=== PATIENT | male | born 1930 | race Caucasian/White ===

== ENCOUNTER 2018-01-22 07:17 | Inpatient (IN) | payer OTHER ==
[~2018-01-22] VITALS: Ht 182.9 cm; Wt 73.8 kg
--- NOTE | 2018-01-22 07:57 | ED CARDIAC/CP/PALPITATIONS ---
History of Present Illness General Chief Complaint: Chest Pain Stated Complaint: CHEST PAIN Source: patient, family Exam Limitations: no limitations Vital Signs & Intake/Output Vital Signs & Intake/Output Vital Signs Date Time Temp Pulse Resp B/P B/P Pulse O2 O2 Flow FiO2 Mean Ox Delivery Rate 01/22 0949 97.7 55 16 174/80 98 Room Air 01/22 0855 56 20 150/80 100 Room Air 01/22 0829 60 20 160/80 100 Room Air 01/22 0753 70 18 198/96 99 Room Air 01/22 0731 98.5 60 18 211/99 99 Room Air Allergies Coded Allergies: NO KNOWN ALLERGIES (09/26/11) Reconcile Medications No Known Home Medications Triage Note: C/O CHEST TIGHTNESS X 2 HOURS, STATES HE GOT UP TO GO TO THE BATHROOM AND FELT DIZZY WITH CHEST PRESSURE. DENIES SOB OR [place]. ALERT, EKG DONE ON ARRIVAL. Triage Nurses Notes Reviewed? yes HPI: Patient is an 87-year-old male who claims no past medical history whatsoever and who takes no daily medications including no aspirin, and who denies family history of heart disease, who presents today with chest pain. He reports that he woke up to urinate earlier this morning and noticed a pressure across his anterior chest. He cannot find a position of comfort when he tried to go back to sleep, and progressed to develop pain to the left neck, jaw, shoulder, and down the left arm. He reported some dyspnea with his pain, but denied nausea or diaphoresis. At arrival, the patient continued to have active chest pressure in his triage vital signs were significant for systolic blood pressure greater than 200 and he denies history of hypertension previously, and reports that he was recently at his PCPs office for constipation and no mention was made of abnormal blood pressure at that time. Past History Travel History Traveled to [place] past 21 day No Medical History Any Pertinent Medical History? none Neurological: NONE EENT: NONE Cardiovascular: NONE Respiratory: NONE Gastrointestinal: NONE Hepatic: NONE Renal: NONE Musculoskeletal: NONE Psychiatric: NONE Endocrine: NONE Tetanus Vaccine: 08/13/12 Surgical History Surgical History: none Psychosocial History Who do you live with Spouse Services at Home None What is your primary language Belarusian Tobacco Use: Never used ETOH Use: denies use Family History Hx Contributory? No Review of Systems Review of Systems Constitutional: Reports: see HPI. EENTM: Reports: no symptoms. Respiratory: Reports: see HPI, short of breath. Denies: cough, wheezing. Cardiovascular: Reports: see HPI, chest pain. Denies: palpitations, peripheral edema, syncope. GI: Reports: no symptoms. Genitourinary: Reports: no symptoms. Musculoskeletal: Reports: no symptoms. Skin: Reports: no symptoms. Neurological/Psychological: Reports: no symptoms. Hematologic/Endocrine: Reports: no symptoms. Immunologic/Allergic: Reports: no symptoms. All Other Systems: Reviewed and Negative Physical Exam Physical Exam Cardiovascular: regular rate/rhythm Comments: HEENT: Inspection of the head reveals a normocephalic cranium with no signs of trauma. Ophtho: Extraocular muscles are intact and pupils are equal and reactive to light bilaterally with no afferent pupillary defect. The sclera are noninjected , and there is no obvious discharge. Neck: The trachea is midline, there is no obvious asymmetry or mass over the thyroid, and there is no midline cervical spine tenderness Respiratory: Bibasilar crackles to the mid lung rojas, mild. Non-hypoxic.. The patient exhibits no signs of labored breathing. Cardiac: Markedly hypertensive. Regular rhythm and non-tachycardic without appreciable murmurs on auscultation. No obvious JVD. GI: Examination of the abdomen reveals no significant focal tenderness in any of the four quadrants. There is negative Barakat's sign, negative McBurney's point tenderness, negative Chualar sign, negative Diaz-Carmona sign, and no signs of peritonitis whatsoever on percussion or deep palpation. The skin is intact with no sign of trauma or infection. : Deferred Neuro: The patient is oriented to person, place, time, and situation, with no obvious focal motor deficits. There were no sensory deficits, and the patient exhibit purposeful movement of all 4 extremities. Cranial nerves II through XII are intact, and gait is normal. Behavioral: Calm and cooperative Dermatologic: Dermatologic examination reveals no diffuse rashes or exanthems, no petechiae, no ecchymoses, and no other signs of erythema or infection. Core Measures ACS in differential dx? Yes CVA/TIA Diagnosis No Sepsis Present: No Sepsis Focused Exam Completed? No Progress Differential Diagnosis: AMI, aortic dissection, atrial fibrillation, CHF/pulm edema, costochondritis, myocarditis, pneumonia, pulmonary embolism, unstable angina Plan of Care: Orders Procedure Date/time Status Heart Healthy Diet 01/22 L Active ED Holding Orders 01/22 1031 Active Admit to inpatient 01/22 1031 Active Code Status 01/22 1031 Active TROPONIN LEVEL 01/22 0750 Complete COMPREHENSIVE METABOLIC PANEL 01/22 0750 Complete CBC WITHOUT DIFFERENTIAL 01/22 0750 Complete B-TYPE NATRIURETIC PEP (BNP) 01/22 0750 Complete EKG 01/22 0717 Active Current Medications Sig/Angeles Start time Last Medication Dose Stop Time Status Admin Nitroglycerin 0.4 MG Q 5 MINUTES X 3 DO.. 01/22 0800 AC 01/22 (Nitrostat) 0837 Laboratory Tests 01/22/18 0834: Anion Gap 10, Estimated GFR 57 L, BUN/Creatinine Ratio 14.2, Glucose 114 H, Calcium 8.8, Total Bilirubin 0.8, AST 60 H, ALT 81 H, Alkaline Phosphatase 141 H, Troponin I 0.04, Lvq-X-Vobheyigxdo Pept 361 H, Total Protein 7.0, Albumin 3.8, Globulin 3.2, Albumin/Globulin Ratio 1.2 01/22/18 0801: CBC w Diff NO MAN DIFF REQ, RBC 5.31, MCV 92.8, MCH 31.5 H, MCHC 34.0, RDW 13.1 , MPV 8.7, Gran % 49.2, Lymphocytes % 41.6, Monocytes % 6.6, Eosinophils % 1.8, Basophils % 0.8, Absolute Granulocytes 2.9, Absolute Lymphocytes 2.4, Absolute Monocytes 0.4, Absolute Eosinophils 0.1, Absolute Basophils 0 Initial ED EKG: Initial ECG performed at 729 hours, read at 733 hours, ate of 65 , normal sinus rhythm, normal axis, KS, QRS, and QTc intervals normal, ST depression exists in V3 through V6, greater than 1 mm in V4 and V5. No ST segment elevationsin those leads, but significant concern for ischemia. 0.[address] segment elevation in aVR not contiguous with any other leads. No STEMI at present, but significant concern for active ischemia. ST depressions are new as compared to 12/29/2012 ECG. Comments: Patient presented for chest pain concerning for acute coronary syndrome. His blood pressure was greater than 200 systolic arrival, which reportedly has not been the case over the past several weeks given and he saw his PCP and no mention was made of it. Today, he woke up with chest pressure radiating to his neck, jaw, and left shoulder and then down his arm. Troponin was negative, and chest x-ray was clear. I did hear some crackles so I obtained a BNP but this was also within normal limits for his age. Patient had no significant improvement with 3 dosages of nitroglycerin. After that he refused further dosages but did accept a dosage of morphine which was somewhat helpful. Hospitalized to telemetry for further workup. Departure Departure Time of Disposition: 1031 Disposition: HOME OR SELF CARE Condition: Stable Clinical Impression Primary Impression: Acute coronary syndrome Referrals: Tal PARDO,Servando Granda (PCP/Family) Departure Forms: Customer Survey General Discharge Information Prescriptions: Current Visit Scripts No Known Home Medications Admission Note Spoke With: Delon PARDO,[facility] Documentation of Exam: Documentation of any treatments & extenuating circumstances including Concerns Regarding Discharge (functional status, medication knowledge or non-compliance, living conditions, etc.) that warrant an admission rather than observation: Patient presented with chest pain which was unresolved with nitroglycerin. Troponin normal, but I feel that this patient is at high risk for progression of possible acute coronary syndrome. Furthermore, he has hypertension which was initially greater than 200 mmHg. This poses an acceptable risk of hypertensive emergency and discharge would be unsafe. Hospitalized for further definitive care. Critical Care Note Critical Care Note Critical Care Time: non-applicable
[2018-01-22 08:16] LABS: ABSOLUTE BASOPHIL COUNT 0 /CUMM (0.0-0.2); ABSOLUTE EOSINOPHIL COUNT 0.1 /CUMM (0.0-0.7); ABSOLUTE GRANULOCYTE CT 2.9 /CUMM (1.4-6.5); ABSOLUTE LYMPH COUNT 2.4 /CUMM (1.2-3.4); ABSOLUTE MONOCYTE COUNT 0.4 /CUMM (0.10-0.60); BASOPHIL % 0.8 % (0.0-2.0); EOSINOPHIL % 1.8 % (0-5); GRANULOCYTE % 49.2 % (42.2-75.2); HEMATOCRIT 49.3 % (42-52); MEAN CORPUSCULAR HGB 31.5 PG (27.0-31.0); MEAN CORPUSCULAR VOLUME 92.8 FL (80.0-94.0); MEAN PLATELET VOLUME 8.7 FL (7.4-10.4); PLATELET COUNT 149 /CUMM (130-400); RBC DISTRIBUTION WIDTH 13.1 % (11.5-14.5); RED BLOOD CELL CT 5.31 /CUMM (4.70-6.10); WHITE BLOOD CELL COUNT 5.8 /CUMM (4.8-10.8)
--- NOTE | 2018-01-22 08:39 | RADIOLOGY REPORT ---
EXAMINATION: XR CHEST CLINICAL INFORMATION: Chest pain COMPARISON: 12/29/2012 TECHNIQUE: 2 views of the chest were obtained. FINDINGS: Lungs are symmetrically expanded. Linear opacity of discoid atelectasis within the lingula. No pulmonary edema, focal consolidation, pleural effusion or pneumothorax. Cardiac silhouette is at the upper range of normal size. Thoracic aorta is tortuous. No acute skeletal abnormality. Chronic degenerative arthropathy of acromioclavicular joints. IMPRESSION: 1. Mild discoid atelectasis within the lingula. 2. Otherwise, no acute cardiopulmonary findings compared to 12/29/2012.
--- NOTE | 2018-01-22 12:12 | History & Physical ---
Julián Ortega 01/22/18 1212: General Information and HPI MD Statement: I have seen and personally examined ANTONIETA WHITTAKER and documented this H&P. The patient is a 87 year old M who presented with a patient stated chief complaint of [chest pain]. Source of Information: patient, family Exam Limitations: no limitations History of Present Illness: Mr. Whittaker is an 87 year old gentleman with a PMH of BPH. He presents to the ER with complaints of chest pain. He states his chest pain started 6am this morning after getting up to use the bathroom. The pain did not wake him up from sleep. The pain is described as heaviness, and radiates to the left shoulder and down the left arm. The pain is 7/10, and is persistent. The pain is a/w dizziness, no n/v, diaphoresis. No complaints of palpitations. He denies change in pain with breathing or movement. He denies any recent history of URTI symptoms. He is not a smoker or drinker, and denies a history of familial heart disease or sudden cardiac in his parents, siblings or 6 children. 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 He was given a full dose ASA in the ER. He was also given SL NTG w/o significant pain relief. His pain is ongoing. His PCP is Dr. Delarosa. Allergies/Medications Allergies: Coded Allergies: NO KNOWN ALLERGIES (09/26/11) Past History Travel History Traveled to [place] past 21 day No Medical History Neurological: NONE EENT: NONE Cardiovascular: NONE Respiratory: NONE Gastrointestinal: NONE Hepatic: NONE Renal: NONE Musculoskeletal: NONE Psychiatric: NONE Endocrine: NONE Tetanus Vaccine: 08/13/12 Surgical History Surgical History: none Past Family/Social History Psychosocial History Services at Home: None ETOH Use: denies use Review of Systems Review of Systems Constitutional: Reports: see HPI. Exam & Diagnostic Data Last 24 Hrs of Vital Signs/I&O Vital Signs Date Time Temp Pulse Resp B/P B/P Pulse O2 O2 Flow FiO2 Mean Ox Delivery Rate 01/22 1231 69 18 172/84 100 Room Air 01/22 1047 97.7 58 16 156/74 98 Room Air 01/22 0949 97.7 55 16 174/80 98 Room Air 01/22 0855 56 20 150/80 100 Room Air 01/22 0829 60 20 160/80 100 Room Air 01/22 0753 70 18 198/96 99 Room Air 01/22 0731 98.5 60 18 211/99 99 Room Air Intake & Output 01/22 1600 01/22 0800 01/22 0000 Intake Total 0 Output Total Balance 0 Intake, Oral 0 Patient 74.843 kg Weight Weight Reported by Patient Measurement Method Physical Exam General Appearance Alert, Oriented X3, Cooperative, No Acute Distress Skin No Rashes, No Significant Lesion HEENT Atraumatic, PERRLA, EOMI Neck Supple, No JVD, No carotid bruit appreciated. Cardiovascular S1S2 with S4 appreciated. No murmurs, rubs or gallops appreciated. , No interarm BP difference. 148/80 in the right, 150/78 in the right., Chest is not tender to palpation., Pulses are equal in the arms bilaterally., Patient is not in overt heart failure. Lungs Clear to Auscultation, Normal Air Movement Abdomen Soft, No Tenderness Extremities No Tenderness/Swelling Last 24 Hrs of Labs/Jay: Laboratory Tests 01/22/18 1237: Troponin I 0.60 *H 01/22/18 0834: Anion Gap 10, Estimated GFR 57 L, BUN/Creatinine Ratio 14.2, Glucose 114 H, Calcium 8.8, Total Bilirubin 0.8, AST 60 H, ALT 81 H, Alkaline Phosphatase 141 H, Troponin I 0.04, Lkt-R-Hmewistvrnv Pept 361 H, Total Protein 7.0, Albumin 3.8, Globulin 3.2, Albumin/Globulin Ratio 1.2 01/22/18 0801: CBC w Diff NO MAN DIFF REQ, RBC 5.31, MCV 92.8, MCH 31.5 H, MCHC 34.0, RDW 13.1 , MPV 8.7, Gran % 49.2, Lymphocytes % 41.6, Monocytes % 6.6, Eosinophils % 1.8, Basophils % 0.8, Absolute Granulocytes 2.9, Absolute Lymphocytes 2.4, Absolute Monocytes 0.4, Absolute Eosinophils 0.1, Absolute Basophils 0 Diagnostic Data EKG Results NSR with normal axis. Inferolateral ST-depressions noted, 0.5-1mm, more pronounced in the precordial leads. Good R-R progression. CXR Results unremarkable Assessment/Plan Assessment: Mr. Whittaker is an 87 year old gentleman with a PMH of BPH. He presents to the ER with complaints of chest pain. His BP has been quite elevated in the ER. I spoke to him, his and son, who state he follows up with Dr. Delarosa routinely, and confirm he is not on any medications, although state he was recently started on BPH meds by Dr. Hairston, which he is not taking. His story/character of his pain is concerning for ACS, specially unstable angina with his first set of troponin negative. The second set is pending. He does have ischemic changes on ECG, anterolateral ST depression, and as he is hypertensive with S4, he may have a history of maksed hypertension, a risk factor for ACS. His interarm BP is unremarkable, and I do not think he is having dissection. Unstable angina vs NSTEMI (with 2nd trop pending): * ASA given in ER. * We will discuss with Cardiology, but plan to start IV heparin for AC and nitropaste for ongoing chest pain with goal of chest pain relief. Hold off on additional antiplatelet meds for now in case he has left main or triple vessel disease. * Continue ASA 81mg daily * Start high dose statin 80mg of atorvastatin. * Serial trops/ecg ordered - next one at 1900. * NPO at mightnight with plans to rsik stratify with exercise stress/nuclear echocardiogram and possibly coronary angiography. * If his BP remains high, we will start MEGAN-i followed by B-win, which will provide cardioprotective effects. NPO at midnight FULL code Pain pathway as ordered As Ranked By This Provider Problem List: 1. Acute coronary syndrome Core Measures/Misc (05/19) Acute Coronary Syndrome ACS Diagnosis: Yes Congestive Heart Failure Congestive Heart Failure Diagnosis No Cerebrovascular Accident CVA/TIA Diagnosis: No VTE (View Protocol) VTE Risk Factors Age>40 No Mechanical VTE Prophylaxis d/t Early Ambulation No VTE Pharm Prophylaxis d/t NA PharmProphylax ordered Sepsis (View protocol) Sepsis Present: No If YES complete Sepsis Event Note If YES complete Sepsis Event Note Eddie Sultana 01/22/18 1514: General Information and HPI Allergies/Medications Home Med list Aspirin (Adult Aspirin Regimen) 81 MG TABLET. 1 TAB PO DAILY HEART Atorvastatin Calcium 80 MG TABLET 80 MG PO DAILY HEART Finasteride 5 MG TABLET 1 TAB PO DAILY BPH (Reported) Heparin Sod,Porcine/0.9 % NaCl (Heparin 25,000 Unit/500 Ml-Ns) 25,000 UNIT/500 ML (50 UNIT/ML) IV.SOLN 1 U IV SEE ADMIN CRITERIA ACS TITRATE PER ACS PROTOCOL Metoprolol Tartrate 25 MG TABLET 25 MG PO BID [facility] Morphine Sulfate 4 MG/ML VIAL 2 MG IV Q4P PRN PAIN SCALE 7-10 (SEVERE) Nitroglycerin/D5w (Ntg 25 MG/250 Ml in D5w) 25 MG/250 ML (0.1 MG/ML) INFUS..BTL 95 MCG IV Q1H CHEST PAIN Tamsulosin HCl 0.4 MG CAP.ER.24H 1 CAP PO DAILY BPH (Reported) Core Measures/Misc (05/19) Sepsis (View protocol) If YES complete Sepsis Event Note If YES complete Sepsis Event Note Attending MD Review Statement Attending Statement Attending MD Statement: examined this patient, discuss w/resident/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 Chest pain is 7/10 and is pressure like with radiation to lt shoulder, neck and jaw. Not relevied by meds in ER. At present his cp is still 7/10 and EKG reviewed showed new ST-T changes suggestive of ischemia which is new. His second trop turned positive at 0.60 NSTEMI- plan to admit to tele. start on iv heparin drip. cont asa, nitro paste , cardio consult. Repeat troponins. Given his typical chest pain and postive trop we will d/w cardio about possible cardiac cath. d/w pt and pts at bedside the care plan.
[2018-01-22] MEDS ORDERED: TAMSULOSIN HCL0.4 M1 PO (12:33)
[2018-01-22] MEDS ORDERED: FINASTERIDE5 M1 PO (12:33)
--- NOTE | 2018-01-22 13:24 | Admission Certification ---
Admission Certification Certification Statement - As attending physician, I certify that at the time of - admission, based on clinical presentation, severity of - symptoms, need for further diagnostic testing and - therapeutic interventions, and risk of adverse outcomes - without in-hospital treatment, in my clinical assessment, - this patient requires an acute hospital stay for a minimum - of two nights or longer. I have also considered psychsocial - factors such as support system, advanced age, financial - issues, cognitive issues, and failed out-patient treatments, - past re-admission history, safety of patient, and lack of - compliance as applicable. Specific rationale supporting this admission is: typical chest pain
[2018-01-22 15:00] VITALS: BP 174/82
--- NOTE | 2018-01-22 16:39 | Event Note ---
Event Note Event Note: Upon reassessment of the patient, his chest pain is slightly improved, but persistent, 6/10 same character as before. He remains hypertensive. Plan to d/ c nitro-paste and start IV NTG drip with goal of chest pain relief with holding parameters for hypotension (sBP <90). Discussed with Cardiology. Plan remains to keep him NPO for possible coronary angiogram tomorrow. Plan to continue serial trops/ECG looking for dynamic ECG changes.
[2018-01-22 20:02] LABS: PTT 51 SEC (25-37)
[2018-01-23] VITALS: BP 130/70
--- NOTE | 2018-01-23 01:20 | Discharge Summary ---
Visit Information Visit Dates Admission Date: 01/22/18 Discharge Date: 01/23/18 Hospital Course Course Attending Physician: Delon PARDO,Pete Primary Care Physician: Tal PARDO,Servando rGanda Consulting Request: Consulting Specialty: Cardiology Consulting Physician: Reason for Consult: Typical chest pain Hospital Course: Patient is an 87-year-old gentleman with no CAD history, no cardiac risk factors such as hypertension, hyperlipidemia, diabetes, smoking, or family history presented to [facility] with complaints of chest pain. Onset was yesterday early in the morning around 6 AM yesterday while getting up to use the bathroom. Patient described the chest pain as pressure-like with radiation to his left shoulder, neck and jaw. On presentation patient rated the pain as 7 out of 10. Associated symptoms included lightheadedness. Vitals on presentation: Heart rate 60, BP 211/99, O2 sats 99% on room air, temperature 98.5. Physical Exam General Appearance Alert, Oriented X3, Cooperative, No Acute Distress Skin No Rashes, No Significant Lesion HEENT Atraumatic, PERRLA, EOMI Neck Supple, No JVD, No carotid bruit appreciated. Cardiovascular S1S2 with S4 appreciated. No murmurs, rubs or gallops appreciated. , No interarm BP difference. 148/80 in the right, 150/78 in the right., Chest is not tender to palpation., Pulses are equal in the arms bilaterally., Patient is not in overt heart failure. Lungs Clear to Auscultation, Normal Air Movement Abdomen Soft, No Tenderness Extremities No Tenderness/Swelling VS at admission T 97.7, HR 56, BP 150/80mmHg, saturating well 2L of oxygen Intial Labs White count 5.8, H&H 16/49, platelet count 149. chem potassium 4.7. initial troponin 0.04. 01/23/2018 labs White count 9.8, H&H 13/40, platelet count 161. Chem Panel sodium 140, potassium 4.0, chloride 103, bicarb 29, anion gap 9, BUN/creatinine 14/1.2, GFR 57. Troponin Trend 0.04 --> 0.60 --> 23 --> 22 EKG 01/22/18 at 8am - sinus rhythm with no R wave in V1 remarkable for ST flattening/depression in I, aVL, V3 to V6. EKG at 01/22/18 at 7pm - sinus rhythm with ST changes similar to previous EKG. R wave present in V1 and persisted for the rest of serial EKGs. Hospital course: Patient was started on aspirin, heparin drip per ACS protocol, atorvastatin 80 mg and nitroglycerin paste (after receiving nitroglycerin sublingual tablets 3) . His chest pain continued to be refractory and persistent despite that Nitropaste. A decision was made to start nitroglycerin drip and patient was transferred to ICU. Overnight, patient was maintained on the nitroglycerin drip rate at 85 mcg/hr. His systolic blood pressure averaged around 110 and HR around mid 70s. Repeat Troponins overnight trended up 4.19-->23.5-->22.3 without acute changes in EKG and he denies any chest pain. This morning he reports mild chest pressure, otherwise no symptoms of shortness of breath. ECHO done on 01/22/18 - Severe hypokinesis to akinesis of posterior wall with EF of 55-60%, mild LVH. Clinical presentation is consistent with posterior myocardial infarction and patient continues to have chest pressure. He is currently on IV heparin, IV nitroglycerin at the rate of 95 mcg/h and restarted on metoprolol 25 twice daily , addition to aspirin and atorvastatin. A decision was made to transfer the patient for emergent cardiac catheterization with Dr. Yahir john. Currently hemodynamically stable. Family members are extensively involved in care, and informed about benefits and risks of the procedure. Home medications include tamsulosin and finasteride for BPH - on hold for now. Full code. Complications: Acute posterior infarction requring transfer for emergent Cath Allergies: Coded Allergies: NO KNOWN ALLERGIES (09/26/11) Significant Procedures: CXR IMPRESSION: 1. Mild discoid atelectasis within the lingula. 2. Otherwise, no acute cardiopulmonary findings compared to 12/29/2012. ECHO 01/23/18 CONCLUSIONS Normal overall left ventricular systolic function with mild LVH. Severe hypokinesia to akinesia of he posterior wall. No significant valvular abnormalities. Ankit Aguirre M.D. (Electronically Signed) Final Date: 23 Jan 2018 08:29 MEASUREMENTS (Male / Female) Normal Values 2D ECHO LV Diastolic Diameter PLAX 3.7 cm 4.2 - 5.9 / 3.9 - 5.3 cm LV Systolic Diameter PLAX 1.8 cm 2.1 - 4.0 cm LV Fractional Shortening PLAX 51.4 % 25 - 46 % LV Ejection Fraction 2D Teich 83.3 % IVS Diastolic Thickness 1.2 cm LVPW Diastolic Thickness 1.2 cm LV Relative Wall Thickness 0.6 RV Internal Dim ED PLAX 2.1 cm 1.9 - 3.8 cm LVOT Diameter 2.4 cm Aortic Root Diameter 3.2 cm LA Systolic Diameter LX 3.6 cm 3.0 - 4.0 / 2.7 - 3.8 cm LA Volume 30.0 cm 18 - 58 / 22 - 52 cm Ascending Aorta Diameter 3.2 cm DOPPLER AV Peak Velocity 99.2 cm/s AV Peak Gradient 3.9 mmHg AV Mean Velocity 71.7 cm/s AV Mean Gradient 2.0 mmHg AV Velocity Time Integral 21.4 cm LVOT Peak Velocity 85.0 cm/s LVOT Peak Gradient 2.9 mmHg LVOT Mean Velocity 59.5 cm/s LVOT Mean Gradient 2.0 mmHg LVOT Velocity Time Integral 16.4 cm LVOT Stroke Volume 74.2 cm AV Area Cont Eq vti 3.5 cm AV Area Cont Eq pk 3.9 cm MV Peak Velocity 112.0 cm/s MV Peak Gradient 5.0 mmHg MV Mean Velocity 54.0 cm/s MV Mean Gradient 1.0 mmHg Mitral E Point Velocity 44.4 cm/s Mitral A Point Velocity 93.3 cm/s Mitral E to A Ratio 0.5 MV PHT Velocity 64.0 cm/s MV Deceleration Millard 205.0 cm/s MV Pressure Half Time 93.7 ms MV Area PHT 2.3 cm MV Deceleration Time 346.0 ms PV Peak Velocity 105.0 cm/s PV Peak Gradient 4.4 mmHg PV Mean Velocity 75.0 cm/s PV Mean Gradient 3.0 mmHg PV Velocity Time Integral 18.8 cm LV E' Lateral Velocity 4.1 cm/s Mitral E to LV E' Lateral Ratio 10.8 LV E' Septal Velocity 5.5 cm/s Mitral E to LV E' Septal Ratio 8.1 Pertinent Lab Results: as above Disposition Summary Disposition Principal Diagnosis: Posterior Type I Myocardial Infarction Additional Diagnosis: Elevated Blood Pressure BPH Nephrectomy Discharge Disposition: other general hospital Discharge Instructions General Discharge Information Code Status: Full Code Patient's Diet: heart healthy Patient's Activity: As tolerated Follow-Up Instructions/Appts: Transferred for cath Medications at Discharge Discharge Medications: Continue taking these medications: Tamsulosin HCl (Tamsulosin HCl) 0.4 MG CAP.ER.24H 1 Capsule ORAL DAILY Qty = 90 Finasteride (Finasteride) 5 MG TABLET 1 Tablet ORAL DAILY Qty = 90 Start taking the following new medications: Nitroglycerin/D5w (Ntg 25 MG/250 Ml in D5w) 25 MG/250 ML (0.1 MG/ML) INFUS..BTL 95 Microgram INTRAVEN Q1H Qty = 250 No Refills Atorvastatin Calcium (Atorvastatin Calcium) 80 MG TABLET 80 Milligram ORAL DAILY Qty = 30 No Refills Morphine Sulfate (Morphine Sulfate) 4 MG/ML VIAL 2 Milligram INTRAVEN EVERY 4 HOURS NEEDED as needed for PAIN SCALE 7-10 ( SEVERE) Qty = 30 No Refills Metoprolol Tartrate (Metoprolol Tartrate) 25 MG TABLET 25 Milligram ORAL TWICE DAILY Qty = 60 No Refills Heparin Sod,Porcine/0.9 % NaCl (Heparin 25,000 Unit/500 Ml-Ns) 25,000 UNIT/500 ML (50 UNIT/ML) IV.SOLN 1 Units INTRAVEN SEE INSTRUCTIONS Qty = 500 No Refills Instructions: TITRATE PER ACS PROTOCOL Aspirin (Adult Aspirin Regimen) 81 MG TABLET. 1 Tablet ORAL DAILY Qty = 30 No Refills Copies To: Tal PARDO,Servando Breen MD Review Statement Documenting Attending: Rd PARDO,Eddie Yang
[2018-01-23] MEDS ORDERED: ATORVASTATIN CA80 M1 PO (01:41)
[2018-01-23] MEDS ORDERED: NTG 25 MG/25 MG/250 IV ×2 (01:41→09:14)
[2018-01-23] MEDS ORDERED: [UNRECOGNIZED DRUG - CODE] IV (01:41)
[2018-01-23] MEDS ORDERED: MORPHINE SU4 MG/1 M2 IV (01:41)
[2018-01-23] MEDS ORDERED: ADULT ASPIRIN R81 MG PO (01:43)
--- NOTE | 2018-01-23 01:44 | Patient Discharge Instructions ---
Discharge Instructions General Discharge Information You were seen/treated for: chest pain leading to heart attack Special Instructions: You are being transfered for a catheter procedure to assess you heart arteries Activity Activity Self Limited: Yes Acute Coronary Syndrome Inclusion Criteria At DC or during hospital stay patient has or had the following: ACS DIAGNOSIS Yes Discharge Core Measures Meds if any: Prescribed or Continued at Discharge MEGAN/ARB if EF <40% No Aspirin Yes Beta-Ramesh Yes Statin Yes Meds if any: NOT Prescribed or Continued at Discharge No MEGAN/ARB d/t EF normal Congestive Heart Failure Inclusion Criteria At DC or during hospital stay patient has or had the following: CHF DIAGNOSIS No Discharge Core Measures Meds if any: Prescribed or Continued at Discharge Meds if any: NOT Prescribed or Continued at Discharge Cerebrovascular accident Inclusion Criteria At DC or during hospital stay patient has or had the following: CVA/TIA Diagnosis No Discharge Core Measures Meds if any: Prescribed or Continued at Discharge Meds if any: NOT Prescribed or Continued at Discharge Venous thromboembolism Inclusion Criteria VTE Diagnosis No VTE Type NONE VTE Confirmed by (Test) NONE Discharge Core Measures - Per Current guidelines, there needs to be overlap - treatment for the first 5 days of Warfarin therapy. - If discharged on Warfarin prior to 5 days of - overlap therapy, the patient will need to be - assessed for post discharge needs including - *Post discharge parental anticoagulation - *Warfarin and/or parental anticoagulation education - *Follow up date to check INR post discharge At least 5 days overlap therapy as Inpatient No Meds if any: Prescribed or Continued at Discharge Note: Overlap Therapy is Warfarin and Anticoagulant Meds if any: NOT Prescribed or Continued at Discharge
[2018-01-23 03:00] LABS: PTT 79 SEC (25-37)
[2018-01-23 05:09] LABS: ABSOLUTE BASOPHIL COUNT 0 /CUMM (0.0-0.2); ABSOLUTE EOSINOPHIL COUNT 0 /CUMM (0.0-0.7); ABSOLUTE MONOCYTE COUNT 0.7 /CUMM (0.10-0.60); BASOPHIL % 0.2 % (0.0-2.0); EOSINOPHIL % 0.3 % (0-5); MEAN CORPUSCULAR HGB 31.6 PG (27.0-31.0); MEAN CORPUSCULAR HGB CONC 33.8 G/DL (33.0-37.0); MEAN CORPUSCULAR VOLUME 93.5 FL (80.0-94.0); MEAN PLATELET VOLUME 8.5 FL (7.4-10.4); PLATELET COUNT 161 /CUMM (130-400); RBC DISTRIBUTION WIDTH 12.7 % (11.5-14.5)
[2018-01-23 05:27] LABS: GRANULOCYTE % 81.6 % (42.2-75.2); HEMATOCRIT 40.2 % (42-52); WHITE BLOOD CELL COUNT 9.8 /CUMM (4.8-10.8)
[2018-01-23 08:00] VITALS: BP 120/66
--- NOTE | 2018-01-23 08:08 | Cons- Cardiology ---
General Information and HPI Consulting Request Date of Consult: 01/24/18 Requested By: Delon PARDO,Pete Reason for Consult: Acute myocardial infarction. Cardiac catheterization Source of Information: patient, old records Exam Limitations: patient's age History of Present Illness: Mr. Myers is an 87 year old gentleman with a PMH of BPH. He presents to the ER with complaints of chest pain. He states his chest pain started 6am this morning after getting up to use the bathroom. The pain did not wake him up from sleep. The pain is described as heaviness, and radiates to the left shoulder and down the left arm. The pain is 7/10, and is persistent. The pain is a/w dizziness, no n/v, diaphoresis. No complaints of palpitations. He denies change in pain with breathing or movement. He denies any recent history of URTI symptoms. He is not a smoker or drinker, and denies a history of familial heart disease or sudden cardiac in his parents, siblings or 6 children. 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 He was given a full dose ASA in the ER. He was also given SL NTG w/o significant pain relief. His pain is ongoing. The above history was obtained by the admitting resident. The patient was admitted with continuous chest heaviness and minimal to scant EKG changes. There was subtle ST depressions in the lateral leads. His chest discomfort mostly relieved itself around 4 AM this morning 01/23/2018. Serial troponins peaked at 22. Serial EKGs demonstrated some subtle ST depressions in the lateral leads whereas this morning he had a tall R-wave in V1 suggestive of a posterior infarct occurring and evvolving over this period of time. He still has some residual chest discomfort and I discussed with him having a cardiac catheterization which she is agreeable to. 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 Allergies/Medications Allergies: Coded Allergies: NO KNOWN ALLERGIES (09/26/11) Home Med List: Aspirin (Adult Aspirin Regimen) 81 MG TABLET.DR 1 TAB PO DAILY HEART Atorvastatin Calcium 80 MG TABLET 80 MG PO DAILY HEART Finasteride 5 MG TABLET 1 TAB PO DAILY BPH (Reported) Heparin Sod,Porcine/0.9 % NaCl (Heparin 25,000 Unit/500 Ml-Ns) 25,000 UNIT/500 ML (50 UNIT/ML) IV.SOLN 1 U IV SEE ADMIN CRITERIA ACS TITRATE PER ACS PROTOCOL Morphine Sulfate 4 MG/ML VIAL 2 MG IV Q4P PRN PAIN SCALE 7-10 (SEVERE) Nitroglycerin/D5w (Ntg 25 MG/250 Ml in D5w) 25 MG/250 ML (0.1 MG/ML) INFUS..BTL 85 MCG IV Q1H CHEST PAIN Tamsulosin HCl 0.4 MG CAP.ER.24H 1 CAP PO DAILY BPH (Reported) Current Medications: Current Medications Sig/Ang[place] Start time Last Medication Dose Route Stop Time Status Admin Acetaminophen 325 MG Q6P PRN 01/22 1330 AC PO Acetaminophen 650 MG Q6P PRN 01/22 1330 AC PO Aspirin 0 .STK-MED ONE 01/22 0812 DC PO Aspirin 325 MG ONCE ONE 01/22 0800 DC 01/22 PO 01/22 0801 0808 Atorvastatin Calcium 80 MG 1700 01/22 1700 AC 01/22 PO 1826 Enoxaparin Sodium 40 MG DAILY 01/23 0900 CAN SC Heparin Sodium 2,200 UNIT ONCE ONE 01/22 2115 DC 01/22 (Porcine) IV 01/23 2116 2030 Heparin Sodium 5,000 UNIT .STK-MED ONE 01/23 2036 DC (Porcine) IV 01/22 203 Heparin Sodium/ 25,000 UNIT Q24H 01/22 1330 AC 01/22 Dextrose IV 1357 Dextrose/Water 500 ML Morphine Sulfate 2 MG Q4P PRN 01/22 1330 AC IV Morphine Sulfate 4 MG ONCE ONE 01/22 1015 DC 01/22 IV 01/22 1016 1011 Morphine Sulfate 0 .STK-MED ONE 01/22 1014 DC .ROUTE Nitroglycerin 25 MG Q24H 01/22 1645 AC 01/23 Dextrose/Water 250 ML IV 0729 Nitroglycerin 0 .STK-MED ONE 01/22 1401 CAN TOP Nitroglycerin 0.5 GM Q6H 01/22 1326 [place] 01/22 TOP 1400 Nitroglycerin 0.4 MG Q 5 MINUTES X 3 DO.. 01/22 0800 DC 01/22 SL 0837 Omeprazole 20 MG DAILY AC 01/23 0615 AC 01/23 PO 0608 Review of Systems Review of Systems Constitutional: Reports: see HPI. EENTM: Denies: no symptoms. Cardiovascular: Reports: see HPI, chest pain. Respiratory: Denies: no symptoms. GI: Reports: no symptoms. Genitourinary: Denies: no symptoms. Musculoskeletal: Denies: no symptoms. Skin: Denies: no symptoms. Neurological/Psychological: Denies: no symptoms. Hematologic/Endocrine: Denies: no symptoms. Immunologic/Allergic: Denies: no symptoms. Past History Travel History Traveled to [place] past 21 day No Medical History Blood Transfusion Hx: No Neurological: NONE EENT: NONE Cardiovascular: NONE Respiratory: NONE Gastrointestinal: NONE Hepatic: NONE Renal: NONE Musculoskeletal: NONE Psychiatric: NONE Endocrine: NONE Surgical History Surgical History: NEPHRECTOMY Family History Relations & Conditions If Any: Relation not specified for: *No pertinent family history Psychosocial History Where Do You Live? Home Services at Home: None Smoking Status: Never Smoked ETOH Use: denies use Exam & Diagnostic Data Vital Signs and I&O Vital Signs Date Time Temp Pulse Resp B/P B/P Pulse O2 O2 Flow FiO2 Mean Ox Delivery Rate 01/23 0400 98 Nasal 3.0L Cannula 01/23 0000 95 Nasal 3.0L Cannula 01/23 0000 98.1 79 20 130/70 95 Nasal 3.0L Cannula 01/22 2000 95 Nasal 2.0L Cannula 01/22 1500 98.2 66 18 174/82 97 Room Air 01/22 1438 Room Air 01/22 1350 98.1 62 20 140/80 100 Room Air 01/22 1231 69 18 172/84 100 Room Air 01/22 1047 97.7 58 16 156/74 98 Room Air 01/22 0949 97.7 55 16 174/80 98 Room Air 01/22 0855 56 20 150/80 100 Room Air 01/22 0829 60 20 160/80 100 Room Air Intake & Output 01/23 0800 01/23 0000 01/22 1600 01/22 0800 01/22 0000 01/21 1600 Intake Total 534 360 0 Output Total 175 Balance 359 360 0 Intake, IV 534 360 Intake, Oral 0 Number 0 Bowel Movements Output, Urine 175 Patient 163 lb 160 lb 158 lb 165 lb Weight Weight Bed scale Bed scale Bed scale Reported by Patient Measurement Method Physical Exam: On general exam patient appeared comfortable although had some mild residual chest Heaviness Head normocephalic atraumatic Eyes sclera anicteric conjunctiva showed no pallor extraocular muscles were normal Neck no jugular venous distention no thyroid masses no palpable nodes Chest lungs were clear bilaterally Heart regular rhythm no murmurs S2 was physiologically split Abdomen soft no organomegaly bowel sounds normal Extremities no clubbing cyanosis or edema Neurological no gross motor or sensory deficits Labs/Jay Results: Laboratory Tests 01/23 01/23 01/23 0700 0430 0230 Chemistry Sodium (137 - 145 mmol/L) 140 Potassium (3.5 - 5.1 mmol/L) 4.0 Chloride (98 - 107 mmol/L) 103 Carbon Dioxide (22 - 30 mmol/L) 29 Anion Gap (5 - 16) 9 BUN (9 - 20 mg/dL) 14 Creatinine (0.7 - 1.2 mg/dL) 1.2 Estimated GFR (>60 ml/min) 57 L BUN/Creatinine Ratio (7 - 25 %) 11.7 Troponin I (<0.11 ng/ml) Cancelled 22.30 *H Triglycerides (<150 mg/dL) 93 Cholesterol (< 200 MG/DL) 110 LDL Cholesterol, Calc (65 - 129 mg/dL) 56 L HDL Cholesterol (40 - 60 mg/dL) 36 L Cholesterol/HDL Ratio (0.00 - 4.88 %) 3 Coagulation APTT (25 - 37 SEC) 79 H Hematology CBC w Diff NO MAN DIFF REQ WBC (4.8 - 10.8 /CUMM) 9.8 RBC (4.70 - 6.10 /CUMM) 4.30 L Hgb (14.0 - 18.0 G/DL) 13.6 L Hct (42 - 52 %) 40.2 L MCV (80.0 - 94.0 FL) 93.5 MCH (27.0 - 31.0 PG) 31.6 H MCHC (33.0 - 37.0 G/DL) 33.8 RDW (11.5 - 14.5 %) 12.7 Plt Count (130 - 400 /CUMM) 161 MPV (7.4 - 10.4 FL) 8.5 Gran % (42.2 - 75.2 %) 81.6 H Lymphocytes % (20.5 - 51.1 %) 10.5 L Monocytes % (1.7 - 9.3 %) 7.4 Eosinophils % (0 - 5 %) 0.3 Basophils % (0.0 - 2.0 %) 0.2 Absolute Granulocytes (1.4 - 6.5 /CUMM) 8.0 H Absolute Lymphocytes (1.2 - 3.4 /CUMM) 1.0 L Absolute Monocytes (0.10 - 0.60 /CUMM) 0.7 H Absolute Eosinophils (0.0 - 0.7 /CUMM) 0 Absolute Basophils (0.0 - 0.2 /CUMM) 0 01/23 01/22 01/22 01/22 0100 1903 1237 0834 Chemistry Sodium (137 - 145 mmol/L) 144 Potassium (3.5 - 5.1 mmol/L) 4.5 Chloride (98 - 107 mmol/L) 105 Carbon Dioxide (22 - 30 mmol/L) 29 Anion Gap (5 - 16) 10 BUN (9 - 20 mg/dL) 17 Creatinine (0.7 - 1.2 mg/dL) 1.2 Estimated GFR (>60 ml/min) 57 L BUN/Creatinine Ratio (7 - 25 %) 14.2 Glucose (65 - 99 mg/dL) 114 H Calcium (8.4 - 10.2 mg/dL) 8.8 Total Bilirubin (0.2 - 1.3 mg/dL) 0.8 AST (17 - 59 U/L) 60 H ALT (21 - 72 U/L) 81 H Alkaline Phosphatase (< 127 U/L) 141 H Troponin I (<0.11 ng/ml) 23.50 *H 4.19 *H 0.60 *H 0.04 [id number] Pept (<125 pg/mL) 361 H Total Protein (6.3 - 8.2 g/dL) 7.0 Albumin (3.5 - 5.0 g/dL) 3.8 Globulin (1.9 - 4.2 gm/dL) 3.2 Albumin/Globulin Ratio (1.1 - 2.2 %) 1.2 Coagulation APTT (25 - 37 SEC) 51 H 01/22 0801 Hematology CBC w Diff NO MAN DIFF REQ WBC (4.8 - 10.8 /CUMM) 5.8 RBC (4.70 - 6.10 /CUMM) 5.31 Hgb (14.0 - 18.0 G/DL) 16.8 Hct (42 - 52 %) 49.3 MCV (80.0 - 94.0 FL) 92.8 MCH (27.0 - 31.0 PG) 31.5 H MCHC (33.0 - 37.0 G/DL) 34.0 RDW (11.5 - 14.5 %) 13.1 Plt Count (130 - 400 /CUMM) 149 MPV (7.4 - 10.4 FL) 8.7 Gran % (42.2 - 75.2 %) 49.2 Lymphocytes % (20.5 - 51.1 %) 41.6 Monocytes % (1.7 - 9.3 %) 6.6 Eosinophils % (0 - 5 %) 1.8 Basophils % (0.0 - 2.0 %) 0.8 Absolute Granulocytes (1.4 - 6.5 /CUMM) 2.9 Absolute Lymphocytes (1.2 - 3.4 /CUMM) 2.4 Absolute Monocytes (0.10 - 0.60 /CUMM) 0.4 Absolute Eosinophils (0.0 - 0.7 /CUMM) 0.1 Absolute Basophils (0.0 - 0.2 /CUMM) 0 Diagnostic Data EKG Results Admission EKG on 01/22/2018 revealed sinus rhythm with mild ST depressions in the inferolateral leads V1 revealed no R-wave. Overnight his EKG latest revealed sinus rhythm with some PVCs slight left axis deviation and a tall R-wave in V1 indicative of a true posterior myocardial infarction CXR Results No acute abnormality Assessment/Plan Assessment/Plan In summary this 87-year-old gentleman was admitted with prolonged chest discomfort described as chest heaviness. Except for nephrectomy he has no other past medical history. He has not been treated for diabetes hypertension hyperlipidemia and is a non-smoker. 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 He is probably evolved a posterior myocardial infarction with continued residual chest discomfort. Hemodynamically has been stable. He is on IV heparin IV nitroglycerin and beta blockers were not initiated because of some bradycardia he was not put on dual antiplatelet agents in the suspicion that he could be a candidate for bypass surgery. I have suggested that he should have a cardiac catheterization and he will be prepared for transfer to [facility] this morning. Consult Acknowledgment - Thank you for your consult request.
--- NOTE | 2018-01-23 08:26 | Cons- CRCU ---
General Information and HPI Consulting Request Date of Consult: 01/23/18 Requested By: Reason for Consult: Ischemic chest pain requiring IV nitroglycerin drip Source of Information: patient, family, old records, EMS Exam Limitations: no limitations History of Present Illness: Mr. Myers is an 87 year old gentleman with a PMH of BPH, nephrectomy. He presents to the ER with complaints of chest pain. He states his chest pain started 6am this morning after getting up to use the bathroom. The pain did not wake him up from sleep. The pain is described as heaviness, and radiates to the left shoulder and down the left arm. The pain is 7/10, and is persistent. The pain is a/w dizziness, no n/v, diaphoresis. No complaints of palpitations. He denies change in pain with breathing or movement. He denies any recent history of URTI symptoms. He is not a smoker or drinker, and denies a history of familial heart disease or sudden cardiac in his parents, siblings or 6 children. 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 He was given a full dose ASA in the ER. He was also given SL NTG w/o significant pain relief. His pain is ongoing. His PCP is Dr. Delarosa. Allergies/Medications Allergies: Coded Allergies: NO KNOWN ALLERGIES (09/26/11) Home Med List: Aspirin (Adult Aspirin Regimen) 81 MG TABLET.DR 1 TAB PO DAILY HEART Atorvastatin Calcium 80 MG TABLET 80 MG PO DAILY HEART Finasteride 5 MG TABLET 1 TAB PO DAILY BPH (Reported) Heparin Sod,Porcine/0.9 % NaCl (Heparin 25,000 Unit/500 Ml-Ns) 25,000 UNIT/500 ML (50 UNIT/ML) IV.SOLN 1 U IV SEE ADMIN CRITERIA ACS TITRATE PER ACS PROTOCOL Metoprolol Tartrate 25 MG TABLET 25 MG PO BID [facility] Morphine Sulfate 4 MG/ML VIAL 2 MG IV Q4P PRN PAIN SCALE 7-10 (SEVERE) Nitroglycerin/D5w (Ntg 25 MG/250 Ml in D5w) 25 MG/250 ML (0.1 MG/ML) INFUS..BTL 95 MCG IV Q1H CHEST PAIN Tamsulosin HCl 0.4 MG CAP.ER.24H 1 CAP PO DAILY BPH (Reported) Current Medications: Current Medications Sig/Angeles Start time Last Medication Dose Route Stop Time Status Admin Acetaminophen 325 MG Q6P PRN 01/22 1330 DCD PO Acetaminophen 650 MG Q6P PRN 01/22 1330 DCD PO Atorvastatin Calcium 80 MG 1700 01/22 1700 DCD 01/22 PO 1826 Enoxaparin Sodium 40 MG DAILY 01/23 0900 CAN SC Heparin Sodium 2,200 UNIT ONCE ONE 01/22 2115 DC 01/22 (Porcine) IV 01/23 2116 2030 Heparin Sodium 5,000 UNIT .STK-MED ONE 01/23 2036 DC (Porcine) IV 01/22 2037 Heparin Sodium/ 25,000 UNIT Q24H 01/22 1330 DCD 01/22 Dextrose IV 1357 Dextrose/Water 500 ML Metoprolol Tartrate 25 MG BID 01/23 0900 DCD 01/23 PO 0902 Morphine Sulfate 2 MG Q4P PRN 01/22 1330 DCD IV Nitroglycerin 25 MG Q24H 01/22 1645 DCD 01/23 Dextrose/Water 250 ML IV 1208 Nitroglycerin 0 .STK-MED ONE 01/22 1401 CAN TOP Nitroglycerin 0.5 GM Q6H 01/22 1326 DC 01/22 TOP 1400 Nitroglycerin 0.4 MG Q 5 MINUTES X 3 DO.. 01/22 0800 DC 01/22 SL 0837 Omeprazole 20 MG DAILY AC 01/23 0615 DCD 01/23 PO 0608 Past History Travel History Traveled to [place] past 21 day No Medical History Blood Transfusion Hx: No Neurological: NONE EENT: NONE Cardiovascular: NONE Respiratory: NONE Gastrointestinal: NONE Hepatic: NONE Renal: NONE Musculoskeletal: NONE Psychiatric: NONE Endocrine: NONE Surgical History Surgical History: NEPHRECTOMY Family History Relations & Conditions If Any: Relation not specified for: *No pertinent family history Psychosocial History Where Do You Live? Home Services at Home: None Smoking Status: Never Smoked ETOH Use: denies use Exam & Diagnostic Data Last 24 Hrs of Vital Signs/I&O Vital Signs Date Time Temp Pulse Resp B/P B/P Pulse O2 O2 Flow FiO2 Mean Ox Delivery Rate 01/23 0400 98 Nasal 3.0L Cannula 01/23 0000 95 Nasal 3.0L Cannula 01/23 0000 98.1 79 20 130/70 95 Nasal 3.0L Cannula 01/22 2000 95 Nasal 2.0L Cannula 01/22 1500 98.2 66 18 174/82 97 Room Air 01/22 1438 Room Air 01/22 1350 98.1 62 20 140/80 100 Room Air 01/22 1231 69 18 172/84 100 Room Air 01/22 1047 97.7 58 16 156/74 98 Room Air 01/22 0949 97.7 55 16 174/80 98 Room Air 01/22 0855 56 20 150/80 100 Room Air 01/22 0829 60 20 160/80 100 Room Air Intake & Output 01/23 1600 01/23 0800 05 0000 Intake Total 534 360 Output Total 175 Balance 359 360 Intake, IV 534 360 Number 0 Bowel Movements Output, Urine 175 Patient 73.765 kg 72.575 kg Weight Weight Bed scale Bed scale Measurement Method Physical Exam General Appearance: well developed/nourished, no apparent distress, alert, awake , moderate distress Head: atraumatic, normal appearance Eyes: Bilateral: normal appearance, PERRL, EOMI. Ears, Nose, Throat: normal pharynx, normal ENT inspection Neck: normal inspection, supple, full range of motion Respiratory: normal breath sounds, chest non-tender, no respiratory distress, quiet respiration, lungs clear Cardiovascular: regular rate/rhythm, normal peripheral pulses, No mumurs Mild bradycardia at presentation - today HR 80 Peripheral Pulses: 2+ radial (R), 2+ radial (L) Gastrointestinal: normal bowel sounds, soft, non-tender, no organomegaly Last 48 Hrs of Labs/Jay: Laboratory Tests 01/23/18 0700: Troponin I Cancelled 01/23/18 0430: Anion Gap 9, Estimated GFR 57 L, BUN/Creatinine Ratio 11.7, Troponin I 22.30 *H , Triglycerides 93, Cholesterol 110, LDL Cholesterol, Calc 56 L, HDL Cholesterol 36 L, Cholesterol/HDL Ratio 3, CBC w Diff NO MAN DIFF REQ, RBC 4.30 L, MCV 93.5, MCH 31.6 H, MCHC 33.8, RDW 12.7, MPV 8.5, Gran % 81.6 H, Lymphocytes % 10.5 L, Monocytes % 7.4, Eosinophils % 0.3, Basophils % 0.2, Absolute Granulocytes 8.0 H, Absolute Lymphocytes 1.0 L, Absolute Monocytes 0.7 H, Absolute Eosinophils 0, Absolute Basophils 0 01/23/18 0230: APTT 79 H 01/23/18 0100: Troponin I 23.50 *H 01/22/18 1903: Troponin I 4.19 *H, APTT 51 H 01/22/18 1237: Troponin I 0.60 *H 01/22/18 0834: Anion Gap 10, Estimated GFR 57 L, BUN/Creatinine Ratio 14.2, Glucose 114 H, Calcium 8.8, Total Bilirubin 0.8, AST 60 H, ALT 81 H, Alkaline Phosphatase 141 H, Troponin I 0.04, [id number] Pept 361 H, Total Protein 7.0, Albumin 3.8, Globulin 3.2, Albumin/Globulin Ratio 1.2 01/22/18 0801: CBC w Diff NO MAN DIFF REQ, RBC 5.31, MCV 92.8, MCH 31.5 H, MCHC 34.0, RDW 13.1 , MPV 8.7, Gran % 49.2, Lymphocytes % 41.6, Monocytes % 6.6, Eosinophils % 1.8, Basophils % 0.8, Absolute Granulocytes 2.9, Absolute Lymphocytes 2.4, Absolute Monocytes 0.4, Absolute Eosinophils 0.1, Absolute Basophils 0 Diagnostic Data EKG Results EKG 01/22/18 at 8am - sinus rhythm with no R wave in V1 remarkable for ST flattening/depression in I, aVL, V3 to V6. EKG at 01/22/18 at 7pm - sinus rhythm with ST changes similar to previous EKG. R wave present in V1 and persisted for the rest of serial EKGs. CXR Results IMPRESSION: 1. Mild discoid atelectasis within the lingula. 2. Otherwise, no acute cardiopulmonary findings compared to 12/29/2012. Assessment/Plan CRCU Impression/Plan: Patient is an 87-year-old gentleman with no CAD history, no known cardiac risk factors (Non HTN, nonDiabetic, nonsmoker, no significant family history) presented to [place] ED with complaints of chest pain. Onset was yesterday early in the morning around 6 AM yesterday while getting up to use the bathroom. Patient described the chest pain as pressure-like with radiation to his left shoulder, neck and jaw. On presentation patient rated the pain as 7/10. Associated symptoms included lightheadedness. Vitals on presentation: Heart rate 60, BP 211/99, O2 sats 99% 2l, temperature 98.5. Physical Exam - AAO X 3, Neck Supple, No JVD, No carotid bruit appreciated. Cardiovascular S1S2 with S4 appreciated. No murmurs, rubs or gallops appreciated. No interarm BP difference. 148/80 in the right, 150/78 in the right., Chest is not tender to palpation, Lungs Clear to Auscultation, no edema. Intial Labs White count 5.8, H&H 16/49, platelet count 149. chem potassium 4.7. initial troponin 0.04. 01/23/2018 labs White count 9.8, H&H 13/40, platelet count 161. Chem Panel sodium 140, potassium 4.0, chloride 103, bicarb 29, anion gap 9, BUN/creatinine 14/1.2, GFR 57. Troponin Trend 0.04 --> 0.60 --> 23 --> 22 EKG 01/22/18 at 8am - sinus rhythm with no R wave in V1 remarkable for ST flattening/depression in I, aVL, V3 to V6. EKG at 01/22/18 at 7pm - sinus rhythm with ST changes similar to previous EKG. R wave present in V1 and persisted for the rest of serial EKGs. Problem list 1. Acute posterior myocardial infarction 2. BPH on finasteride/tamsulosin 3. Bradycardia at presentation - improved 4. Nephrectomy in the past. Acute posterior Myocardial Infarcation Patient was started on aspirin, heparin drip per ACS protocol, atorvastatin 80 mg and nitroglycerin paste (after receiving nitroglycerin sublingual tablets 3). Patient remained refractory to Nitropaste so transferred to ICU and started on IV nitroglycerine drip. Overnight, patient was maintained on the nitroglycerin drip rate at 85 mcg/hr. His systolic blood pressure averaged around 110 and HR around mid 70s. Repeat Troponins overnight trend 4.19-->23.5-->22.3 with appearence on R wave in V1 and he did have mild chest pain. This morning he reports mild chest pressure, otherwise no symptoms of shortness of breath. ECHO done on 01/23/18 - Severe hypokinesis to akinesis of posterior wall with EF of 55-60%, mild LVH. Given clinical presentation is consistent with posterior myocardial infarction and patient continues to have chest pressure. A decision was made to transfer to [facility] under Dr. Yahir Dumont service. Stared on metoprolol 25mg BID this morning, given HR 80's. He remained hemodynamically stable till the time of transfer. He was continued on IV Heparin /IV nitro at the time of transfer. Family members are extensively involved in care, and informed about benefits and risks of the procedure. Home medications include tamsulosin and finasteride for BPH - on hold for now. Full code. Recommendations: as above Problem List: 1. Acute coronary syndrome 2. Posterior NC Consult Acknowledgment - Thank you for your consult request.
--- NOTE | 2018-01-23 08:29 | ECHOCARDIOGRAM REPORT ---
ANTONIETA WHITTAKER Age: 87 : 1930 Gender: M Exam Date: 01/22/2018 19:11 Exam Location: [facility] Ht (in): 72 Wt (lb): 165 BSA: 1.95 BP: 174 / 82 Ordering Physician: Julián Ortega MD Referring Physician: Mohan Ash M.D. Technologist: Norma Bingham RDCS Room Number: 107 Indications: CHEST PAIN Rhythm: Sinus Technical Quality: fair FINDINGS Left Ventricle Normal size left ventricle. Left ventricular wall thickness mildly increased. Normal left ventricular ejection fraction estimated at 55-60%. Akinetic posterior wall. Right Ventricle Normal right ventricular size and function. Right Atrium Normal right atrial size. Left Atrium Normal left atrial size. Mitral Valve Mild mitral annular calcification. Trace to mild mitral regurgitation. Aortic Valve Diffuse thickening (sclerosis) of the aortic valve cusps without reduced excursion. Tricuspid Valve Tricuspid valve is normal in structure and function. Mild tricuspid regurgitation. Pulmonic Valve Pulmonic valve not well visualized, grossly normal. Pericardium No pericardial effusion. Great Vessels Normal size aortic root. CONCLUSIONS Normal overall left ventricular systolic function with mild LVH. Severe hypokinesia to akinesia of he posterior wall. No significant valvular abnormalities. Ankit Aguirre M.D. (Electronically Signed) Final Date: 23 Jan 2018 08:29 MEASUREMENTS (Male / Female) Normal Values 2D ECHO LV Diastolic Diameter PLAX 3.7 cm 4.2 - 5.9 / 3.9 - 5.3 cm LV Systolic Diameter PLAX 1.8 cm 2.1 - 4.0 cm LV Fractional Shortening PLAX 51.4 % 25 - 46 % LV Ejection Fraction 2D Teich 83.3 % IVS Diastolic Thickness 1.2 cm LVPW Diastolic Thickness 1.2 cm LV Relative Wall Thickness 0.6 RV Internal Dim ED PLAX 2.1 cm 1.9 - 3.8 cm LVOT Diameter 2.4 cm Aortic Root Diameter 3.2 cm LA Systolic Diameter LX 3.6 cm 3.0 - 4.0 / 2.7 - 3.8 cm LA Volume 30.0 cm 18 - 58 / 22 - 52 cm Ascending Aorta Diameter 3.2 cm DOPPLER AV Peak Velocity 99.2 cm/s AV Peak Gradient 3.9 mmHg AV Mean Velocity 71.7 cm/s AV Mean Gradient 2.0 mmHg AV Velocity Time Integral 21.4 cm LVOT Peak Velocity 85.0 cm/s LVOT Peak Gradient 2.9 mmHg LVOT Mean Velocity 59.5 cm/s LVOT Mean Gradient 2.0 mmHg LVOT Velocity Time Integral 16.4 cm LVOT Stroke Volume 74.2 cm AV Area Cont Eq vti 3.5 cm AV Area Cont Eq pk 3.9 cm MV Peak Velocity 112.0 cm/s MV Peak Gradient 5.0 mmHg MV Mean Velocity 54.0 cm/s MV Mean Gradient 1.0 mmHg Mitral E Point Velocity 44.4 cm/s Mitral A Point Velocity 93.3 cm/s Mitral E to A Ratio 0.5 MV PHT Velocity 64.0 cm/s MV Deceleration [place] 205.0 cm/s MV Pressure Half Time 93.7 ms MV Area PHT 2.3 cm MV Deceleration Time 346.0 ms PV Peak Velocity 105.0 cm/s PV Peak Gradient 4.4 mmHg PV Mean Velocity 75.0 cm/s PV Mean Gradient 3.0 mmHg PV Velocity Time Integral 18.8 cm LV E' Lateral Velocity 4.1 cm/s Mitral E to LV E' Lateral Ratio 10.8 LV E' Septal Velocity 5.5 cm/s Mitral E to LV E' Septal Ratio 8.1
[2018-01-23 09:02] VITALS: BP 117/58
[2018-01-23] MEDS ORDERED: METOPROLOL TART25 M1 PO (09:12)
--- NOTE | 2018-01-23 12:50 | Cons- CRCU ---
General Information and HPI Consulting Request Date of Consult: 01/23/18 Requested By: med team History of Present Illness: Seen in ICU Discussed with the pt and family History from admission Mr. Myers is an 87 year old gentleman with a PMH of BPH. He presents to the ER with complaints of chest pain. He states his chest pain started 6am this morning after getting up to use the bathroom. The pain did not wake him up from sleep. The pain is described as heaviness, and radiates to the left shoulder and down the left arm. The pain is 7/10, and is persistent. The pain is a/w dizziness, no n/v, diaphoresis. No complaints of palpitations. He denies change in pain with breathing or movement. He denies any recent history of URTI symptoms. He is not a smoker or drinker, and denies a history of familial heart disease or sudden cardiac in his parents, siblings or 6 children. 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 He was given a full dose ASA in the ER. He was also given SL NTG w/o significant pain relief. His pain has resolved by the time i saw him The patient was admitted with continuous chest heaviness and minimal to scant EKG changes. There was subtle ST depressions in the lateral leads. His chest discomfort mostly relieved itself around 4 AM this morning 01/23/2018. Serial troponins peaked at 22. Serial EKGs demonstrated some subtle ST depressions in the lateral leads whereas this morning he had a tall R-wave in V1 suggestive of a posterior infarct occurring and evolving over this period of time per cardio No pain occ nausea and pt was comfortable now Constitutional: Reports: see HPI. EENTM: Denies: no symptoms. Cardiovascular: Reports: see HPI, chest pain. Respiratory: Denies: no symptoms. GI: Reports: no symptoms. Genitourinary: Denies: no symptoms. Musculoskeletal: Denies: no symptoms. Skin: Denies: no symptoms. Neurological/Psychological: Denies: no symptoms. Hematologic/Endocrine: Denies: no symptoms. Immunologic/Allergic: Denies: no symptoms. Allergies/Medications Allergies: Coded Allergies: NO KNOWN ALLERGIES (09/26/11) Home Med List: Aspirin (Adult Aspirin Regimen) 81 MG TABLET.DR 1 TAB PO DAILY HEART Atorvastatin Calcium 80 MG TABLET 80 MG PO DAILY HEART Finasteride 5 MG TABLET 1 TAB PO DAILY BPH (Reported) Heparin Sod,Porcine/0.9 % NaCl (Heparin 25,000 Unit/500 Ml-Ns) 25,000 UNIT/500 ML (50 UNIT/ML) IV.SOLN 1 U IV SEE ADMIN CRITERIA ACS TITRATE PER ACS PROTOCOL Metoprolol Tartrate 25 MG TABLET 25 MG PO BID [facility] Morphine Sulfate 4 MG/ML VIAL 2 MG IV Q4P PRN PAIN SCALE 7-10 (SEVERE) Nitroglycerin/D5w (Ntg 25 MG/250 Ml in D5w) 25 MG/250 ML (0.1 MG/ML) INFUS..BTL 95 MCG IV Q1H CHEST PAIN Tamsulosin HCl 0.4 MG CAP.ER.24H 1 CAP PO DAILY BPH (Reported) Review of Systems Review of Systems Constitutional: Reports: see HPI. Past History Travel History Traveled to [place] past 21 day No Medical History Blood Transfusion Hx: No Neurological: NONE EENT: NONE Cardiovascular: NONE Respiratory: NONE Gastrointestinal: NONE Hepatic: NONE Renal: NONE Musculoskeletal: NONE Psychiatric: NONE Endocrine: NONE Surgical History Surgical History: NEPHRECTOMY Family History Relations & Conditions If Any: Relation not specified for: *No pertinent family history Psychosocial History Where Do You Live? Home Services at Home: None Smoking Status: Never Smoked ETOH Use: denies use Exam & Diagnostic Data Last 24 Hrs of Vital Signs/I&O Vital Signs Date Time Temp Pulse Resp B/P B/P Pulse O2 O2 Flow FiO2 Mean Ox Delivery Rate 01/23 0902 82 117/58 01/23 0800 Nasal 3.0L Cannula 01/23 0800 98.0 78 20 120/66 95 Room Air 01/23 0400 98 Nasal 3.0L Cannula 01/23 0000 95 Nasal 3.0L Cannula 01/23 0000 98.1 79 20 130/70 95 Nasal 3.0L Cannula 01/22 2000 95 Nasal 2.0L Cannula 01/22 1500 98.2 66 18 174/82 97 Room Air 01/22 1438 Room Air 01/22 1350 98.1 62 20 140/80 100 Room Air Intake & Output 01/23 1600 01/23 0800 01/23 0000 Intake Total 534 360 Output Total 175 Balance 359 360 Intake, IV 534 360 Number 0 Bowel Movements Output, Urine 175 Patient 163 lb 160 lb Weight Weight Bed scale Bed scale Measurement Method Last 48 Hrs of Labs/Jay: Laboratory Tests 01/23/18 0700: Troponin I Cancelled 01/23/18 0430: Anion Gap 9, Estimated GFR 57 L, BUN/Creatinine Ratio 11.7, Troponin I 22.30 *H , Triglycerides 93, Cholesterol 110, LDL Cholesterol, Calc 56 L, HDL Cholesterol 36 L, Cholesterol/HDL Ratio 3, CBC w Diff NO MAN DIFF REQ, RBC 4.30 L, MCV 93.5, MCH 31.6 H, MCHC 33.8, RDW 12.7, MPV 8.5, Gran % 81.6 H, Lymphocytes % 10.5 L, Monocytes % 7.4, Eosinophils % 0.3, Basophils % 0.2, Absolute Granulocytes 8.0 H, Absolute Lymphocytes 1.0 L, Absolute Monocytes 0.7 H, Absolute Eosinophils 0, Absolute Basophils 0 01/23/18 0230: APTT 79 H 01/23/18 0100: Troponin I 23.50 *H 01/22/18 1903: Troponin I 4.19 *H, APTT 51 H 01/22/18 1237: Troponin I 0.60 *H 01/22/18 0834: Anion Gap 10, Estimated GFR 57 L, BUN/Creatinine Ratio 14.2, Glucose 114 H, Calcium 8.8, Total Bilirubin 0.8, AST 60 H, ALT 81 H, Alkaline Phosphatase 141 H, Troponin I 0.04, [id number] Pept 361 H, Total Protein 7.0, Albumin 3.8, Globulin 3.2, Albumin/Globulin Ratio 1.2 01/22/18 0801: CBC w Diff NO MAN DIFF REQ, RBC 5.31, MCV 92.8, MCH 31.5 H, MCHC 34.0, RDW 13.1 , MPV 8.7, Gran % 49.2, Lymphocytes % 41.6, Monocytes % 6.6, Eosinophils % 1.8, Basophils % 0.8, Absolute Granulocytes 2.9, Absolute Lymphocytes 2.4, Absolute Monocytes 0.4, Absolute Eosinophils 0.1, Absolute Basophils 0 Assessment/Plan [facility] Impression/Plan: On general exam patient appeared comfortable although had some mild residual chest Heaviness Head normocephalic atraumatic Eyes sclera anicteric conjunctiva showed no pallor extraocular muscles were normal Neck no jugular venous distention no thyroid masses no palpable nodes Chest lungs were clear bilaterally Heart regular rhythm no murmurs S2 was physiologically split Abdomen soft no organomegaly bowel sounds normal Extremities no clubbing cyanosis or edema Neurological no gross motor or sensory deficitsImpression This is a gentleman with on and off chest discomfort, came into the hospital with chest discomfort and pain with subtle EKG changes. Since he came in here it appears that he is having a posterior wall IL and now is chest pain-free when I saw him. Cardiology consult has already been obtained by the time I was called and he is being scheduled to go to [facility] for immediate cardiac catheterization. He has history of nephrectomy, hypertension, diabetes and hyperlipidemia is a nonsmoker. Is quite active. And since admission he has been on appropriate medication including IV nitroglycerin, heparin and less patient was bradycardic his beta blockers initially was not started. He is on appropriate medication including high-dose statin. Issues include Acute posterior wall IL which is involving a cardiac cath Hypertension, hyperlipidemia on appropriate medication Mild bradycardia hence judicious use of beta win Previous BPH Plan Continue anticoagulation per cardiology Immediate cardiac Antiplatelet therapy is ordered to be given Proton pump inhibitor Discussed with the family extensively Patient is critically ill total time spent 36 minutes Consult Acknowledgment - Thank you for your consult request.
== END 2018-01-23 12:24 | disposition short-term general hospital (02) | DRG 282 ==
LOC: ERH 07:17 → ERHI 10:31 → CRI 10:31 → ENRESERV 13:08 → ENTRNSPT 14:23 → EDTRNSPTSTS 14:26 → EDTRNSPT 14:26 → 1NO 14:37 → CMPTRNSPT 14:51 → CRI 16:44
PROVIDERS: Hospitalist; Internal Medicine Cardiovascular Disease; Student in an Organized Health Care Education/Training Program
DX: I21.4 Non-ST elevation (NSTEMI) myocardial infarction (principal); I10 Essential (primary) hypertension; N40.0 Benign prostatic hyperplasia without lower urinary tract symptoms; Z90.5 Acquired absence of kidney
CPT/HCPCS: CCU; 71046; 82436; 93005; 93010; 93306; 96374; 96375; 99291; J1644; J7060

== ENCOUNTER 2018-02-04 10:18 | Inpatient (IN) | payer OTHER ==
[~2018-02-04] VITALS: Ht 182.9 cm; Wt 75.1 kg
[~2018-02-04 10:18] MED LIST: ADULT ASPIRIN R81 MG PO; ATORVASTATIN CA80 M1 PO; FINASTERIDE5 M1 PO; METOPROLOL TART25 M1 PO; MORPHINE SU4 MG/1 M2 IV; NTG 25 MG/25 MG/250 IV; TAMSULOSIN HCL0.4 M1 PO; [UNRECOGNIZED DRUG - CODE] IV
--- NOTE | 2018-02-04 11:38 | ED GI/GU/ABDOMINAL COMPLAINT ---
History of Present Illness General Chief Complaint: General Adult Stated Complaint: SENT BY SHARDA FOR EVAL Source: patient Exam Limitations: no limitations Vital Signs & Intake/Output Vital Signs & Intake/Output Vital Signs Date Time Temp Pulse Resp B/P B/P Pulse O2 O2 Flow FiO2 Mean Ox Delivery Rate 02/05 0543 97.8 70 22 118/64 94 Room Air 06/05 2241 98.6 83 21 102/60 92 Room Air 06/05 2133 106/60 06/05 1901 101.1 91 118/60 06/05 1901 20 92 Room Air 06/05 1822 99.0 91 20 114/69 94 Room Air 06/05 1716 99.1 87 24 107/55 95 Room Air 06/05 1435 99.3 110 18 124/70 95 Room Air 06/05 1248 94 Room Air 06/05 1144 98.2 91 18 111/55 94 Room Air ED Intake and Output 02/05 0000 06/05 1200 Intake Total 1720 Output Total Balance 1720 Intake, IV 1600 Intake, Oral 120 Patient 156 lb 156 lb Weight Weight Estimated Measurement Method Allergies Coded Allergies: NO KNOWN ALLERGIES (09/26/11) Reconcile Medications Aspirin (Adult Aspirin Regimen) 81 MG TABLET. 1 TAB PO DAILY HEART Atorvastatin Calcium 80 MG TABLET 80 MG PO DAILY HEART Finasteride 5 MG TABLET 1 TAB PO DAILY BPH (Reported) Metoprolol Tartrate 25 MG TABLET 25 MG PO BID heart health Tamsulosin HCl 0.4 MG CAP.ER.24H 1 CAP PO DAILY BPH (Reported) Ticagrelor (Brilinta) 90 MG TABLET 1 TAB PO BID BLOOD THINNER (Reported) Triage Note: PT HAD NSTEMI ON 01/23/18 AND SHIPPED TO [facility] FOR CARDIAC CATHETER AND STENT. PT SIB DR ROBIN TODAY D/T RESULTS FROM CXR YESTERDAY AT [facility]. OF PT STATES HE HASN'T BEEN HIMSELF SINCE THE STENT. STATES HE SLEEPS 20 HRS A DAY, NO BM X 1.5 WEEKS. PT C/O STEADY ACHE IN HIS ABDOMEN Triage Nurses Notes Reviewed? yes Onset: Abrupt Duration: week(s): (4), constant Timing: recent history Quality/Severity: dullness Location: generalized abdomen Radiation: no radiation HPI: 87-year-old male comes into the emergency room for further evaluation of generalized abdominal pain that is dull in nature. Denies any fever chills vomiting. Denies any shortness of breath. Patient has been feeling generally weak. He was recently admitted here to the hospital and had been transferred to [facility] and had stents placed. He is not been feeling well previously before that. Other than the recent diagnosis of coronary disease and stent placement 2. denies any other past medical history other than kidney cancer and a nephrectomy that was performed. Patient reports some dullness and nausea. No bowel movement in a week and a half. Intermittent vomiting. Denies any chest pain shortness of breath currently. Denies any fever. Comes in for further evaluation. Apparently the patient had an abdominal x-ray which was abnormal by his primary care doctor and was sent to the hospital be checked. (Andrei Leyva) Past History Travel History Traveled to [place] past 21 day No Medical History Any Pertinent Medical History? see below for history Neurological: NONE EENT: NONE Cardiovascular: CVD Respiratory: NONE Gastrointestinal: NONE Hepatic: NONE Renal: NONE Musculoskeletal: NONE Psychiatric: NONE Endocrine: NONE History of MRSA: No History of VRE: No History of CDIFF: No Tetanus Vaccine: 08/13/12 Surgical History Surgical History: NEPHRECTOMY Psychosocial History Who do you live with Spouse Services at Home None What is your primary language Norwegian Tobacco Use: Never used ETOH Use: denies use Illicit Drug Use: denies illicit drug use Family History Family History, If Any: Relation not specified for: *No pertinent family history Hx Contributory? No (Andrei Leyva) Review of Systems Review of Systems Constitutional: Reports: see HPI. EENTM: Reports: no symptoms. Respiratory: Reports: no symptoms. Cardiovascular: Reports: no symptoms. GI: Reports: see HPI. Genitourinary: Reports: no symptoms. Musculoskeletal: Reports: no symptoms. Skin: Reports: no symptoms. Neurological/Psychological: Reports: see HPI. Hematologic/Endocrine: Reports: no symptoms. Immunologic/Allergic: Reports: no symptoms. All Other Systems: Reviewed and Negative (Andrei Leyva) Physical Exam Physical Exam General Appearance: well developed/nourished, alert, awake Head: atraumatic Eyes: Bilateral: normal appearance. Ears, Nose, Throat, Mouth: hearing grossly normal, moist mucous membrane Neck: normal inspection Respiratory: normal breath sounds, no respiratory distress Cardiovascular: regular rate/rhythm Gastrointestinal: soft, tenderness (MILD) Back: normal inspection Extremities: NO EDEMA Neurologic/Psych: awake, alert Skin: intact, normal color Core Measures ACS in differential dx? No Sepsis Present: No Sepsis Focused Exam Completed? No (Kurt OKEEFE,Andrei) Progress Differential Diagnosis: appendicitis, bowel obstruction, colon cancer, diverticulitis, gastritis, SBO, urinary retention, sigmoid volvulus, constipation, Plan of Care: Orders Procedure Date/time Status Renal Dialysis Diet 02/05 L Active Change service to 02/05 07 Active CBC WITHOUT DIFFERENTIAL 02/05 600 Active BASIC ELECTROLYTES PLUS BUN&CR 02/05 600 Active MRI-ABD W/O-W CARISSA 02/05 UNK Active Renal Dialysis Diet 02/04 D Complete LACTIC ACID 02/04 2009 Complete Weight 02/04 185 Active Vital Signs 02/04 1857 Active Teach/Educate 02/04 1857 Active Pain Treatment and Response 02/04 1857 Active Nutritional Intake, Monitor 02/04 1857 Active Isolation 02/04 1857 Active Intake & Output 02/04 185 Active Patient Care Conference 02/04 185 Active Activity/Ambulation 02/04 185 Active Pathway - chart 02/04 1625 Active House Staff 02/04 1625 Active Patient Data 02/04 1625 Active Code Status 02/04 1625 Active Patient Data 02/04 1445 Active Intake & Output 02/04 1436 Active Patient Data 02/04 1435 Active ED Holding Orders 02/04 1424 Active Admit to inpatient 02/04 1424 Active Code Status 02/04 1424 Complete LACTIC ACID 02/04 1225 Complete TROPONIN LEVEL 02/04 1058 Complete PARTIAL THROMBOPLASTIN TIME 02/04 1058 Complete PROTHROMBIN TIME 02/04 1058 Complete COMPREHENSIVE METABOLIC PANEL 02/04 1058 Complete CBC WITHOUT DIFFERENTIAL 02/04 1058 Complete EKG 02/04 1032 Active Lab Add-on Test 02/04 UNK Active VTE Mechanical Prophylaxis 02/04 UNK Active Intake & Output 02/04 UNK Complete Hemoccult 02/04 UNK Active Current Medications Sig/Angeles Start time Last Medication Dose Stop Time Status Admin Aspirin Buffered 81 MG DAILY 02/05 900 AC (Ecotrin) Atorvastatin Calcium 80 MG DAILY 02/05 900 AC (Lipitor) Finasteride 5 MG DAILY 02/05 900 CAN (Proscar) Tamsulosin HCl 0.4 MG DAILY 06/06 0900 CAN (Flomax) Metoprolol Tartrate 25 MG BID 02/04 2100 AC (Lopressor) Sodium Chloride 1,000 ML Q8H 02/04 2100 AC 02/05 (Normal Saline 0.9%) 0636 Ticagrelor 90 MG BID 02/04 2100 AC 02/04 (Brilinta) 2130 Polyethylene Glycol 17 GM DAILY 02/04 1846 AC (Miralax) Acetaminophen 650 MG Q4P PRN 02/04 1730 AC (Tylenol) Laboratory Tests 02/05/18 0600: Sodium Pending, Potassium Pending, Chloride Pending, Carbon Dioxide Pending, Anion Gap Pending, BUN Pending, Creatinine Pending, BUN/Creatinine Ratio Pending , CBC w Diff Pending, WBC Pending, RBC Pending, Hgb Pending, Hct Pending, MCV Pending, MCH Pending, MCHC Pending, RDW Pending, Plt Count Pending, MPV Pending, Gran % Pending, Lymphocytes % Pending, Monocytes % Pending, Eosinophils % Pending, Basophils % Pending, Absolute Granulocytes Pending, Absolute Lymphocytes Pending, Absolute Monocytes Pending, Absolute Eosinophils Pending, Absolute Basophils Pending 02/04/18 2037: Lactic Acid 1.6 02/04/18 1724: Ur Random Creatinine Cancelled, Ur Random Sodium Cancelled, Ur Random Potassium Cancelled, Fraction Sodium Excret Cancelled 02/04/18 1225: Anion Gap 13, Estimated GFR 13 L, BUN/Creatinine Ratio 13.8, Glucose 113 H, Lactic Acid 2.2 H, Calcium 8.1 L, Total Bilirubin 2.2 H, AST 137 H, ALT 93 H, Alkaline Phosphatase 164 H, Troponin I 0.08, Total Protein 6.2 L, Albumin 2.8 L, Globulin 3.4, Albumin/Globulin Ratio 0.8 L, PT 13.1 H, INR 1.20 H, APTT 42 H, CBC w Diff MAN DIFF ORDERED, RBC 4.30 L, MCV 92.2, MCH 31.5 H, MCHC 34.2, RDW 13.1, MPV 9.1, Gran % 84.3 H, Lymphocytes % 8.8 L, Monocytes % 6.9, Eosinophils % 0, Basophils % 0, Absolute Granulocytes 10.7 H, Segmented Neutrophils 85 H, Band Neutrophils 5, Absolute Lymphocytes 1.1 L, Lymphocytes 7 L, Monocytes 3, Absolute Monocytes 0.9 H, Absolute Eosinophils 0, Absolute Basophils 0, Platelet Estimate ADEQUATE, Normocytic RBCs VERIFIED, Normochromic RBCs VERIFIED 02/04/18 1140: Urine Color Cancelled, Urine Clarity Cancelled, Urine pH Cancelled, Ur Specific [place] Cancelled, Urine Protein Cancelled, Urine Ketones Cancelled, Urine Nitrite Cancelled, Urine Bilirubin Cancelled, Urine Urobilinogen Cancelled, Ur Leukocyte Esterase Cancelled, Ur Microscopic Cancelled, Urine Hemoglobin Cancelled, Urine Glucose Cancelled Diagnostic Imaging: Viewed by Me: CT Scan. Discussed w/RAD: CT Scan. Radiology Impression: PATIENT: ANTONIETA WHITTAKER PRESENT AGE : 87 PATIENT ACCOUNT NO: [id number] : [birth year] LOCATION: [facility] ORDERING PHYSICIAN: Andrei OKEEFE SERVICE DATE: 02/04/18 EXAM TYPE: CAT - CT ABD & PELVIS W/O IV CONTRAS EXAMINATION: CT ABDOMEN AND PELVIS WITHOUT CONTRAST CLINICAL INFORMATION: Abdominal pain. COMPARISON: KUB dated 07/18/2016; abdominal ultrasound dated 12/29/2012; CT abdomen and pelvis dated 12/29/2012. TECHNIQUE: Multidetector volumetric imaging was performed from the superior aspect of the liver through the pubic symphysis. Sagittal and coronal reformatted images were obtained on the technologist's workstation. DLP: 947.18 mGy-cm FINDINGS: LUNG BASES: There is mild bibasilar hypoaeration. A benign, calcified left base granuloma is seen (4:4). There are coronary artery atherosclerotic calcifications. LIVER, GALLBLADDER, AND BILIARY TREE: The liver is normal in size, shape, and attenuation. No focal hepatic lesion or biliary ductal dilatation is present. A large gallstone is again seen. Mild gallbladder wall thickening is suspected, without pericholecystic fat stranding or free fluid. PANCREAS: Unremarkable. SPLEEN: Unremarkable. ADRENAL GLANDS: Unremarkable. KIDNEYS AND URETERS: The right kidney is surgically absent. The left kidney is normal in size, shape, and attenuation. No hydronephrosis, hydroureter, or calculi seen. There are low-attenuation left renal cysts, some too small to fully characterize with CT. At the upper pole of the left kidney anteriorly (4:21), there is a 2.6 x 2.0 cm ovoid mass seen with precontrast Hounsfield value of 23.5 units. This has increased in size from dimensions of 2.0 x 1.8 cm on 12/29/2012 (2:16). No perinephric stranding. BLADDER: Unremarkable. GASTROINTESTINAL TRACT: There is moderately severe diverticulosis, without acute diverticulitis. No bowel obstruction, free intraperitoneal air or abscess is seen. The vermiform appendix appears normal. ABDOMINAL WALL: No significant hernia is appreciated. LYMPH NODES: Normal. VASCULAR: There is mild aortoiliac abscess chronic change. No abdominal aortic aneurysm is seen. PELVIC VISCERA: There is prostatomegaly, with a transverse span of 5.8 cm. The seminal vesicles are unremarkable. OSSEOUS STRUCTURES: There is multi-level marked thoracolumbar degenerative disc disease and spondylosis, most pronounced at L4- L3 and L4-L5. No acute or aggressive osseous abnormality is seen. IMPRESSION: 1. There is a increased soft tissue density mass arising exophytically from the upper pole of the right kidney. The possibility of neoplasm is not excluded. Recommend further evaluation with MRI or repeat ultrasound. Of note, this finding was not seen on the renal ultrasound dated 07/20/2016. 2. The right kidney surgically absent. 3. There is cholelithiasis. There is equivocal gallbladder wall thickening, which could be more fully evaluated with dedicated abdominal ultrasound. This raises the possibility of cholecystitis. Please correlate clinically. 4. There is moderately severe diverticulosis, without acute diverticulitis. No appendicitis is seen. There is no obstruction, free intraperitoneal air or abscess. 5. There is prostatomegaly. 6. There are marked thoracolumbar degenerative changes. DICTATED BY: Antonieta Houston MD DATE/TIME DICTATED:02/04/181254 GARMENT SEWING MACHINE OPERATOR:CLAUDIA DATE/TIME TRANSCRIBED:1254 CONFIDENTIAL, DO NOT COPY WITHOUT APPROPRIATE AUTHORIZATION. < Electronically signed in Other Vendor System> SIGNED BY: Antonieta Houston MD 02/04/18 1311, PATIENT: ANTONIETA WHITTAKER PRESENT AGE: 87 PATIENT ACCOUNT NO: [id number] : [birth year] LOCATION: [facility] ORDERING PHYSICIAN: Kelly OKEEFE SERVICE DATE: 02/04/18 EXAM TYPE: RAD - XRY-CHEST XRAY, TWO VIEWS EXAMINATION: XR CHEST CLINICAL INFORMATION: Abdominal pain and weakness. Assess for cardiopulmonary process. COMPARISON: Chest x-ray 2017. TECHNIQUE: Frontal and lateral views of the chest were obtained. FINDINGS: The lung rojas are hyperexpanded bilaterally with flattening of the hemidiaphragms and retrosternal air trapping. Linear opacities at the left lower surgical most consistent with scarring or atelectasis. There is no focal consolidation. The cardiac silhouette is normal in size. The aortic arch is unfolded. There are no pleural effusions. The central pulmonary vasculature appears normal. There are moderate to severe degenerative changes in the thoracic spine. IMPRESSION: 1. There are no acute cardiopulmonary findings. 2. The lungs are hyperinflated consistent with COPD. DICTATED BY: Guido Neely MD DATE/TIME DICTATED:02/04/181217 GARMENT SEWING MACHINE OPERATOR:CLAUDIA DATE/TIME TRANSCRIBED:02/04/181217 CONFIDENTIAL, DO NOT COPY WITHOUT APPROPRIATE AUTHORIZATION. <Electronically signed in Other Vendor System> SIGNED BY: Guido Neely MD 02/04/18 1241 Initial ED EKG: normal sinus rhythm, rate (80), nonspecific ST T wave chg (Andrei Leyva) Departure Departure Disposition: STILL A PATIENT Condition: Stable Clinical Impression Primary Impression: Acute renal failure Secondary Impressions: Renal mass Referrals: Antonieta Robin MD (PCP/Family) Departure Forms: Customer Survey General Discharge Information Admission Note Spoke With: Benton Cox MD Documentation of Exam: Documentation of any treatments & extenuating circumstances including Concerns Regarding Discharge (functional status, medication knowledge or non-compliance, living conditions, etc.) that warrant an admission rather than observation: IV fluids. Renal consultation. Urology consultation. Repeat labs. Patient will require 72 hours of care. Medically not safe for discharge. High risk. DR NGUYEN WAS CONSULTED. (Andrei Leyva) PA/WOOL SAMPLER Co-Sign Statement Statement: ED Attending supervision documentation- [] I saw and evaluated the patient. I have also reviewed all the pertinent lab results and diagnostic results. I agree with the findings and the plan of care as documented in the PA's/WOOL SAMPLER's documentation. [X] I have reviewed the ED Record and agree with the PA's/WOOL SAMPLER's documentation. [] Additions or exceptions (if any) to the PAs/WOOL SAMPLER's note and plan are summarized below: [] (Santi Thornton DO)
[2018-02-04] MEDS ORDERED: BRILINTA90 M1 PO (11:49)
[2018-02-04 12:37] LABS: ABSOLUTE BASOPHIL COUNT 0 /CUMM (0.0-0.2); ABSOLUTE EOSINOPHIL COUNT 0 /CUMM (0.0-0.7); ABSOLUTE GRANULOCYTE CT 10.7 /CUMM (1.4-6.5); ABSOLUTE LYMPH COUNT 1.1 /CUMM (1.2-3.4); ABSOLUTE MONOCYTE COUNT 0.9 /CUMM (0.10-0.60); BASOPHIL % 0 % (0.0-2.0); EOSINOPHIL % 0 % (0-5); GRANULOCYTE % 84.3 % (42.2-75.2); HEMATOCRIT 39.7 % (42-52); MEAN CORPUSCULAR HGB 31.5 PG (27.0-31.0); MEAN CORPUSCULAR HGB CONC 34.2 G/DL (33.0-37.0); MEAN CORPUSCULAR VOLUME 92.2 FL (80.0-94.0); MEAN PLATELET VOLUME 9.1 FL (7.4-10.4); PLATELET COUNT 152 /CUMM (130-400); RBC DISTRIBUTION WIDTH 13.1 % (11.5-14.5); WHITE BLOOD CELL COUNT 12.7 /CUMM (4.8-10.8)
--- NOTE | 2018-02-04 12:41 | RADIOLOGY REPORT ---
EXAMINATION: XR CHEST CLINICAL INFORMATION: Abdominal pain and weakness. Assess for cardiopulmonary process. COMPARISON: Chest x-ray 02/03/2018. TECHNIQUE: Frontal and lateral views of the chest were obtained. FINDINGS: The lung rojas are hyperexpanded bilaterally with flattening of the hemidiaphragms and retrosternal air trapping. Linear opacities at the left lower surgical most consistent with scarring or atelectasis. There is no focal consolidation. The cardiac silhouette is normal in size. The aortic arch is unfolded. There are no pleural effusions. The central pulmonary vasculature appears normal. There are moderate to severe degenerative changes in the thoracic spine. IMPRESSION: 1. There are no acute cardiopulmonary findings. 2. The lungs are hyperinflated consistent with COPD.
[2018-02-04 12:48] LABS: PT 13.1 SEC (9.4-12.5); PTT 42 SEC (25-37)
--- NOTE | 2018-02-04 13:11 | CT SCAN REPORT ---
EXAMINATION: CT ABDOMEN AND PELVIS WITHOUT CONTRAST CLINICAL INFORMATION: Abdominal pain. COMPARISON: KUB dated 07/18/2016; abdominal ultrasound dated 12/29/2012; CT abdomen and pelvis dated 12/29/2012. TECHNIQUE: Multidetector volumetric imaging was performed from the superior aspect of the liver through the pubic symphysis. Sagittal and coronal reformatted images were obtained on the technologist's workstation. DLP: 947.18 mGy-cm FINDINGS: LUNG BASES: There is mild bibasilar hypoaeration. A benign, calcified left base granuloma is seen (4:4). There are coronary artery atherosclerotic calcifications. LIVER, GALLBLADDER, AND BILIARY TREE: The liver is normal in size, shape, and attenuation. No focal hepatic lesion or biliary ductal dilatation is present. A large gallstone is again seen. Mild gallbladder wall thickening is suspected, without pericholecystic fat stranding or free fluid. PANCREAS: Unremarkable. SPLEEN: Unremarkable. ADRENAL GLANDS: Unremarkable. KIDNEYS AND URETERS: The right kidney is surgically absent. The left kidney is normal in size, shape, and attenuation. No hydronephrosis, hydroureter, or calculi seen. There are low-attenuation left renal cysts, some too small to fully characterize with CT. At the upper pole of the left kidney anteriorly (4:21), there is a 2.6 x 2.0 cm ovoid mass seen with precontrast Hounsfield value of 23.5 units. This has increased in size from dimensions of 2.0 x 1.8 cm on 12/29/2012 (2:16). No perinephric stranding. BLADDER: Unremarkable. GASTROINTESTINAL TRACT: There is moderately severe diverticulosis, without acute diverticulitis. No bowel obstruction, free intraperitoneal air or abscess is seen. The vermiform appendix appears normal. ABDOMINAL WALL: No significant hernia is appreciated. LYMPH NODES: Normal. VASCULAR: There is mild aortoiliac abscess chronic change. No abdominal aortic aneurysm is seen. PELVIC VISCERA: There is prostatomegaly, with a transverse span of 5.8 cm. The seminal vesicles are unremarkable. OSSEOUS STRUCTURES: There is multi-level marked thoracolumbar degenerative disc disease and spondylosis, most pronounced at L4-L3 and L4-L5. No acute or aggressive osseous abnormality is seen. IMPRESSION: 1. There is a increased soft tissue density mass arising exophytically from the upper pole of the right kidney. The possibility of neoplasm is not excluded. Recommend further evaluation with MRI or repeat ultrasound. Of note, this finding was not seen on the renal ultrasound dated 07/20/2016. 2. The right kidney surgically absent. 3. There is cholelithiasis. There is equivocal gallbladder wall thickening, which could be more fully evaluated with dedicated abdominal ultrasound. This raises the possibility of cholecystitis. Please correlate clinically. 4. There is moderately severe diverticulosis, without acute diverticulitis. No appendicitis is seen. There is no obstruction, free intraperitoneal air or abscess. 5. There is prostatomegaly. 6. There are marked thoracolumbar degenerative changes.
--- NOTE | 2018-02-04 14:37 | History & Physical ---
Angela PARDO,[facility] 02/04/18 1436: General Information and HPI MD Statement: I have seen and personally examined ANTONIETA WHITTAKER and documented this H&P. The patient is a 87 year old M who presented with a patient stated chief complaint of [abdominal pain]. History of Present Illness: Mr. Whittaker is an 87 year old gentleman with a PMH of BPH and recent NSTEMI status post stent placement on 01/23 presents with abdominal pain that has been going on since he had the cardiac stent placed. Coating the patient, he has been having dull generalized abdominal pain 7/10 in intensity since he had a cardiac stent placed on 01/23. No aggravating or relieving factors. Denies any nausea or vomiting. States she had diarrhea 4-3 days when he was admitted at [facility] which has resolved now. Also reports dyspnea on exertion which is also new after the cardiac stent placement. Endorses decreased by mouth intake and states that he does not have any appetite at all. He has not had a bowel movement since more than 1-1/2 week now and also reports decreased urine output, which she is attributing to his decreased by mouth intake. Denies any fever/chills, pain or burning with urination, chest pain, palpitations. Allergies/Medications Allergies: Coded Allergies: NO KNOWN ALLERGIES (09/26/11) Home Med list Aspirin (Adult Aspirin Regimen) 81 MG TABLET.DR 1 TAB PO DAILY HEART Atorvastatin Calcium 80 MG TABLET 80 MG PO DAILY HEART Finasteride 5 MG TABLET 1 TAB PO DAILY BPH (Reported) Metoprolol Tartrate 25 MG TABLET 25 MG PO BID heart health Tamsulosin HCl 0.4 MG CAP.ER.24H 1 CAP PO DAILY BPH (Reported) Ticagrelor (Brilinta) 90 MG TABLET 1 TAB PO BID BLOOD THINNER (Reported) Past History Travel History Traveled to [place] past 21 day No Medical History Neurological: NONE EENT: NONE Cardiovascular: NSTEMI Respiratory: NONE Gastrointestinal: NONE Hepatic: NONE Renal: NONE, benign prost hyperplasia Musculoskeletal: NONE Psychiatric: NONE Endocrine: NONE Cancer(s): renal cancer History of MRSA: No History of VRE: No History of CDIFF: No Tetanus Vaccine: 08/13/12 Surgical History Surgical History: NEPHRECTOMY Past Family/Social History Family History Relations & Conditions if any Relation not specified for: *No pertinent family history Psychosocial History Services at Home: None Smoking Status: Never Smoked ETOH Use: denies use Illicit Drug Use: denies illicit drug use Functional Ability ADLs Independent: dressing, eating, toileting, bathing. Review of Systems Review of Systems Constitutional: Reports: malaise, weakness. EENTM: Reports: no symptoms. Cardiovascular: Reports: no symptoms. Respiratory: Reports: short of breath. GI: Reports: abdominal pain. Genitourinary: Reports: no symptoms. Musculoskeletal: Reports: no symptoms. Skin: Reports: no symptoms. Neurological/Psychological: Reports: no symptoms. Hematologic/Endocrine: Reports: no symptoms. Immunologic/Allergic: Reports: no symptoms. All Other Systems: Reviewed and Negative Exam & Diagnostic Data Last 24 Hrs of Vital Signs/I&O Vital Signs Date Time Temp Pulse Resp B/P B/P Pulse O2 O2 Flow FiO2 Mean Ox Delivery Rate 02/04 1822 99.0 91 20 114/69 94 Room Air 06/ 1716 99.1 87 24 107/55 95 Room Air / 1435 99.3 110 18 124/70 95 Room Air /05 1248 94 Room Air /05 1144 98.2 91 18 111/55 94 Room Air Intake & Output 02/04 1600 06/05 0800 06/05 0000 Intake Total 1000 Output Total Balance 1000 Intake, IV 1000 Patient 156 lb Weight Weight Estimated Measurement Method Physical Exam General Appearance Alert, Oriented X3, Cooperative Skin No Breakdown, maculopapular rash on the chest and epigastric area HEENT Atraumatic, PERRLA, EOMI, dry mucous membranes Cardiovascular Normal S1, Normal S2, irregular Lungs Normal Air Movement, crackles on the left lung base Abdomen Normal Bowel Sounds, Soft, left flank tenderness Extremities No Clubbing, No Cyanosis, No Edema Last 24 Hrs of Labs/Jay: Laboratory Tests 02/04/18 1225: Anion Gap 13, Estimated GFR 13 L, BUN/Creatinine Ratio 13.8, Glucose 113 H, Calcium 8.1 L, Total Bilirubin 2.2 H, AST 137 H, ALT 93 H, Alkaline Phosphatase 164 H, Troponin I 0.08, Total Protein 6.2 L, Albumin 2.8 L, Globulin 3.4, Albumin/Globulin Ratio 0.8 L, PT 13.1 H, INR 1.20 H, APTT 42 H , CBC w Diff MAN DIFF ORDERED, RBC 4.30 L, MCV 92.2, MCH 31.5 H, MCHC 34.2, RDW 13.1, MPV 9.1, Gran % 84.3 H, Lymphocytes % 8.8 L, Monocytes % 6.9, Eosinophils % 0, Basophils % 0, Absolute Granulocytes 10.7 H, Segmented Neutrophils 85 H, Band Neutrophils 5, Absolute Lymphocytes 1.1 L, Lymphocytes 7 L, Monocytes 3, Absolute Monocytes 0.9 H, Absolute Eosinophils 0, Absolute Basophils 0, Platelet Estimate ADEQUATE, Normocytic RBCs VERIFIED, Normochromic RBCs VERIFIED Diagnostic Data CXR Results IMPRESSION: 1. There are no acute cardiopulmonary findings. 2. The lungs are hyperinflated consistent with COPD. Other Results CT ABD & PELVIS W/O IV CONTRAST IMPRESSION: 1. There is a increased soft tissue density mass arising exophytically from the upper pole of the right kidney. The possibility of neoplasm is not excluded. Recommend further evaluation with MRI or repeat ultrasound. Of note, this finding was not seen on the renal ultrasound dated 07/20/2016. 2. The right kidney surgically absent. 3. There is cholelithiasis. There is equivocal gallbladder wall thickening, which could be more fully evaluated with dedicated abdominal ultrasound. This raises the possibility of cholecystitis. Please correlate clinically. 4. There is moderately severe diverticulosis, without acute diverticulitis. No appendicitis is seen. There is no obstruction, free intraperitoneal air or abscess. 5. There is prostatomegaly. 6. There are marked thoracolumbar degenerative changes. Assessment/Plan Assessment: Mr. Whittaker is an 87 year old gentleman with a PMH of BPH and recent NSTEMI status post stent placement on 01/23 presents with abdominal pain that has been going on since he had the cardiac stent placed. Problem List; 1. Abdominal pain 2. JEAN - likely prerenal, low suspicion for contrast-induced nephropathy 3. Left renal mass 4. Recent NSTEMI s/p cardiac stent placement - We will admit to general medicine floor - Patient was already given 1 L of normal saline the ER, will continue gentle IV fluid hydration. - We'll obtain urine lites and FeNa - Obtain MRI without contrast to further delineate the renal mass. - Obtain nephrology consult - Inform cardiology about patient's admission given history of recent stent placement - Repeat BP in a.m. - We'll continue home medications including aspirin and Brillinta DVT prophylaxis; subcutaneous heparin Patient is full code As Ranked By This Provider Problem List: 1. Renal mass 2. Acute renal failure Core Measures/Misc (05/19) Acute Coronary Syndrome ACS Diagnosis: No Congestive Heart Failure Congestive Heart Failure Diagnosis No Cerebrovascular Accident CVA/TIA Diagnosis: No VTE (View Protocol) VTE Risk Factors Age>40 No Mechanical VTE Prophylaxis d/t N/A MechProphylax Ordered No VTE Pharm Prophylaxis d/t NA PharmProphylax ordered Sepsis (View protocol) Sepsis Present: No If YES complete Sepsis Event Note If YES complete Sepsis Event Note Tiffanie Mir MD 02/04/18 1445: Core Measures/Misc (05/19) Acute Coronary Syndrome ACS Diagnosis: No Congestive Heart Failure Congestive Heart Failure Diagnosis No Cerebrovascular Accident CVA/TIA Diagnosis: No VTE (View Protocol) VTE Risk Factors Age>40 No Mechanical VTE Prophylaxis d/t N/A MechProphylax Ordered (he is on ticagrelor ) No VTE Pharm Prophylaxis d/t NA PharmProphylax ordered (he is on ticagrelor) Sepsis (View protocol) If YES complete Sepsis Event Note If YES complete Sepsis Event Note Resident Review Statement Resident Statement: examined this patient, discussed with ad operations intern, agreed with ad operations intern, discussed with family Other Findings: Patient is an 87-year-old male past medical history of BPH, 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 Kamara for further evaluation generalized abdominal pain. Patient was recently here on 01/23/2018 and was transferred to [facility], for cardiac catheterization. After discharge, he had an episode of diarrhea later on he started having generalized weakness and abdominal pain, and loss of appetite. He did not had bowel movement since last 4 or 5 days. He was also complaining of shortness of breath especially on exertion denies for any weight gain, edema,abdomen distention, nausea, vomiting, fever, chills. ED course- Vital signs at the time of admission-temperature 98.2, pulse 91, respiratory rate 18, blood pressure 111/55, SPO2 94% on room air. On examination -he was conscious, cooperative, awake alert 3, dry oral cavity, neck supple, chest-left lower side crackles, abdomen soft but tender in left lower quadrant, bowel sounds positive, bilateral lower extremity no edema, pulses normal. Blood workup showed-W BC 12.7, hemoglobin 13.6, hematocrit 39.7, platelet count 152, granulocyte 84.3, lymphocyte 8.8, band cell 5, serum sodium 140, potassium 4.3, chloride 104, carbon dioxide 22, anion gap 13, BUN 58, creatinine 4.2( baseline creatinine is 1.1), GFR 13, glucose 113, calcium 8.1, total bilirubin 2.2, AST 137, ALT 93, alkaline phosphatase 164, total protein 6.2, albumin 2.8, PT/INR 13.1/1.20, APTT 42, CT ABD/Pelvis - 1. There is a increased soft tissue density mass arising exophytically from the upper pole of the left kidney. The possibility of neoplasm is not excluded. Recommend further evaluation with MRI or repeat ultrasound. Of note, this finding was not seen on the renal ultrasound dated 07/20/2016. 2. The right kidney surgically absent. 3. There is cholelithiasis. There is equivocal gallbladder wall thickening,which could be more fully evaluated with dedicated abdominal ultrasound. This raises the possibility of cholecystitis. Please correlate clinically. 4. There is moderately severe diverticulosis, without acute diverticulitis.No appendicitis is seen. There is no obstruction, free intraperitoneal air or abscess. 5. There is prostatomegaly. 6. There are marked thoracolumbar degenerative changes. CXR - 1. There are no acute cardiopulmonary findings. 2. The lungs are hyperinflated consistent with COPD. Assesment and Plan - Acute Kidney Injury possibly dehydration, RCC though possiblity of contrast induced nephropathy cannt be ruled out - * We will admit the patient in GM floor * Start him on IV fluids NS - 75cc/hr * We will get the old records from the [facility] to know the creatinine at the time of discharge. * We will do urine analysis and urine electrolyte check for the Fena. * We will monitor the BEP * We will obtain a nephrology consult and follow the recommendation, * Strict intake output charting Left-sided renal mass possibility of ? RCC * We will do MRI of the abdomen to rule out RCC * Will obtain nephrology consult and follow the recommendation Left lower quadrant abdominal pain, transaminitis - possibility of infection cannot be ruled out * We will follow the MRI of the abdomen * We dont have record of colonoscopy, so will check stool for occult blood. * Did left voice msg to , didnt heard back Coronary artery disease, posterior wall MN status post stent currently on ticagrelor - * We will get the records from the [facility], to know the type of the stent. * We will continue patient on ticagrelor, aspirin, metoprolol. * We will obtain cardiology consult and follow the recommendation Hypocalcemia - Corrected Calcium is 8.7 Diet -heart healthy diet with low K DVT prophylaxis -ticagrelor CODE STATUS -full code Arik PARDO,Renetta 02/04/18 1622: Core Measures/Misc (05/19) Sepsis (View protocol) If YES complete Sepsis Event Note If YES complete Sepsis Event Note Attending MD Review Statement Attending Statement Attending MD Statement: examined this patient, discuss w/resident/PA/NAILHEAD PUNCHER, agreed w/resident/PA/NAILHEAD PUNCHER, reviewed EMR data (avail), discussed with nursing, discussed with case mgmt, reviewed images, amended to note Attending Assessment/Plan: 87-year-old male with past medical history significant for hypertension, hyperlipidemia, diabetes, recent admission to [facility] with chest pain/ NSTEMI. Patient was transferred to [facility] for cardiac cath. Where he had Angiopalsty. Echocardiogram at that time showed ejection fraction of 55- 60% but akinetic posterior wall. He was at Dr. Ledbetter's office for follow-up. He claims that since his surgery he is not doing great. He's complaining of abdominal pain which is mostly on the left flank area. He also has some pain in the right side of the abdomen as well. He describes the pain as constant, dull and 6 out of 10 in intensity. He denies any trouble with urination. He's feeling very weak and tired overall. He does admit to taking poor by mouth intake including solids and liquids. He denies any current chest pain or any trouble breathing. Patient was found to have acute renal failure as well as a kidney mass. Reviewing back his ultrasound did knee from 2016, he did have some cysts on the left kidney at that time as well. Right kidney is surgically absent. Vital Signs Date Time Temp Pulse Resp B/P B/P Pulse O2 O2 Flow FiO2 Mean Ox Delivery Rate 02/04 1435 99.3 110 18 124/70 95 Room Air 02/04 1248 94 Room Air 02/04 1144 98.2 91 18 111/55 94 Room Air On exam; aox3, nad. Cv; s1, s2, irregular, resp; Decresaed bs at bases. abd; soft, tender in left flank as well as mildly in right flank. Bs+. Macular rash on torso. ext; no edema Laboratory Tests 02/04 1225 Chemistry Sodium (137 - 145 mmol/L) 140 Potassium (3.5 - 5.1 mmol/L) 4.3 Chloride (98 - 107 mmol/L) 104 Carbon Dioxide (22 - 30 mmol/L) 22 Anion Gap (5 - 16) 13 BUN (9 - 20 mg/dL) 58 H Creatinine (0.7 - 1.2 mg/dL) 4.2 H Estimated GFR (>60 ml/min) 13 L BUN/Creatinine Ratio (7 - 25 %) 13.8 Glucose (65 - 99 mg/dL) 113 H Calcium (8.4 - 10.2 mg/dL) 8.1 L Total Bilirubin (0.2 - 1.3 mg/dL) 2.2 H AST (17 - 59 U/L) 137 H ALT (21 - 72 U/L) 93 H Alkaline Phosphatase (< 127 U/L) 164 H Troponin I (<0.11 ng/ml) 0.08 Total Protein (6.3 - 8.2 g/dL) 6.2 L Albumin (3.5 - 5.0 g/dL) 2.8 L Globulin (1.9 - 4.2 gm/dL) 3.4 Albumin/Globulin Ratio (1.1 - 2.2 %) 0.8 L Coagulation PT (9.4 - 12.5 SEC) 13.1 H INR (0.90 - 1.17) 1.20 H APTT (25 - 37 SEC) 42 H Hematology CBC w Diff MAN DIFF ORDERED WBC (4.8 - 10.8 /CUMM) 12.7 H RBC (4.70 - 6.10 /CUMM) 4.30 L Hgb (14.0 - 18.0 G/DL) 13.6 L Hct (42 - 52 %) 39.7 L MCV (80.0 - 94.0 FL) 92.2 MCH (27.0 - 31.0 PG) 31.5 H MCHC (33.0 - 37.0 G/DL) 34.2 RDW (11.5 - 14.5 %) 13.1 Plt Count (130 - 400 /CUMM) 152 MPV (7.4 - 10.4 FL) 9.1 Gran % (42.2 - 75.2 %) 84.3 H Lymphocytes % (20.5 - 51.1 %) 8.8 L Monocytes % (1.7 - 9.3 %) 6.9 Eosinophils % (0 - 5 %) 0 Basophils % (0.0 - 2.0 %) 0 Absolute Granulocytes (1.4 - 6.5 /CUMM) 10.7 H Segmented Neutrophils (42.2 - 75.2 %) 85 H Band Neutrophils (0.0 - 5.0 %) 5 Absolute Lymphocytes (1.2 - 3.4 /CUMM) 1.1 L Lymphocytes (20.5 - 51.1 %) 7 L Monocytes (1.7 - 9.3 %) 3 Absolute Monocytes (0.10 - 0.60 /CUMM) 0.9 H Absolute Eosinophils (0.0 - 0.7 /CUMM) 0 Absolute Basophils (0.0 - 0.2 /CUMM) 0 Platelet Estimate (ADEQUATE) ADEQUATE Normocytic RBCs VERIFIED Normochromic RBCs VERIFIED CXR: IMPRESSION: 1. There are no acute cardiopulmonary findings. 2. The lungs are hyperinflated consistent with COPD. CT abd/pelvis; IMPRESSION: 1. There is a increased soft tissue density mass arising exophytically from the upper pole of the right kidney. The possibility of neoplasm is not excluded. Recommend further evaluation with MRI or repeat ultrasound. Of note, this finding was not seen on the renal ultrasound dated 07/20/2016. 2. The right kidney surgically absent. 3. There is cholelithiasis. There is equivocal gallbladder wall thickening, which could be more fully evaluated with dedicated abdominal ultrasound. This raises the possibility of cholecystitis. Please correlate clinically. 4. There is moderately severe diverticulosis, without acute diverticulitis. No appendicitis is seen. There is no obstruction, free intraperitoneal air or abscess. 5. There is prostatomegaly. 6. There are marked thoracolumbar degenerative changes. A/P; 87-year-old male with past medical history significant for hypertension, hyperlipidemia, diabetes, recent admission to [facility] with chest pain/ NSTEMI. Patient was transferred to [facility] for cardiac cath/ angioplasty. Echocardiogram at that time showed ejection fraction of 55-60% but akinetic posterior wall. Patient was sent in from Dr. Dias's office secondary to having generalized weakness, abdominal pain. In the emergency room patient was found to be in acute renal failure on chronic kidney disease as well as found to have a kidney mass. This could be seconadary to prerenal cause vs contrast induced. With hx of recent angio, possiblity of cholestrol emboli is always there leading to ARF. Patient admitted to medicine. Please check urine studies including urine lytes and calculate FENA. This could be secondary to dehydration but the patient did have a recent cardiac cath therefore contrast-induced nephropathy should be kept in mind. Patient has been started on IV hydration and we will continue gentle IV hydration. Will obtain nephrology consult. We'll obtain abdominal MRI abd without contrast to assess this kidney mass better. If there is any suspicion for malignant process , patient will need further evaluation with oncology and urology. Please consult cardiologyw ith patient's recent cardiac cath hx. Please continue home medications but avoid any nephrotoxic medications. Patient should not be taking any NSAIDs. Pharmacologic DVT px with hep sq. Full code.
[2018-02-04 19:01] VITALS: BP 118/60
[2018-02-04 22:41] VITALS: BP 102/60
[2018-02-05 05:43] VITALS: BP 118/64
--- NOTE | 2018-02-05 07:11 | PN- Housestaff ---
Bambi PARDO,[facility] 02/05/18 0710: Subjective Follow-up For: abdominal pain Subjective: Patient seen and examined at bedside. States he feels sick but does not elaborate much on it. Still complains of abdominal pain. Review of Systems Constitutional: Reports: no symptoms. Objective Last 24 Hrs of Vital Signs/I&O Vital Signs Date Time Temp Pulse Resp B/P B/P Pulse O2 O2 Flow FiO2 Mean Ox Delivery Rate 02/05 0854 81 116/70 02/05 0543 97.8 70 22 118/64 94 Room Air 06/05 2241 98.6 83 21 102/60 92 Room Air 06/05 2133 106/60 06/05 1901 101.1 91 118/60 06/05 1901 20 92 Room Air 06/05 1822 99.0 91 20 114/69 94 Room Air 06/05 1716 99.1 87 24 107/55 95 Room Air 06/05 1435 99.3 110 18 124/70 95 Room Air 06/05 1248 94 Room Air 06/05 1144 98.2 91 18 111/55 94 Room Air Intake & Output 02/05 1600 06 0800 06 0000 Intake Total 1120 720 Output Total 0 Balance 1120 720 Intake, IV 1000 600 Intake, Oral 120 120 Output, Urine 0 Patient 158 lb 156 lb Weight Physical Exam General Appearance: Alert, Oriented X3, Cooperative, Mild Distress Skin: No Rashes, No Breakdown Skin Temp/Moisture Exam: Warm/Dry Sepsis Skin Exam (color): Normal for Ethnicity HEENT: Atraumatic Cardiovascular: Normal S1, Normal S2, No Murmurs Lungs: Normal Air Movement, mild crackles in LLL Abdomen: Soft, No Tenderness Neurological: Normal Speech Extremities: No Edema Last 24 Hrs of Lab/Jay Results Last 24 Hrs of Labs/Mics: Laboratory Tests 02/05/18 0600: Anion Gap 11, Estimated GFR 11 L, BUN/Creatinine Ratio 13.3, Direct Bilirubin Pending, Creatine Kinase 40 L, CBC w Diff NO MAN DIFF REQ, RBC 3.83 L, MCV 92.4, MCH 31.3 H, MCHC 33.8, RDW 13.2, MPV 9.4, Gran % 84.5 H, Lymphocytes % 10.7 L, Monocytes % 4.8, Eosinophils % 0, Basophils % 0, Absolute Granulocytes 8.8 H, Absolute Lymphocytes 1.1 L, Absolute Monocytes 0.5, Absolute Eosinophils 0, Absolute Basophils 0, Complement C3 Pending, Complement C4 Pending, Hep Bs Antibody NONREACTIVE 02/04/182036: Lactic Acid 1.6 02/04/18 1724: Ur Random Creatinine Cancelled, Ur Random Sodium Cancelled, Ur Random Potassium Cancelled, Fraction Sodium Excret Cancelled 02/04/18 1225: Anion Gap 13, Estimated GFR 13 L, BUN/Creatinine Ratio 13.8, Glucose 113 H, Lactic Acid 2.2 H, Calcium 8.1 L, Total Bilirubin 2.2 H, AST 137 H, ALT 93 H, Alkaline Phosphatase 164 H, Troponin I 0.08, Total Protein 6.2 L, Albumin 2.8 L, Globulin 3.4, Albumin/Globulin Ratio 0.8 L, PT 13.1 H, INR 1.20 H, APTT 42 H, CBC w Diff MAN DIFF ORDERED, RBC 4.30 L, MCV 92.2, MCH 31.5 H, MCHC 34.2, RDW 13.1, MPV 9.1, Gran % 84.3 H, Lymphocytes % 8.8 L, Monocytes % 6.9, Eosinophils % 0, Basophils % 0, Absolute Granulocytes 10.7 H, Segmented Neutrophils 85 H, Band Neutrophils 5, Absolute Lymphocytes 1.1 L, Lymphocytes 7 L, Monocytes 3, Absolute Monocytes 0.9 H, Absolute Eosinophils 0, Absolute Basophils 0, Platelet Estimate ADEQUATE, Normocytic RBCs VERIFIED, Normochromic RBCs VERIFIED 02/04/18 1140: Urine Color Cancelled, Urine Clarity Cancelled, Urine pH Cancelled, Ur Specific [place] Cancelled, Urine Protein Cancelled, Urine Ketones Cancelled, Urine Nitrite Cancelled, Urine Bilirubin Cancelled, Urine Urobilinogen Cancelled, Ur Leukocyte Esterase Cancelled, Ur Microscopic Cancelled, Urine Hemoglobin Cancelled, Urine Glucose Cancelled Microbiology 02/05 1036 BLOOD: Blood Culture - RECD 02/05 851 URINE ROUT: Urine Culture - ORD 02/05 851 BLOOD: Blood Culture - ORD Assessment/Plan Assessment: Mr. Myers is an 87 year old gentleman with a PMH of BPH, right nephrectomy for RCC and CAD with recent NSTEMI status post stent placement on 01/23 presents with abdominal pain that has been going on since he had the cardiac stent placed. Assessment: 1. JEAN 2. Thrombocytopenia 3. Right Renal Mass 4. Cholelithiasis with ? gallbladder wall thickening 5. severe diverticulosis, without acute diverticulitis. 6. CAD s/p recent stent placed 7. History of BPH 8. History of CKD Stage III Plan: * His Cr function has worsened this morning. Will continue hydration with IV NS @125ml/hr. * It is unclear at this time what caused his JEAN. He recently had a stent placed in his OM. JEAN could have been precipitated with the dye load though this normally presents more acutely. * He is retaining urine, bladder scan showed > 270cc. Will place a Johnston for now and monitor urine output. * Strict I's&O's * He requires further evaluation for his kidney mass. Given his Cr will not be able to obtain a contrast study. Will proceed with an U/S for now. * His platelets have fallen this morning. * Monitor CBC daily. * Limited Echo to r/o pericardial effusion. * His CPK is low. * Obtain UA, UC and spot Cr/protein ratio. * hepatitis panel and complement levels - pending. * Diet: Renal Dialysis * DVT Prophylaxis: ALPS only. His platelets dropped today. Will need to be monitored. * Code: Full Code Problem List: 1. Acute renal failure Pain Ratin Pain Location: none Pain Goal: Remain pain free Pain Plan: none Tomorrow's Labs & Rationales: CBC, BEP Arik PARDO,[facility] 02/05/18 1046: Attending MD Review Statement Attending Statement Attending MD Statement: examined this patient, discuss w/resident/PA/PROPOSAL MANAGER, agreed w/resident/PA/PROPOSAL MANAGER, discussed with family, reviewed EMR data (avail), discussed with nursing, discussed with case mgmt, reviewed images, amended to note Attending Assessment/Plan: Patient seen and examined, still feels tired and exhausted. Not improved at all. Creatinine is worse today. Vital Signs Date Time Temp Pulse Resp B/P B/P Pulse O2 O2 Flow FiO2 Mean Ox Delivery Rate 02/05 0854 81 116/70 02/05 0543 97.8 70 22 118/64 94 Room Air 02/04 2241 98.6 83 21 102/60 92 Room Air 02/04 2133 106/60 02/04 1901 101.1 91 118/60 02/04 1901 20 92 Room Air 06/ 1822 99.0 91 20 114/69 94 Room Air / 1716 99.1 87 24 107/55 95 Room Air / 1435 99.3 110 18 124/70 95 Room Air / 1248 94 Room Air 06/ 1144 98.2 91 18 111/55 94 Room Air on exam: aox3, nad. cv; s1,s2, rrr resp; b/l mild basal crackles. abd; soft, tender in left flank, bs+ ext; no edema. skin; macular levido reticularis like looking rash on Torso. Laboratory Tests 02/05 02/04 06 0600 2037 1724 Chemistry Sodium (137 - 145 mmol/L) 139 Potassium (3.5 - 5.1 mmol/L) 4.1 Chloride (98 - 107 mmol/L) 108 H Carbon Dioxide (22 - 30 mmol/L) 20 L Anion Gap (5 - 16) 11 BUN (9 - 20 mg/dL) 68 H Creatinine (0.7 - 1.2 mg/dL) 5.1 *H Estimated GFR (>60 ml/min) 11 L BUN/Creatinine Ratio (7 - 25 %) 13.3 Lactic Acid (0.7 - 2.1 mmol/L) 1.6 Direct Bilirubin (< 0.4 mg/dL) Pending Creatine Kinase (55 - 170 U/L) Pending Hematology CBC w Diff NO MAN DIFF REQ WBC (4.8 - 10.8 /CUMM) 10.4 RBC (4.70 - 6.10 /CUMM) 3.83 L Hgb (14.0 - 18.0 G/DL) 12.0 L Hct (42 - 52 %) 35.4 L MCV (80.0 - 94.0 FL) 92.4 MCH (27.0 - 31.0 PG) 31.3 H MCHC (33.0 - 37.0 G/DL) 33.8 RDW (11.5 - 14.5 %) 13.2 Plt Count (130 - 400 /CUMM) 128 L MPV (7.4 - 10.4 FL) 9.4 Gran % (42.2 - 75.2 %) 84.5 H Lymphocytes % (20.5 - 51.1 %) 10.7 L Monocytes % (1.7 - 9.3 %) 4.8 Eosinophils % (0 - 5 %) 0 Basophils % (0.0 - 2.0 %) 0 Absolute Granulocytes (1.4 - 6.5 /CUMM) 8.8 H Absolute Lymphocytes (1.2 - 3.4 /CUMM) 1.1 L Absolute Monocytes (0.10 - 0.60 /CUMM) 0.5 Absolute Eosinophils (0.0 - 0.7 /CUMM) 0 Absolute Basophils (0.0 - 0.2 /CUMM) 0 Immunology Complement C3 Pending Complement C4 Pending Serology Hep Bs Antibody (NONREACTIVE) NONREACTIVE Urines Ur Random Creatinine Cancelled Ur Random Sodium Cancelled Ur Random Potassium Cancelled Fraction Sodium Excret Cancelled 02/04 02/04 1225 1140 Chemistry Sodium (137 - 145 mmol/L) 140 Potassium (3.5 - 5.1 mmol/L) 4.3 Chloride (98 - 107 mmol/L) 104 Carbon Dioxide (22 - 30 mmol/L) 22 Anion Gap (5 - 16) 13 BUN (9 - 20 mg/dL) 58 H Creatinine (0.7 - 1.2 mg/dL) 4.2 H Estimated GFR (>60 ml/min) 13 L BUN/Creatinine Ratio (7 - 25 %) 13.8 Glucose (65 - 99 mg/dL) 113 H Lactic Acid (0.7 - 2.1 mmol/L) 2.2 H Calcium (8.4 - 10.2 mg/dL) 8.1 L Total Bilirubin (0.2 - 1.3 mg/dL) 2.2 H AST (17 - 59 U/L) 137 H ALT (21 - 72 U/L) 93 H Alkaline Phosphatase (< 127 U/L) 164 H Troponin I (<0.11 ng/ml) 0.08 Total Protein (6.3 - 8.2 g/dL) 6.2 L Albumin (3.5 - 5.0 g/dL) 2.8 L Globulin (1.9 - 4.2 gm/dL) 3.4 Albumin/Globulin Ratio (1.1 - 2.2 %) 0.8 L Coagulation PT (9.4 - 12.5 SEC) 13.1 H INR (0.90 - 1.17) 1.20 H APTT (25 - 37 SEC) 42 H Hematology CBC w Diff MAN DIFF ORDERED WBC (4.8 - 10.8 /CUMM) 12.7 H RBC (4.70 - 6.10 /CUMM) 4.30 L Hgb (14.0 - 18.0 G/DL) 13.6 L Hct (42 - 52 %) 39.7 L MCV (80.0 - 94.0 FL) 92.2 MCH (27.0 - 31.0 PG) 31.5 H MCHC (33.0 - 37.0 G/DL) 34.2 RDW (11.5 - 14.5 %) 13.1 Plt Count (130 - 400 /CUMM) 152 MPV (7.4 - 10.4 FL) 9.1 Gran % (42.2 - 75.2 %) 84.3 H Lymphocytes % (20.5 - 51.1 %) 8.8 L Monocytes % (1.7 - 9.3 %) 6.9 Eosinophils % (0 - 5 %) 0 Basophils % (0.0 - 2.0 %) 0 Absolute Granulocytes (1.4 - 6.5 /CUMM) 10.7 H Segmented Neutrophils (42.2 - 75.2 %) 85 H Band Neutrophils (0.0 - 5.0 %) 5 Absolute Lymphocytes (1.2 - 3.4 /CUMM) 1.1 L Lymphocytes (20.5 - 51.1 %) 7 L Monocytes (1.7 - 9.3 %) 3 Absolute Monocytes (0.10 - 0.60 /CUMM) 0.9 H Absolute Eosinophils (0.0 - 0.7 /CUMM) 0 Absolute Basophils (0.0 - 0.2 /CUMM) 0 Platelet Estimate (ADEQUATE) ADEQUATE Normocytic RBCs VERIFIED Normochromic RBCs VERIFIED Urines Urine Color Cancelled Urine Clarity Cancelled Urine pH Cancelled Ur Specific [place] Cancelled Urine Protein Cancelled Urine Ketones Cancelled Urine Nitrite Cancelled Urine Bilirubin Cancelled Urine Urobilinogen Cancelled Ur Leukocyte Esterase Cancelled Ur Microscopic Cancelled Urine Hemoglobin Cancelled Urine Glucose Cancelled A/p: 87-year-old male with past medical history significant for hypertension, hyperlipidemia, diabetes, recent admission to [facility] with chest pain/ NSTEMI. Patient was transferred to [facility] for cardiac cath/ angioplasty. Echocardiogram at that time showed ejection fraction of 55-60% but akinetic posterior wall. Patient was sent in from Dr. Dias's office secondary to having generalized weakness, abdominal pain. In the emergency room patient was found to be in acute renal failure on chronic kidney disease as well as found to have a kidney mass. This could be seconadary to prerenal cause vs contrast induced. With hx of recent angio, possiblity of cholestrol emboli is always there leading to ARF. Discussed with nephrology. Patient to get some blood work to look for the cause of ARF. Cr is worse today. We'll check a CPK, complement levels as recommended by nephrology. Please follow the other recommendations. A patient nephrology input. Also patient cardiology input. Patient to remain on 2 antiplatelet agents. Will also obtain abd US to further look at GB pathology and renal cyst. Please repeat his LFTs today. Statin is held due to deranged LFTs. If LFTs improving then we will have to check with cardiology about resuming statins. Noted a slight drop in platelet count today. We will monitor. Will also get urology consult. Johnston catheter has been placed secondary to patient developing urinary retention. DVT px; hep sq.
[2018-02-05 08:09] LABS: ABSOLUTE BASOPHIL COUNT 0 /CUMM (0.0-0.2); ABSOLUTE EOSINOPHIL COUNT 0 /CUMM (0.0-0.7); ABSOLUTE GRANULOCYTE CT 8.8 /CUMM (1.4-6.5); ABSOLUTE LYMPH COUNT 1.1 /CUMM (1.2-3.4); ABSOLUTE MONOCYTE COUNT 0.5 /CUMM (0.10-0.60); BASOPHIL % 0 % (0.0-2.0); EOSINOPHIL % 0 % (0-5); GRANULOCYTE % 84.5 % (42.2-75.2); HEMATOCRIT 35.4 % (42-52); MEAN CORPUSCULAR HGB 31.3 PG (27.0-31.0); MEAN CORPUSCULAR HGB CONC 33.8 G/DL (33.0-37.0); MEAN CORPUSCULAR VOLUME 92.4 FL (80.0-94.0); MEAN PLATELET VOLUME 9.4 FL (7.4-10.4); PLATELET COUNT 128 /CUMM (130-400); RBC DISTRIBUTION WIDTH 13.2 % (11.5-14.5); RED BLOOD CELL CT 3.83 /CUMM (4.70-6.10); WHITE BLOOD CELL COUNT 10.4 /CUMM (4.8-10.8)
--- NOTE | 2018-02-05 09:48 | Cons- Cardiology ---
General Information and HPI Consulting Request Date of Consult: 02/05/18 Requested By: Renetta Elise MD Reason for Consult: Chest/abdominal discomfort Source of Information: patient, old records Exam Limitations: no limitations History of Present Illness: The patient is an 87-year-old gentleman with a past medical history of chronic kidney disease, renal cell carcinoma status post right nephrectomy, and coronary artery disease, with a recent non-ST segment patient myocardial infarction, resulting in a drug-eluting stent placement into the obtuse marginal on January 23, 2018. The patient presents to our hospital with symptoms of abdominal discomfort as well as discomfort with inspiration. The patient had presented to [facility] approximately 2 weeks ago with chest discomfort and had ruled in for a non-ST segment elevation myocardial infarction. He was subsequently transferred to [facility] where and he underwent cardiac catheterization and subsequent drug-eluting stent placement to the obtuse marginal branch lesion. Postprocedure, he had been overall doing well and denied further symptoms of chest discomfort. The patient states that several days following the catheterization, he had worsening symptoms of abdominal discomfort, particularly within the left flank area. This was as well accompanied with symptoms of chest discomfort on inspiration, which was not similar to his initial chest pain presentation during his acute myocardial infarction. On his arrival, he was found to be in acute kidney injury with a creatinine of 4.2 (rising to 5.1, creatinine on January 23 was 1.2). Lactic acid was elevated at 2.2; however, troponin isoenzymes were negative and his presenting proBNP was only 361. During his admission, he was noted to be febrile with a peak temperature of 101 Allergies/Medications Allergies: Coded Allergies: NO KNOWN ALLERGIES (09/26/11) Home Med List: Aspirin (Adult Aspirin Regimen) 81 MG TABLET.DR 1 TAB PO DAILY HEART Atorvastatin Calcium 80 MG TABLET 80 MG PO DAILY HEART Finasteride 5 MG TABLET 1 TAB PO DAILY BPH (Reported) Metoprolol Tartrate 25 MG TABLET 25 MG PO BID heart health Tamsulosin HCl 0.4 MG CAP.ER.24H 1 CAP PO DAILY BPH (Reported) Ticagrelor (Brilinta) 90 MG TABLET 1 TAB PO BID BLOOD THINNER (Reported) Current Medications: Current Medications Sig/Angeles Start time Last Medication Dose Route Stop Time Status Admin Acetaminophen 650 MG Q4P PRN 02/04 1730 AC PO Aspirin Buffered 81 MG DAILY 06/06 0900 AC 02/05 PO 0846 Atorvastatin Calcium 80 MG DAILY 02/05 09 AC 02/05 PO 0846 Finasteride 5 MG DAILY 02/05 900 CAN PO Metoprolol Tartrate 25 MG BID 02/04 2100 AC 02/05 PO 0854 Polyethylene Glycol 17 GM DAILY 02/04 1846 AC PO Sodium Chloride 1,000 ML Q8H 02/04 2100 AC 02/05 IV 0636 Sodium Chloride 1,000 ML Q13H 02/04 1630 DC 02/04 IV 1709 Sodium Chloride 1,000 ML BOLUS ONE 02/04 1345 DC 02/04 IV 02/04 1444 1330 Tamsulosin HCl 0.4 MG DAILY 02/05 900 CAN PO Ticagrelor 90 MG BID 02/04 2100 AC 02/05 PO 0846 Review of Systems Review of Systems: The review of systems is negative for chest pains, palpitations nor lightheadedness. He has had GI discomfort including poor p.o. intake, diarrhea and constipation The remainder of the 14 point review of systems is noncontributory with the exception of above. Past History Travel History Traveled to [place] past 21 day No Medical History Blood Transfusion Hx: No Neurological: NONE EENT: NONE Cardiovascular: NSTEMI, SOURAV to OM 12/2017 Respiratory: NONE Gastrointestinal: NONE Hepatic: NONE Renal: NONE, benign prost hyperplasia Musculoskeletal: NONE Psychiatric: NONE Endocrine: NONE Cancer(s): renal cancer Surgical History Surgical History: NEPHRECTOMY Family History Relations & Conditions If Any: Relation not specified for: *No pertinent family history Psychosocial History Services at Home: None Smoking Status: Never Smoked ETOH Use: denies use Illicit Drug Use: denies illicit drug use Functional Ability ADLs Independent: dressing, eating, toileting, bathing. Exam & Diagnostic Data Vital Signs and I&O Vital Signs Date Time Temp Pulse Resp B/P B/P Pulse O2 O2 Flow FiO2 Mean Ox Delivery Rate 02/05 0854 81 116/70 02/05 0543 97.8 70 22 118/64 94 Room Air 02/04 2241 98.6 83 21 102/60 92 Room Air 02/04 2133 106/60 02/04 1901 101.1 91 118/60 02/04 1901 20 92 Room Air 02/04 1822 99.0 91 20 114/69 94 Room Air 02/04 1716 99.1 87 24 107/55 95 Room Air 02/04 1435 99.3 110 18 124/70 95 Room Air 02/04 1248 94 Room Air 02/04 1144 98.2 91 18 111/55 94 Room Air Intake & Output 02/05 1600 02/05 0800 02/05 0000 / 1600 02/04 0800 02/04 0000 Intake Total 1323 568 0154 Output Total 0 Balance 0578 705 3551 Intake, IV 7200 933 8283 Intake, Oral 120 120 Output, Urine 0 Patient 158 lb 156 lb 156 lb Weight Weight Estimated Measurement Method Physical Exam: General: Nontoxic, no apparent distress. HEENT: Sclera and conjunctiva within normal limits, without xanthelasmas. Neck: Carotids 2+ without bruits. Respiratory: Scattered rhonchi, air movement is good, without accessory respiratory muscle use. Heart: Regular rate and rhythm, without murmurs, without JVD. Abdomen: Soft, nontender, no masses, normoactive bowel sounds. Extremities: Without clubbing, cyanosis, without edema. Neuro: Nonfocal exam, strength, 5 out of 5 Skin: Within normal limits without lesions. Psych: Mood and affect: Normal Labs/Jay Results: Laboratory Tests 02/05 02/04 02/04 06 2037 1724 Chemistry Sodium (137 - 145 mmol/L) 139 Potassium (3.5 - 5.1 mmol/L) 4.1 Chloride (98 - 107 mmol/L) 108 H Carbon Dioxide (22 - 30 mmol/L) 20 L Anion Gap (5 - 16) 11 BUN (9 - 20 mg/dL) 68 H Creatinine (0.7 - 1.2 mg/dL) 5.1 *H Estimated GFR (>60 ml/min) 11 L BUN/Creatinine Ratio (7 - 25 %) 13.3 Lactic Acid (0.7 - 2.1 mmol/L) 1.6 Hematology CBC w Diff NO MAN DIFF REQ WBC (4.8 - 10.8 /CUMM) 10.4 RBC (4.70 - 6.10 /CUMM) 3.83 L Hgb (14.0 - 18.0 G/DL) 12.0 L Hct (42 - 52 %) 35.4 L MCV (80.0 - 94.0 FL) 92.4 MCH (27.0 - 31.0 PG) 31.3 H MCHC (33.0 - 37.0 G/DL) 33.8 RDW (11.5 - 14.5 %) 13.2 Plt Count (130 - 400 /CUMM) 128 L MPV (7.4 - 10.4 FL) 9.4 Gran % (42.2 - 75.2 %) 84.5 H Lymphocytes % (20.5 - 51.1 %) 10.7 L Monocytes % (1.7 - 9.3 %) 4.8 Eosinophils % (0 - 5 %) 0 Basophils % (0.0 - 2.0 %) 0 Absolute Granulocytes (1.4 - 6.5 /CUMM) 8.8 H Absolute Lymphocytes (1.2 - 3.4 /CUMM) 1.1 L Absolute Monocytes (0.10 - 0.60 /CUMM) 0.5 Absolute Eosinophils (0.0 - 0.7 /CUMM) 0 Absolute Basophils (0.0 - 0.2 /CUMM) 0 Urines Ur Random Creatinine Cancelled Ur Random Sodium Cancelled Ur Random Potassium Cancelled Fraction Sodium Excret Cancelled 02/04 02/04 1225 1140 Chemistry Sodium (137 - 145 mmol/L) 140 Potassium (3.5 - 5.1 mmol/L) 4.3 Chloride (98 - 107 mmol/L) 104 Carbon Dioxide (22 - 30 mmol/L) 22 Anion Gap (5 - 16) 13 BUN (9 - 20 mg/dL) 58 H Creatinine (0.7 - 1.2 mg/dL) 4.2 H Estimated GFR (>60 ml/min) 13 L BUN/Creatinine Ratio (7 - 25 %) 13.8 Glucose (65 - 99 mg/dL) 113 H Lactic Acid (0.7 - 2.1 mmol/L) 2.2 H Calcium (8.4 - 10.2 mg/dL) 8.1 L Total Bilirubin (0.2 - 1.3 mg/dL) 2.2 H AST (17 - 59 U/L) 137 H ALT (21 - 72 U/L) 93 H Alkaline Phosphatase (< 127 U/L) 164 H Troponin I (<0.11 ng/ml) 0.08 Total Protein (6.3 - 8.2 g/dL) 6.2 L Albumin (3.5 - 5.0 g/dL) 2.8 L Globulin (1.9 - 4.2 gm/dL) 3.4 Albumin/Globulin Ratio (1.1 - 2.2 %) 0.8 L Coagulation PT (9.4 - 12.5 SEC) 13.1 H INR (0.90 - 1.17) 1.20 H APTT (25 - 37 SEC) 42 H Hematology CBC w Diff MAN DIFF ORDERED WBC (4.8 - 10.8 /CUMM) 12.7 H RBC (4.70 - 6.10 /CUMM) 4.30 L Hgb (14.0 - 18.0 G/DL) 13.6 L Hct (42 - 52 %) 39.7 L MCV (80.0 - 94.0 FL) 92.2 MCH (27.0 - 31.0 PG) 31.5 H MCHC (33.0 - 37.0 G/DL) 34.2 RDW (11.5 - 14.5 %) 13.1 Plt Count (130 - 400 /CUMM) 152 MPV (7.4 - 10.4 FL) 9.1 Gran % (42.2 - 75.2 %) 84.3 H Lymphocytes % (20.5 - 51.1 %) 8.8 L Monocytes % (1.7 - 9.3 %) 6.9 Eosinophils % (0 - 5 %) 0 Basophils % (0.0 - 2.0 %) 0 Absolute Granulocytes (1.4 - 6.5 /CUMM) 10.7 H Segmented Neutrophils (42.2 - 75.2 %) 85 H Band Neutrophils (0.0 - 5.0 %) 5 Absolute Lymphocytes (1.2 - 3.4 /CUMM) 1.1 L Lymphocytes (20.5 - 51.1 %) 7 L Monocytes (1.7 - 9.3 %) 3 Absolute Monocytes (0.10 - 0.60 /CUMM) 0.9 H Absolute Eosinophils (0.0 - 0.7 /CUMM) 0 Absolute Basophils (0.0 - 0.2 /CUMM) 0 Platelet Estimate (ADEQUATE) ADEQUATE Normocytic RBCs VERIFIED Normochromic RBCs VERIFIED Urines Urine Color Cancelled Urine Clarity Cancelled Urine pH Cancelled Ur Specific [place] Cancelled Urine Protein Cancelled Urine Ketones Cancelled Urine Nitrite Cancelled Urine Bilirubin Cancelled Urine Urobilinogen Cancelled Ur Leukocyte Esterase Cancelled Ur Microscopic Cancelled Urine Hemoglobin Cancelled Urine Glucose Cancelled Assessment/Plan Assessment/Plan 87-year-old gentleman with a past medical history of chronic kidney disease, renal cell carcinoma status post right nephrectomy, and coronary artery disease, with a recent non-ST segment patient myocardial infarction, resulting in a drug- eluting stent placement into the obtuse marginal on January 23, 2018. The patient presents to our hospital with symptoms of abdominal discomfort as well as discomfort with inspiration. Sepsis/SIRS: The patient presented with an elevated lactic acid level, and elevated white blood cell count and febrile. Blood cultures and urine culture are pending. A source will continue to be investigated; however, given his significant GI complaints, a further GI workup may be useful. Flank pain/chest discomfort with inspiration: The patient's current discomfort symptoms are unlike his previous presentation with acute myocardial infarction. His troponin isoenzyme was negative, and we may trend this to ensure he rules out. An echocardiogram (limited) she does will be obtained to exclude potential underlying pericardial effusion which may prompt symptoms. Acute kidney injury: The patient was discharged from [facility] with a creatinine of 1.2 ( peaked at 1.7 post catheterization, and subsequently fell to 1.5 and 1.4, 1.2). His acute presentation is unlikely secondary to contrast administered during the cardiac catheterization; however, may represent an overall dehydrated state due to poor intake and sepsis. The noted lesion on his abdominal CT at the upper pole of the left kidney is concerning, and further input by nephrology with likely be beneficial. Coronary artery disease: The patient is status post recent drug-eluting stent to the obtuse marginal branch, and is maintained on dual antiplatelet therapy. This should be attempted to be kept without change at all costs given the timing of stent placement. His regimen of ticagrelor may cause symptoms of dyspnea as a side effect; however, does not usually cause discomfort that he presented with. If needed, we may change this to her regimen such as clopidogrel. Thank you for allowing us to participate in the care of your patient. Please do not hesitate to contact us further with any questions. Sincerely, Roger Enciso MD [facility] Consult Acknowledgment - Thank you for your consult request.
--- NOTE | 2018-02-05 10:24 | Cons- Nephrology ---
General Information and HPI Consulting Request Date of Consult: 02/05/18 Requested By: Renetta Elise MD Reason for Consult: JEAN on CKD Source of Information: patient, family, old records Exam Limitations: no limitations History of Present Illness: The patient is a pleasant 87-year-old male with a history of right nephrectomy approximately 8 years ago for renal cell carcinoma, BPH, coronary artery disease who was recently admitted to [facility] last month with a NSTEMI. Echo at that time revealed normal ejection fraction . He was transferred to [facility] for cardiac catheterization in late December, which revealed two-vessel coronary disease and he is status post drug-eluting stent placement to [facility]. Creatinine bumped to 1.7 after the cardiac cath up from baseline in the low ones however improved to baseline of 1.2 on discharge. He was started on a statin, metoprolol and dual antiplatelet agents upon discharge. Of note during the hospital stay there was a urinalysis that was done that revealed pyuria and appears a urine culture was not done, and he was not treated with antibiotics. He's been home for a bit over one week, and has had poor by mouth intake, fatigue, muscle weakness, has been bedbound, and reports abdominal pain as well. Exam does reveal lacy rash on his abdomen and chest. He's had a decrease in urine output. Bladder scan this morning revealed approximately 270 mL and will be repeated. CT of the abdomen and pelvis without contrast revealed a surgically absent right kidney, no left hydronephrosis, a 2.6 cm left renal mass , gallstones, thick gallbladder wall, large prostate and diverticulosis. Labs revealed severe renal failure with a creatinine level of 4.2 on admit to increased to 5.1 this morning despite receiving IV fluids. BUN was 50 and admission sarahi 68 today. He has no edema is lost significant amount of weight. He denies vomiting but did have some diarrhea while at [facility]. Denies NSAIDs. No recent antibiotics. Labs also reveal an LFT abnormality with elevated total bili of 2.2. There is no eosinophilia. There was a lactic acid level of 2.2 on admission, with WBC 12K, tmax 101.1, without hypotension. Allergies/Medications Allergies: Coded Allergies: NO KNOWN ALLERGIES (09/26/11) Home Med List: Aspirin (Adult Aspirin Regimen) 81 MG TABLET.DR 1 TAB PO DAILY HEART Atorvastatin Calcium 80 MG TABLET 80 MG PO DAILY HEART Finasteride 5 MG TABLET 1 TAB PO DAILY BPH (Reported) Metoprolol Tartrate 25 MG TABLET 25 MG PO BID heart health Tamsulosin HCl 0.4 MG CAP.ER.24H 1 CAP PO DAILY BPH (Reported) Ticagrelor (Brilinta) 90 MG TABLET 1 TAB PO BID BLOOD THINNER (Reported) Current Medications: Current Medications Sig/Angeles Start time Last Medication Dose Route Stop Time Status Admin Acetaminophen 650 MG Q4P PRN 02/04 1730 AC PO Aspirin Buffered 81 MG DAILY 02/05 900 AC 02/05 PO 0846 Atorvastatin Calcium 80 MG DAILY 02/05 900 AC 02/05 PO 0846 Finasteride 5 MG DAILY 02/05 900 CAN PO Metoprolol Tartrate 25 MG BID 02/04 2100 AC 02/05 PO 0854 Polyethylene Glycol 17 GM DAILY 02/04 1846 AC PO Sodium Chloride 1,000 ML Q8H 02/04 2100 AC 02/05 IV 0636 Sodium Chloride 1,000 ML Q13H 02/04 1630 DC 02/04 IV 1709 Sodium Chloride 1,000 ML BOLUS ONE 02/04 1345 DC 02/04 IV 02/04 1444 1330 Tamsulosin HCl 0.4 MG DAILY 02/05 900 CAN PO Ticagrelor 90 MG BID 02/04 2100 AC 02/05 PO 0846 Review of Systems Review of Systems: Gen: neg fever, chills, nightsweats,+wt loss Skin: + rash, no pruritus Eye: neg visual changes, diplopia ENT: neg hearing changes, rhinitus CV: neg CP, SOB, GOMEZ, PND, orthopnea Pulm: neg cough, sputum, hemoptysis GI: +decrease in UO. no dysuria. Musculoskeletal: neg myalgias, arthralgias +muscle weakness Neuro: neg numbness, tremor Psych: neg depression, mental status changes Heme: neg bruising, easy bleeding, clots renal: no edema, metallic taste Past History Travel History Traveled to [place] past 21 day No Medical History Blood Transfusion Hx: No Neurological: NONE EENT: NONE Cardiovascular: NSTEMI, SOURAV to [facility] 12/2017 Respiratory: NONE Gastrointestinal: NONE Hepatic: NONE Renal: benign prost hyperplasia, chronic kidney disease Musculoskeletal: NONE Psychiatric: NONE Endocrine: NONE Cancer(s): renal cancer Surgical History Surgical History: NEPHRECTOMY Family History Relations & Conditions If Any: Relation not specified for: *No pertinent family history Psychosocial History Services at Home: None Smoking Status: Never Smoked ETOH Use: denies use Illicit Drug Use: denies illicit drug use Functional Ability ADLs Independent: dressing, eating, toileting, bathing. Exam & Diagnostic Data Vital Signs and I&O Vital Signs Date Time Temp Pulse Resp B/P B/P Pulse O2 O2 Flow FiO2 Mean Ox Delivery Rate 02/05 0854 81 116/70 02/05 0543 97.8 70 22 118/64 94 Room Air 06/ 2241 98.6 83 21 102/60 92 Room Air 06/05 2133 106/60 06/ 1901 101.1 91 118/60 06/05 1901 20 92 Room Air 06/05 1822 99.0 91 20 114/69 94 Room Air 06/05 1716 99.1 87 24 107/55 95 Room Air 06/05 1435 99.3 110 18 124/70 95 Room Air 06/05 1248 94 Room Air /05 1144 98.2 91 18 111/55 94 Room Air Intake & Output 02/05 1600 02/05 0400 02/04 1600 02/04 0400 02/03 1600 02/03 0400 Intake Total 0211 052 4366 Output Total 0 Balance 7524 082 3534 Intake, IV 7976 002 7726 Intake, Oral 120 120 Output, Urine 0 Patient 158 lb 156 lb 156 lb Weight Weight Estimated Measurement Method Physical Exam: General: NAD, A+O x3. HEENT: NC/AT. No icterus. +dry mucosa Neck: negative for SILVINA, JVD CV: RRR, no m/r/g Pulm: CTAB, no rales Abd: soft, NT/ND, negative renal bruits Lower Ext: neg edema or chronic venous changes, no blue toes Upper Ext: no AVFs or AVGs Back: negative for CVA tenderness Neuro: neg tremor, asterixis Skin: +ann rash on abdomen : no [place] catheter Results Pertinent Lab Results: Laboratory Tests 02/05 02/04 02/04 067 1724 Chemistry Sodium (137 - 145 mmol/L) 139 Potassium (3.5 - 5.1 mmol/L) 4.1 Chloride (98 - 107 mmol/L) 108 H Carbon Dioxide (22 - 30 mmol/L) 20 L Anion Gap (5 - 16) 11 BUN (9 - 20 mg/dL) 68 H Creatinine (0.7 - 1.2 mg/dL) 5.1 *H Estimated GFR (>60 ml/min) 11 L BUN/Creatinine Ratio (7 - 25 %) 13.3 Lactic Acid (0.7 - 2.1 mmol/L) 1.6 Creatine Kinase (55 - 170 U/L) Pending Hematology CBC w Diff NO MAN DIFF REQ WBC (4.8 - 10.8 /CUMM) 10.4 RBC (4.70 - 6.10 /CUMM) 3.83 L Hgb (14.0 - 18.0 G/DL) 12.0 L Hct (42 - 52 %) 35.4 L MCV (80.0 - 94.0 FL) 92.4 MCH (27.0 - 31.0 PG) 31.3 H MCHC (33.0 - 37.0 G/DL) 33.8 RDW (11.5 - 14.5 %) 13.2 Plt Count (130 - 400 /CUMM) 128 L MPV (7.4 - 10.4 FL) 9.4 Gran % (42.2 - 75.2 %) 84.5 H Lymphocytes % (20.5 - 51.1 %) 10.7 L Monocytes % (1.7 - 9.3 %) 4.8 Eosinophils % (0 - 5 %) 0 Basophils % (0.0 - 2.0 %) 0 Absolute Granulocytes (1.4 - 6.5 /CUMM) 8.8 H Absolute Lymphocytes (1.2 - 3.4 /CUMM) 1.1 L Absolute Monocytes (0.10 - 0.60 /CUMM) 0.5 Absolute Eosinophils (0.0 - 0.7 /CUMM) 0 Absolute Basophils (0.0 - 0.2 /CUMM) 0 Immunology Complement C3 Pending Complement C4 Pending Serology Hep Bs Antibody (NONREACTIVE) Pending Urines Ur Random Creatinine Cancelled Ur Random Sodium Cancelled Ur Random Potassium Cancelled Fraction Sodium Excret Cancelled 02/04 02/04 1225 1140 Chemistry Sodium (137 - 145 mmol/L) 140 Potassium (3.5 - 5.1 mmol/L) 4.3 Chloride (98 - 107 mmol/L) 104 Carbon Dioxide (22 - 30 mmol/L) 22 Anion Gap (5 - 16) 13 BUN (9 - 20 mg/dL) 58 H Creatinine (0.7 - 1.2 mg/dL) 4.2 H Estimated GFR (>60 ml/min) 13 L BUN/Creatinine Ratio (7 - 25 %) 13.8 Glucose (65 - 99 mg/dL) 113 H Lactic Acid (0.7 - 2.1 mmol/L) 2.2 H Calcium (8.4 - 10.2 mg/dL) 8.1 L Total Bilirubin (0.2 - 1.3 mg/dL) 2.2 H AST (17 - 59 U/L) 137 H ALT (21 - 72 U/L) 93 H Alkaline Phosphatase (< 127 U/L) 164 H Troponin I (<0.11 ng/ml) 0.08 Total Protein (6.3 - 8.2 g/dL) 6.2 L Albumin (3.5 - 5.0 g/dL) 2.8 L Globulin (1.9 - 4.2 gm/dL) 3.4 Albumin/Globulin Ratio (1.1 - 2.2 %) 0.8 L Coagulation PT (9.4 - 12.5 SEC) 13.1 H INR (0.90 - 1.17) 1.20 H APTT (25 - 37 SEC) 42 H Hematology CBC w Diff MAN DIFF ORDERED WBC (4.8 - 10.8 /CUMM) 12.7 H RBC (4.70 - 6.10 /CUMM) 4.30 L Hgb (14.0 - 18.0 G/DL) 13.6 L Hct (42 - 52 %) 39.7 L MCV (80.0 - 94.0 FL) 92.2 MCH (27.0 - 31.0 PG) 31.5 H MCHC (33.0 - 37.0 G/DL) 34.2 RDW (11.5 - 14.5 %) 13.1 Plt Count (130 - 400 /CUMM) 152 MPV (7.4 - 10.4 FL) 9.1 Gran % (42.2 - 75.2 %) 84.3 H Lymphocytes % (20.5 - 51.1 %) 8.8 L Monocytes % (1.7 - 9.3 %) 6.9 Eosinophils % (0 - 5 %) 0 Basophils % (0.0 - 2.0 %) 0 Absolute Granulocytes (1.4 - 6.5 /CUMM) 10.7 H Segmented Neutrophils (42.2 - 75.2 %) 85 H Band Neutrophils (0.0 - 5.0 %) 5 Absolute Lymphocytes (1.2 - 3.4 /CUMM) 1.1 L Lymphocytes (20.5 - 51.1 %) 7 L Monocytes (1.7 - 9.3 %) 3 Absolute Monocytes (0.10 - 0.60 /CUMM) 0.9 H Absolute Eosinophils (0.0 - 0.7 /CUMM) 0 Absolute Basophils (0.0 - 0.2 /CUMM) 0 Platelet Estimate (ADEQUATE) ADEQUATE Normocytic RBCs VERIFIED Normochromic RBCs VERIFIED Urines Urine Color Cancelled Urine Clarity Cancelled Urine pH Cancelled Ur Specific [place] Cancelled Urine Protein Cancelled Urine Ketones Cancelled Urine Nitrite Cancelled Urine Bilirubin Cancelled Urine Urobilinogen Cancelled Ur Leukocyte Esterase Cancelled Ur Microscopic Cancelled Urine Hemoglobin Cancelled Urine Glucose Cancelled Assessment/Plan Assessment/Recommendations Assessment: Acute renal failure: Differential includes rhabdomyolysis (add on CPK) from the statin, cholesterol emboli syndrome (check C3/C4) triggered by the recent cardiac catheterization with stenting, and ischemic ATN from sepsis. There may be some superimposed prerenal factors however lack of improvement in renal function with IV fluids this morning is concerning and makes an intrinsic renal process more likely. CAT scan did not reveal any hydronephrosis of his solitary kidney; however he may require a [place] catheter placement given the history of BPH and elevated bladder scan this morning up to 70 mL. The plan is to repeat a bladder scan after an attempt to void and if ongoing retention exists that he will need a [place] catheter. I doubt glomerular disease despite the low albumin as he has no edema or hypertension . There is no acute emergent dialytic need today however he may require dialysis in the next 48 hours. Would check a screening hepatitis B panel. 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 UA at [facility] only revealed 1+ protein. SIRS: He does meet SIRS criteria with a low-grade fever, leukocytosis as well as lactic acidosis which has improved. Blood cultures to be drawn. Perhaps he has a urinary tract infection given the pyuria which was seen on UA at [facility]. Check urinalysis and urine culture. Consider empiric and a biotics afte the urine sample is collected. There are no signs of pneumonia on x-ray. While exam is unimpressive given report of abdominal pain and elevated LFTs would check abdominal ultrasound to evaluate for cholecystitis. Left renal mass: This is concerning for possible recurrence of renal cell carcinoma. Would consult his urologist Dr. Hairston to help guide further management. This is more of a chronic issue rather than acute emergent issue, so perhaps be discussed MRI can be delayed. Recommendations: Add on CPK C3-C4 Hepatitis B panel Continue normal saline at 125 cc/hr Strict ins and outs daily weights and daily renal labs Urinalysis, urine culture, urine protein creatinine ratio, spot urine sodium Abdominal ultrasound Hold the statin Add on phosphorus level and check phosphorus level daily with his daily labs Repeat bladder scan and low threshold to place a [place] catheter if retention is ongoing Urology consultation Thank you for the consultation Recs discussed with the medical team Govind Echols MD
--- NOTE | 2018-02-05 14:18 | ULTRASOUND REPORT ---
EXAMINATION: US ABDOMEN COMPLETE CLINICAL INFORMATION: An enlarging left renal lesion visualized on CT. COMPARISON: CT of the abdomen and pelvis from 02/04/2018 TECHNIQUE: Real-time imaging of the abdominal viscera. FINDINGS: PANCREAS: The pancreas is not visualized due to overlying bowel gas. ABDOMINAL AORTA: The aorta is not visualized due to overlying bowel gas. INFERIOR VENA CAVA: The IVC is not visualized due to overlying bowel gas. LIVER: The liver is somewhat difficult to visualize but demonstrates no discrete hepatic lesions and no intrahepatic biliary ductal dilatation. GALLBLADDER: The gallbladder is collapsed. A shadowing stone is noted by the technologist, and corresponds with recent CT, but saved images are limited. COMMON BILE DUCT: Normal in caliber measuring 0.2 cm in diameter. RIGHT KIDNEY: There has been prior right nephrectomy. There is no soft tissue nodularity documented. LEFT KIDNEY: The left kidney measures 15.9 cm. Two cysts are documented sonographically, one in the upper pole measuring 6.5 cm, one in the lower pole measuring 2.5 cm, both of which appear to have a CT correlate. There is an oval hypoechoic area documented in the interpolar region measuring 0.9 x 0.9 x 1.0 cm which is avascular and may reflect an additional cyst which is not clearly visualized on CT. The mass of interest however arising exophytically from the upper pole is not sonographically evident. Correlation with MRI is suggested. SPLEEN: Enlarged The spleen measures 15.8 cm in maximum dimension. FREE FLUID: None. IMPRESSION: The enlarging lesion arising exophytically from the upper pole of the left kidney on CT is not sonographically visualized. Left-sided renal cysts are documented. MRI may be useful in additional characterization of the CT finding. Mild splenomegaly. Cholelithiasis. Status post right nephrectomy.
[2018-02-05 16:22] VITALS: BP 120/58
--- NOTE | 2018-02-05 18:49 | Cons- Urology ---
General Information and HPI Consulting Request Date of Consult: 02/05/18 Requested By: Arik PARDO,Renetta Reason for Consult: LEFT RENAL MASS WITH SINGLE KIDNEY: ARF WITH URINARY RETENTION Source of Information: patient, old records Exam Limitations: no limitations History of Present Illness: NURSES UNABLE TO CATHETERIZE: CALLED IN FOR ARF.-NEEDS SMITH Mr. Myers is an 87 year old gentleman with a PMH of BPH and recent NSTEMI status post stent placement on 01/23 presents with abdominal pain that has been going on since he had the cardiac stent placed. Coating the patient, he has been having dull generalized abdominal pain 7/10 in intensity since he had a cardiac stent placed on 01/23. No aggravating or relieving factors. Denies any nausea or vomiting. States she had diarrhea 4-3 days when he was admitted at [facility] which has resolved now. Also reports dyspnea on exertion which is also new after the cardiac stent placement. Endorses decreased by mouth intake and states that he does not have any appetite at all. He has not had a bowel movement since more than 1-1/2 week now and also reports decreased urine output, which she is attributing to his decreased by mouth intake. Denies any fever/chills, pain or burning with urination, chest pain, palpitations. Allergies/Medications Allergies: Coded Allergies: NO KNOWN ALLERGIES (09/26/11) Home Med List: Aspirin (Adult Aspirin Regimen) 81 MG TABLET.DR 1 TAB PO DAILY HEART Atorvastatin Calcium 80 MG TABLET 80 MG PO DAILY HEART Finasteride 5 MG TABLET 1 TAB PO DAILY BPH (Reported) Metoprolol Tartrate 25 MG TABLET 25 MG PO BID heart health Tamsulosin HCl 0.4 MG CAP.ER.24H 1 CAP PO DAILY BPH (Reported) Ticagrelor (Brilinta) 90 MG TABLET 1 TAB PO BID BLOOD THINNER (Reported) Current Medications: Current Medications Sig/Angeles Start time Last Medication Dose Route Stop Time Status Admin Acetaminophen 650 MG Q4P PRN 02/04 1730 AC PO Aspirin Buffered 81 MG DAILY 02/05 0900 AC 02/05 PO 0846 Atorvastatin Calcium 80 MG DAILY 02/05 0900 DC 02/05 PO 0846 Finasteride 5 MG DAILY 02/05 900 CAN PO Metoprolol Tartrate 25 MG BID 02/04 2100 AC 02/05 PO 0854 Polyethylene Glycol 17 GM DAILY 02/04 1846 AC PO Sodium Chloride 1,000 ML Q8H 02/04 2100 AC 02/05 IV 1459 Sodium Chloride 1,000 ML Q13H 02/04 1630 DC 02/04 IV 1709 Tamsulosin HCl 0.4 MG DAILY 02/05 0900 CAN PO Ticagrelor 90 MG BID 02/04 2100 AC 02/05 PO 0846 Past History Medical History Blood Transfusion Hx: No Neurological: NONE EENT: NONE Cardiovascular: NSTEMI, SOURAV to OM 12/2017 Respiratory: NONE Gastrointestinal: NONE Hepatic: NONE Renal: benign prost hyperplasia, chronic kidney disease Musculoskeletal: NONE Psychiatric: NONE Endocrine: NONE Cancer(s): renal cancer Surgical History Pertinent Surgical History: NEPHRECTOMY Family History Relations & Conditions If Any: Relation not specified for: *No pertinent family history Psychosocial History Services at Home: None Smoking Status: Never Smoked ETOH Use: denies use Illicit Drug Use: denies illicit drug use Functional Ability ADLs Independent: dressing, eating, toileting, bathing. Employment History Retired? yes Review of Systems Review of Systems Constitutional: Denies: no symptoms. EENTM: Denies: no symptoms. Cardiovascular: Denies: no symptoms. Respiratory: Denies: no symptoms. GI: Denies: no symptoms. Genitourinary: Reports: hesitation. Exam & Diagnostic Data Vital Signs and I&O Vital Signs Date Time Temp Pulse Resp B/P B/P Pulse O2 O2 Flow FiO2 Mean Ox Delivery Rate 02/05 1843 100.6 02/05 1622 98.6 83 20 120/58 95 /06 0854 81 116/70 02/05 0543 97.8 70 22 118/64 94 Room Air 02/04 2241 98.6 83 21 102/60 92 Room Air / 2133 106/60 / 1901 101.1 91 118/60 / 1901 20 92 Room Air Intake & Output 02/05 1600 02/05 0800 / 0000 / 1600 02/04 0800 02/04 0000 Intake Total 60 2676 749 5645 Output Total 50 0 Balance 10 9284 965 6992 Intake, IV 4543 334 8864 Intake, Oral 60 120 120 Output, Urine 50 0 Patient 158 lb 156 lb 156 lb Weight Weight Estimated Measurement Method Physical Exam General Appearance: well developed/nourished, no apparent distress Head: atraumatic Eyes: Bilateral: normal appearance. Neck: normal inspection Respiratory: normal breath sounds Cardiovascular: regular rate/rhythm Gastrointestinal: normal bowel sounds Back: no vertebral tenderness Extremities: normal inspection Reproductive: Normal male genitalia Last 24 Hours of Labs: Laboratory Tests 02/05 06/ 1200 0600 Chemistry Sodium (137 - 145 mmol/L) 139 Potassium (3.5 - 5.1 mmol/L) 4.1 Chloride (98 - 107 mmol/L) 108 H Carbon Dioxide (22 - 30 mmol/L) 20 L Anion Gap (5 - 16) 11 BUN (9 - 20 mg/dL) 68 H Creatinine (0.7 - 1.2 mg/dL) 5.1 *H Estimated GFR (>60 ml/min) 11 L BUN/Creatinine Ratio (7 - 25 %) 13.3 Phosphorus (2.5 - 4.5 mg/dL) 3.6 Total Bilirubin (0.2 - 1.3 mg/dL) 1.5 H Direct Bilirubin (< 0.4 mg/dL) 0.8 H AST (17 - 59 U/L) 152 H ALT (21 - 72 U/L) 102 H Alkaline Phosphatase (< 127 U/L) 137 H Creatine Kinase (55 - 170 U/L) 40 L Troponin I (<0.11 ng/ml) 0.08 Total Protein (6.3 - 8.2 g/dL) 5.1 L Albumin (3.5 - 5.0 g/dL) 2.1 L Hematology CBC w Diff NO MAN DIFF REQ WBC (4.8 - 10.8 /CUMM) 10.4 RBC (4.70 - 6.10 /CUMM) 3.83 L Hgb (14.0 - 18.0 G/DL) 12.0 L Hct (42 - 52 %) 35.4 L MCV (80.0 - 94.0 FL) 92.4 MCH (27.0 - 31.0 PG) 31.3 H MCHC (33.0 - 37.0 G/DL) 33.8 RDW (11.5 - 14.5 %) 13.2 Plt Count (130 - 400 /CUMM) 128 L MPV (7.4 - 10.4 FL) 9.4 Gran % (42.2 - 75.2 %) 84.5 H Lymphocytes % (20.5 - 51.1 %) 10.7 L Monocytes % (1.7 - 9.3 %) 4.8 Eosinophils % (0 - 5 %) 0 Basophils % (0.0 - 2.0 %) 0 Absolute Granulocytes (1.4 - 6.5 /CUMM) 8.8 H Absolute Lymphocytes (1.2 - 3.4 /CUMM) 1.1 L Absolute Monocytes (0.10 - 0.60 /CUMM) 0.5 Absolute Eosinophils (0.0 - 0.7 /CUMM) 0 Absolute Basophils (0.0 - 0.2 /CUMM) 0 Immunology Complement C3 Pending Complement C4 Pending Serology Hep Bs Antibody (NONREACTIVE) NONREACTIVE Urines Urinalysis LIGHT H Urine Color (YEL,AMB,STR) YEL Urine Clarity (CLEAR) HAZY H Urine pH (5.0 - 8.0) 6.0 Ur Specific [place] (1.001 - 1.035) 1.025 Urine Protein (NEG,<30 MG/DL) 30 H Urine Ketones (NEG) NEG Urine Nitrite (NEG) NEG Urine Bilirubin (NEG) NEG Urine Urobilinogen (0.1 - 1.0 EU/dl) 0.2 Ur Leukocyte Esterase (NEG) SMALL H Ur Microscopic SEDIMENT EXAMINED Urine RBC (0 - 5 /HPF) 3-5 Urine WBC (0 - 2 /HPF) 5-10 H Ur Epithelial Cells (NONE,FEW) FEW Urine Bacteria (NEG/NONE) MOD H Urine Hemoglobin (NEG) TRACE-INTACT H Urine Glucose (N MG/DL) NEG 02/04 2037 Chemistry Lactic Acid (0.7 - 2.1 mmol/L) 1.6 Imaging Results: 87 PATIENT ACCOUNT NO: [id number] : [birth year] LOCATION: [facility] ORDERING PHYSICIAN: Andrei OKEEFE SERVICE DATE: 02/04/187588 EXAM TYPE: CAT - CT ABD & PELVIS W/O IV CONTRAS ADDENDUM: Item #1 of the IMPRESSION section should correctly refer to the left kidney and not the right kidney. Addendum Signed by: Servando Houston MD 02/04/18 8859 EXAMINATION: CT ABDOMEN AND PELVIS WITHOUT CONTRAST CLINICAL INFORMATION: Abdominal pain. COMPARISON: [facility] dated 07/18/2016; abdominal ultrasound dated 12/29/2012; CT abdomen and pelvis dated 12/29/2012. TECHNIQUE: Multidetector volumetric imaging was performed from the superior aspect of the liver through the pubic symphysis. Sagittal and coronal reformatted images were obtained on the technologist's workstation. DLP: 947.18 mGy-cm FINDINGS: LUNG BASES: There is mild bibasilar hypoaeration. A benign, calcified left base granuloma is seen (4:4). There are coronary artery atherosclerotic calcifications. LIVER, GALLBLADDER, AND BILIARY TREE: The liver is normal in size, shape, and attenuation. No focal hepatic lesion or biliary ductal dilatation is present. A large gallstone is again seen. Mild gallbladder wall thickening is suspected, without pericholecystic fat stranding or free fluid. PANCREAS: Unremarkable. SPLEEN: Unremarkable. ADRENAL GLANDS: Unremarkable. KIDNEYS AND URETERS: The right kidney is surgically absent. The left kidney is normal in size, shape, and attenuation. No hydronephrosis, hydroureter, or calculi seen. There are low-attenuation left renal cysts, some too small to fully characterize with CT. At the upper pole of the left kidney anteriorly (4:21), there is a 2.6 x 2.0 cm ovoid mass seen with precontrast Hounsfield value of 23.5 units. This has increased in size from dimensions of 2.0 x 1.8 cm on 12/29/2012 (2:16). No perinephric stranding. BLADDER: Unremarkable. GASTROINTESTINAL TRACT: There is moderately severe diverticulosis, without acute diverticulitis. No bowel obstruction, free intraperitoneal air or abscess is seen. The vermiform appendix appears normal. ABDOMINAL WALL: No significant hernia is appreciated. LYMPH NODES: Normal. VASCULAR: There is mild aortoiliac abscess chronic change. No abdominal aortic aneurysm is seen. PELVIC VISCERA: There is prostatomegaly, with a transverse span of 5.8 cm. The seminal vesicles are unremarkable. OSSEOUS STRUCTURES: There is multi-level marked thoracolumbar degenerative disc disease and spondylosis, most pronounced at L4-L3 and L4-L5. No acute or aggressive osseous abnormality is seen. IMPRESSION: 1. There is a increased soft tissue density mass arising exophytically from the upper pole of the right kidney. The possibility of neoplasm is not excluded. Recommend further evaluation with MRI or repeat ultrasound. Of note, this finding was not seen on the renal ultrasound dated 07/20/2016. 2. The right kidney surgically absent. 3. There is cholelithiasis. There is equivocal gallbladder wall thickening, which could be more fully evaluated with dedicated abdominal ultrasound. This raises the possibility of cholecystitis. Please correlate clinically. 4. There is moderately severe diverticulosis, without acute diverticulitis. No appendicitis is seen. There is no obstruction, free intraperitoneal air or abscess. 5. There is prostatomegaly. 6. There are marked thoracolumbar degenerative changes. DICTATED BY: Servando Houston MD DATE/TIME DICTATED:02/04/181254 Assessment/Plan Assessment/Plan PT. WITH ARF-URINARY RETENTION: SMITH TO BE PLACED NOW. Copies To: Joshua Hairston MD Consult Acknowledgment - Thank you for your consult request. Attending MD Review Statement Attending Statement Attending MD Statement: examined this patient, discuss w/resident/PA/CONSIGNEE Attending Assessment/Plan: SMITH INSERTED-DC WITH SMITH AND MONITOR LABS TO EVALUATE IMPROVEMENT
[2018-02-05 22:14] VITALS: BP 114/54
[2018-02-06 06:20] VITALS: BP 111/59
--- NOTE | 2018-02-06 07:11 | PN- Housestaff ---
Bambi PARDO,[facility] 02/06/18 0711: Subjective Follow-up For: abdominal pain Subjective: Patient seen and examined at bedside. States he does not feel good. When asked to elaborate he says that his breathing is heavier and he feels short of breath. Also been complaining that he constantly feels cold. Review of Systems Constitutional: Reports: no symptoms. Objective Last 24 Hrs of Vital Signs/I&O Vital Signs Date Time Temp Pulse Resp B/P B/P Pulse O2 O2 Flow FiO2 Mean Ox Delivery Rate 02/06 0806 118/68 02/06 0620 98.1 79 20 111/59 93 Room Air 02/05 2214 97.8 80 24 114/54 93 Room Air 02/05 2133 80 114/54 02/05 1956 97.8 02/05 1857 100.6 02/05 1843 100.6 02/05 1622 98.6 83 20 120/58 95 / 0854 81 116/70 Intake & Output 02/06 1600 02/06 0800 02/06 0000 Intake Total 875 Output Total 125 400 Balance 750 -400 Intake, IV 875 Intake, Oral Number 0 1 Bowel Movements Output, Urine 125 400 Physical Exam General Appearance: Alert, Oriented X3, Cooperative, Mild Distress Skin: No Rashes, No Breakdown Skin Temp/Moisture Exam: Warm/Dry Sepsis Skin Exam (color): Normal for Ethnicity HEENT: Atraumatic Cardiovascular: Normal S1, Normal S2, No Murmurs Lungs: Normal Air Movement, crackles at LLL Abdomen: Soft, No Tenderness Neurological: Normal Speech Extremities: No Edema Assessment/Plan Assessment: Mr. Myers is an 87 year old gentleman with a PMH of BPH, right nephrectomy for RCC and CAD with recent NSTEMI status post stent placement on 01/23 presents with abdominal pain that has been going on since he had the cardiac stent placed. Assessment: 1. 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 Thrombocytopenia - resolved 3. Left Renal Mass 4. Cholelithiasis with ? gallbladder wall thickening 5. severe diverticulosis, without acute diverticulitis. 6. CAD s/p recent stent placed 7. History of BPH 8. Transaminitis Plan: * His Cr function continues to worsen. * It is unclear at this time what caused his JEAN. He recently had a stent placed in his OM. JEAN could have been precipitated with the dye load though this normally presents more acutely. * Will change his fluids to D5W/75meq bicarb @50cc/hr * Strict I's&O's * He will likely need dialysis. Will be scheduled for an AshCath tomorrow with IR. This has been confirmed. * His U/S yesterday was not able to visualize his kidneys. * His platelets have stabalized. * Repeat BEP at 2pm today to monitor kidney function. * CXR to r/o pneumonia and pulmonary edema * Limited Echo to r/o pericardial effusion - pending * His LFTs are elevated; unclear why at this time. Will monitor. * hepatitis panel and complement levels - pending. * Diet: Renal Dialysis * DVT Prophylaxis: ALPS with SC Heparin * Code: Full Code Problem List: 1. Renal mass Pain Ratin Pain Location: none Pain Goal: Remain pain free Pain Plan: none Tomorrow's Labs & Rationales: CBC, BEP Arik PARDO,Renetta 02/06/18 1135: Attending MD Review Statement Attending Statement Attending MD Statement: examined this patient, discuss w/resident/PA/[employer], agreed w/resident/PA/[employer], reviewed EMR data (avail), discussed with nursing, discussed with case mgmt, reviewed images, amended to note Attending Assessment/Plan: Patient seen and examined, not feeling better. Still feeling exhausted, fatigued and tired. Patient is also now having some chills and shaking. His creatinine is getting worse. He continues to spike low-grade temps. Vital Signs Date Time Temp Pulse Resp B/P B/P Pulse O2 O2 Flow FiO2 Mean Ox Delivery Rate 02/06 1000 99.1 67 20 117/81 93 Room Air 02/06 0806 118/68 02/06 0620 98.1 79 20 111/59 93 Room Air 02/05 2214 97.8 80 24 114/54 93 Room Air / 2133 80 114/54 02/05 1956 97.8 02/05 1857 100.6 06 1843 100.6 02/05 1622 98.6 83 20 120/58 95 On exam; aox3, nad. cv; s1,s2, rrr resp; b/l mild basal crackles. abd; soft, tender in left flank, bs+ ext; no edema. skin; macular levido reticularis like looking rash on [place]. Laboratory Tests 02/06 02/05 0715 1855 Chemistry Sodium (137 - 145 mmol/L) 142 Potassium (3.5 - 5.1 mmol/L) 4.1 Chloride (98 - 107 mmol/L) 112 H Carbon Dioxide (22 - 30 mmol/L) 17 L Anion Gap (5 - 16) 13 BUN (9 - 20 mg/dL) 77 H Creatinine (0.7 - 1.2 mg/dL) 5.6 *H Estimated GFR (>60 ml/min) 10 L BUN/Creatinine Ratio (7 - 25 %) 13.8 Phosphorus (2.5 - 4.5 mg/dL) 4.2 Total Bilirubin (0.2 - 1.3 mg/dL) 1.4 H Direct Bilirubin (< 0.4 mg/dL) 0.8 H AST (17 - 59 U/L) 143 H ALT (21 - 72 U/L) 99 H Alkaline Phosphatase (< 127 U/L) 145 H Total Protein (6.3 - 8.2 g/dL) 4.8 L Albumin (3.5 - 5.0 g/dL) 1.9 L TSH (0.270 - 4.200 uIU/mL) 0.617 Free T4 (0.85 - 1.93 ng/dL) 3.12 H Hematology CBC w Diff NO MAN DIFF REQ WBC (4.8 - 10.8 /CUMM) 11.7 H RBC (4.70 - 6.10 /CUMM) 4.14 L Hgb (14.0 - 18.0 G/DL) 12.6 L Hct (42 - 52 %) 38.0 L MCV (80.0 - 94.0 FL) 91.8 MCH (27.0 - 31.0 PG) 30.6 MCHC (33.0 - 37.0 G/DL) 33.3 RDW (11.5 - 14.5 %) 13.9 Plt Count (130 - 400 /CUMM) 151 MPV (7.4 - 10.4 FL) 9.0 Gran % (42.2 - 75.2 %) 88.9 H Lymphocytes % (20.5 - 51.1 %) 7.7 L Monocytes % (1.7 - 9.3 %) 3.4 Eosinophils % (0 - 5 %) 0 Basophils % (0.0 - 2.0 %) 0 Absolute Granulocytes (1.4 - 6.5 /CUMM) 10.4 H Absolute Lymphocytes (1.2 - 3.4 /CUMM) 0.9 L Absolute Monocytes (0.10 - 0.60 /CUMM) 0.4 Absolute Eosinophils (0.0 - 0.7 /CUMM) 0 Absolute Basophils (0.0 - 0.2 /CUMM) 0 Serology Hepatitis A IgM Ab (NONREACTIVE) Pending Hep Bs Antigen (NONREACTIVE) Pending Hep B Core IgM Ab Conf (NONREACTIVE) Pending Hepatitis C Antibody (NONREACTIVE) Pending Urines Urine Color Cancelled Urine Clarity Cancelled Urine pH Cancelled Ur Specific [place] Cancelled Urine Protein Cancelled Urine Ketones Cancelled Urine Nitrite Cancelled Urine Bilirubin Cancelled Urine Urobilinogen Cancelled Ur Leukocyte Esterase Cancelled Ur Microscopic Cancelled Urine Hemoglobin Cancelled Urine Glucose Cancelled 02/05 06/06 1200 1200 Urines Urinalysis LIGHT H Urine Color (YEL,AMB,STR) YEL Urine Clarity (CLEAR) HAZY H Urine pH (5.0 - 8.0) 6.0 Ur Specific [place] (1.001 - 1.035) 1.025 Urine Protein (NEG,<30 MG/DL) 30 H Urine Ketones (NEG) NEG Urine Nitrite (NEG) NEG Urine Bilirubin (NEG) NEG Urine Urobilinogen (0.1 - 1.0 EU/dl) 0.2 Ur Leukocyte Esterase (NEG) SMALL H Ur Microscopic SEDIMENT EXAMINED Urine RBC (0 - 5 /HPF) 3-5 Urine WBC (0 - 2 /HPF) 5-10 H Ur Epithelial Cells (NONE,FEW) FEW Urine Bacteria (NEG/NONE) MOD H Urine Hemoglobin (NEG) TRACE-INTACT H Urine Osmolality (300 - 1000 MOSM/KG) 349 Ur Random Creatinine (mg/dL) 204.7 U Random Total Protein (0 - 12 mg/dL) 50 H Ur Random Sodium (30 - 90 mmol/L) 30 Ur Random Potassium (mmol/L) 53.9 Protein/Creatinin Ratio (< 0.2) 0.2 Fraction Sodium Excret (<1% %) 0.5 Urine Glucose (N MG/DL) NEG A/P: 87-year-old male with past medical history significant for hypertension, hyperlipidemia, diabetes, recent admission to [facility] with chest pain/ NSTEMI. Patient was transferred [facility] for cardiac cath and angioplasty. Echocardiogram at that time showed ejection fraction 55-60% but akinetic posterior wall. Patient this time is admitted with generalized weakness and abdominal pain. Patient was found to have acute renal failure on top of chronic kidney disease. There is also an evidence of a kidney mass on the left kidney. The etiology of acute renal failure could be secondary to prerenal etiology but creatinine continues to get worse. Is also possibility of cholesterol emboli specially after the recent procedure. Also entertained the possibility off Brilinta related rise in Cr. At this point his Brilinta will be switched to Plavix. As discussed with nephrology, will plan tentatively for possible rash Tomorrow in case patient's creatinine continued get worse and if he needs dialysis. Patient has been having these off-and-on fevers. At this point we'll repeat his urinalysis, urine culture and blood culture. Will repeat his chest x-ray. If there is any evidence of infection, will start antibiotics. We have held his statin secondary to rise in LFTs. Continue this medications. DVt px; Hep sq.
[2018-02-06 08:14] LABS: ABSOLUTE BASOPHIL COUNT 0 /CUMM (0.0-0.2); ABSOLUTE EOSINOPHIL COUNT 0 /CUMM (0.0-0.7); ABSOLUTE GRANULOCYTE CT 10.4 /CUMM (1.4-6.5); ABSOLUTE LYMPH COUNT 0.9 /CUMM (1.2-3.4); ABSOLUTE MONOCYTE COUNT 0.4 /CUMM (0.10-0.60); BASOPHIL % 0 % (0.0-2.0); EOSINOPHIL % 0 % (0-5); MEAN CORPUSCULAR HGB 30.6 PG (27.0-31.0); MEAN CORPUSCULAR HGB CONC 33.3 G/DL (33.0-37.0); MEAN CORPUSCULAR VOLUME 91.8 FL (80.0-94.0); PLATELET COUNT 151 /CUMM (130-400); RBC DISTRIBUTION WIDTH 13.9 % (11.5-14.5); RED BLOOD CELL CT 4.14 /CUMM (4.70-6.10); WHITE BLOOD CELL COUNT 11.7 /CUMM (4.8-10.8)
--- NOTE | 2018-02-06 08:43 | PN- Cardiology ---
Subjective Subjective: Patient is being wheeled down to the OR for insertion of a Johnston catheter. Claims feeling uncomfortable with chest discomfort worse with inspiration but definitely associated with chest wall tenderness reproducible. Objective Vital Signs and I&Os Vital Signs Date Time Temp Pulse Resp B/P B/P Pulse O2 O2 Flow FiO2 Mean Ox Delivery Rate 02/07 0806 118/68 02/06 0620 98.1 79 20 111/59 93 Room Air 02/05 2214 97.8 80 24 114/54 93 Room Air 02/05 2133 80 114/54 02/05 1956 97.8 02/05 1857 100.6 02/05 1843 100.6 02/05 1622 98.6 83 20 120/58 95 02/05 0854 81 116/70 Intake & Output 02/06 1600 02/06 0802/06 0000 02/05 1600 02/05 0800 02/05 0000 Intake Total 814 71 9157 720 Output Total 125 400 50 0 Balance 750 -696 03 3297 720 Intake, IV 875 1000 600 Intake, Oral 60 120 120 Number 0 1 Bowel Movements Output, Urine 125 400 50 0 Patient 158 lb 156 lb Weight Physical Exam: On physical exam he was comfortable. Head eyes ears neck and throat. Head was normocephalic atraumatic Eyes sclera anicteric conjunctiva showed no pallor extraocular muscles were normal Neck no jugular venous distention no thyroid masses no palpable nodes Chest lungs were clear bilaterally Heart regular rhythm with a 1/6 systolic murmur Abdomen soft no organomegaly bowel sounds normal Extremities no clubbing cyanosis or edema Neurological no gross motor or sensory deficits Current Medications: Current Medications Sig/Angeles Start time Last Medication Dose Route Stop Time Status Admin Acetaminophen 650 MG .STK-MED ONE 02/05 184 DC PO 02/05 184 Acetaminophen 650 MG Q4P PRN 02/04 1730 AC 02/05 PO 1857 Aspirin Buffered 81 MG DAILY 02/05 900 AC 02/05 PO 0846 Atorvastatin Calcium 80 MG DAILY 02/05 900 DC 02/05 PO 0846 Metoprolol Tartrate 25 MG BID 02/04 2100 AC 02/06 PO 08 Polyethylene Glycol 17 GM DAILY 02/04 1846 AC PO Sodium Chloride 1,000 ML Q8H 02/04 2100 AC 02/06 IV 0602 Ticagrelor 90 MG BID 02/04 2100 AC 02/06 PO 0806 Results Last 48 Hrs of Labs/Mics: Laboratory Tests 02/06/18 0715: Sodium Pending, Potassium Pending, Chloride Pending, Carbon Dioxide Pending, Anion Gap Pending, BUN Pending, Creatinine Pending, BUN/Creatinine Ratio Pending , Phosphorus Pending, Total Bilirubin Pending, Direct Bilirubin Pending, AST Pending, ALT Pending, Alkaline Phosphatase Pending, Total Protein Pending, Albumin Pending, TSH Pending, Free T4 Pending, CBC w Diff Pending, WBC Pending, RBC Pending, Hgb Pending, Hct Pending, MCV Pending, MCH Pending, MCHC Pending, RDW Pending, Plt Count Pending, MPV Pending, Gran % Pending, Lymphocytes % Pending, Monocytes % Pending, Eosinophils % Pending, Basophils % Pending, Absolute Granulocytes Pending, Absolute Lymphocytes Pending, Absolute Monocytes Pending, Absolute Eosinophils Pending, Absolute Basophils Pending 02/05/18 1855: Urine Color Cancelled, Urine Clarity Cancelled, Urine pH Cancelled, Ur Specific [place] Cancelled, Urine Protein Cancelled, Urine Ketones Cancelled, Urine Nitrite Cancelled, Urine Bilirubin Cancelled, Urine Urobilinogen Cancelled, Ur Leukocyte Esterase Cancelled, Ur Microscopic Cancelled, Urine Hemoglobin Cancelled, Urine Glucose Cancelled 02/05/18 1200: Urinalysis LIGHT H, Urine Color YEL, Urine Clarity HAZY H, Urine pH 6.0, Ur Specific [place] 1.025, Urine Protein 30 H, Urine Ketones NEG, Urine Nitrite NEG, Urine Bilirubin NEG, Urine Urobilinogen 0.2, Ur Leukocyte Esterase SMALL H , Ur Microscopic SEDIMENT EXAMINED, Urine RBC 3-5, Urine WBC 5-10 H, Ur Epithelial Cells FEW, Urine Bacteria MOD H, Urine Hemoglobin TRACE-INTACT H, Urine Glucose NEG 02/05/18 1200: Urine Osmolality 349, Ur Random Creatinine 204.7, U Random Total Protein 50 H, Ur Random Sodium 30, Ur Random Potassium 53.9, Protein/Creatinin Ratio 0.2, Fraction Sodium Excret 0.5 02/05/18 0600: Anion Gap 11, Estimated GFR 11 L, BUN/Creatinine Ratio 13.3, Phosphorus 3.6, Total Bilirubin 1.5 H, Direct Bilirubin 0.8 H, AST 152 H, ALT 102 H, Alkaline Phosphatase 137 H, Creatine Kinase 40 L, Troponin I 0.08, Total Protein 5.1 L, Albumin 2.1 L, CBC w Diff NO MAN DIFF REQ, RBC 3.83 L, MCV 92.4, MCH 31.3 H, MCHC 33.8, RDW 13.2, MPV 9.4, Gran % 84.5 H, Lymphocytes % 10.7 L, Monocytes % 4.8, Eosinophils % 0, Basophils % 0, Absolute Granulocytes 8.8 H, Absolute Lymphocytes 1.1 L, Absolute Monocytes 0.5, Absolute Eosinophils 0, Absolute Basophils 0, Complement C3 Pending, Complement C4 Pending, Hep Bs Antibody NONREACTIVE 02/04/18 2037: Lactic Acid 1.6 02/04/18 1724: Ur Random Creatinine Cancelled, Ur Random Sodium Cancelled, Ur Random Potassium Cancelled, Fraction Sodium Excret Cancelled 02/04/18 1225: Anion Gap 13, Estimated GFR 13 L, BUN/Creatinine Ratio 13.8, Glucose 113 H, Lactic Acid 2.2 H, Calcium 8.1 L, Total Bilirubin 2.2 H, AST 137 H, ALT 93 H, Alkaline Phosphatase 164 H, Troponin I 0.08, Total Protein 6.2 L, Albumin 2.8 L, Globulin 3.4, Albumin/Globulin Ratio 0.8 L, PT 13.1 H, INR 1.20 H, APTT 42 H, CBC w Diff MAN DIFF ORDERED, RBC 4.30 L, MCV 92.2, MCH 31.5 H, MCHC 34.2, RDW 13.1, MPV 9.1, Gran % 84.3 H, Lymphocytes % 8.8 L, Monocytes % 6.9, Eosinophils % 0, Basophils % 0, Absolute Granulocytes 10.7 H, Segmented Neutrophils 85 H, Band Neutrophils 5, Absolute Lymphocytes 1.1 L, Lymphocytes 7 L, Monocytes 3, Absolute Monocytes 0.9 H, Absolute Eosinophils 0, Absolute Basophils 0, Platelet Estimate ADEQUATE, Normocytic RBCs VERIFIED, Normochromic RBCs VERIFIED 02/04/18 1140: Urine Color Cancelled, Urine Clarity Cancelled, Urine pH Cancelled, Ur Specific [place] Cancelled, Urine Protein Cancelled, Urine Ketones Cancelled, Urine Nitrite Cancelled, Urine Bilirubin Cancelled, Urine Urobilinogen Cancelled, Ur Leukocyte Esterase Cancelled, Ur Microscopic Cancelled, Urine Hemoglobin Cancelled, Urine Glucose Cancelled Assessment/Plan Assessment/Plan In summary this 87-year-old gentleman has a following problems Assessment/Plan 87-year-old gentleman with a past medical history of chronic kidney disease, renal cell carcinoma status post right nephrectomy, and coronary artery disease, with a recent non-ST segment patient myocardial infarction, resulting in a drug- eluting stent placement into the obtuse marginal on January 23, 2018. The patient presents to our hospital with symptoms of abdominal discomfort as well as discomfort with inspiration. Sepsis/SIRS: The patient presented with an elevated lactic acid level, and elevated white blood cell count and febrile. Blood cultures and urine culture are pending. A source will continue to be investigated; however, given his significant GI complaints, a further GI workup may be useful. Flank pain/chest discomfort with inspiration: The patient's current discomfort symptoms are unlike his previous presentation with acute myocardial infarction. His troponin isoenzyme was negative, and we may trend this to ensure he rules out. An echocardiogram (limited) she does will be obtained to exclude potential underlying pericardial effusion which may prompt symptoms. Acute kidney injury: The patient was discharged from [facility] with a creatinine of 1.2 ( peaked at 1.7 post catheterization, and subsequently fell to 1.5 and 1.4, 1.2). His acute presentation is unlikely secondary to contrast administered during the cardiac catheterization; however, may represent an overall dehydrated state due to poor intake and sepsis. The noted lesion on his abdominal CT at the upper pole of the left kidney is concerning, and further input by nephrology with likely be beneficial. Coronary artery disease: The patient is status post recent drug-eluting stent to the obtuse marginal branch, and is maintained on dual antiplatelet therapy. This should be attempted to be kept without change at all costs given the timing of stent placement. His regimen of ticagrelor may cause symptoms of dyspnea as a side effect; however, does not usually cause discomfort that he presented with. If needed, we may change this to her regimen such as clopidogrel. He is being treated for acute kidney failure. Limited echocardiogram is pending. At present he is being wheeled down to the OR for insertion of a Johnston catheter. Continue telemetry? Not applicable
[2018-02-06 09:33] LABS: GRANULOCYTE % 88.9 % (42.2-75.2)
--- NOTE | 2018-02-06 09:33 | ECHOCARDIOGRAM REPORT ---
ANTONIETA WHITTAKER Age: 87 : 1930 Gender: M Exam Date: 02/05/2018 19:18 Exam Location: [address] [place] [address] A Ht (in): 72 Wt (lb): 157 BSA: 1.90 BP: 116 / 70 Ordering Physician: Leon Lacy MD Referring Physician: Roger Enciso M.D. Technologist: Norma Bingham [facility] [place] Room Number: [id number] Indications: PERICARDIAL EFFUSION Rhythm: Sinus Technical Quality: fair/limited. FINDINGS Left Ventricle Normal global left ventricular size, wall thickness, systolic function with no obvious regional wall motion abnormalities. Normal left ventricular ejection fraction estimated at 65-70%. Right Ventricle Right ventricle not well visualized, grossly normal. Right Atrium Right atrium not well visualized, grossly normal. Left Atrium Left atrium not well visualized, grossly normal. Mitral Valve Mild mitral annular calcification. Trace to mild mitral regurgitation. Aortic Valve Aortic sclerosis. Tricuspid Valve Tricuspid valve not well visualized, grossly normal. Pulmonic Valve Pulmonic valve not well visualized, grossly normal. Pericardium Normal pericardium. No pericardial effusion. Great Vessels Normal size aortic root. CONCLUSIONS Limited Echo window. Normal overall left ventricular systolic function with no segmental abnormalities. No pericardial effusion. Ankit Aguirre M.D. (Electronically Signed) Final Date: 06 February 2018 09:33 MEASUREMENTS (Male / Female) Normal Values 2D ECHO LV Diastolic Diameter PLAX 3.3 cm 4.2 - 5.9 / 3.9 - 5.3 cm LV Systolic Diameter PLAX 1.6 cm 2.1 - 4.0 cm LV Fractional Shortening PLAX 51.5 % 25 - 46 % LV Ejection Fraction 2D Teich 83.8 % IVS Diastolic Thickness 1.2 cm LVPW Diastolic Thickness 1.1 cm LV Relative Wall Thickness 0.7 LA Volume 39.0 cm 18 - 58 / 22 - 52 cm DOPPLER Mitral E Point Velocity 61.2 cm/s Mitral A Point Velocity 94.3 cm/s Mitral E to A Ratio 0.6 MV Deceleration Time 222.0 ms LV E' Lateral Velocity 9.2 cm/s Mitral E to LV E' Lateral Ratio 6.7 LV E' Septal Velocity 5.6 cm/s Mitral E to LV E' Septal Ratio 11.0
[2018-02-06 10:00] VITALS: BP 117/81
--- NOTE | 2018-02-06 10:54 | PN- Nephrology ---
Assessment/Plan Nephrology Assessment: Acute renal failure: Differential includes cholesterol emboli syndrome (livedo appearing rash, recent endovascular procedure), vs ATN (from unidentified drop in BP, possible sepsis, can't r/o brilinta contributing but high doubt). Cannot r/o AIN given rash & JEAN but no culprit meds & there is no eosinophilia. Has been on IVFs, but no improvement in JEAN despite aggressive IV hydration. Now has crackles (L lower lung) & hypoxia 88% which may be due to CHF, but cannot R/ o PNA-> plan for cxray and lowering rate of IVFs. No emergent dialytic need today suspect will need to start HD tomorrow & chances of a quick renal recovey are low (favor tunnelled cath). 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 UA at [facility] only revealed 1+ protein. met acidosis: Suspect due to JEAN. He had lactic acidosis on admit which improved. Would add sodiumb bicarb to IVFs. SIRS: Fever curve improved, WBC a bit better, cultures negative thus far. UA with only 5-10 wbcs/HPF. Repeat cxray. Pneumonia? Antibiotics to be considered pending cxray Left renal mass: This is concerning for possible recurrence of renal cell carcinoma. Will be followed more with time. Suggestion: Change IVFs to D5W + 75 meq/L sodium bicarb at 50 cc/hr check Hep B panel No emergent dialytic need today but suspect will need tomorrow Make plans for ANTONY cath in AM; d/w IR NPO at midnight repeat BMP at 2 PM today D/w housestaff in detail d/w IR in detail d/w patient and his family in detail Subjective Subjective: S/p [place]ana cath today under anesthesia no post obstructive diuresis noted UO 400s yesterday Creat still rising CPK normal UA only 5-10 wbcs mildly hypoxic 88% Review of Systems: feels cold feels tired +mild abdominal pain Objective Vital Signs and I&Os Vital Signs Date Time Temp Pulse Resp B/P B/P Pulse O2 O2 Flow FiO2 Mean Ox Delivery Rate 02/06 0806 118/68 02/06 0620 98.1 79 20 111/59 93 Room Air 02/05 2214 97.8 80 24 114/54 93 Room Air 02/05 2133 80 114/54 02/05 1956 97.8 02/05 1857 100.6 02/05 1843 100.6 02/05 1622 98.6 83 20 120/58 95 Intake & Output 02/06 1600 02/06 0400 02/05 1600 02/05 0400 02/04 1600 02/04 0400 Intake Total 875 6518 698 6607 Output Total 225 400 50 Balance 650 -400 7969 895 3981 Intake, IV 875 0475 418 7852 Intake, Oral 180 120 Number 0 1 Bowel Movements Output, Urine 225 400 50 Patient 158 lb 156 lb 156 lb Weight Weight Estimated Measurement Method Physical Exam: Awake/alert, uncomfortable neck: no JVD HEENT: anicteric, mucosa dry lungs: +Crackles at L base abd: soft NT ext: no edema skin: +ann red rash Current Medications: Current Medications Sig/Angeles Start time Last Medication Dose Route Stop Time Status Admin Acetaminophen 650 MG .STK-MED ONE 02/05 1841 DC PO 02/05 184 Acetaminophen 650 MG Q4P PRN 02/04 1730 AC 02/05 PO 1857 Aspirin Buffered 81 MG DAILY 02/05 900 AC 02/05 PO 0846 Atorvastatin Calcium 80 MG DAILY 02/05 900 DC 02/05 PO 0846 Clopidogrel Bisulfate 75 MG 02/06 UNVr PO Clopidogrel Bisulfate 75 MG DAILY 02/06 958 DC PO Metoprolol Tartrate 25 MG BID 02/04 2100 AC 02/06 PO 0806 Non-Formulary 0 SEE ADMIN CRITERIA 02/06 1045 UNVr Medication ANY Polyethylene Glycol 17 GM DAILY 02/04 1846 AC PO Sodium Chloride 1,000 ML Q8H 02/04 2100 DC 02/06 IV 0602 Ticagrelor 90 MG BID 02/04 2100 DC 02/06 PO 0806 Results Pertinent Lab Results: Laboratory Tests 02/06 02/05 0715 1855 Chemistry Sodium (137 - 145 mmol/L) 142 Potassium (3.5 - 5.1 mmol/L) 4.1 Chloride (98 - 107 mmol/L) 112 H Carbon Dioxide (22 - 30 mmol/L) 17 L Anion Gap (5 - 16) 13 BUN (9 - 20 mg/dL) 77 H Creatinine (0.7 - 1.2 mg/dL) 5.6 *H Estimated GFR (>60 ml/min) 10 L BUN/Creatinine Ratio (7 - 25 %) 13.8 Phosphorus (2.5 - 4.5 mg/dL) 4.2 Total Bilirubin (0.2 - 1.3 mg/dL) 1.4 H Direct Bilirubin (< 0.4 mg/dL) 0.8 H AST (17 - 59 U/L) 143 H ALT (21 - 72 U/L) 99 H Alkaline Phosphatase (< 127 U/L) 145 H Total Protein (6.3 - 8.2 g/dL) 4.8 L Albumin (3.5 - 5.0 g/dL) 1.9 L TSH (0.270 - 4.200 uIU/mL) 0.617 Free T4 (0.85 - 1.93 ng/dL) 3.12 H Hematology CBC w Diff NO MAN DIFF REQ WBC (4.8 - 10.8 /CUMM) 11.7 H RBC (4.70 - 6.10 /CUMM) 4.14 L Hgb (14.0 - 18.0 G/DL) 12.6 L Hct (42 - 52 %) 38.0 L MCV (80.0 - 94.0 FL) 91.8 MCH (27.0 - 31.0 PG) 30.6 MCHC (33.0 - 37.0 G/DL) 33.3 RDW (11.5 - 14.5 %) 13.9 Plt Count (130 - 400 /CUMM) 151 MPV (7.4 - 10.4 FL) 9.0 Gran % (42.2 - 75.2 %) 88.9 H Lymphocytes % (20.5 - 51.1 %) 7.7 L Monocytes % (1.7 - 9.3 %) 3.4 Eosinophils % (0 - 5 %) 0 Basophils % (0.0 - 2.0 %) 0 Absolute Granulocytes (1.4 - 6.5 /CUMM) 10.4 H Absolute Lymphocytes (1.2 - 3.4 /CUMM) 0.9 L Absolute Monocytes (0.10 - 0.60 /CUMM) 0.4 Absolute Eosinophils (0.0 - 0.7 /CUMM) 0 Absolute Basophils (0.0 - 0.2 /CUMM) 0 Urines Urine Color Cancelled Urine Clarity Cancelled Urine pH Cancelled Ur Specific [place] Cancelled Urine Protein Cancelled Urine Ketones Cancelled Urine Nitrite Cancelled Urine Bilirubin Cancelled Urine Urobilinogen Cancelled Ur Leukocyte Esterase Cancelled Ur Microscopic Cancelled Urine Hemoglobin Cancelled Urine Glucose Cancelled 02/05 02/05 1200 1200 Urines Urinalysis LIGHT H Urine Color (YEL,AMB,STR) YEL Urine Clarity (CLEAR) HAZY H Urine pH (5.0 - 8.0) 6.0 Ur Specific [place] (1.001 - 1.035) 1.025 Urine Protein (NEG,<30 MG/DL) 30 H Urine Ketones (NEG) NEG Urine Nitrite (NEG) NEG Urine Bilirubin (NEG) NEG Urine Urobilinogen (0.1 - 1.0 EU/dl) 0.2 Ur Leukocyte Esterase (NEG) SMALL H Ur Microscopic SEDIMENT EXAMINED Urine RBC (0 - 5 /HPF) 3-5 Urine WBC (0 - 2 /HPF) 5-10 H Ur Epithelial Cells (NONE,FEW) FEW Urine Bacteria (NEG/NONE) MOD H Urine Hemoglobin (NEG) TRACE-INTACT H Urine Osmolality (300 - 1000 MOSM/KG) 349 Ur Random Creatinine (mg/dL) 204.7 U Random Total Protein (0 - 12 mg/dL) 50 H Ur Random Sodium (30 - 90 mmol/L) 30 Ur Random Potassium (mmol/L) 53.9 Protein/Creatinin Ratio (< 0.2) 0.2 Fraction Sodium Excret (<1% %) 0.5 Urine Glucose (N MG/DL) NEG 02/05 02/04 02/04 0600 2037 1724 Chemistry Sodium (137 - 145 mmol/L) 139 Potassium (3.5 - 5.1 mmol/L) 4.1 Chloride (98 - 107 mmol/L) 108 H Carbon Dioxide (22 - 30 mmol/L) 20 L Anion Gap (5 - 16) 11 BUN (9 - 20 mg/dL) 68 H Creatinine (0.7 - 1.2 mg/dL) 5.1 *H Estimated GFR (>60 ml/min) 11 L BUN/Creatinine Ratio (7 - 25 %) 13.3 Lactic Acid (0.7 - 2.1 mmol/L) 1.6 Phosphorus (2.5 - 4.5 mg/dL) 3.6 Total Bilirubin (0.2 - 1.3 mg/dL) 1.5 H Direct Bilirubin (< 0.4 mg/dL) 0.8 H AST (17 - 59 U/L) 152 H ALT (21 - 72 U/L) 102 H Alkaline Phosphatase (< 127 U/L) 137 H Creatine Kinase (55 - 170 U/L) 40 L Troponin I (<0.11 ng/ml) 0.08 Total Protein (6.3 - 8.2 g/dL) 5.1 L Albumin (3.5 - 5.0 g/dL) 2.1 L Hematology CBC w Diff NO MAN DIFF REQ WBC (4.8 - 10.8 /CUMM) 10.4 RBC (4.70 - 6.10 /CUMM) 3.83 L Hgb (14.0 - 18.0 G/DL) 12.0 L Hct (42 - 52 %) 35.4 L MCV (80.0 - 94.0 FL) 92.4 MCH (27.0 - 31.0 PG) 31.3 H MCHC (33.0 - 37.0 G/DL) 33.8 RDW (11.5 - 14.5 %) 13.2 Plt Count (130 - 400 /CUMM) 128 L MPV (7.4 - 10.4 FL) 9.4 Gran % (42.2 - 75.2 %) 84.5 H Lymphocytes % (20.5 - 51.1 %) 10.7 L Monocytes % (1.7 - 9.3 %) 4.8 Eosinophils % (0 - 5 %) 0 Basophils % (0.0 - 2.0 %) 0 Absolute Granulocytes (1.4 - 6.5 /CUMM) 8.8 H Absolute Lymphocytes (1.2 - 3.4 /CUMM) 1.1 L Absolute Monocytes (0.10 - 0.60 /CUMM) 0.5 Absolute Eosinophils (0.0 - 0.7 /CUMM) 0 Absolute Basophils (0.0 - 0.2 /CUMM) 0 Immunology Complement C3 Pending Complement C4 Pending Serology Hep Bs Antibody (NONREACTIVE) NONREACTIVE Urines Ur Random Creatinine Cancelled Ur Random Sodium Cancelled Ur Random Potassium Cancelled Fraction Sodium Excret Cancelled 02/04 02/04 1225 1140 Chemistry Sodium (137 - 145 mmol/L) 140 Potassium (3.5 - 5.1 mmol/L) 4.3 Chloride (98 - 107 mmol/L) 104 Carbon Dioxide (22 - 30 mmol/L) 22 Anion Gap (5 - 16) 13 BUN (9 - 20 mg/dL) 58 H Creatinine (0.7 - 1.2 mg/dL) 4.2 H Estimated GFR (>60 ml/min) 13 L BUN/Creatinine Ratio (7 - 25 %) 13.8 Glucose (65 - 99 mg/dL) 113 H Lactic Acid (0.7 - 2.1 mmol/L) 2.2 H Calcium (8.4 - 10.2 mg/dL) 8.1 L Total Bilirubin (0.2 - 1.3 mg/dL) 2.2 H AST (17 - 59 U/L) 137 H ALT (21 - 72 U/L) 93 H Alkaline Phosphatase (< 127 U/L) 164 H Troponin I (<0.11 ng/ml) 0.08 Total Protein (6.3 - 8.2 g/dL) 6.2 L Albumin (3.5 - 5.0 g/dL) 2.8 L Globulin (1.9 - 4.2 gm/dL) 3.4 Albumin/Globulin Ratio (1.1 - 2.2 %) 0.8 L Coagulation PT (9.4 - 12.5 SEC) 13.1 H INR (0.90 - 1.17) 1.20 H APTT (25 - 37 SEC) 42 H Hematology CBC w Diff MAN DIFF ORDERED WBC (4.8 - 10.8 /CUMM) 12.7 H RBC (4.70 - 6.10 /CUMM) 4.30 L Hgb (14.0 - 18.0 G/DL) 13.6 L Hct (42 - 52 %) 39.7 L MCV (80.0 - 94.0 FL) 92.2 MCH (27.0 - 31.0 PG) 31.5 H MCHC (33.0 - 37.0 G/DL) 34.2 RDW (11.5 - 14.5 %) 13.1 Plt Count (130 - 400 /CUMM) 152 MPV (7.4 - 10.4 FL) 9.1 Gran % (42.2 - 75.2 %) 84.3 H Lymphocytes % (20.5 - 51.1 %) 8.8 L Monocytes % (1.7 - 9.3 %) 6.9 Eosinophils % (0 - 5 %) 0 Basophils % (0.0 - 2.0 %) 0 Absolute Granulocytes (1.4 - 6.5 /CUMM) 10.7 H Segmented Neutrophils (42.2 - 75.2 %) 85 H Band Neutrophils (0.0 - 5.0 %) 5 Absolute Lymphocytes (1.2 - 3.4 /CUMM) 1.1 L Lymphocytes (20.5 - 51.1 %) 7 L Monocytes (1.7 - 9.3 %) 3 Absolute Monocytes (0.10 - 0.60 /CUMM) 0.9 H Absolute Eosinophils (0.0 - 0.7 /CUMM) 0 Absolute Basophils (0.0 - 0.2 /CUMM) 0 Platelet Estimate (ADEQUATE) ADEQUATE Normocytic RBCs VERIFIED Normochromic RBCs VERIFIED Urines Urine Color Cancelled Urine Clarity Cancelled Urine pH Cancelled Ur Specific [place] Cancelled Urine Protein Cancelled Urine Ketones Cancelled Urine Nitrite Cancelled Urine Bilirubin Cancelled Urine Urobilinogen Cancelled Ur Leukocyte Esterase Cancelled Ur Microscopic Cancelled Urine Hemoglobin Cancelled Urine Glucose Cancelled
--- NOTE | 2018-02-06 12:33 | RADIOLOGY REPORT ---
EXAMINATION: XR PORTABLE CHEST CLINICAL INFORMATION: Respiratory distress. Hypoxia. Crackles on exam. Presumptive diagnosis of pneumonia, pulmonary edema. COMPARISON: Chest x-ray dated 02/04/2018, 02/03/2018, 11/22/2017 and 12/29/2012. TECHNIQUE: Portable AP semierect view of the chest was obtained. FINDINGS: The cardiomediastinal silhouette is enlarged, likely related to AP semiupright positioning and low lung volumes. Tortuosity of the descending aorta is again seen. Lungs bilaterally are symmetrically hypoexpanded with patchy parenchymal opacity seen in the left mid and lower lung with associated mild volume loss and slight elevation of the left hemidiaphragm, progressed when compared to prior study. Findings may be related to progressive atelectasis or pneumonia. There is also an associated small left-sided pleural effusion. Minimal right basilar subsegmental atelectasis is seen. No evidence of pulmonary edema is noted. No pneumothorax is seen. Bony structures are unremarkable. IMPRESSION: 1. Progressive opacity in the left lung base, consistent with either progressive atelectasis or pneumonia with associated small left pleural effusion. 2. No significant change in mild right basilar subsegmental atelectasis.
[2018-02-06 13:49] VITALS: BP 116/90
--- NOTE | 2018-02-06 18:42 | Operative Report ---
Operative/Inv Procedure Report Surgery Date: 02/06/18 Name of Procedure: cystoscopy: montana placement. Pre-Operative Diagnosis: ARF: urinary retention with difficult montana insertion. Urethral stricture dilatation Post-Operative Diagnosis: same, urethral bulbar stricture Estimated Blood Loss: scant Surgeon/Professor Of Management: MD Yovanny, Joshua-urology Anesthesia: laryngeal mask airway Drains: 20 fr. [place] tip montana. Specimens: ucx Complications: none Condition: improved Operative/Procedure Note Note: The patient was taken to the operating room, and placed on the OR table in supine position. Timeout was performed, with the patient awake, to confirm of patient, anesthesia, antibiotics, procedure, and other pertinent perioperative information. After adequate anesthesia, and antibiotics, the patient was then placed lithotomy stirrups, then draped and prepped, in the usual surgical fashion. A 17 Burmese cystoscope sheath with 30 angle lens was inserted into the urethra. Under direct visualization, the cystoscope was advanced to the level of the prostatic urethra. A false lumen was noted on the posterior prostate undermining the bladder. Direct visualization allowed me to bypass this false passage, and enter the bulbar urethra without difficulty. A urethral stricture was seen in this area, and was dilated under direct visualization using the 17 Burmese cystoscope sheath. Upon entering the bladder, the bladder was noted to be severely trabeculated, with no tumor, no stone. Through the cystoscope, a 0.038 guidewire was inserted into the bladder. The cystoscope was removed, leaving the guidewire in place. A 20 Burmese [place] tip [place] catheter, was railroaded over this guidewire and advanced easily into the bladder. The guidewire was removed, draining clear fluid. 10 mL of sterile water was placed into the 10 mL balloon. The patient tolerated procedures well. All sponge needle and instrument count were correct at the end of the case. The patient was taken to the recovery room in satisfactory condition. He is given postoperative instructions, antibiotics, pain medications, and was taught to use leg bag prior to discharge to home. Findings: urethral stricture Discharge Disposition: PACU CC: Joshua Hairston MD
[2018-02-06 22:29] VITALS: BP 100/58
[2018-02-07 06:00] VITALS: BP 118/60
--- NOTE | 2018-02-07 07:17 | PN- Housestaff ---
Bambi PARDO,[facility] 02/07/18 0716: Subjective Follow-up For: JEAN Subjective: Patient states that he slept well overnight. Complains of chest pain with deep inspiration. Has some difficulty swallowing and burning sensation in his epigastric region which is improved with PPI. Review of Systems Constitutional: Reports: no symptoms. Objective Last 24 Hrs of Vital Signs/I&O Vital Signs Date Time Temp Pulse Resp B/P B/P Pulse O2 O2 Flow FiO2 Mean Ox Delivery Rate 02/07 600 97.8 75 20 118/60 95 Room Air 02/06 2232 84 100/58 02/06 2232 84 100/58 /07 2229 98.1 84 20 100/58 92 Room Air 02/06 1349 97.0 100 20 116/90 91 Room Air 02/06 1000 99.1 67 20 117/81 93 Room Air Intake & Output 02/07 1600 02/07 0800 02/07 0000 Intake Total 600 Output Total 225 150 Balance -225 450 Intake, IV 600 Number 0 Bowel Movements Output, Urine 225 150 Physical Exam General Appearance: Alert, Oriented X3, Cooperative, Mild Distress Skin: No Rashes, No Breakdown Skin Temp/Moisture Exam: Warm/Dry Sepsis Skin Exam (color): Normal for Ethnicity HEENT: Atraumatic Cardiovascular: Normal S1, Normal S2, No Murmurs Lungs: Normal Air Movement, crackles at LLL Abdomen: Soft, No Tenderness Neurological: Normal Speech Extremities: No Edema Last 24 Hrs of Lab/Jay Results Last 24 Hrs of Labs/Mics: Laboratory Tests 02/07/18 0721: Sodium Pending, Potassium Pending, Chloride Pending, Carbon Dioxide Pending, Anion Gap Pending, BUN Pending, Creatinine Pending, BUN/Creatinine Ratio Pending , Total Bilirubin Pending, Direct Bilirubin Pending, AST Pending, ALT Pending, Alkaline Phosphatase Pending, Total Protein Pending, Albumin Pending, CBC w Diff Pending, WBC Pending, RBC Pending, Hgb Pending, Hct Pending, MCV Pending, MCH Pending, MCHC Pending, RDW Pending, Plt Count Pending, MPV Pending 02/06/18 1750: Sodium Cancelled, Potassium Cancelled, Chloride Cancelled, Carbon Dioxide Cancelled, Anion Gap Cancelled, BUN Cancelled, Creatinine Cancelled, BUN/ Creatinine Ratio Cancelled 02/06/18 1640: Anion Gap 15, Estimated GFR 10 L, BUN/Creatinine Ratio 15.2 02/06/18 1443: Sodium Cancelled, Potassium Cancelled, Chloride Cancelled, Carbon Dioxide Cancelled, Anion Gap Cancelled, BUN Cancelled, Creatinine Cancelled, BUN/ Creatinine Ratio Cancelled 02/06/18 1259: Urinalysis MOD H, Urine Color ORANG H, Urine Clarity CLDY H, Urine pH 5.5, Ur Specific [place] 1.025, Urine Protein 100 H, Urine Ketones NEG, Urine Nitrite NEG, Urine Bilirubin NEG@ICTO, Urine Urobilinogen 1.0, Ur Leukocyte Esterase SMALL H, Ur Microscopic SEDIMENT EXAMINED, Urine RBC 50-75 H, Urine WBC 3-5 H , Granular Casts 10-15 H, Urine Hemoglobin LARGE H, Urine Glucose NEG Microbiology 02/06 1335 BLOOD: Blood Culture - CAN Cancelled: Quantity not sufficient for Aerobic blood culture bottle. 02/06 1259 URINE ROUT: Urine Culture - RECD 02/06 1215 BLOOD: Blood Culture - RECD 02/06 0900 URINE OR: Urine Culture - RECD Assessment/Plan Assessment: Mr. Meyrs is an 87 year old gentleman with a PMH of BPH, right nephrectomy for RCC and CAD with recent NSTEMI status post stent placement on 01/23 presents with abdominal pain that has been going on since he had the cardiac stent placed. Assessment: 1. 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 Pneumonia 3. Left Renal Mass 4. Cholelithiasis with ? gallbladder wall thickening 5. severe diverticulosis, without acute diverticulitis. 6. CAD s/p recent stent placed 7. History of BPH 8. Transaminitis Plan: * His Cr function is mildly improved from yesterday. * Per nephro, he can be observed without dialysis for now. * Switch bicarb from IV to PO... NaHCO3 1300mg BID * Strict I's&O's * He has left renal mass which was not well visualized on the U/S. * Per Urology this can be watched for now as the size is <3cm. * CXR showed opacity in the left lung base concerning for pneumonia. With his white count and cough, he has been started on IV Ceftriaxone and Azithromycin. * Limited Echo did not show any acute abnormalities. * Check SPEP * Check prealbumin * Esophagram/MBS to evaluate for dysphagia. * His LFTs are elevated; minimal improvement since yesterday. Will monitor. * hepatitis panel was negative. * Diet: Renal Dialysis. * DVT Prophylaxis: ALPS with SC Heparin * Code: Full Code Problem List: 1. Acute renal failure Pain Ratin Pain Location: none Pain Goal: Remain pain free Pain Plan: none Tomorrow's Labs & Rationales: CBC, BEP Arik PARDO,Renetta 02/07/18 1042: Attending MD Review Statement Attending Statement Attending MD Statement: examined this patient, discuss w/resident/PA/CARROT BUNCHER, agreed w/resident/PA/CARROT BUNCHER, discussed with family, reviewed EMR data (avail), discussed with nursing, discussed with case mgmt, reviewed images, amended to note Attending Assessment/Plan: Patient seen and examined, claims that he's feeling slightly better today. Still feels cold. Leukocytosis is better today. Creatinine is at 5.3. Patient complain of some dysphagia this am. Vital Signs Date Time Temp Pulse Resp B/P B/P Pulse O2 O2 Flow FiO2 Mean Ox Delivery Rate 02/07 0841 135/65 02/07 0600 97.8 75 20 118/60 95 Room Air 02/06 2232 84 100/58 02/06 2232 84 100/58 06 2229 98.1 84 20 100/58 92 Room Air 02/06 1349 97.0 100 20 116/90 91 Room Air on exam; aox3, nad. cv; s1, s2, rrr resp; clear abd; soft, nt, bs+ ext; no edema Laboratory Tests 02/07 02/06 02/06 0721 1750 1640 Chemistry Sodium (137 - 145 mmol/L) 141 Cancelled 142 Potassium (3.5 - 5.1 mmol/L) 3.8 Cancelled 4.3 Chloride (98 - 107 mmol/L) 109 H Cancelled 110 H Carbon Dioxide (22 - 30 mmol/L) 18 L Cancelled 17 L Anion Gap (5 - 16) 13 Cancelled 15 BUN (9 - 20 mg/dL) 86 H Cancelled 82 H Creatinine (0.7 - 1.2 mg/dL) 5.3 *H Cancelled 5.4 *H Estimated GFR (>60 ml/min) 10 L 10 L BUN/Creatinine Ratio (7 - 25 %) 16.2 Cancelled 15.2 Phosphorus (2.5 - 4.5 mg/dL) 3.6 Magnesium (1.6 - 2.3 mg/dL) 2.0 Total Bilirubin (0.2 - 1.3 mg/dL) 1.2 Direct Bilirubin (< 0.4 mg/dL) 0.8 H AST (17 - 59 U/L) 109 H ALT (21 - 72 U/L) 87 H Alkaline Phosphatase (< 127 U/L) 179 H Total Protein (6.3 - 8.2 g/dL) 4.9 L Albumin (3.5 - 5.0 g/dL) 1.9 L Prealbumin (17.6 - 36.0 mg/dL) Pending Hematology CBC w Diff NO MAN DIFF REQ WBC (4.8 - 10.8 /CUMM) 10.7 RBC (4.70 - 6.10 /CUMM) 4.10 L Hgb (14.0 - 18.0 G/DL) 12.8 L Hct (42 - 52 %) 37.6 L MCV (80.0 - 94.0 FL) 91.7 MCH (27.0 - 31.0 PG) 31.2 H MCHC (33.0 - 37.0 G/DL) 34.0 RDW (11.5 - 14.5 %) 13.8 Plt Count (130 - 400 /CUMM) 168 MPV (7.4 - 10.4 FL) 8.6 Gran % (42.2 - 75.2 %) 87.9 H Lymphocytes % (20.5 - 51.1 %) 9.8 L Monocytes % (1.7 - 9.3 %) 2.0 Eosinophils % (0 - 5 %) 0.1 Basophils % (0.0 - 2.0 %) 0.2 Absolute Granulocytes (1.4 - 6.5 /CUMM) 9.4 H Absolute Lymphocytes (1.2 - 3.4 /CUMM) 1.0 L Absolute Monocytes (0.10 - 0.60 /CUMM) 0.2 Absolute Eosinophils (0.0 - 0.7 /CUMM) 0 Absolute Basophils (0.0 - 0.2 /CUMM) 0 02/06 02/06 1443 1259 Chemistry Sodium Cancelled Potassium Cancelled Chloride Cancelled Carbon Dioxide Cancelled Anion Gap Cancelled BUN Cancelled Creatinine Cancelled BUN/Creatinine Ratio Cancelled Urines Urinalysis MOD H Urine Color (YEL,AMB,STR) ORANG H Urine Clarity (CLEAR) CLDY H Urine pH (5.0 - 8.0) 5.5 Ur Specific [place] (1.001 - 1.035) 1.025 Urine Protein (NEG,<30 MG/DL) 100 H Urine Ketones (NEG) NEG Urine Nitrite (NEG) NEG Urine Bilirubin (NEG) NEG@ICTO Urine Urobilinogen (0.1 - 1.0 EU/dl) 1.0 Ur Leukocyte Esterase (NEG) SMALL H Ur Microscopic SEDIMENT EXAMINED Urine RBC (0 - 5 /HPF) 50-75 H Urine WBC (0 - 2 /HPF) 3-5 H Granular Casts (NONE /LPF) 10-15 H Urine Hemoglobin (NEG) LARGE H Urine Glucose (N MG/DL) NEG A/P; 87-year-old male with past medical history significant for hypertension, hyperlipidemia, diabetes, recent admission to [facility] with chest pain/ NSTEMI. Patient was transferred [facility] for cardiac cath and angioplasty. Echocardiogram at that time showed ejection fraction 55-60% but akinetic posterior wall. Patient this time is admitted with generalized weakness and abdominal pain. Patient was found to have acute renal failure on top of chronic kidney disease. There is also an evidence of a kidney mass on the left kidney. The etiology of acute renal failure could be secondary to prerenal etiology but creatinine continued to get worse despite IVFs. Also possibility of cholesterol emboli specially after the recent procedure. Also entertained the possibility off Brilinta related rise in Cr. Patient has also developed some infiltrate on the chest x-ray and was spiking fever likely secondary to pneumonia. Also has dysphagia. We switched her length out to Plavix yesterday. Today creatinine is at 5.3. Patient had initially planned to go down to IR for Wilotn cath. At this point awaiting nephrology input to see if still that is going to happen or not. Complement levels are normal. Currently getting treated for possible community- acquired pneumonia. Continue antibiotics and follow-up on the cultures. We'll follow-up on the speech therapy and likely due either modified barium swallow or barium esophagogram. DVT px; hep sq. Pt to work with PT. D/W family at bedside at length.
[2018-02-07 07:40] LABS: ABSOLUTE BASOPHIL COUNT 0 /CUMM (0.0-0.2); ABSOLUTE EOSINOPHIL COUNT 0 /CUMM (0.0-0.7); ABSOLUTE GRANULOCYTE CT 9.4 /CUMM (1.4-6.5); ABSOLUTE MONOCYTE COUNT 0.2 /CUMM (0.10-0.60); BASOPHIL % 0.2 % (0.0-2.0); EOSINOPHIL % 0.1 % (0-5); HEMATOCRIT 37.6 % (42-52); MEAN CORPUSCULAR HGB 31.2 PG (27.0-31.0); MEAN CORPUSCULAR VOLUME 91.7 FL (80.0-94.0); MEAN PLATELET VOLUME 8.6 FL (7.4-10.4); PLATELET COUNT 168 /CUMM (130-400); RBC DISTRIBUTION WIDTH 13.8 % (11.5-14.5); WHITE BLOOD CELL COUNT 10.7 /CUMM (4.8-10.8)
[2018-02-07 08:48] LABS: GRANULOCYTE % 87.9 % (42.2-75.2)
[2018-02-07 11:09] LABS: PT 12.8 SEC (9.4-12.5); PTT 41 SEC (25-37)
--- NOTE | 2018-02-07 11:30 | PN- Nephrology ---
Assessment/Plan Nephrology Assessment: 1. 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 No immediate HD need 2. CKD: mod, stage 3, w baseline Cr low 1s post R Nx 3. met acid: mild: no need for continued IV bicarb --> change to po 4. ? L renal mass --> needs urology f/u w noncontrast MR once stable Suggestion: 1. stop IV 2. Na bicarb 1300 mg po bid 3. no HD cath today 4. recheck renal function in AM 5. SPEP Subjective Subjective: Awake & alert Denies gross uremic sx No CP or SOB Urine nonoliguric Objective Vital Signs and I&Os Vital Signs Date Time Temp Pulse Resp B/P B/P Pulse O2 O2 Flow FiO2 Mean Ox Delivery Rate 02/07 0841 135/65 02/07 0600 97.8 75 20 118/60 95 Room Air 02/06 2232 84 100/58 02/06 2232 84 100/58 02/06 2229 98.1 84 20 100/58 92 Room Air / 1349 97.0 100 20 116/90 91 Room Air Intake & Output 02/07 1600 02/07 0400 02/06 1600 02/06 0400 02/05 1600 02/05 0400 Intake Total 867 968 6634 1180 720 Output Total 225 150 425 400 50 Balance 375 450 800 -400 1130 720 Intake, IV 345 852 2330 1000 600 Intake, Oral 50 180 120 Number 0 1 1 Bowel Movements Output, Urine 225 150 425 400 50 Patient 158 lb 156 lb Weight Physical Exam General Appearance: well developed/nourished, no apparent distress, alert Head: atraumatic, normal appearance Ears, Nose, Throat: normal ENT inspection Neck: normal inspection Respiratory: no respiratory distress, lungs clear Cardiovascular: regular rate/rhythm, friction rub (none) Abdomen: normal bowel sounds, soft, non-tender Extremities: no edema Neurologic/Psychiatric: awake, alert, oriented x 3, abnormal 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 LOADER II-XII, no asterixis Skin: livedo over abd & thighs Current Medications: Current Medications Sig/Angeles Start time Last Medication Dose Route Stop Time Status Admin Acetaminophen 1,000 MG ONCE ONE 02/06 1145 DC 02/06 IV 02/06 1146 1214 Acetaminophen 650 MG Q4P PRN 02/04 1730 AC 02/05 PO 1857 Aspirin Buffered 81 MG DAILY 02/05 0900 AC 02/07 PO 0843 Atorvastatin Calcium 80 MG 1700 02/07 1700 AC PO Azithromycin 500 MG DAILY 02/06 1625 AC 02/07 Sodium Chloride 250 ML IV 0845 Calcium Carbonate 500 MG ONCE ONE 02/06 1530 DC 02/06 PO 02/06 1531 1632 Ceftriaxone Sodium 1,000 MG DAILY 02/06 1625 AC 02/07 IV 0844 Clopidogrel Bisulfate 75 MG 2100 02/06 2100 AC 02/06 PO 2231 Heparin Sodium 5,000 UNIT Q8 02/06 1400 DC 02/06 (Porcine) SC 02/06 2300 2233 Metoprolol Tartrate 12.5 MG ONCE ONE 02/06 2115 DC 02/06 PO 02/07 2116 223 Metoprolol Tartrate 25 MG BID 02/04 2100 AC 02/07 PO 0841 Omeprazole 40 MG DAILY AC 02/07 0700 AC 02/07 PO 0647 Patient Medication 1 ED ONE ONE 02/06 1645 [place] Teaching ED 02/06 1646 Polyethylene Glycol 17 GM DAILY 02/04 1846 02/07 PO 0844 Sodium Bicarbonate 75 ML Q20H 02/06 1045 AC 02/07 Dextrose/Water 1,000 ML IV 0532 Results Pertinent Lab Results: Laboratory Tests 02/07 02/07 02/06 1045 0721 1750 Chemistry Sodium (137 - 145 mmol/L) 141 Cancelled Potassium (3.5 - 5.1 mmol/L) 3.8 Cancelled Chloride (98 - 107 mmol/L) 109 H Cancelled Carbon Dioxide (22 - 30 mmol/L) 18 L Cancelled Anion Gap (5 - 16) 13 Cancelled BUN (9 - 20 mg/dL) 86 H Cancelled Creatinine (0.7 - 1.2 mg/dL) 5.3 *H Cancelled Estimated GFR (>60 ml/min) 10 L BUN/Creatinine Ratio (7 - 25 %) 16.2 Cancelled Phosphorus (2.5 - 4.5 mg/dL) 3.6 Magnesium (1.6 - 2.3 mg/dL) 2.0 Total Bilirubin (0.2 - 1.3 mg/dL) 1.2 Direct Bilirubin (< 0.4 mg/dL) 0.8 H AST (17 - 59 U/L) 109 H ALT (21 - 72 U/L) 87 H Alkaline Phosphatase (< 127 U/L) 179 H Total Protein (6.3 - 8.2 g/dL) 4.9 L Albumin (3.5 - 5.0 g/dL) 1.9 L Prealbumin (17.6 - 36.0 mg/dL) 4.3 L Coagulation PT (9.4 - 12.5 SEC) 12.8 H INR (0.90 - 1.17) 1.17 APTT (25 - 37 SEC) 41 H Hematology CBC w Diff NO MAN DIFF REQ WBC (4.8 - 10.8 /CUMM) 10.7 RBC (4.70 - 6.10 /CUMM) 4.10 L Hgb (14.0 - 18.0 G/DL) 12.8 L Hct (42 - 52 %) 37.6 L MCV (80.0 - 94.0 FL) 91.7 MCH (27.0 - 31.0 PG) 31.2 H MCHC (33.0 - 37.0 G/DL) 34.0 RDW (11.5 - 14.5 %) 13.8 Plt Count (130 - 400 /CUMM) 168 MPV (7.4 - 10.4 FL) 8.6 Gran % (42.2 - 75.2 %) 87.9 H Lymphocytes % (20.5 - 51.1 %) 9.8 L Monocytes % (1.7 - 9.3 %) 2.0 Eosinophils % (0 - 5 %) 0.1 Basophils % (0.0 - 2.0 %) 0.2 Absolute Granulocytes (1.4 - 6.5 /CUMM) 9.4 H Absolute Lymphocytes (1.2 - 3.4 /CUMM) 1.0 L Absolute Monocytes (0.10 - 0.60 /CUMM) 0.2 Absolute Eosinophils (0.0 - 0.7 /CUMM) 0 Absolute Basophils (0.0 - 0.2 /CUMM) 0 02/06 02/06 02/06 1640 1443 1259 Chemistry Sodium (137 - 145 mmol/L) 142 Cancelled Potassium (3.5 - 5.1 mmol/L) 4.3 Cancelled Chloride (98 - 107 mmol/L) 110 H Cancelled Carbon Dioxide (22 - 30 mmol/L) 17 L Cancelled Anion Gap (5 - 16) 15 Cancelled BUN (9 - 20 mg/dL) 82 H Cancelled Creatinine (0.7 - 1.2 mg/dL) 5.4 *H Cancelled Estimated GFR (>60 ml/min) 10 L BUN/Creatinine Ratio (7 - 25 %) 15.2 Cancelled Urines Urinalysis MOD H Urine Color (YEL,AMB,STR) ORANG H Urine Clarity (CLEAR) CLDY H Urine pH (5.0 - 8.0) 5.5 Ur Specific [place] (1.001 - 1.035) 1.025 Urine Protein (NEG,<30 MG/DL) 100 H Urine Ketones (NEG) NEG Urine Nitrite (NEG) NEG Urine Bilirubin (NEG) NEG@ICTO Urine Urobilinogen (0.1 - 1.0 EU/dl) 1.0 Ur Leukocyte Esterase (NEG) SMALL H Ur Microscopic SEDIMENT EXAMINED Urine RBC (0 - 5 /HPF) 50-75 H Urine WBC (0 - 2 /HPF) 3-5 H Granular Casts (NONE /LPF) 10-15 H Urine Hemoglobin (NEG) LARGE H Urine Glucose (N MG/DL) NEG 02/06 06 0715 1855 Chemistry Sodium (137 - 145 mmol/L) 142 Potassium (3.5 - 5.1 mmol/L) 4.1 Chloride (98 - 107 mmol/L) 112 H Carbon Dioxide (22 - 30 mmol/L) 17 L Anion Gap (5 - 16) 13 BUN (9 - 20 mg/dL) 77 H Creatinine (0.7 - 1.2 mg/dL) 5.6 *H Estimated GFR (>60 ml/min) 10 L BUN/Creatinine Ratio (7 - 25 %) 13.8 Phosphorus (2.5 - 4.5 mg/dL) 4.2 Total Bilirubin (0.2 - 1.3 mg/dL) 1.4 H Direct Bilirubin (< 0.4 mg/dL) 0.8 H AST (17 - 59 U/L) 143 H ALT (21 - 72 U/L) 99 H Alkaline Phosphatase (< 127 U/L) 145 H Total Protein (6.3 - 8.2 g/dL) 4.8 L Albumin (3.5 - 5.0 g/dL) 1.9 L TSH (0.270 - 4.200 uIU/mL) 0.617 Free T4 (0.85 - 1.93 ng/dL) 3.12 H Hematology CBC w Diff NO MAN DIFF REQ WBC (4.8 - 10.8 /CUMM) 11.7 H RBC (4.70 - 6.10 /CUMM) 4.14 L Hgb (14.0 - 18.0 G/DL) 12.6 L Hct (42 - 52 %) 38.0 L MCV (80.0 - 94.0 FL) 91.8 MCH (27.0 - 31.0 PG) 30.6 MCHC (33.0 - 37.0 G/DL) 33.3 RDW (11.5 - 14.5 %) 13.9 Plt Count (130 - 400 /CUMM) 151 MPV (7.4 - 10.4 FL) 9.0 Gran % (42.2 - 75.2 %) 88.9 H Lymphocytes % (20.5 - 51.1 %) 7.7 L Monocytes % (1.7 - 9.3 %) 3.4 Eosinophils % (0 - 5 %) 0 Basophils % (0.0 - 2.0 %) 0 Absolute Granulocytes (1.4 - 6.5 /CUMM) 10.4 H Absolute Lymphocytes (1.2 - 3.4 /CUMM) 0.9 L Absolute Monocytes (0.10 - 0.60 /CUMM) 0.4 Absolute Eosinophils (0.0 - 0.7 /CUMM) 0 Absolute Basophils (0.0 - 0.2 /CUMM) 0 Serology Hepatitis A IgM Ab (NONREACTIVE) NONREACTIVE Hep Bs Antigen (NONREACTIVE) NONREACTIVE Hep B Core IgM Ab Conf (NONREACTIVE) NONREACTIVE Hepatitis C Antibody (NONREACTIVE) NONREACTIVE Urines Urine Color Cancelled Urine Clarity Cancelled Urine pH Cancelled Ur Specific [place] Cancelled Urine Protein Cancelled Urine Ketones Cancelled Urine Nitrite Cancelled Urine Bilirubin Cancelled Urine Urobilinogen Cancelled Ur Leukocyte Esterase Cancelled Ur Microscopic Cancelled Urine Hemoglobin Cancelled Urine Glucose Cancelled 02/05 02/05 02/05 1200 1200 UNK Urines Urinalysis LIGHT H Urine Color (YEL,AMB,STR) YEL Urine Clarity (CLEAR) HAZY H Urine pH (5.0 - 8.0) 6.0 Ur Specific [place] (1.001 - 1.035) 1.025 Urine Protein (NEG,<30 MG/DL) 30 H Urine Ketones (NEG) NEG Urine Nitrite (NEG) NEG Urine Bilirubin (NEG) NEG Urine Urobilinogen (0.1 - 1.0 EU/dl) 0.2 Ur Leukocyte Esterase (NEG) SMALL H Ur Microscopic SEDIMENT EXAMINED Urine RBC (0 - 5 /HPF) 3-5 Urine WBC (0 - 2 /HPF) 5-10 H Ur Epithelial Cells (NONE,FEW) FEW Urine Bacteria (NEG/NONE) MOD H Urine Hemoglobin (NEG) TRACE-INTACT H Urine Osmolality (300 - 1000 MOSM/KG) 349 Ur Random Creatinine (mg/dL) 204.7 U Random Total Protein (0 - 12 mg/dL) 50 H Ur Random Sodium (30 - 90 mmol/L) 30 Ur Random Potassium (mmol/L) 53.9 Urine Total Volume Cancelled Ur Total Protein 24 Hr Cancelled Protein/Creatinin Ratio (< 0.2) 0.2 Fraction Sodium Excret (<1% %) 0.5 Urine Glucose (N MG/DL) NEG 02/05 02/04 02/04 0600 2036 1724 Chemistry Sodium (137 - 145 mmol/L) 139 Potassium (3.5 - 5.1 mmol/L) 4.1 Chloride (98 - 107 mmol/L) 108 H Carbon Dioxide (22 - 30 mmol/L) 20 L Anion Gap (5 - 16) 11 BUN (9 - 20 mg/dL) 68 H Creatinine (0.7 - 1.2 mg/dL) 5.1 *H Estimated GFR (>60 ml/min) 11 L BUN/Creatinine Ratio (7 - 25 %) 13.3 Lactic Acid (0.7 - 2.1 mmol/L) 1.6 Phosphorus (2.5 - 4.5 mg/dL) 3.6 Total Bilirubin (0.2 - 1.3 mg/dL) 1.5 H Direct Bilirubin (< 0.4 mg/dL) 0.8 H AST (17 - 59 U/L) 152 H ALT (21 - 72 U/L) 102 H Alkaline Phosphatase (< 127 U/L) 137 H Creatine Kinase (55 - 170 U/L) 40 L Troponin I (<0.11 ng/ml) 0.08 Total Protein (6.3 - 8.2 g/dL) 5.1 L Albumin (3.5 - 5.0 g/dL) 2.1 L Hematology CBC w Diff NO MAN DIFF REQ WBC (4.8 - 10.8 /CUMM) 10.4 RBC (4.70 - 6.10 /CUMM) 3.83 L Hgb (14.0 - 18.0 G/DL) 12.0 L Hct (42 - 52 %) 35.4 L MCV (80.0 - 94.0 FL) 92.4 MCH (27.0 - 31.0 PG) 31.3 H MCHC (33.0 - 37.0 G/DL) 33.8 RDW (11.5 - 14.5 %) 13.2 Plt Count (130 - 400 /CUMM) 128 L MPV (7.4 - 10.4 FL) 9.4 Gran % (42.2 - 75.2 %) 84.5 H Lymphocytes % (20.5 - 51.1 %) 10.7 L Monocytes % (1.7 - 9.3 %) 4.8 Eosinophils % (0 - 5 %) 0 Basophils % (0.0 - 2.0 %) 0 Absolute Granulocytes (1.4 - 6.5 /CUMM) 8.8 H Absolute Lymphocytes (1.2 - 3.4 /CUMM) 1.1 L Absolute Monocytes (0.10 - 0.60 /CUMM) 0.5 Absolute Eosinophils (0.0 - 0.7 /CUMM) 0 Absolute Basophils (0.0 - 0.2 /CUMM) 0 Immunology Complement C3 (() mg/dL) 112 Complement C4 (() mg/dL) 30 Serology Hep Bs Antibody (NONREACTIVE) NONREACTIVE Urines Ur Random Creatinine Cancelled Ur Random Sodium Cancelled Ur Random Potassium Cancelled Fraction Sodium Excret Cancelled 02/04 02/04 1225 1140 Chemistry Sodium (137 - 145 mmol/L) 140 Potassium (3.5 - 5.1 mmol/L) 4.3 Chloride (98 - 107 mmol/L) 104 Carbon Dioxide (22 - 30 mmol/L) 22 Anion Gap (5 - 16) 13 BUN (9 - 20 mg/dL) 58 H Creatinine (0.7 - 1.2 mg/dL) 4.2 H Estimated GFR (>60 ml/min) 13 L BUN/Creatinine Ratio (7 - 25 %) 13.8 Glucose (65 - 99 mg/dL) 113 H Lactic Acid (0.7 - 2.1 mmol/L) 2.2 H Calcium (8.4 - 10.2 mg/dL) 8.1 L Total Bilirubin (0.2 - 1.3 mg/dL) 2.2 H AST (17 - 59 U/L) 137 H ALT (21 - 72 U/L) 93 H Alkaline Phosphatase (< 127 U/L) 164 H Troponin I (<0.11 ng/ml) 0.08 Total Protein (6.3 - 8.2 g/dL) 6.2 L Albumin (3.5 - 5.0 g/dL) 2.8 L Globulin (1.9 - 4.2 gm/dL) 3.4 Albumin/Globulin Ratio (1.1 - 2.2 %) 0.8 L Coagulation PT (9.4 - 12.5 SEC) 13.1 H INR (0.90 - 1.17) 1.20 H APTT (25 - 37 SEC) 42 H Hematology CBC w Diff MAN DIFF ORDERED WBC (4.8 - 10.8 /CUMM) 12.7 H RBC (4.70 - 6.10 /CUMM) 4.30 L Hgb (14.0 - 18.0 G/DL) 13.6 L Hct (42 - 52 %) 39.7 L MCV (80.0 - 94.0 FL) 92.2 MCH (27.0 - 31.0 PG) 31.5 H MCHC (33.0 - 37.0 G/DL) 34.2 RDW (11.5 - 14.5 %) 13.1 Plt Count (130 - 400 /CUMM) 152 MPV (7.4 - 10.4 FL) 9.1 Gran % (42.2 - 75.2 %) 84.3 H Lymphocytes % (20.5 - 51.1 %) 8.8 L Monocytes % (1.7 - 9.3 %) 6.9 Eosinophils % (0 - 5 %) 0 Basophils % (0.0 - 2.0 %) 0 Absolute Granulocytes (1.4 - 6.5 /CUMM) 10.7 H Segmented Neutrophils (42.2 - 75.2 %) 85 H Band Neutrophils (0.0 - 5.0 %) 5 Absolute Lymphocytes (1.2 - 3.4 /CUMM) 1.1 L Lymphocytes (20.5 - 51.1 %) 7 L Monocytes (1.7 - 9.3 %) 3 Absolute Monocytes (0.10 - 0.60 /CUMM) 0.9 H Absolute Eosinophils (0.0 - 0.7 /CUMM) 0 Absolute Basophils (0.0 - 0.2 /CUMM) 0 Platelet Estimate (ADEQUATE) ADEQUATE Normocytic RBCs VERIFIED Normochromic RBCs VERIFIED Urines Urine Color Cancelled Urine Clarity Cancelled Urine pH Cancelled Ur Specific [place]der[place] Cancelled Urine Protein Cancelled Urine Ketones Cancelled Urine Nitrite Cancelled Urine Bilirubin Cancelled Urine Urobilinogen Cancelled Ur Leukocyte Esterase Cancelled Ur Microscopic Cancelled Urine Hemoglobin Cancelled Urine Glucose Cancelled Imaging/Other Studies: CXR: 1. Progressive opacity in the left lung base, consistent with either progressive atelectasis or pneumonia with associated small left pleural effusion. 2. No significant change in mild right basilar subsegmental atelectasis. 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 There is no soft tissue nodularity documented. LEFT KIDNEY: The left kidney measures 15.9 cm. Two cysts are documented sonographically, one in the upper pole measuring 6.5 cm, one in the lower pole measuring 2.5 cm, both of which appear to have a CT correlate. There is an oval hypoechoic area documented in the interpolar region measuring 0.9 x 0.9 x 1.0 cm which is avascular and may reflect an additional cyst which is not clearly visualized on CT. The mass of interest however arising exophytically from the upper pole is not sonographically evident. Correlation with MRI is suggested. CT: KIDNEYS AND URETERS: The right kidney is surgically absent. The left kidney is normal in size, shape, and attenuation. No hydronephrosis, hydroureter, or calculi seen. There are low-attenuation left renal cysts, some too small to fully characterize with CT. At the upper pole of the left kidney anteriorly (4:21), there is a 2.6 x 2.0 cm ovoid mass seen with precontrast Hounsfield value of 23.5 units. This has increased in size from dimensions of 2.0 x 1.8 cm on 12/29/2012 (2:16). No perinephric stranding.
--- NOTE | 2018-02-07 12:25 | PN- Cardiology ---
Subjective Subjective: Patient is resting comfortably. Denies any chest pain or shortness of breath. Does report poor appetite and some dysphasia at times. Objective Vital Signs and I&Os Vital Signs Date Time Temp Pulse Resp B/P B/P Pulse O2 O2 Flow FiO2 Mean Ox Delivery Rate 02/07 0841 135/65 02/07 0600 97.8 75 20 118/60 95 Room Air / 2232 84 100/58 / 2232 84 100/58 / 2229 98.1 84 20 100/58 92 Room Air / 1349 97.0 100 20 116/90 91 Room Air Intake & Output 02/07 1600 02/07 0800 / 0000 / 1600 02/06 0800 / 0000 Intake Total 600 600 350 875 Output Total 225 150 300 125 400 Balance 375 450 50 750 -400 Intake, IV 600 600 300 875 Intake, Oral 50 Number 0 1 0 1 Bowel Movements Output, Urine 225 150 300 125 400 Physical Exam: General: no apparent distress. Alert. Eyes: No obvious scleral icterus. HEENT: No jugular venous distention or abnormal jugular venous pulsations. Cardiovascular: Normal intensity S1/S2. PMI not grossly displaced. Respiratory: Decreased air entry at the left base Abdomen: no guarding or rebound tenderness. Musculoskeletal: No clubbing or cyanosis noted to be; No edema Skin: warm Neurologic: Normal speech Current Medications: Current Medications Sig/Angeles Start time Last Medication Dose Route Stop Time Status Admin Acetaminophen 650 MG Q4P PRN / 1730 AC 02/05 PO 1857 Aspirin Buffered 81 MG DAILY 02/05 0900 AC 02/07 PO 0843 Atorvastatin Calcium 80 MG 1700 02/07 1700 AC PO Azithromycin 500 MG DAILY 02/06 1625 AC 02/07 Sodium Chloride 250 ML IV 0845 Calcium Carbonate 500 MG ONCE ONE 02/06 1530 DC 02/06 PO 02/06 1531 1632 Ceftriaxone Sodium 1,000 MG DAILY 02/06 1625 AC 02/07 IV 0844 Clopidogrel Bisulfate 75 MG 2100 02/06 2100 AC 02/06 PO 2231 Heparin Sodium 5,000 UNIT Q8 02/06 1400 DC 02/06 (Porcine) SC 02/06 2300 2233 Metoprolol Tartrate 12.5 MG ONCE ONE 02/06 2115 DC 02/06 PO 02/07 2116 223 Metoprolol Tartrate 25 MG BID 02/04 2100 02/07 PO 0841 Omeprazole 40 MG DAILY AC 02/07 0700 02/07 PO 0647 Patient Medication 1 ED ONE ONE 02/06 1645 [facility] ED 02/06 1646 Polyethylene Glycol 17 GM DAILY 02/04 1846 02/07 PO 0844 Sodium Bicarbonate 1,300 MG BID 02/07 2100 PO Sodium Bicarbonate 75 ML Q20H 02/06 1045 MT 02/07 Dextrose/Water 1,000 ML IV 0532 Results Last 48 Hrs of Labs/Mics: Laboratory Tests 02/07/18 1045: PT 12.8 H, INR 1.17, APTT 41 H 02/07/18 0721: Anion Gap 13, Estimated GFR 10 L, BUN/Creatinine Ratio 16.2, Phosphorus 3.6, Magnesium 2.0, Total Bilirubin 1.2, Direct Bilirubin 0.8 H, AST 109 H, ALT 87 H, Alkaline Phosphatase 179 H, Total Protein 4.9 L, Albumin 1.9 L, Prealbumin 4.3 L, CBC w Diff NO MAN DIFF REQ, RBC 4.10 L, MCV 91.7, MCH 31.2 H, MCHC 34.0, RDW 13.8, MPV 8.6, Gran % 87.9 H, Lymphocytes % 9.8 L, Monocytes % 2.0, Eosinophils % 0.1, Basophils % 0.2, Absolute Granulocytes 9.4 H, Absolute Lymphocytes 1.0 L, Absolute Monocytes 0.2, Absolute Eosinophils 0, Absolute Basophils 0 02/06/18 1750: Sodium Cancelled, Potassium Cancelled, Chloride Cancelled, Carbon Dioxide Cancelled, Anion Gap Cancelled, BUN Cancelled, Creatinine Cancelled, BUN/ Creatinine Ratio Cancelled 02/06/18 1640: Anion Gap 15, Estimated GFR 10 L, BUN/Creatinine Ratio 15.2 02/06/18 1443: Sodium Cancelled, Potassium Cancelled, Chloride Cancelled, Carbon Dioxide Cancelled, Anion Gap Cancelled, BUN Cancelled, Creatinine Cancelled, BUN/ Creatinine Ratio Cancelled 02/06/18 1259: Urinalysis MOD H, Urine Color ORANG H, Urine Clarity CLDY H, Urine pH 5.5, Ur Specific [place] 1.025, Urine Protein 100 H, Urine Ketones NEG, Urine Nitrite NEG, Urine Bilirubin NEG@ICTO, Urine Urobilinogen 1.0, Ur Leukocyte Esterase SMALL H, Ur Microscopic SEDIMENT EXAMINED, Urine RBC 50-75 H, Urine WBC 3-5 H , Granular Casts 10-15 H, Urine Hemoglobin LARGE H, Urine Glucose NEG 02/06/18 0715: Anion Gap 13, Estimated GFR 10 L, BUN/Creatinine Ratio 13.8, Phosphorus 4.2, Total Bilirubin 1.4 H, Direct Bilirubin 0.8 H, AST 143 H, ALT 99 H, Alkaline Phosphatase 145 H, Total Protein 4.8 L, Albumin 1.9 L, TSH 0.617, Free T4 3.12 H, CBC w Diff NO MAN DIFF REQ, RBC 4.14 L, MCV 91.8, MCH 30.6, MCHC 33.3, RDW 13.9, MPV 9.0, Gran % 88.9 H, Lymphocytes % 7.7 L, Monocytes % 3.4, Eosinophils % 0, Basophils % 0, Absolute Granulocytes 10.4 H, Absolute Lymphocytes 0.9 L, Absolute Monocytes 0.4, Absolute Eosinophils 0, Absolute Basophils 0, Hepatitis A IgM Ab NONREACTIVE, Hep Bs Antigen NONREACTIVE, Hep B Core IgM Ab Conf NONREACTIVE, Hepatitis C Antibody NONREACTIVE 02/05/18 1855: Urine Color Cancelled, Urine Clarity Cancelled, Urine pH Cancelled, Ur Specific [place] Cancelled, Urine Protein Cancelled, Urine Ketones Cancelled, Urine Nitrite Cancelled, Urine Bilirubin Cancelled, Urine Urobilinogen Cancelled, Ur Leukocyte Esterase Cancelled, Ur Microscopic Cancelled, Urine Hemoglobin Cancelled, Urine Glucose Cancelled 02/05/18 1200: Urinalysis LIGHT H, Urine Color YEL, Urine Clarity HAZY H, Urine pH 6.0, Ur Specific [place] 1.025, Urine Protein 30 H, Urine Ketones NEG, Urine Nitrite NEG, Urine Bilirubin NEG, Urine Urobilinogen 0.2, Ur Leukocyte Esterase SMALL H , Ur Microscopic SEDIMENT EXAMINED, Urine RBC 3-5, Urine WBC 5-10 H, Ur Epithelial Cells FEW, Urine Bacteria MOD H, Urine Hemoglobin TRACE-INTACT H, Urine Glucose NEG 02/05/18 1200: Urine Osmolality 349, Ur Random Creatinine 204.7, U Random Total Protein 50 H, Ur Random Sodium 30, Ur Random Potassium 53.9, Protein/Creatinin Ratio 0.2, Fraction Sodium Excret 0.5 Microbiology 06/06 1200 URINE ROUT: Urine Culture - COMP Recent Imaging Studies: The patient is not on telemetry Echocardiogram Limited Echo window. Normal overall left ventricular systolic function with no segmental abnormalities. No pericardial effusion. Assessment/Plan Assessment/Plan 1. Acute renal failure with history of chronic renal insufficiency 2. Coronary artery disease/recent end STEMI with drug-eluting stent to the obtuse marginal December 2017 3. Renal mass 4. Fever Patient continues to report no chest pain or shortness of breath. Continue on dual antiplatelet therapy without interruption given the recent drug-eluting stent. Creatinine remains elevated without significant hyperkalemia. Antibiotics per the medical team. Echocardiogram as above with normal ejection fraction and no significant pericardial effusion. Alexander Ash MD [facility] Continue telemetry? Not applicable
[2018-02-07 13:59] VITALS: BP 110/80
--- NOTE | 2018-02-07 15:21 | Patient Discharge Instructions ---
Discharge Instructions General Discharge Information You were seen/treated for: Acute Renal Failure Dysphagia Special Instructions: Please follow up with your PCP, retail advertising executive and rn labor delivery within one week of discharge. Please have your kidney function rechecked. Please follow up with your urologist within 1-2 weeks of discharge. You will need MRI of your left kidney once your Cr function is back to normal. Diet Continue normal diet: Yes Recommended Diet: Heart Healthy, Mechanical soft and thin Activity Full Activity/No Limits: Yes Acute Coronary Syndrome Inclusion Criteria At DC or during hospital stay patient has or had the following: ACS DIAGNOSIS No Discharge Core Measures Meds if any: Prescribed or Continued at Discharge Meds if any: NOT Prescribed or Continued at Discharge Congestive Heart Failure Inclusion Criteria At DC or during hospital stay patient has or had the following: CHF DIAGNOSIS No Discharge Core Measures Meds if any: Prescribed or Continued at Discharge Meds if any: NOT Prescribed or Continued at Discharge Cerebrovascular accident Inclusion Criteria At DC or during hospital stay patient has or had the following: CVA/TIA Diagnosis No Discharge Core Measures Meds if any: Prescribed or Continued at Discharge Meds if any: NOT Prescribed or Continued at Discharge Venous thromboembolism Inclusion Criteria VTE Diagnosis No VTE Type NONE VTE Confirmed by (Test) NONE Discharge Core Measures - Per Current guidelines, there needs to be overlap - treatment for the first 5 days of Warfarin therapy. - If discharged on Warfarin prior to 5 days of - overlap therapy, the patient will need to be - assessed for post discharge needs including - *Post discharge parental anticoagulation - *Warfarin and/or parental anticoagulation education - *Follow up date to check INR post discharge At least 5 days overlap therapy as Inpatient No Meds if any: Prescribed or Continued at Discharge Note: Overlap Therapy is Warfarin and Anticoagulant Meds if any: NOT Prescribed or Continued at Discharge
--- NOTE | 2018-02-07 15:57 | RADIOLOGY REPORT ---
EXAMINATION: XR MODIFIED BARIUM SWALLOW CLINICAL INFORMATION: Dysphagia, odynophagia. Aspiration. COMPARISON: None. TECHNIQUE: A modified barium swallow was performed with speech pathologist in attendance. Pur?e, honey thick, and thin consistencies were given to the patient and the swallowing mechanism was observed fluoroscopically with several spot films taken using the last image hold feature. FLUOROSCOPY TIME: 1 minute 53 seconds. FINDINGS: With all consistencies, significant pooling of contrast is noted in the valleculae and piriform sinuses. This contrast does not clear with successive swallows orbits liquid chaser. With honey thick and thin consistencies, penetration of contrast was seen, only intermittently symptomatic. No hector aspiration was seen. IMPRESSION: 1. Abnormal exam with significant pooling of contrast in the valleculae and piriform sinuses, not clearing with successive swallows or thin liquid chaser. 2. Penetration of contrast seen with honey thick and thin consistencies, only intermittently inducing a cough reflex. 3. Speech pathologist assessment issued separately.
[2018-02-07 22:24] VITALS: BP 120/60
[2018-02-08 06:15] VITALS: BP 106/53
--- NOTE | 2018-02-08 07:56 | PN- Housestaff ---
Subjective Follow-up For: JEAN Malnutrition Subjective: patient seen and examined this morning. states feeling okay. slept comfortably overnight. had a bowel movement this morning. offers no complaints. Review of Systems Constitutional: Reports: no symptoms. Objective Last 24 Hrs of Vital Signs/I&O Vital Signs Date Time Temp Pulse Resp B/P B/P Pulse O2 O2 Flow FiO2 Mean Ox Delivery Rate 02/08 0932 80 106/53 02/08 0615 96.7 80 20 106/53 93 Room Air 02/07 2224 97.1 76 20 120/60 93 08 2130 76 120/70 /08 1359 98.3 80 20 110/80 92 Room Air Intake & Output 02/08 1600 02/08 0800 02/08 0000 Intake Total 350 230 Output Total 450 240 Balance -100 -10 Intake, IV 350 150 Intake, Oral 0 80 Number 1 0 Bowel Movements Output, Urine 450 240 Patient 157 lb Weight Physical Exam General Appearance: Alert, Oriented X3, Cooperative, Mild Distress Skin: No Rashes, No Breakdown Skin Temp/Moisture Exam: Warm/Dry Sepsis Skin Exam (color): Normal for Ethnicity HEENT: Atraumatic Cardiovascular: Normal S1, Normal S2, No Murmurs Lungs: Normal Air Movement, decreased air entry at bases Abdomen: Soft, No Tenderness Neurological: Normal Speech Extremities: No Edema Last 24 Hrs of Lab/Jay Results Last 24 Hrs of Labs/Mics: Laboratory Tests 02/08/18 0640: Anion Gap 12, Estimated GFR 10 L, BUN/Creatinine Ratio 16.6, C-Reactive Prot, Quant > 9.0 H, C-React Prot High Sens > 15.0 H, CBC w Diff Pending, WBC Pending, RBC Pending, Hgb Pending, Hct Pending, MCV Pending, MCH Pending, MCHC Pending, RDW Pending, Plt Count Pending, MPV Pending, ESR Westergren Pending Assessment/Plan Assessment: Mr. Myers is an 87 year old gentleman with a PMH of BPH, right nephrectomy for RCC and CAD with recent NSTEMI status post stent placement on 01/23 presents with abdominal pain that has been going on since he had the cardiac stent placed. Assessment: 1. 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 Pneumonia 3. Left Renal Mass 4. Cholelithiasis with ? gallbladder wall thickening 5. severe diverticulosis, without acute diverticulitis. 6. CAD s/p recent stent placed 7. History of BPH 8. Transaminitis 9. Malnutrition Plan: * His Cr function is stable from yesterday. * Dialysis plans per Nephro. For now to be watched off dialysis. * Continue Bicarb drip in D5W as PO meds are on hold. * Strict I's&O's * He has left renal mass which was not well visualized on the U/S. * Per Urology this can be watched for now as the size is <3cm. * CXR showed opacity in the left lung base concerning for pneumonia which is likely due to aspiration * Continue IV Unasyn which was started yesterday. * Limited Echo did not show any acute abnormalities. * Check SPEP - pending * Prealbumin is significantly low. Nutrition consult once patient resumes PO intake. * Esophagram/MBS showed significant penetration. With high risk of aspiration, will hold PO intake and reassess his swallowing on Saturday. * Monitor LFTs * His CRP is elevated suggesting inflammatory/reactive process which points more towards atheroemboli. ESR is pending. * hepatitis panel was negative. * Diet: NPO * DVT Prophylaxis: ALPS with SC Heparin * Code: Full Code Problem List: 1. Acute renal failure Pain Ratin Pain Location: none Pain Goal: Remain pain free Pain Plan: none Tomorrow's Labs & Rationales: CBC, BEP, LFTs
[2018-02-08 08:26] LABS: ABSOLUTE BASOPHIL COUNT 0 /CUMM (0.0-0.2); ABSOLUTE EOSINOPHIL COUNT 0 /CUMM (0.0-0.7); ABSOLUTE MONOCYTE COUNT 0.4 /CUMM (0.10-0.60); BASOPHIL % 0.1 % (0.0-2.0); EOSINOPHIL % 0.2 % (0-5); GRANULOCYTE % 84.9 % (42.2-75.2); HEMATOCRIT 36.7 % (42-52); MEAN CORPUSCULAR HGB 30.9 PG (27.0-31.0); MEAN CORPUSCULAR HGB CONC 33.4 G/DL (33.0-37.0); MEAN CORPUSCULAR VOLUME 92.4 FL (80.0-94.0); MEAN PLATELET VOLUME 8.7 FL (7.4-10.4); PLATELET COUNT 148 /CUMM (130-400); RBC DISTRIBUTION WIDTH 13.9 % (11.5-14.5); RED BLOOD CELL CT 3.97 /CUMM (4.70-6.10); WHITE BLOOD CELL COUNT 9.5 /CUMM (4.8-10.8)
--- NOTE | 2018-02-08 08:38 | PN- Att Addend ---
Attending Addendum Attending Brief Note Patient seen and examined. Plan of care discussed with the medical team and the patient. Available lab work and radiology test reports were reviewed. Patient complains of not being able to sleep last night. He denies any nausea vomiting and difficulty breathing or chest pains. He currently has a Johnston catheter. Assessment * Acute renal failure * History of nSTEMI status post angioplasty * History of hypertension * History of hyperlipidemia * History diabetes * Elevated liver enzymes gradually improving * Dysphagia- oropharyngeal with multiple failed swallowing evaluations including modified barium swallow on February 07 * His or pneumonia currently being treated with Unasyn Plan * Keep nothing by mouth * Follow BEP in a.m. * Continue to support with IV fluids given the patient has persistent dysphagia and he is at risk for aspiration; * Keep Johnston in * Continue Unasyn * Please follow-up CBC report Exam: General: Patient awake but appears lethargic and oriented without any distress CVS: S1 plus S2 without any murmur or gallops Chest: Few scattered crepitation without any wheeze. There is no respiratory distress. Abdomen: Soft non-tender, bowel sound present, no guarding or rebound; Johnston catheter intact TAPER/FINISHER: Awake alert oriented without any focal neuro deficit and follows commands appropriately Extremities: No edema; no clubbing or cyanosis noted Current Medications Sig/Angeles Start time Last Medication Dose Route Stop Time Status Admin Acetaminophen 650 MG Q4P PRN 02/04 1730 AC 02/05 PO 1857 Ampicillin Sodium/ 1,500 MG Q12 02/07 2100 AC 02/07 Sulbactam Sodium IV 2119 Sodium Chloride 100 ML Aspirin Buffered 81 MG DAILY 02/05 0900 AC 02/07 PO 0843 Atorvastatin Calcium 80 MG 1700 02/07 1700 AC PO Azithromycin 500 MG DAILY 02/06 1625 DC 02/07 Sodium Chloride 250 ML IV 0845 Ceftriaxone Sodium 1,000 MG DAILY 02/06 1625 DC 02/07 IV 0844 Clopidogrel Bisulfate 75 MG 2100 02/06 2100 AC 02/07 PO 2130 Dextrose/Sodium 1,000 ML Q20H 02/07 1545 DC 02/07 Chloride IV 1556 Metoprolol Tartrate 25 MG BID 02/04 2100 AC 02/07 PO 2130 Omeprazole 40 MG DAILY AC 02/07 0700 DC 02/07 PO 0647 Pantoprazole Sodium 40 MG DAILY 02/07 1538 AC IV Polyethylene Glycol 17 GM DAILY 02/04 1846 AC 02/07 PO 0844 Sodium Bicarbonate 1,300 MG BID 02/07 2100 CAN PO Sodium Bicarbonate 75 ML Q20H 02/07 1700 AC 02/07 Dextrose/Water 1,000 ML IV 1802 Sodium Bicarbonate 75 ML Q20H 02/06 1045 DC 02/07 Dextrose/Water 1,000 ML IV 0532 Laboratory Tests 02/08/18 0640: Sodium Pending, Potassium Pending, Chloride Pending, Carbon Dioxide Pending, Anion Gap Pending, BUN Pending, Creatinine Pending, BUN/Creatinine Ratio Pending , C-React Prot High Sens Pending, CBC w Diff Pending, WBC Pending, RBC Pending, Hgb Pending, Hct Pending, MCV Pending, MCH Pending, MCHC Pending, RDW Pending, Plt Count Pending, MPV Pending, ESR Westergren Pending 02/07/18 1045: PT 12.8 H, INR 1.17, APTT 41 H 02/07/18 0721: Anion Gap 13, Estimated GFR 10 L, BUN/Creatinine Ratio 16.2, Phosphorus 3.6, Magnesium 2.0, Total Bilirubin 1.2, Direct Bilirubin 0.8 H, AST 109 H, ALT 87 H, Alkaline Phosphatase 179 H, Total Protein 4.9 L, Albumin 1.9 L, Prealbumin 4.3 L, CBC w Diff NO MAN DIFF REQ, RBC 4.10 L, MCV 91.7, MCH 31.2 H, MCHC 34.0, RDW 13.8, MPV 8.6, Gran % 87.9 H, Lymphocytes % 9.8 L, Monocytes % 2.0, Eosinophils % 0.1, Basophils % 0.2, Absolute Granulocytes 9.4 H, Absolute Lymphocytes 1.0 L, Absolute Monocytes 0.2, Absolute Eosinophils 0, Absolute Basophils 0 02/07/18 0500: Prot Electrophoresis Pending, Total Protein (PEP) Pending, Albumin % (PEP) Pending, [id number] Pending, [id number] Pending, [id number] Pending, [id number] Pending, Gamma Globulins Pending, Abnorm Protein Band 1 Pending, Abnorm Protein Band 2 Pending, Abnorm Protein Band 3 Pending 02/06/18 1750: Sodium Cancelled, Potassium Cancelled, Chloride Cancelled, Carbon Dioxide Cancelled, Anion Gap Cancelled, BUN Cancelled, Creatinine Cancelled, BUN/ Creatinine Ratio Cancelled 02/06/18 1640: Anion Gap 15, Estimated GFR 10 L, BUN/Creatinine Ratio 15.2 02/06/18 1443: Sodium Cancelled, Potassium Cancelled, Chloride Cancelled, Carbon Dioxide Cancelled, Anion Gap Cancelled, BUN Cancelled, Creatinine Cancelled, BUN/ Creatinine Ratio Cancelled 02/06/18 1259: Urinalysis MOD H, Urine Color ORANG H, Urine Clarity CLDY H, Urine pH 5.5, Ur Specific [place] 1.025, Urine Protein 100 H, Urine Ketones NEG, Urine Nitrite NEG, Urine Bilirubin [id number]@ICTO, Urine Urobilinogen 1.0, Ur Leukocyte Esterase SMALL H, Ur Microscopic SEDIMENT EXAMINED, Urine RBC 50-75 H, Urine WBC 3-5 H , Granular Casts 10-15 H, Urine Hemoglobin LARGE H, Urine Glucose NEG 02/06/18 0715: Anion Gap 13, Estimated GFR 10 L, BUN/Creatinine Ratio 13.8, Phosphorus 4.2, Total Bilirubin 1.4 H, Direct Bilirubin 0.8 H, AST 143 H, ALT 99 H, Alkaline Phosphatase 145 H, Total Protein 4.8 L, Albumin 1.9 L, TSH 0.617, Free T4 3.12 H, CBC w Diff NO MAN DIFF REQ, RBC 4.14 L, MCV 91.8, MCH 30.6, MCHC 33.3, RDW 13.9, MPV 9.0, Gran % 88.9 H, Lymphocytes % 7.7 L, Monocytes % 3.4, Eosinophils % 0, Basophils % 0, Absolute Granulocytes 10.4 H, Absolute Lymphocytes 0.9 L, Absolute Monocytes 0.4, Absolute Eosinophils 0, Absolute Basophils 0, Hepatitis A IgM Ab NONREACTIVE, Hep Bs Antigen NONREACTIVE, Hep B Core IgM Ab Conf NONREACTIVE, Hepatitis C Antibody NONREACTIVE 02/05/18 1855: Urine Color Cancelled, Urine Clarity Cancelled, Urine pH Cancelled, Ur Specific [place] Cancelled, Urine Protein Cancelled, Urine Ketones Cancelled, Urine Nitrite Cancelled, Urine Bilirubin Cancelled, Urine Urobilinogen Cancelled, Ur Leukocyte Esterase Cancelled, Ur Microscopic Cancelled, Urine Hemoglobin Cancelled, Urine Glucose Cancelled 02/05/18 1200: Urinalysis LIGHT H, Urine Color YEL, Urine Clarity HAZY H, Urine pH 6.0, Ur Specific [place] 1.025, Urine Protein 30 H, Urine Ketones NEG, Urine Nitrite NEG, Urine Bilirubin NEG, Urine Urobilinogen 0.2, Ur Leukocyte Esterase SMALL H , Ur Microscopic SEDIMENT EXAMINED, Urine RBC 3-5, Urine WBC 5-10 H, Ur Epithelial Cells FEW, Urine Bacteria MOD H, Urine Hemoglobin TRACE-INTACT H, Urine Glucose NEG 02/05/18 1200: Urine Osmolality 349, Ur Random Creatinine 204.7, U Random Total Protein 50 H, Ur Random Sodium 30, Ur Random Potassium 53.9, Protein/Creatinin Ratio 0.2, Fraction Sodium Excret 0.5 02/05/18 1000: Urine Total Volume Cancelled, Ur Total Protein 24 Hr Cancelled Microbiology 02/07 1040 LOWER RESP: Respiratory Culture - CAN Cancelled: NUMBER OF SQUAMOUS CELLS INDICATES POOR QUALITY SPECIMEN 02/07 1040 LOWER RESP: Gram Stain - CAN Cancelled: NUMBER OF SQUAMOUS CELLS INDICATES POOR QUALITY SPECIMEN 02/06 1335 BLOOD: Blood Culture - CAN Cancelled: Quantity not sufficient for Aerobic blood culture bottle. 02/06 1259 URINE ROUT: Urine Culture - RES 02/06 1215 BLOOD: Blood Culture - RES 02/06 0900 URINE OR: Urine Culture - RES 02/05 1200 URINE ROUT: Urine Culture - COMP 02/05 1120 BLOOD: Blood Culture - RES 02/05 1036 BLOOD: Blood Culture - RES Vital Signs Date Time Temp Pulse Resp B/P B/P Pulse O2 O2 Flow FiO2 Mean Ox Delivery Rate 02/08 0615 96.7 80 20 106/53 93 Room Air 02/07 2224 97.1 76 20 120/60 93 02/07 2130 76 120/70 02/07 1359 98.3 80 20 110/80 92 Room Air 02/07 0841 135/65 Intake & Output 02/08 1600 02/08 0800 02/08 0000 Intake Total 350 230 Output Total 450 240 Balance -100 -10 Intake, IV 350 150 Intake, Oral 0 80 Number 1 0 Bowel Movements Output, Urine 450 240 Patient 157 lb Weight Laboratory Tests 02/08 02/07 0640 1045 Chemistry Sodium (137 - 145 mmol/L) 142 Potassium (3.5 - 5.1 mmol/L) 3.8 Chloride (98 - 107 mmol/L) 110 H Carbon Dioxide (22 - 30 mmol/L) 20 L Anion Gap (5 - 16) 12 BUN (9 - 20 mg/dL) 88 H Creatinine (0.7 - 1.2 mg/dL) 5.3 *H Estimated GFR (>60 ml/min) 10 L BUN/Creatinine Ratio (7 - 25 %) 16.6 C-Reactive Prot, Quant (<1.0 mg/dL) > 9.0 H C-React Prot High Sens (1.0 - 3.0 mg/L) > 15.0 H Coagulation PT (9.4 - 12.5 SEC) 12.8 H INR (0.90 - 1.17) 1.17 APTT (25 - 37 SEC) 41 H Hematology CBC w Diff Pending WBC Pending RBC Pending Hgb Pending Hct Pending MCV Pending MCH Pending MCHC Pending RDW Pending Plt Count Pending MPV Pending ESR Westergren Pending
--- NOTE | 2018-02-08 13:06 | PN- Nephrology ---
Assessment/Plan Nephrology Assessment: 1. JEAN: stable - highly suspicious for atheroembolic dx post cath; to r/o paraprotein. No current HD need 2. CKD: mod, stage 3, w baseline Cr low 1s post R Nx 3. met acid: mild - continue maintenace fluid w Na bicarb 4. ? L renal mass --> needs urology f/u w noncontrast MR once stable Suggestion: 1. lower IV 40 -50 ml/hr 2. CT or MR head 3. await SIEP Subjective Subjective: Failed Barium swallow yesterday w aspiration --> NPO & back on IV fluids No SOB today No gross uremic sx Nonoliguric C/o L arm weakness Objective Vital Signs and I&Os Vital Signs Date Time Temp Pulse Resp B/P B/P Pulse O2 O2 Flow FiO2 Mean Ox Delivery Rate 02/08 0932 80 106/53 02/08 0615 96.7 80 20 106/53 93 Room Air 02/07 2224 97.1 76 20 120/60 93 02/07 2130 76 120/70 02/07 1359 98.3 80 20 110/80 92 Room Air Intake & Output 02/08 1600 02/08 0400 02/07 1600 02/07 0400 02/06 1600 02/06 0400 Intake Total 350 230 588 652 3657 Output Total 450 240 501 150 425 400 Balance -100 -10 99 450 800 -400 Intake, IV 350 150 767 170 2213 Intake, Oral 0 80 0 50 Number 1 0 1 1 1 Bowel Movements Output, Stool 1 Output, Urine 450 240 500 150 425 400 Patient 157 lb 158 lb Weight Physical Exam General Appearance: well developed/nourished, no apparent distress, alert Head: atraumatic, normal appearance Ears, Nose, Throat: normal ENT inspection Neck: normal inspection Respiratory: no respiratory distress, quiet respiration, lungs clear Cardiovascular: regular rate/rhythm Abdomen: soft, non-tender Extremities: no edema Neurologic/Psychiatric: awake, alert, outside upholsterer II-XII nml as tested, motor weakness ( L arm) Skin: livedo rash thighs & abd improved Lymphatic: no anterior cervical parag Current Medications: Current Medications Sig/Angeles Start time Last Medication Dose Route Stop Time Status Admin Acetaminophen 650 MG Q4P PRN 02/04 1730 AC 02/05 PO 1857 Ampicillin Sodium/ 1,500 MG Q12 02/07 2100 AC 02/08 Sulbactam Sodium IV 0933 Sodium Chloride 100 ML Aspirin Buffered 81 MG DAILY 02/05 0900 AC 02/08 PO 0928 Atorvastatin Calcium 80 MG 1700 02/07 1700 AC PO Azithromycin 500 MG DAILY 02/06 1625 DC 02/07 Sodium Chloride 250 ML IV 0845 Ceftriaxone Sodium 1,000 MG DAILY 02/06 1625 DC 02/07 IV 0844 Clopidogrel Bisulfate 75 MG 2100 02/06 2100 AC 02/07 PO 2130 Dextrose/Sodium 1,000 ML Q20H 02/07 1545 DC 02/07 Chloride IV 1556 Metoprolol Tartrate 25 MG BID 02/04 2100 AC 02/08 PO 0932 Omeprazole 40 MG DAILY AC 02/07 0700 DC 02/07 PO 0647 Pantoprazole Sodium 40 MG DAILY 02/07 1538 AC 02/08 IV 0933 Polyethylene Glycol 17 GM DAILY 02/04 1846 AC 02/07 PO 0844 Sodium Bicarbonate 1,300 MG BID 02/07 2100 CAN PO Sodium Bicarbonate 75 ML Q20H 02/07 1700 AC 02/07 Dextrose/Water 1,000 ML IV 1802 Results Pertinent Lab Results: Laboratory Tests 02/08 02/07 0640 1045 Chemistry Sodium (137 - 145 mmol/L) 142 Potassium (3.5 - 5.1 mmol/L) 3.8 Chloride (98 - 107 mmol/L) 110 H Carbon Dioxide (22 - 30 mmol/L) 20 L Anion Gap (5 - 16) 12 BUN (9 - 20 mg/dL) 88 H Creatinine (0.7 - 1.2 mg/dL) 5.3 *H Estimated GFR (>60 ml/min) 10 L BUN/Creatinine Ratio (7 - 25 %) 16.6 C-Reactive Prot, Quant (<1.0 mg/dL) > 9.0 H C-React Prot High Sens (1.0 - 3.0 mg/L) > 15.0 H Coagulation PT (9.4 - 12.5 SEC) 12.8 H INR (0.90 - 1.17) 1.17 APTT (25 - 37 SEC) 41 H Hematology CBC w Diff NO MAN DIFF REQ WBC (4.8 - 10.8 /CUMM) 9.5 RBC (4.70 - 6.10 /CUMM) 3.97 L Hgb (14.0 - 18.0 G/DL) 12.3 L Hct (42 - 52 %) 36.7 L MCV (80.0 - 94.0 FL) 92.4 MCH (27.0 - 31.0 PG) 30.9 MCHC (33.0 - 37.0 G/DL) 33.4 RDW (11.5 - 14.5 %) 13.9 Plt Count (130 - 400 /CUMM) 148 MPV (7.4 - 10.4 FL) 8.7 Gran % (42.2 - 75.2 %) 84.9 H Lymphocytes % (20.5 - 51.1 %) 10.8 L Monocytes % (1.7 - 9.3 %) 4.0 Eosinophils % (0 - 5 %) 0.2 Basophils % (0.0 - 2.0 %) 0.1 Absolute Granulocytes (1.4 - 6.5 /CUMM) 8.0 H Absolute Lymphocytes (1.2 - 3.4 /CUMM) 1.0 L Absolute Monocytes (0.10 - 0.60 /CUMM) 0.4 Absolute Eosinophils (0.0 - 0.7 /CUMM) 0 Absolute Basophils (0.0 - 0.2 /CUMM) 0 ESR Westergren (0 - 10 MM) Pending 02/07 02/07 02/06 0721 0500 1750 Chemistry Sodium (137 - 145 mmol/L) 141 Cancelled Potassium (3.5 - 5.1 mmol/L) 3.8 Cancelled Chloride (98 - 107 mmol/L) 109 H Cancelled Carbon Dioxide (22 - 30 mmol/L) 18 L Cancelled Anion Gap (5 - 16) 13 Cancelled BUN (9 - 20 mg/dL) 86 H Cancelled Creatinine (0.7 - 1.2 mg/dL) 5.3 *H Cancelled Estimated GFR (>60 ml/min) 10 L BUN/Creatinine Ratio (7 - 25 %) 16.2 Cancelled Phosphorus (2.5 - 4.5 mg/dL) 3.6 Magnesium (1.6 - 2.3 mg/dL) 2.0 Total Bilirubin (0.2 - 1.3 mg/dL) 1.2 Direct Bilirubin (< 0.4 mg/dL) 0.8 H AST (17 - 59 U/L) 109 H ALT (21 - 72 U/L) 87 H Alkaline Phosphatase (< 127 U/L) 179 H Prot Electrophoresis Pending Total Protein (6.3 - 8.2 g/dL) 4.9 L Total Protein (PEP) Pending Albumin (3.5 - 5.0 g/dL) 1.9 L Albumin % (PEP) Pending Prealbumin (17.6 - 36.0 mg/dL) 4.3 L [id number] Pending Imutg-9-Siyfzaagk Pending Qsso-4-Irodvcan Pending Fneq-0-Gwzopvri Pending Gamma Globulins Pending Abnorm Protein Band 1 Pending Abnorm Protein Band 2 Pending Abnorm Protein Band 3 Pending Hematology CBC w Diff NO MAN DIFF REQ WBC (4.8 - 10.8 /CUMM) 10.7 RBC (4.70 - 6.10 /CUMM) 4.10 L Hgb (14.0 - 18.0 G/DL) 12.8 L Hct (42 - 52 %) 37.6 L MCV (80.0 - 94.0 FL) 91.7 MCH (27.0 - 31.0 PG) 31.2 H MCHC (33.0 - 37.0 G/DL) 34.0 RDW (11.5 - 14.5 %) 13.8 Plt Count (130 - 400 /CUMM) 168 MPV (7.4 - 10.4 FL) 8.6 Gran % (42.2 - 75.2 %) 87.9 H Lymphocytes % (20.5 - 51.1 %) 9.8 L Monocytes % (1.7 - 9.3 %) 2.0 Eosinophils % (0 - 5 %) 0.1 Basophils % (0.0 - 2.0 %) 0.2 Absolute Granulocytes (1.4 - 6.5 /CUMM) 9.4 H Absolute Lymphocytes (1.2 - 3.4 /CUMM) 1.0 L Absolute Monocytes (0.10 - 0.60 /CUMM) 0.2 Absolute Eosinophils (0.0 - 0.7 /CUMM) 0 Absolute Basophils (0.0 - 0.2 /CUMM) 0 02/06 02/06 02/06 1640 1443 1259 Chemistry Sodium (137 - 145 mmol/L) 142 Cancelled Potassium (3.5 - 5.1 mmol/L) 4.3 Cancelled Chloride (98 - 107 mmol/L) 110 H Cancelled Carbon Dioxide (22 - 30 mmol/L) 17 L Cancelled Anion Gap (5 - 16) 15 Cancelled BUN (9 - 20 mg/dL) 82 H Cancelled Creatinine (0.7 - 1.2 mg/dL) 5.4 *H Cancelled Estimated GFR (>60 ml/min) 10 L BUN/Creatinine Ratio (7 - 25 %) 15.2 Cancelled Urines Urinalysis MOD H Urine Color (YEL,AMB,STR) ORANG H Urine Clarity (CLEAR) CLDY H Urine pH (5.0 - 8.0) 5.5 Ur Specific [place] (1.001 - 1.035) 1.025 Urine Protein (NEG,<30 MG/DL) 100 H Urine Ketones (NEG) NEG Urine Nitrite (NEG) NEG Urine Bilirubin (NEG) NEG@ICTO Urine Urobilinogen (0.1 - 1.0 EU/dl) 1.0 Ur Leukocyte Esterase (NEG) SMALL H Ur Microscopic SEDIMENT EXAMINED Urine RBC (0 - 5 /HPF) 50-75 H Urine WBC (0 - 2 /HPF) 3-5 H Granular Casts (NONE /LPF) 10-15 H Urine Hemoglobin (NEG) LARGE H Urine Glucose (N MG/DL) NEG 02/06 02/05 0715 1855 Chemistry Sodium (137 - 145 mmol/L) 142 Potassium (3.5 - 5.1 mmol/L) 4.1 Chloride (98 - 107 mmol/L) 112 H Carbon Dioxide (22 - 30 mmol/L) 17 L Anion Gap (5 - 16) 13 BUN (9 - 20 mg/dL) 77 H Creatinine (0.7 - 1.2 mg/dL) 5.6 *H Estimated GFR (>60 ml/min) 10 L BUN/Creatinine Ratio (7 - 25 %) 13.8 Phosphorus (2.5 - 4.5 mg/dL) 4.2 Total Bilirubin (0.2 - 1.3 mg/dL) 1.4 H Direct Bilirubin (< 0.4 mg/dL) 0.8 H AST (17 - 59 U/L) 143 H ALT (21 - 72 U/L) 99 H Alkaline Phosphatase (< 127 U/L) 145 H Total Protein (6.3 - 8.2 g/dL) 4.8 L Albumin (3.5 - 5.0 g/dL) 1.9 L TSH (0.270 - 4.200 uIU/mL) 0.617 Free T4 (0.85 - 1.93 ng/dL) 3.12 H Hematology CBC w Diff NO MAN DIFF REQ WBC (4.8 - 10.8 /CUMM) 11.7 H RBC (4.70 - 6.10 /CUMM) 4.14 L Hgb (14.0 - 18.0 G/DL) 12.6 L Hct (42 - 52 %) 38.0 L MCV (80.0 - 94.0 FL) 91.8 MCH (27.0 - 31.0 PG) 30.6 MCHC (33.0 - 37.0 G/DL) 33.3 RDW (11.5 - 14.5 %) 13.9 Plt Count (130 - 400 /CUMM) 151 MPV (7.4 - 10.4 FL) 9.0 Gran % (42.2 - 75.2 %) 88.9 H Lymphocytes % (20.5 - 51.1 %) 7.7 L Monocytes % (1.7 - 9.3 %) 3.4 Eosinophils % (0 - 5 %) 0 Basophils % (0.0 - 2.0 %) 0 Absolute Granulocytes (1.4 - 6.5 /CUMM) 10.4 H Absolute Lymphocytes (1.2 - 3.4 /CUMM) 0.9 L Absolute Monocytes (0.10 - 0.60 /CUMM) 0.4 Absolute Eosinophils (0.0 - 0.7 /CUMM) 0 Absolute Basophils (0.0 - 0.2 /CUMM) 0 Serology Hepatitis A IgM Ab (NONREACTIVE) NONREACTIVE Hep Bs Antigen (NONREACTIVE) NONREACTIVE Hep B Core IgM Ab Conf (NONREACTIVE) NONREACTIVE Hepatitis C Antibody (NONREACTIVE) NONREACTIVE Urines Urine Color Cancelled Urine Clarity Cancelled Urine pH Cancelled Ur Specific [place] Cancelled Urine Protein Cancelled Urine Ketones Cancelled Urine Nitrite Cancelled Urine Bilirubin Cancelled Urine Urobilinogen Cancelled Ur Leukocyte Esterase Cancelled Ur Microscopic Cancelled Urine Hemoglobin Cancelled Urine Glucose Cancelled Imaging/Other Studies: CXR: 1. Progressive opacity in the left lung base, consistent with either progressive atelectasis or pneumonia with associated small left pleural effusion. 2. No significant change in mild right basilar subsegmental atelectasis. Barium swallow: 1. Abnormal exam with significant pooling of contrast in the valleculae and piriform sinuses, not clearing with successive swallows or thin liquid chaser. 2. Penetration of contrast seen with honey thick and thin consistencies, only intermittently inducing a cough reflex.
[2018-02-08 14:16] VITALS: BP 128/90
[2018-02-08 21:43] VITALS: BP 141/77
[2018-02-09 05:40] VITALS: BP 124/78
--- NOTE | 2018-02-09 08:06 | PN- Housestaff ---
Subjective Follow-up For: JEAN renal mass (left) malnutrition Subjective: patient seen and examined. states sleeping well overnight. feels like he isn't right. Does not elaborate on it. does not offer any complaints Review of Systems Constitutional: Reports: no symptoms. Objective Last 24 Hrs of Vital Signs/I&O Vital Signs Date Time Temp Pulse Resp B/P B/P Pulse O2 O2 Flow FiO2 Mean Ox Delivery Rate 02/09 0804 97.2 68 20 124/78 02/09 0540 97.2 63 20 124/78 93 02/08 2143 98.1 110 18 141/77 92 Room Air 02/08 2100 110 141/77 02/08 1416 97.0 100 20 128/90 90 Room Air 02/08 0932 80 106/53 Intake & Output 02/09 1600 02/09 0800 02/09 0000 Intake Total 250 250 Output Total 350 450 Balance -100 -200 Intake, IV 250 250 Number 4 Bowel Movements Output, Urine 350 450 Patient 167 lb Weight Physical Exam General Appearance: Alert, Oriented X3, Cooperative, Mild Distress Skin: No Rashes, No Breakdown Skin Temp/Moisture Exam: Warm/Dry Sepsis Skin Exam (color): Normal for Ethnicity HEENT: Atraumatic Cardiovascular: Normal S1, Normal S2, No Murmurs Lungs: Clear to Auscultation, Normal Air Movement Abdomen: Soft, No Tenderness Neurological: Normal Speech Extremities: No Edema Assessment/Plan Assessment: Mr. Myers is an 87 year old gentleman with a PMH of BPH, right nephrectomy for RCC and CAD with recent NSTEMI status post stent placement on 01/23 presents with abdominal pain that has been going on since he had the cardiac stent placed. Assessment: 1. 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 Pneumonia 3. Left Renal Mass 4. Cholelithiasis with ? gallbladder wall thickening 5. severe diverticulosis, without acute diverticulitis. 6. CAD s/p recent stent placed 7. History of BPH 8. Transaminitis 9. Malnutrition Plan: * His Cr function is improved from yesterday. Continue to monitor. * Does not appear to have any acute dialysis need. * Continue Bicarb drip in D5W as PO meds are on hold. * Strict I's&O's * He has left renal mass which was not well visualized on the U/S. * Per Urology this can be watched for now as the size is <3cm. * CXR showed opacity in the left lung base concerning for pneumonia which is likely due to aspiration * Continue IV Unasyn. * Limited Echo did not show any acute abnormalities. * Check SPEP - pending * Prealbumin is significantly low. Nutrition consult once patient resumes PO intake. * Esophagram/MBS showed significant penetration. With high risk of aspiration, will hold PO intake and reassess his swallowing on Saturday. * Monitor LFTs * His CRP and ESR is elevated suggesting inflammatory/reactive process which points more towards atheroemboli. * hepatitis panel was negative. * Diet: NPO * DVT Prophylaxis: ALPS with SC Heparin * Code: Full Code Problem List: 1. Acute renal failure Pain Ratin Pain Location: none Pain Goal: Remain pain free Pain Plan: none Tomorrow's Labs & Rationales: CBC, BEP
[2018-02-09 08:35] LABS: ABSOLUTE BASOPHIL COUNT 0 /CUMM (0.0-0.2); ABSOLUTE EOSINOPHIL COUNT 0.1 /CUMM (0.0-0.7); ABSOLUTE GRANULOCYTE CT 7.1 /CUMM (1.4-6.5); ABSOLUTE LYMPH COUNT 1.7 /CUMM (1.2-3.4); ABSOLUTE MONOCYTE COUNT 0.3 /CUMM (0.10-0.60); BASOPHIL % 0.2 % (0.0-2.0); EOSINOPHIL % 1.2 % (0-5); GRANULOCYTE % 77.5 % (42.2-75.2); HEMATOCRIT 37.5 % (42-52); MEAN CORPUSCULAR HGB 30.9 PG (27.0-31.0); MEAN CORPUSCULAR HGB CONC 33.7 G/DL (33.0-37.0); MEAN CORPUSCULAR VOLUME 91.6 FL (80.0-94.0); MEAN PLATELET VOLUME 8.8 FL (7.4-10.4); PLATELET COUNT 158 /CUMM (130-400); RBC DISTRIBUTION WIDTH 13.8 % (11.5-14.5); RED BLOOD CELL CT 4.09 /CUMM (4.70-6.10); WHITE BLOOD CELL COUNT 9.1 /CUMM (4.8-10.8)
--- NOTE | 2018-02-09 11:25 | PN- Att Addend ---
Attending Addendum Attending Brief Note Patient seen and examined. Plan of care discussed with the medical team and the patient. Available lab work and radiology test reports were reviewed. Patient complains of left-sided pleuritic chest pain on deep breathing. He is awake but appears lethargic. He denies any nausea vomiting and difficulty breathing or chest pains. He currently has a Johnston catheter. Assessment * Acute renal failure * History of nSTEMI status post angioplasty * History of hypertension * History of hyperlipidemia * History diabetes * Elevated liver enzymes gradually improving * Dysphagia- oropharyngeal with multiple failed swallowing evaluations including modified barium swallow on February 07 * pneumonia currently being treated with Unasyn Plan * Keep nothing by mouth * Continue IV fluids * Follow BEP in a.m. * Continue to support with IV fluids given the patient has persistent dysphagia and he is at risk for aspiration; * Keep Johnston in * Continue Unasyn Exam: General: Patient awake but appears lethargic and oriented without any distress CVS: S1 plus S2 without any murmur or gallops Chest: Left-sided lower one third inspiratory crackles without any wheeze. There is no respiratory distress. 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 alert oriented without any focal neuro deficit and follows commands appropriately Extremities: No edema; no clubbing or cyanosis noted Current Medications Sig/Angeles Start time Last Medication Dose Route Stop Time Status Admin Acetaminophen 650 MG Q4P PRN 02/04 1730 AC 02/05 PO 1857 Ampicillin Sodium/ 1,500 MG Q12 02/07 2100 AC 02/09 Sulbactam Sodium IV 0803 Sodium Chloride 100 ML Aspirin Buffered 81 MG DAILY 02/05 0900 AC 02/09 PO 0803 Atorvastatin Calcium 80 MG 1700 02/07 1700 AC PO Clopidogrel Bisulfate 75 MG 2100 02/06 2100 AC 02/08 PO 2100 Metoprolol Tartrate 25 MG BID 02/04 2100 AC 02/09 PO 0804 Pantoprazole Sodium 40 MG DAILY 02/07 1538 AC 02/09 IV 0804 Polyethylene Glycol 17 GM DAILY 02/04 1846 AC 02/07 PO 0844 Sodium Bicarbonate 75 ML Q20H 02/07 1700 AC 02/09 Dextrose/Water 1,000 ML IV 0805 Laboratory Tests 02/09 0637 Chemistry Sodium (137 - 145 mmol/L) 143 Potassium (3.5 - 5.1 mmol/L) 3.5 Chloride (98 - 107 mmol/L) 112 H Carbon Dioxide (22 - 30 mmol/L) 19 L Anion Gap (5 - 16) 12 BUN (9 - 20 mg/dL) 86 H Creatinine (0.7 - 1.2 mg/dL) 4.5 H Estimated GFR (>60 ml/min) 12 L BUN/Creatinine Ratio (7 - 25 %) 19.1 Total Bilirubin (0.2 - 1.3 mg/dL) 1.1 Direct Bilirubin (< 0.4 mg/dL) 0.6 H AST (17 - 59 U/L) 50 ALT (21 - 72 U/L) 59 Alkaline Phosphatase (< 127 U/L) 149 H Total Protein (6.3 - 8.2 g/dL) 4.7 L Albumin (3.5 - 5.0 g/dL) 1.8 L Hematology CBC w Diff NO MAN DIFF REQ WBC (4.8 - 10.8 /CUMM) 9.1 RBC (4.70 - 6.10 /CUMM) 4.09 L Hgb (14.0 - 18.0 G/DL) 12.6 L Hct (42 - 52 %) 37.5 L MCV (80.0 - 94.0 FL) 91.6 MCH (27.0 - 31.0 PG) 30.9 MCHC (33.0 - 37.0 G/DL) 33.7 RDW (11.5 - 14.5 %) 13.8 Plt Count (130 - 400 /CUMM) 158 MPV (7.4 - 10.4 FL) 8.8 Gran % (42.2 - 75.2 %) 77.5 H Lymphocytes % (20.5 - 51.1 %) 18.1 L Monocytes % (1.7 - 9.3 %) 3.0 Eosinophils % (0 - 5 %) 1.2 Basophils % (0.0 - 2.0 %) 0.2 Absolute Granulocytes (1.4 - 6.5 /CUMM) 7.1 H Absolute Lymphocytes (1.2 - 3.4 /CUMM) 1.7 Absolute Monocytes (0.10 - 0.60 /CUMM) 0.3 Absolute Eosinophils (0.0 - 0.7 /CUMM) 0.1 Absolute Basophils (0.0 - 0.2 /CUMM) 0 Vital Signs Date Time Temp Pulse Resp B/P B/P Pulse O2 O2 Flow FiO2 Mean Ox Delivery Rate 02/09 0804 97.2 68 20 124/78 02/09 0540 97.2 63 20 124/78 93 02/08 2143 98.1 110 18 141/77 92 Room Air 02/08 2100 110 141/77 02/08 1416 97.0 100 20 128/90 90 Room Air Intake & Output 02/09 1600 02/09 0800 02/09 0000 Intake Total 250 250 Output Total 350 450 Balance -100 -200 Intake, IV 250 250 Number 4 Bowel Movements Output, Urine 350 450 Patient 167 lb Weight
[2018-02-09 13:56] VITALS: BP 96/42
[2018-02-09 16:16] VITALS: BP 130/60
[2018-02-09 22:09] VITALS: BP 116/70
[2018-02-10 06:00] VITALS: BP 114/58
--- NOTE | 2018-02-10 07:08 | PN- Housestaff ---
Bambi PARDO,[facility] 02/10/18 0708: Subjective Follow-up For: JEAN Left Renal Mass Dysphagia Subjective: Patient seen and examined. states feeling weaker. His chest pain with deep inspiration present yesterday has improved. No other complaints. Review of Systems Constitutional: Reports: no symptoms. Objective Last 24 Hrs of Vital Signs/I&O Vital Signs Date Time Temp Pulse Resp B/P B/P Pulse O2 O2 Flow FiO2 Mean Ox Delivery Rate 02/09 2209 98.1 70 20 116/70 94 02/09 2007 97.0 83 130/60 02/09 1616 83 20 130/60 94 02/09 1356 97.0 79 20 96/42 92 Room Air 02/09 0804 97.2 68 20 124/78 Intake & Output 02/10 0800 02/10 0000 02/09 1600 Intake Total 500 200 400 Output Total 700 500 Balance 500 -500 -100 Intake, IV 500 200 400 Output, Urine 700 500 Physical Exam General Appearance: Alert, Oriented X3, Cooperative, Mild Distress Skin: No Rashes, No Breakdown Skin Temp/Moisture Exam: Warm/Dry Sepsis Skin Exam (color): Normal for Ethnicity HEENT: Atraumatic Cardiovascular: Normal S1, Normal S2, No Murmurs Lungs: Normal Air Movement, decreased air entry with mild crackles at LLL Abdomen: Soft, No Tenderness Neurological: Normal Speech Extremities: No Edema Last 24 Hrs of Lab/Jay Results Last 24 Hrs of Labs/Mics: Laboratory Tests 02/10/18 0718: Sodium Pending, Potassium Pending, Chloride Pending, Carbon Dioxide Pending, Anion Gap Pending, BUN Pending, Creatinine Pending, BUN/Creatinine Ratio Pending , CBC w Diff Pending, WBC Pending, RBC Pending, Hgb Pending, Hct Pending, MCV Pending, MCH Pending, MCHC Pending, RDW Pending, Plt Count Pending, MPV Pending Assessment/Plan Assessment: Mr. Myers is an 87 year old gentleman with a PMH of BPH, right nephrectomy for RCC and CAD with recent NSTEMI status post stent placement on 01/23 presents with abdominal pain that has been going on since he had the cardiac stent placed. Assessment: 1. 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 Pneumonia 3. Left Renal Mass 4. Cholelithiasis with ? gallbladder wall thickening 5. severe diverticulosis, without acute diverticulitis. 6. CAD s/p recent stent placed 7. History of BPH 8. Transaminitis 9. Malnutrition Plan: * His Cr function continues to improve. * Continue Bicarb drip in D5W. * He has been unable to pass his swallow eval again today. * Await MRI to evaluate for stroke. He may have had emboli to his brain. If MRI is negative, would have to consider feeding via NG. * Continue IV Unasyn for aspiration pnemonia. * He has left renal mass which was not well visualized on the U/S. Per Urology this can be watched for now as the size is <3cm. * CXR showed opacity in the left lung base concerning for pneumonia which is likely due to aspiration * Limited Echo did not show any acute abnormalities. * SPEP - pending * Prealbumin is significantly low. Nutrition consult once patient resumes PO intake. * LFTs are improving. Likely elevated due to cholelithiasis. * Check GGT. * His CRP and ESR is elevated suggesting inflammatory/reactive process which points more towards atheroemboli. * hepatitis panel was negative. * Diet: NPO * DVT Prophylaxis: ALPS with SC Heparin * Code: Full Code Problem List: 1. Acute renal failure Pain Ratin Pain Location: none Pain Goal: Remain pain free Pain Plan: none Tomorrow's Labs & Rationales: CBC, BEP Arik PARDO,[facility] 02/10/18 1012: Attending MD Review Statement Attending Statement Attending MD Statement: examined this patient, discuss w/resident/PA/PAYROLL ANALYST, agreed w/resident/PA/PAYROLL ANALYST, discussed with family, reviewed EMR data (avail), discussed with nursing, discussed with case mgmt, reviewed images, amended to note Attending Assessment/Plan: Patient seen and examined, still feels tired. Said that he was feeling better with the weekend. Creatinine is coming down. Patient to get repeat swallow evaluation today. Vital Signs Date Time Temp Pulse Resp B/P B/P Pulse O2 O2 Flow FiO2 Mean Ox Delivery Rate 02/10 0836 60 114/58 02/10 0800 Room Air 02/10 0600 97.9 60 16 114/58 93 Room Air 02/09 2209 98.1 70 20 116/70 94 02/09 2007 97.0 83 130/60 02/09 1616 83 20 130/60 94 02/09 1356 97.0 79 20 96/42 92 Room Air on exam; aox3, nad. cv;s1,s2, rrr resp; clear abd; soft, nt, bs+ ext; no edema Laboratory Tests 02/10 0718 Chemistry Sodium (137 - 145 mmol/L) 146 H Potassium (3.5 - 5.1 mmol/L) 3.6 Chloride (98 - 107 mmol/L) 113 H Carbon Dioxide (22 - 30 mmol/L) 20 L Anion Gap (5 - 16) 13 BUN (9 - 20 mg/dL) 80 H Creatinine (0.7 - 1.2 mg/dL) 3.6 H Estimated GFR (>60 ml/min) 16 L BUN/Creatinine Ratio (7 - 25 %) 22.2 GGT (15 - 73 U/L) 47 Hematology CBC w Diff NO MAN DIFF REQ WBC (4.8 - 10.8 /CUMM) 9.7 RBC (4.70 - 6.10 /CUMM) 4.44 L Hgb (14.0 - 18.0 G/DL) 13.6 L Hct (42 - 52 %) 40.4 L MCV (80.0 - 94.0 FL) 91.0 MCH (27.0 - 31.0 PG) 30.6 MCHC (33.0 - 37.0 G/DL) 33.6 RDW (11.5 - 14.5 %) 14.1 Plt Count (130 - 400 /CUMM) 185 MPV (7.4 - 10.4 FL) 8.5 Gran % (42.2 - 75.2 %) 68.0 Lymphocytes % (20.5 - 51.1 %) 26.7 Monocytes % (1.7 - 9.3 %) 3.9 Eosinophils % (0 - 5 %) 1.2 Basophils % (0.0 - 2.0 %) 0.2 Absolute Granulocytes (1.4 - 6.5 /CUMM) 6.6 H Absolute Lymphocytes (1.2 - 3.4 /CUMM) 2.6 Absolute Monocytes (0.10 - 0.60 /CUMM) 0.4 Absolute Eosinophils (0.0 - 0.7 /CUMM) 0.1 Absolute Basophils (0.0 - 0.2 /CUMM) 0 A/P: 87-year-old male with past medical history significant for hypertension, hyperlipidemia, diabetes, recent admission to [facility] with chest pain/ NSTEMI. Patient was transferred [facility] for cardiac cath and angioplasty. Echocardiogram at that time showed ejection fraction 55-60% but akinetic posterior wall. Patient this time is admitted with generalized weakness and abdominal pain. Patient was found to have acute renal failure on top of chronic kidney disease. This was likely secondary to cholesterol emboli versus use soft Brilinta. Patient also had failed swallow evaluation and also currently treated for aspiration pneumonia. Likely pneumonia was present on admission. Patient currently on IV fluids but slightly high sodium. Monitor the BP. Patient still getting bicarbonate. Bicarbonate level is at 20 so please check with nephrology if continuous bicarbonate is needed. Patient get repeat swallow evaluation today. If passes then with start him on diet. We 'll also get brain MRI to rule out any acute intracranial events because apparently this swallowing issue is that he Patient overall feeling more weak generally. He is able to swallow his pills. Continue the rest of the management. Patient worked with physical therapy. Please start hep sq for DVT px. D/W family at bedside at length.
[2018-02-10 07:47] LABS: ABSOLUTE BASOPHIL COUNT 0 /CUMM (0.0-0.2); ABSOLUTE EOSINOPHIL COUNT 0.1 /CUMM (0.0-0.7); ABSOLUTE GRANULOCYTE CT 6.6 /CUMM (1.4-6.5); ABSOLUTE LYMPH COUNT 2.6 /CUMM (1.2-3.4); ABSOLUTE MONOCYTE COUNT 0.4 /CUMM (0.10-0.60); BASOPHIL % 0.2 % (0.0-2.0); EOSINOPHIL % 1.2 % (0-5); HEMATOCRIT 40.4 % (42-52); MEAN CORPUSCULAR HGB 30.6 PG (27.0-31.0); MEAN CORPUSCULAR HGB CONC 33.6 G/DL (33.0-37.0); MEAN PLATELET VOLUME 8.5 FL (7.4-10.4); PLATELET COUNT 185 /CUMM (130-400); RBC DISTRIBUTION WIDTH 14.1 % (11.5-14.5); RED BLOOD CELL CT 4.44 /CUMM (4.70-6.10); WHITE BLOOD CELL COUNT 9.7 /CUMM (4.8-10.8)
--- NOTE | 2018-02-10 11:34 | PN- Cardiology ---
Subjective Subjective: Denies any chest pain, dyspnea, or palpitations. Continues to complain of intermittent dysphasia. Objective Vital Signs and I&Os Vital Signs Date Time Temp Pulse Resp B/P B/P Pulse O2 O2 Flow FiO2 Mean Ox Delivery Rate 02/10 0836 60 114/58 02/10 0800 Room Air 02/10 06 97.9 60 16 114/58 93 Room Air 02/09 2209 98.1 70 20 116/70 94 02/09 2007 97.0 83 130/60 02/09 1616 83 20 130/60 94 02/09 1356 97.0 79 20 96/42 92 Room Air Intake & Output 02/10 1600 02/10 0800 02/10 0000 02/09 1600 02/09 0800 02/09 0000 Intake Total 500 200 400 250 250 Output Total 650 700 500 350 450 Balance -150 -500 -100 -100 -200 Intake, IV 500 200 400 250 250 Number 4 Bowel Movements Output, Urine 650 700 500 350 450 Patient 161 lb 167 lb Weight Weight Bed scale Measurement Method Physical Exam: General: no apparent distress. Alert. Eyes: No obvious scleral icterus. HEENT: No jugular venous distention or abnormal jugular venous pulsations. Cardiovascular: Normal intensity S1/S2. PMI not grossly displaced. Respiratory: Decreased air entry at the left base Abdomen: no guarding or rebound tenderness. Musculoskeletal: No clubbing or cyanosis noted to be; No edema Skin: warm Neurologic: Normal speech Current Medications: Current Medications Sig/Angeles Start time Last Medication Dose Route Stop Time Status Admin Acetaminophen 650 MG Q4P PRN 02/04 1730 AC 02/05 PO 1857 Ampicillin Sodium/ 1,500 MG Q12 02/07 2100 AC 02/10 Sulbactam Sodium IV 0838 Sodium Chloride 100 ML Aspirin Buffered 81 MG DAILY 02/05 09 AC 02/10 PO 0836 Atorvastatin Calcium 80 MG 1700 02/07 1700 AC PO Clopidogrel Bisulfate 75 MG 02/06 AC 02/09 PO 2006 Metoprolol Tartrate 25 MG BID 02/04 2100 AC 02/10 PO 0836 Pantoprazole Sodium 40 MG DAILY 02/07 1538 AC 02/10 IV 0836 Polyethylene Glycol 17 GM DAILY 02/04 1846 AC 02/07 PO 0844 Sodium Bicarbonate 75 ML Q20H 02/07 1700 AC 02/10 Dextrose/Water 1,000 ML IV 0412 Results Last 48 Hrs of Labs/Mics: Laboratory Tests 02/10/18 0718: Anion Gap 13, Estimated GFR 16 L, BUN/Creatinine Ratio 22.2, GGT 47, CBC w Diff NO MAN DIFF REQ, RBC 4.44 L, MCV 91.0, MCH 30.6, MCHC 33.6, RDW 14.1, MPV 8.5, Gran % 68.0, Lymphocytes % 26.7, Monocytes % 3.9, Eosinophils % 1.2, Basophils % 0.2, Absolute Granulocytes 6.6 H, Absolute Lymphocytes 2.6, Absolute Monocytes 0.4, Absolute Eosinophils 0.1, Absolute Basophils 0 02/09/18 0637: Anion Gap 12, Estimated GFR 12 L, BUN/Creatinine Ratio 19.1, Total Bilirubin 1.1, Direct Bilirubin 0.6 H, AST 50, ALT 59, Alkaline Phosphatase 149 H, Total Protein 4.7 L, Albumin 1.8 L, CBC w Diff NO MAN DIFF REQ, RBC 4.09 L, MCV 91.6, MCH 30.9, MCHC 33.7, RDW 13.8, MPV 8.8, Gran % 77.5 H, Lymphocytes % 18.1 L, Monocytes % 3.0, Eosinophils % 1.2, Basophils % 0.2, Absolute Granulocytes 7.1 H, Absolute Lymphocytes 1.7, Absolute Monocytes 0.3, Absolute Eosinophils 0.1, Absolute Basophils 0 Recent Imaging Studies: The patient is not currently on telemetry Swallow study 1. Abnormal exam with significant pooling of contrast in the valleculae and piriform sinuses, not clearing with successive swallows or thin liquid chaser. 2. Penetration of contrast seen with honey thick and thin consistencies, only intermittently inducing a cough reflex. 3. Speech pathologist assessment issued separately. Assessment/Plan Assessment/Plan 1. Acute renal failure with history of chronic renal insufficiency 2. Coronary artery disease/recent end STEMI with drug-eluting stent to the obtuse marginal December 2017 3. Renal mass 4. Fever/PNA 5. Dysphasia 6. Elevated LFTs, improved The patient remains hemodynamically stable. Continues to report intermittent dysphasia which is being worked up by the primary team. LFTs have improved, resume statin therapy. Creatinine is improving. He should be maintained on dual antiplatelet therapy without interruption given the recent drug-eluting stent. Antibiotics per the medical team. Alexander Ash MD FAC Continue telemetry? Not applicable
--- NOTE | 2018-02-10 11:52 | PN- Nephrology ---
Assessment/Plan Nephrology Assessment: JEAN - Improving - possibly 2/2 atheroembolic disease given livedo rash although no peripheral eosinophilia and normal complements (not entirely specific). Paraprotein work-up pending. Is improving without any additional intervention. Could consider a skin biopsy of livedo rash (which is apparently improving) although I'm not sure that it would change agent regardless as his renal function is improving (renal biopsy on solitary kidney would be too risky). CKD - baseline SCr in low 1's 2/2 reduced nephron mass (s/p R nephrectomy for RCC) L renal mass - Will need MR imaging and Urology follow-up - concerning especially given that he already had his R kidney removed for RCC. Hypernatremia - 2/2 decreased free water intake - on hypotonic bicarb containing IVF. Met acidosis (presumed) - non-anion gap - 2/2 renal failure - on bicarb containing IVF - until passes swallow eval after which point he can take bicarb tabs. 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 Objective Vital Signs and I&Os Vital Signs Date Time Temp Pulse Resp B/P B/P Pulse O2 O2 Flow FiO2 Mean Ox Delivery Rate 02/10 0836 60 114/58 02/10 0800 Room Air 02/10 06 97.9 60 16 114/58 93 Room Air 02/09 2209 98.1 70 20 116/70 94 02/09 2007 97.0 83 130/60 02/09 1616 83 20 130/60 94 02/09 1356 97.0 79 20 96/42 92 Room Air Intake & Output 02/10 1600 02/10 0400 02/09 1600 02/09 0400 02/08 1600 02/08 0400 Intake Total 500 200 650 250 750 230 Output Total 650 700 850 450 750 240 Balance -150 -500 -200 -200 0 -10 Intake, IV 500 200 650 250 750 150 Intake, Oral 0 80 Number 4 1 0 Bowel Movements Output, Urine 650 700 850 450 750 240 Patient 161 lb 167 lb 157 lb Weight Weight Bed scale Measurement Method Physical Exam: Gen - frustrated HEENT - supple CV - RRR, no m/r/g Chest - clear, no w/r/r Abd - soft, NTND Ext - warm, no edema Skin - mild purplish lacy rash on legs (pt noted that it's improving) Neuro - AOX3, grossly nonfocal Current Medications: Current Medications Sig/Angeles Start time Last Medication Dose Route Stop Time Status Admin Acetaminophen 650 MG Q4P PRN 02/04 1730 AC 02/05 PO 1857 Ampicillin Sodium/ 1,500 MG Q12 02/07 2100 AC 02/10 Sulbactam Sodium IV 0838 Sodium Chloride 100 ML Aspirin Buffered 81 MG DAILY 02/05 0900 AC 02/10 PO 0836 Atorvastatin Calcium 80 MG 1700 02/07 1700 AC PO Clopidogrel Bisulfate 75 MG 2100 02/06 2100 AC 02/09 PO 2006 Metoprolol Tartrate 25 MG BID 02/04 2100 AC 02/10 PO 0836 Pantoprazole Sodium 40 MG DAILY 02/07 1538 AC 02/10 IV 0836 Polyethylene Glycol 17 GM DAILY 02/04 1846 AC 02/07 PO 0844 Sodium Bicarbonate 75 ML Q20H 02/07 1700 AC 02/10 Dextrose/Water 1,000 ML IV 0412 Results Pertinent Lab Results: Laboratory Tests 02/10 02/09 0718 0637 Chemistry Sodium (137 - 145 mmol/L) 146 H 143 Potassium (3.5 - 5.1 mmol/L) 3.6 3.5 Chloride (98 - 107 mmol/L) 113 H 112 H Carbon Dioxide (22 - 30 mmol/L) 20 L 19 L Anion Gap (5 - 16) 13 12 BUN (9 - 20 mg/dL) 80 H 86 H Creatinine (0.7 - 1.2 mg/dL) 3.6 H 4.5 H Estimated GFR (>60 ml/min) 16 L 12 L BUN/Creatinine Ratio (7 - 25 %) 22.2 19.1 Total Bilirubin (0.2 - 1.3 mg/dL) 1.1 Direct Bilirubin (< 0.4 mg/dL) 0.6 H GGT (15 - 73 U/L) 47 AST (17 - 59 U/L) 50 ALT (21 - 72 U/L) 59 Alkaline Phosphatase (< 127 U/L) 149 H Total Protein (6.3 - 8.2 g/dL) 4.7 L Albumin (3.5 - 5.0 g/dL) 1.8 L Hematology CBC w Diff NO MAN DIFF REQ NO MAN DIFF REQ WBC (4.8 - 10.8 /CUMM) 9.7 9.1 RBC (4.70 - 6.10 /CUMM) 4.44 L 4.09 L Hgb (14.0 - 18.0 G/DL) 13.6 L 12.6 L Hct (42 - 52 %) 40.4 L 37.5 L MCV (80.0 - 94.0 FL) 91.0 91.6 MCH (27.0 - 31.0 PG) 30.6 30.9 MCHC (33.0 - 37.0 G/DL) 33.6 33.7 RDW (11.5 - 14.5 %) 14.1 13.8 Plt Count (130 - 400 /CUMM) 185 158 MPV (7.4 - 10.4 FL) 8.5 8.8 Gran % (42.2 - 75.2 %) 68.0 77.5 H Lymphocytes % (20.5 - 51.1 %) 26.7 18.1 L Monocytes % (1.7 - 9.3 %) 3.9 3.0 Eosinophils % (0 - 5 %) 1.2 1.2 Basophils % (0.0 - 2.0 %) 0.2 0.2 Absolute Granulocytes (1.4 - 6.5 /CUMM) 6.6 H 7.1 H Absolute Lymphocytes (1.2 - 3.4 /CUMM) 2.6 1.7 Absolute Monocytes (0.10 - 0.60 /CUMM) 0.4 0.3 Absolute Eosinophils (0.0 - 0.7 /CUMM) 0.1 0.1 Absolute Basophils (0.0 - 0.2 /CUMM) 0 0 06/09 0640 Chemistry Sodium (137 - 145 mmol/L) 142 Potassium (3.5 - 5.1 mmol/L) 3.8 Chloride (98 - 107 mmol/L) 110 H Carbon Dioxide (22 - 30 mmol/L) 20 L Anion Gap (5 - 16) 12 BUN (9 - 20 mg/dL) 88 H Creatinine (0.7 - 1.2 mg/dL) 5.3 *H Estimated GFR (>60 ml/min) 10 L BUN/Creatinine Ratio (7 - 25 %) 16.6 C-Reactive Prot, Quant (<1.0 mg/dL) > 9.0 H C-React Prot High Sens (1.0 - 3.0 mg/L) > 15.0 H Hematology CBC w Diff NO MAN DIFF REQ WBC (4.8 - 10.8 /CUMM) 9.5 RBC (4.70 - 6.10 /CUMM) 3.97 L Hgb (14.0 - 18.0 G/DL) 12.3 L Hct (42 - 52 %) 36.7 L MCV (80.0 - 94.0 FL) 92.4 MCH (27.0 - 31.0 PG) 30.9 MCHC (33.0 - 37.0 G/DL) 33.4 RDW (11.5 - 14.5 %) 13.9 Plt Count (130 - 400 /CUMM) 148 MPV (7.4 - 10.4 FL) 8.7 Gran % (42.2 - 75.2 %) 84.9 H Lymphocytes % (20.5 - 51.1 %) 10.8 L Monocytes % (1.7 - 9.3 %) 4.0 Eosinophils % (0 - 5 %) 0.2 Basophils % (0.0 - 2.0 %) 0.1 Absolute Granulocytes (1.4 - 6.5 /CUMM) 8.0 H Absolute Lymphocytes (1.2 - 3.4 /CUMM) 1.0 L Absolute Monocytes (0.10 - 0.60 /CUMM) 0.4 Absolute Eosinophils (0.0 - 0.7 /CUMM) 0 Absolute Basophils (0.0 - 0.2 /CUMM) 0 ESR Westergren (0 - 10 MM) 40 H Imaging/Other Studies: Abd US IMPRESSION: The enlarging lesion arising exophytically from the upper pole of the left kidney on CT is not sonographically visualized. Left-sided renal cysts are documented. MRI may be useful in additional characterization of the CT finding. Mild splenomegaly. Cholelithiasis. Status post right nephrectomy. CT IMPRESSION: 1. There is a increased soft tissue density mass arising exophytically from the upper pole of the right kidney. The possibility of neoplasm is not excluded. Recommend further evaluation with MRI or repeat ultrasound. Of note, this finding was not seen on the renal ultrasound dated 07/20/2016. 2. The right kidney surgically absent. 3. There is cholelithiasis. There is equivocal gallbladder wall thickening, which could be more fully evaluated with dedicated abdominal ultrasound. This raises the possibility of cholecystitis. Please correlate clinically. 4. There is moderately severe diverticulosis, without acute diverticulitis. No appendicitis is seen. There is no obstruction, free intraperitoneal air or abscess. 5. There is prostatomegaly. 6. There are marked thoracolumbar degenerative changes.
--- NOTE | 2018-02-10 13:05 | MRI REPORT ---
EXAMINATION: MR BRAIN WITHOUT CONTRAST CLINICAL INFORMATION: Suspicion of thromboemboli. Left upper arm weakness. History of recent catheterization. COMPARISON: Head CT 08/13/2012. TECHNIQUE: Multiplanar, multisequence imaging of the brain was performed without intravenous contrast. Some of the acquired sequences are mild to moderately motion degraded. \H\ \N\FINDINGS: There is no acute infarct, hemorrhage, or mass lesion. There is no extra-axial collection. There are mild foci of T2 hyperintensity in the bilateral cerebral white matter, which are nonspecific but likely reflect underlying small vessel disease. There is a small chronic infarct in the right superior parietal lobule. There is mild diffuse brain parenchymal volume loss with prominence of the ventricles and sulci. No foci of susceptibility signal are seen within the brain parenchyma as would be typical with thromboemboli. The flow voids of the major intracranial arteries appear intact. There is mild mucosal thickening in the bilateral mastoid air cells. IMPRESSION: - No acute infarct, mass lesion, intracranial hemorrhage, or evidence of hydrocephalus. 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 - Mild small vessel ischemic changes and mild diffuse brain parenchymal volume loss.
--- NOTE | 2018-02-10 14:14 | Discharge Summary ---
Visit Information Visit Dates Admission Date: 02/04/18 Hospital Course Course Attending Physician: Renetta Elise MD Primary Care Physician: Servando Parada MD Allergies: Coded Allergies: NO KNOWN ALLERGIES (09/26/11) Disposition Summary Disposition Principal Diagnosis: JEAN on CKD Aspiration Pneumonia Left Renal Mass Cholelithiasis Transaminitis Malnutrition Additional Diagnosis: Diabetes CAD NSTEMI BPH Discharge Disposition: home or self care Discharge Instructions General Discharge Information Code Status: Full Code Patient's Diet: Regular - Mechanical Soft and Thin Patient's Activity: As tolerated Follow-Up Instructions/Appts: Please follow up with your PCP, 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 Please have your kidney function rechecked. Please follow up with your urologist within 1-2 weeks of discharge. You will need MRI of your left kidney once your Cr function is back to normal. Medications at Discharge Discharge Medications: Stop taking the following medications: Ticagrelor (Brilinta) 90 MG TABLET ORAL TWICE DAILY Qty = 180 Continue taking these medications: Tamsulosin HCl (Tamsulosin HCl) 0.4 MG CAP.ER.24H 1 Capsule ORAL DAILY Qty = 90 Comments: DID NOT RECEIVE IN HOSPITAL Finasteride (Finasteride) 5 MG TABLET 1 Tablet ORAL DAILY Qty = 90 Comments: DID NOT RECEIVE IN HOSPITAL Atorvastatin Calcium (Atorvastatin Calcium) 80 MG TABLET 80 Milligram ORAL DAILY Qty = 30 Comments: Last Taken: 02/12/18 Time: 4:20PM Aspirin (Adult Aspirin Regimen) 81 MG TABLET.DR 1 Tablet ORAL DAILY Qty = 30 Comments: DID NOT RECEIVE IN HOSPITAL Metoprolol Tartrate (Metoprolol Tartrate) 25 MG TABLET 25 Milligram ORAL TWICE DAILY Qty = 60 Comments: DID NOT RECIEVE IN HOSPITAL Start taking the following new medications: Clopidogrel Bisulfate (Plavix) 75 MG TABLET 1 Tablet ORAL DAILY Qty = 30 No Refills Comments: Last Taken: 02/12/18 Time: 8AM Copies To: Servando Parada MD
[2018-02-10 14:28] VITALS: BP 122/60
[2018-02-10 22:02] VITALS: BP 130/65
[2018-02-11 06:20] VITALS: BP 141/70
--- NOTE | 2018-02-11 07:06 | PN- Housestaff ---
Bambi PARDO,[facility] 02/11/18 0705: Subjective Follow-up For: JEAN Left Renal Mass Dysphagia Subjective: Patient seen and examined at bedside. Feels okay. No further episodes of chest pain with deep inspiration that he had previously. Wishes to resume oral intake. He was explained the reasoning for keeping NPO. No particular complaints. Review of Systems Constitutional: Reports: no symptoms. Objective Last 24 Hrs of Vital Signs/I&O Vital Signs Date Time Temp Pulse Resp B/P B/P Pulse O2 O2 Flow FiO2 Mean Ox Delivery Rate 02/11 0620 98.2 58 20 141/70 95 Room Air 02/10 2202 97.9 64 18 130/65 93 02/10 2155 130/60 02/10 1428 97.7 75 20 122/60 95 02/10 1204 Room Air 02/10 0836 60 114/58 02/10 0800 Room Air Intake & Output 02/11 0800 02/11 0000 02/10 1600 Intake Total 400 520 520 Output Total 450 350 300 Balance -50 170 220 Intake, IV 400 400 400 Intake, Oral 120 120 Output, Urine 450 350 300 Patient 162 lb 161 lb Weight Weight Bed scale Measurement Method Physical Exam General Appearance: Alert, Oriented X3, Cooperative, Mild Distress Skin: No Rashes, No Breakdown Skin Temp/Moisture Exam: Warm/Dry Sepsis Skin Exam (color): Normal for Ethnicity HEENT: Atraumatic Cardiovascular: Normal S1, Normal S2, No Murmurs Lungs: Clear to Auscultation, Normal Air Movement Abdomen: Soft, No Tenderness Neurological: Normal Speech Extremities: No Edema, Normal Pulses Last 24 Hrs of Lab/Jay Results Last 24 Hrs of Labs/Mics: Laboratory Tests 02/11/18 0647: Sodium Pending, Potassium Pending, Chloride Pending, Carbon Dioxide Pending, Anion Gap Pending, BUN Pending, Creatinine Pending, BUN/Creatinine Ratio Pending , CBC w Diff Pending, WBC Pending, RBC Pending, Hgb Pending, Hct Pending, MCV Pending, MCH Pending, MCHC Pending, RDW Pending, Plt Count Pending, MPV Pending Assessment/Plan Assessment: Mr. Myers is an 87 year old gentleman with a PMH of BPH, right nephrectomy for RCC and CAD with recent NSTEMI status post stent placement on 5/24 presents with abdominal pain that has been going on since he had the cardiac stent placed. Assessment: 1. 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 Pneumonia 3. Left Renal Mass 4. Cholelithiasis with ? gallbladder wall thickening 5. severe diverticulosis, without acute diverticulitis. 6. CAD s/p recent stent placed 7. History of BPH 8. Transaminitis - resolved 9. Malnutrition Plan: * His Cr function continues to improve. * Discontinue bicarb drip and start KCL 40meq in D5-1/2NS @50ml/hr - 1 bag for hypokalemai and then just D5-1/2NS * Failed swallow evaluation again yesterday. Recommendations for tube feeding were discussed NG vs PEG. * Will repeat swallow eval today. * If he agrees for tube feeding can be started on osmolite. * MRI was negative for any acute infarct. * Continue IV Unasyn for aspiration pnemonia. * He has left renal mass which was not well visualized on the U/S. Per Urology this can be watched for now as the size is <3cm. * CXR showed opacity in the left lung base concerning for pneumonia which is likely due to aspiration * Limited Echo did not show any acute abnormalities. * SPEP - pending * Prealbumin is significantly low. Nutrition consult once he resumes PO intake. * Transaminitis has resolved * His CRP and ESR is elevated suggesting inflammatory/reactive process which points more towards atheroemboli. * hepatitis panel was negative. * PT recommends STR * Diet: NPO * DVT Prophylaxis: ALPS with SC Heparin * Code: Full Code Problem List: 1. Acute renal failure Pain Ratin Pain Location: none Pain Goal: Remain pain free Pain Plan: none Tomorrow's Labs & Rationales: CBC, BEP Arik PARDO,Renetta 02/11/18 1142: Attending MD Review Statement Attending Statement Attending MD Statement: examined this patient, discuss w/resident/PA/HABITAT CONSERVATION PLANNER, agreed w/resident/PA/HABITAT CONSERVATION PLANNER, discussed with family, reviewed EMR data (avail), discussed with nursing, discussed with case mgmt, reviewed images, amended to note Attending Assessment/Plan: Patient seen and examined, overall feeling okay except that continues to feel tired and exhausted. Patient had another swallow evaluation done and speech therapist recommending modified barium swallow. Vital Signs Date Time Temp Pulse Resp B/P B/P Pulse O2 O2 Flow FiO2 Mean Ox Delivery Rate 02/11 0820 60 142/68 02/11 0800 Room Air 02/11 0620 98.2 58 20 141/70 95 Room Air 02/10 2202 97.9 64 18 130/65 93 02/10 2155 130/60 02/10 1428 97.7 75 20 122/60 95 02/10 1204 Room Air on exam: aox3, nad. cv;s1,s2, rrr resp; clear abd; soft, nt, bs+ ext; no edema Laboratory Tests 02/11 06 Chemistry Sodium (137 - 145 mmol/L) 148 H Potassium (3.5 - 5.1 mmol/L) 3.4 L Chloride (98 - 107 mmol/L) 112 H Carbon Dioxide (22 - 30 mmol/L) 24 Anion Gap (5 - 16) 11 BUN (9 - 20 mg/dL) 77 H Creatinine (0.7 - 1.2 mg/dL) 3.0 H Estimated GFR (>60 ml/min) 20 L BUN/Creatinine Ratio (7 - 25 %) 25.7 H Total Bilirubin (0.2 - 1.3 mg/dL) 0.9 Direct Bilirubin (< 0.4 mg/dL) 0.4 AST (17 - 59 U/L) 37 ALT (21 - 72 U/L) 46 Alkaline Phosphatase (< 127 U/L) 113 Total Protein (6.3 - 8.2 g/dL) 5.1 L Albumin (3.5 - 5.0 g/dL) 1.9 L Hematology CBC w Diff NO MAN DIFF REQ WBC (4.8 - 10.8 /CUMM) 8.5 RBC (4.70 - 6.10 /CUMM) 4.12 L Hgb (14.0 - 18.0 G/DL) 12.6 L Hct (42 - 52 %) 37.4 L MCV (80.0 - 94.0 FL) 90.8 MCH (27.0 - 31.0 PG) 30.6 MCHC (33.0 - 37.0 G/DL) 33.8 RDW (11.5 - 14.5 %) 13.7 Plt Count (130 - 400 /CUMM) 199 MPV (7.4 - 10.4 FL) 8.3 Gran % (42.2 - 75.2 %) 63.5 Lymphocytes % (20.5 - 51.1 %) 28.4 Monocytes % (1.7 - 9.3 %) 5.6 Eosinophils % (0 - 5 %) 2.4 Basophils % (0.0 - 2.0 %) 0.1 Absolute Granulocytes (1.4 - 6.5 /CUMM) 5.4 Absolute Lymphocytes (1.2 - 3.4 /CUMM) 2.4 Absolute Monocytes (0.10 - 0.60 /CUMM) 0.5 Absolute Eosinophils (0.0 - 0.7 /CUMM) 0.2 Absolute Basophils (0.0 - 0.2 /CUMM) 0 A/P; 87-year-old male with past medical history significant for hypertension, hyperlipidemia, diabetes, recent admission to [facility] with chest pain/ NSTEMI. Patient was transferred [facility] for cardiac cath and angioplasty. Echocardiogram at that time showed ejection fraction 55-60% but akinetic posterior wall. Patient this time is admitted with generalized weakness and abdominal pain. Patient was found to have acute renal failure on top of chronic kidney disease. This was likely secondary to cholesterol emboli versus use soft Brilinta. Creatinine improving. Bicarbonate improved. At this point we'll switch fluids to D5 half and as without any bicarbonate. Patient had a repeat swallow evaluation and speech therapist recommending modified Barium swallow. We'll continue the antibiotics to complete the course. Continue aspirin and Plavix. Brilinta was stopped and patient was started on Plavix. Continue the rest of the management. Patient working with physical therapy and currently they recommended short-term rehabilitation. D/W family at bedside.
[2018-02-11 08:02] LABS: ABSOLUTE BASOPHIL COUNT 0 /CUMM (0.0-0.2); ABSOLUTE EOSINOPHIL COUNT 0.2 /CUMM (0.0-0.7); ABSOLUTE GRANULOCYTE CT 5.4 /CUMM (1.4-6.5); ABSOLUTE LYMPH COUNT 2.4 /CUMM (1.2-3.4); ABSOLUTE MONOCYTE COUNT 0.5 /CUMM (0.10-0.60); BASOPHIL % 0.1 % (0.0-2.0); EOSINOPHIL % 2.4 % (0-5); GRANULOCYTE % 63.5 % (42.2-75.2); HEMATOCRIT 37.4 % (42-52); MEAN CORPUSCULAR HGB 30.6 PG (27.0-31.0); MEAN CORPUSCULAR HGB CONC 33.8 G/DL (33.0-37.0); MEAN CORPUSCULAR VOLUME 90.8 FL (80.0-94.0); MEAN PLATELET VOLUME 8.3 FL (7.4-10.4); PLATELET COUNT 199 /CUMM (130-400); RBC DISTRIBUTION WIDTH 13.7 % (11.5-14.5); RED BLOOD CELL CT 4.12 /CUMM (4.70-6.10); WHITE BLOOD CELL COUNT 8.5 /CUMM (4.8-10.8)
--- NOTE | 2018-02-11 10:30 | PN- Cardiology ---
Subjective Subjective: Patient feels well. He denies chest pain or shortness of breath. His sons are at the bedside. Review of Systems: Eyes no blurred or double vision Ears no deafness or ringing Nose and throat no recurrent sinusitis Lungs per history of present illness Heart per history of present illness Abdomen no nausea vomiting Musculoskeletal occasional muscle and joint pains Psych no anxiety or depression Neuro without recurrent headache or seizures Endocrine no heat or cold intolerance Objective Vital Signs and I&Os Vital Signs Date Time Temp Pulse Resp B/P B/P Pulse O2 O2 Flow FiO2 Mean Ox Delivery Rate 02/11 08 60 142/68 02/11 0800 Room Air 02/12 620 98.2 58 20 141/70 95 Room Air 02/10 2202 97.9 64 18 130/65 93 02/10 2155 130/60 02/10 1428 97.7 75 20 122/60 95 02/10 1204 Room Air Intake & Output 02/11 1600 02/11 0800 02/11 0000 02/10 1600 02/10 0800 02/10 0000 Intake Total 400 520 520 500 200 Output Total 450 350 300 650 700 Balance -50 170 220 -150 -500 Intake, IV 400 400 400 500 200 Intake, Oral 120 120 Output, Urine 450 350 300 650 700 Patient 162 lb 161 lb 161 lb Weight Weight Bed scale Bed scale Measurement Method Physical Exam: Patient is a well-developed well-nourished male appearing in no acute distress HEENT is unremarkable Neck is supple there is no JVD Lungs are clear Heart regular rhythm S1 and S2 are normal no murmurs gallops or rubs Abdomen bowel sounds positive Extremities without edema Current Medications: Current Medications Sig/Angeles Start time Last Medication Dose Route Stop Time Status Admin Acetaminophen 650 MG Q4P PRN 02/04 1730 AC 02/05 PO 1857 Ampicillin Sodium/ 1,500 MG Q12 02/07 2100 AC 02/11 Sulbactam Sodium IV 0820 Sodium Chloride 100 ML Aspirin Buffered 81 MG DAILY 02/05 0900 AC 02/11 PO 0820 Atorvastatin Calcium 80 MG 1700 02/07 1700 AC 02/10 PO 1652 Clopidogrel Bisulfate 75 MG 2100 02/06 2100 AC 02/10 PO 2155 Dextrose/Sodium 1,000 ML Q20H 02/12 0600 AC Chloride IV Metoprolol Tartrate 25 MG BID 02/04 2100 AC 02/11 PO 0820 Pantoprazole Sodium 40 MG DAILY 02/07 1538 AC 02/11 IV 0820 Patient Medication 1 ED ONE ONE 02/10 1330 DC 02/10 Teaching ED 02/10 1331 1329 Polyethylene Glycol 17 GM DAILY 02/04 1846 AC 02/07 PO 0844 Potassium Chloride 40 MEQ Q20H 02/11 1000 AC Dextrose/Sodium 1,000 ML IV 02/12 0559 Chloride Potassium Chloride 40 MEQ ONCE ONE 02/11 0900 CAN IV 02/11 0901 Sodium Bicarbonate 75 ML Q20H 02/07 1700 DC 02/11 Dextrose/Water 1,000 ML IV 0120 Results Last 48 Hrs of Labs/Mics: Laboratory Tests 02/11/18 0647: Anion Gap 11, Estimated GFR 20 L, BUN/Creatinine Ratio 25.7 H, Total Bilirubin 0.9, Direct Bilirubin 0.4, AST 37, ALT 46, Alkaline Phosphatase 113, Total Protein 5.1 L, Albumin 1.9 L, CBC w Diff NO MAN DIFF REQ, RBC 4.12 L, MCV 90.8, MCH 30.6, MCHC 33.8, RDW 13.7, MPV 8.3, Gran % 63.5, Lymphocytes % 28.4, Monocytes % 5.6, Eosinophils % 2.4, Basophils % 0.1, Absolute Granulocytes 5.4, Absolute Lymphocytes 2.4, Absolute Monocytes 0.5, Absolute Eosinophils 0.2, Absolute Basophils 0 02/10/18 0718: Anion Gap 13, Estimated GFR 16 L, BUN/Creatinine Ratio 22.2, GGT 47, CBC w Diff NO MAN DIFF REQ, RBC 4.44 L, MCV 91.0, MCH 30.6, MCHC 33.6, RDW 14.1, MPV 8.5, Gran % 68.0, Lymphocytes % 26.7, Monocytes % 3.9, Eosinophils % 1.2, Basophils % 0.2, Absolute Granulocytes 6.6 H, Absolute Lymphocytes 2.6, Absolute Monocytes 0.4, Absolute Eosinophils 0.1, Absolute Basophils 0 Recent Imaging Studies: MRI of the head IMPRESSION: - No acute infarct, mass lesion, intracranial hemorrhage, or evidence of hydrocephalus. 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 - Mild small vessel ischemic changes and mild diffuse brain parenchymal volume loss. Assessment/Plan Assessment/Plan 1. Acute renal failure with history of chronic renal insufficiency gradually improving 2. Coronary artery disease/recent end STEMI with drug-eluting stent to the obtuse marginal December 2017 stable 3. Renal mass 4. Fever/PNA 5. Dysphasia 6. Elevated LFTs, improved Recommendations 1. For x-ray barium swallow today due to dysphagia 2. Monitor serum potassium and replete as needed 3. Continue to monitor renal function Continue telemetry? No
--- NOTE | 2018-02-11 13:26 | RADIOLOGY REPORT ---
EXAMINATION: XR MODIFIED BARIUM SWALLOW CLINICAL INFORMATION: Inability to swallow completely with high residuals. Presumptive diagnosis: Dysphagia. Aspiration pneumonia. COMPARISON: Modified barium swallow dated 02/07/2018. TECHNIQUE: A modified barium swallow was performed with speech pathologist in attendance. Pur?e, honey thick, nectar thick, and thin consistencies were given to the patient and the swallowing mechanism was observed fluoroscopically with several spot films taken using the last image hold feature. FLUOROSCOPY TIME: 2 minutes 23 seconds. FINDINGS: With all consistencies, transient silent penetration of contrast is seen, persisting even with chin tuck maneuver. Only on occasion is there some sensation with a weak cough reflex induced. Prominent pooling of contrast in the valleculae is seen. With thin liquids, aspiration to and just beyond the vocal cords is seen. IMPRESSION: 1. Transient penetration seen with all consistencies and hector aspiration seen with liquid consistency. There is only intermittent and weak cough reflex observed. 2. Prominent pooling of contrast in the valleculae with all consistencies. 3. Speech pathologist assessment issued separately.
[2018-02-11 14:42] VITALS: BP 140/70
--- NOTE | 2018-02-11 14:54 | PN- Nephrology ---
Assessment/Plan Nephrology Assessment: JEAN - Improving - possibly 2/2 atheroembolic disease given livedo rash (now gone ) although no peripheral eosinophilia and normal complements (not entirely specific). Paraprotein work-up pending. Is improving without any additional intervention. CKD - baseline SCr in low 1's 2/2 reduced nephron mass (s/p R nephrectomy for RCC) L renal mass - Will need MR imaging and Urology follow-up - concerning especially given that he already had his R kidney removed for RCC. Hypernatremia - 2/2 decreased free water intake - on hypotonic IVF. Suggestion: -f/u paraprotein work-up -MR imaging of L kidney once stable with Urology follow-up -Switch to D5 09/04 NS - 100cc/hr -GOC re: feeding tube Please call [phone] with ?'s Subjective Subjective: SCr down to 3.0 Livedo rash gone Failed swallow - on D5 09/03 NS - NPO Thirsty MRI without acute stroke Objective Vital Signs and I&Os Vital Signs Date Time Temp Pulse Resp B/P B/P Pulse O2 O2 Flow FiO2 Mean Ox Delivery Rate 02/11 1442 96.7 58 20 140/70 92 02/11 0820 60 142/68 02/11 0800 Room Air 02/11 0620 98.2 58 20 141/70 95 Room Air 02/10 2202 97.9 64 18 130/65 93 02/10 2155 130/60 Intake & Output 02/11 1600 02/11 0400 02/10 1600 02/10 0400 02/09 1600 02/09 0400 Intake Total 357 753 4760 200 650 250 Output Total 750 350 950 700 850 450 Balance 170 170 70 -500 -200 -200 Intake, IV 800 400 900 200 650 250 Intake, Oral 120 120 120 Number 0 4 Bowel Movements Output, Urine 750 350 950 700 850 450 Patient 162 lb 161 lb 167 lb Weight Weight Bed scale Bed scale Measurement Method Physical Exam: Gen - ok appearing HEENT - supple CV - RRR, no m/r/g Chest - clear, no w/r/r Abd - soft, NTND Ext - warm, no edema Skin - no rash Neuro - alert, conversive but confused Current Medications: Current Medications Sig/Angeles Start time Last Medication Dose Route Stop Time Status Admin Acetaminophen 650 MG Q4P PRN 02/04 1730 AC 02/05 PO 1857 Ampicillin Sodium/ 1,500 MG Q12 02/07 2100 AC 02/11 Sulbactam Sodium IV 0820 Sodium Chloride 100 ML Aspirin Buffered 81 MG DAILY 02/05 0900 AC 02/11 PO 0820 Atorvastatin Calcium 80 MG 1700 02/07 1700 AC 02/10 PO 1652 Clopidogrel Bisulfate 75 MG 2100 02/06 2100 AC 02/10 PO 2155 Dextrose/Sodium 1,000 ML Q20H 02/12 0600 CAN Chloride IV Dextrose/Sodium 500 ML Q5H 02/11 1445 UNir Chloride IV Metoprolol Tartrate 25 MG BID 02/04 2100 AC 02/11 PO 0820 Pantoprazole Sodium 40 MG DAILY 02/07 1538 AC 02/11 IV 0820 Polyethylene Glycol 17 GM DAILY 02/04 1846 AC 02/07 PO 0844 Potassium Chloride 10 MEQ Q1H 02/11 1345 DC 02/11 IV 02/11 1446 1425 Potassium Chloride 40 MEQ Q20H 02/11 1000 r 02/11 Dextrose/Sodium 1,000 ML IV 02/11 1959 1109 Chloride Potassium Chloride 40 MEQ ONCE ONE 02/11 0900 CAN IV 02/11 0901 Sodium Bicarbonate 75 ML Q20H 02/07 1700 DC 02/11 Dextrose/Water 1,000 ML IV 0120 Results Pertinent Lab Results: Laboratory Tests 02/11 02/10 0647 0718 Chemistry Sodium (137 - 145 mmol/L) 148 H 146 H Potassium (3.5 - 5.1 mmol/L) 3.4 L 3.6 Chloride (98 - 107 mmol/L) 112 H 113 H Carbon Dioxide (22 - 30 mmol/L) 24 20 L Anion Gap (5 - 16) 11 13 BUN (9 - 20 mg/dL) 77 H 80 H Creatinine (0.7 - 1.2 mg/dL) 3.0 H 3.6 H Estimated GFR (>60 ml/min) 20 L 16 L BUN/Creatinine Ratio (7 - 25 %) 25.7 H 22.2 Total Bilirubin (0.2 - 1.3 mg/dL) 0.9 Direct Bilirubin (< 0.4 mg/dL) 0.4 GGT (15 - 73 U/L) 47 AST (17 - 59 U/L) 37 ALT (21 - 72 U/L) 46 Alkaline Phosphatase (< 127 U/L) 113 Total Protein (6.3 - 8.2 g/dL) 5.1 L Albumin (3.5 - 5.0 g/dL) 1.9 L Hematology CBC w Diff NO MAN DIFF REQ NO MAN DIFF REQ WBC (4.8 - 10.8 /CUMM) 8.5 9.7 RBC (4.70 - 6.10 /CUMM) 4.12 L 4.44 L Hgb (14.0 - 18.0 G/DL) 12.6 L 13.6 L Hct (42 - 52 %) 37.4 L 40.4 L MCV (80.0 - 94.0 FL) 90.8 91.0 MCH (27.0 - 31.0 PG) 30.6 30.6 MCHC (33.0 - 37.0 G/DL) 33.8 33.6 RDW (11.5 - 14.5 %) 13.7 14.1 Plt Count (130 - 400 /CUMM) 199 185 MPV (7.4 - 10.4 FL) 8.3 8.5 Gran % (42.2 - 75.2 %) 63.5 68.0 Lymphocytes % (20.5 - 51.1 %) 28.4 26.7 Monocytes % (1.7 - 9.3 %) 5.6 3.9 Eosinophils % (0 - 5 %) 2.4 1.2 Basophils % (0.0 - 2.0 %) 0.1 0.2 Absolute Granulocytes (1.4 - 6.5 /CUMM) 5.4 6.6 H Absolute Lymphocytes (1.2 - 3.4 /CUMM) 2.4 2.6 Absolute Monocytes (0.10 - 0.60 /CUMM) 0.5 0.4 Absolute Eosinophils (0.0 - 0.7 /CUMM) 0.2 0.1 Absolute Basophils (0.0 - 0.2 /CUMM) 0 0 06/10 0637 Chemistry Sodium (137 - 145 mmol/L) 143 Potassium (3.5 - 5.1 mmol/L) 3.5 Chloride (98 - 107 mmol/L) 112 H Carbon Dioxide (22 - 30 mmol/L) 19 L Anion Gap (5 - 16) 12 BUN (9 - 20 mg/dL) 86 H Creatinine (0.7 - 1.2 mg/dL) 4.5 H Estimated GFR (>60 ml/min) 12 L BUN/Creatinine Ratio (7 - 25 %) 19.1 Total Bilirubin (0.2 - 1.3 mg/dL) 1.1 Direct Bilirubin (< 0.4 mg/dL) 0.6 H AST (17 - 59 U/L) 50 ALT (21 - 72 U/L) 59 Alkaline Phosphatase (< 127 U/L) 149 H Total Protein (6.3 - 8.2 g/dL) 4.7 L Albumin (3.5 - 5.0 g/dL) 1.8 L Hematology CBC w Diff NO MAN DIFF REQ WBC (4.8 - 10.8 /CUMM) 9.1 RBC (4.70 - 6.10 /CUMM) 4.09 L Hgb (14.0 - 18.0 G/DL) 12.6 L Hct (42 - 52 %) 37.5 L MCV (80.0 - 94.0 FL) 91.6 MCH (27.0 - 31.0 PG) 30.9 MCHC (33.0 - 37.0 G/DL) 33.7 RDW (11.5 - 14.5 %) 13.8 Plt Count (130 - 400 /CUMM) 158 MPV (7.4 - 10.4 FL) 8.8 Gran % (42.2 - 75.2 %) 77.5 H Lymphocytes % (20.5 - 51.1 %) 18.1 L Monocytes % (1.7 - 9.3 %) 3.0 Eosinophils % (0 - 5 %) 1.2 Basophils % (0.0 - 2.0 %) 0.2 Absolute Granulocytes (1.4 - 6.5 /CUMM) 7.1 H Absolute Lymphocytes (1.2 - 3.4 /CUMM) 1.7 Absolute Monocytes (0.10 - 0.60 /CUMM) 0.3 Absolute Eosinophils (0.0 - 0.7 /CUMM) 0.1 Absolute Basophils (0.0 - 0.2 /CUMM) 0 Imaging/Other Studies: Abd US RIGHT KIDNEY: There has been prior right nephrectomy. There is no soft tissue nodularity documented. LEFT KIDNEY: The left kidney measures 15.9 cm. Two cysts are documented sonographically, one in the upper pole measuring 6.5 cm, one in the lower pole measuring 2.5 cm, both of which appear to have a CT correlate. There is an oval hypoechoic area documented in the interpolar region measuring 0.9 x 0.9 x 1.0 cm which is avascular and may reflect an additional cyst which is not clearly visualized on CT. The mass of interest however arising exophytically from the upper pole is not sonographically evident. Correlation with MRI is suggested.
--- NOTE | 2018-02-11 18:48 | RADIOLOGY REPORT ---
EXAMINATION: XR PORTABLE ABDOMEN CLINICAL INFORMATION: Confirm placement of NG tube. COMPARISON: Chest x-ray 02/06/2018. TECHNIQUE: AP view of the mid and lower chest and upper abdomen was obtained. FINDINGS: No enteric tube is noted in position. Contrast is noted in the bowel from prior study. The lung rojas are poorly assessed on this image. The cardiac silhouette is prominent. The aortic arch is unfolded. There are multilevel degenerative spinal changes. IMPRESSION: 1. No enteric tube is noted in the visualized chest or abdomen. Correlate clinically. 2. This critical result was discussed with Julio César Mead by telephone on 02/11/2018 at 6:35 PM and it was ascertained that the content and urgency of the report was understood at the time of direct communication.
--- NOTE | 2018-02-11 21:04 | Event Note ---
Event Note Event Note: Patient had NG tube placed today for tube feedings, day team litigation coordinator was contacted that chest x-ray could not visualize NG tube. NG tube was pulled however patient is refusing a second attempt at placing NG tube. A discussion was had with the patient about the need for the NG tube. He is willing to have it be replaced in the morning.
[2018-02-12 06:49] VITALS: BP 147/76
--- NOTE | 2018-02-12 07:13 | PN- Housestaff ---
Bambi PARDO,[facility] 02/12/18 0712: Subjective Follow-up For: JEAN Left Renal Mass Dysphagia Subjective: patient seen and examined. States feeling well. Slept comfortably overnight. The NG was unable to be placed yesterday and the patient adamantly refuses to have that again. No other complaints. Review of Systems Constitutional: Reports: no symptoms. Objective Last 24 Hrs of Vital Signs/I&O Vital Signs Date Time Temp Pulse Resp B/P B/P Pulse O2 O2 Flow FiO2 Mean Ox Delivery Rate 02/12 0649 97.9 58 20 147/76 92 Room Air 02/11 2217 97.5 57 18 95 02/11 2022 70 150/88 02/11 1442 96.7 58 20 140/70 92 02/11 0820 60 142/68 02/11 0800 Room Air Intake & Output 02/12 0800 02/12 0000 02/11 1600 Intake Total 920 800 520 Output Total 650 300 Balance 920 150 220 Intake, IV 800 800 400 Intake, Oral 120 0 120 Number 0 Bowel Movements Output, Urine 650 300 Patient 162 lb Weight Physical Exam General Appearance: Alert, Oriented X3, Cooperative, Mild Distress Skin: No Rashes, No Breakdown Skin Temp/Moisture Exam: Warm/Dry Sepsis Skin Exam (color): Normal for Ethnicity HEENT: Atraumatic Cardiovascular: Normal S1, Normal S2, No Murmurs Lungs: Clear to Auscultation, Normal Air Movement Abdomen: Soft, No Tenderness Neurological: Normal Speech Extremities: No Edema Last 24 Hrs of Lab/Jay Results Last 24 Hrs of Labs/Mics: Laboratory Tests 02/12/18 0635: Sodium Pending, Potassium Pending, Chloride Pending, Carbon Dioxide Pending, Anion Gap Pending, BUN Pending, Creatinine Pending, BUN/Creatinine Ratio Pending , Phosphorus Pending, Magnesium Pending, CBC w Diff Pending, WBC Pending, RBC Pending, Hgb Pending, Hct Pending, MCV Pending, MCH Pending, MCHC Pending, RDW Pending, Plt Count Pending, MPV Pending Assessment/Plan Assessment: Mr. Myers is an 87 year old gentleman with a PMH of BPH, right nephrectomy for RCC and CAD with recent NSTEMI status post stent placement on 01/23 presents with abdominal pain that has been going on since he had the cardiac stent placed. Assessment: 1. 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 Pneumonia 3. Left Renal Mass 4. Cholelithiasis with ? gallbladder wall thickening 5. severe diverticulosis, without acute diverticulitis. 6. CAD s/p recent stent placed 7. History of BPH 8. Transaminitis - resolved 9. Malnutrition Plan: * His Cr function continues to improve. * Continue D5W-1/3 NS @100ml/hr * Replete K * He had a failed swallow eval. A NG was attempted but unable to be placed yesterday. * Patient wishes to be on comfort feeds. Extensive discussion was done with pros and cons of starting feed including but not limited to aspiration pneumonia. Family understands. * His MRI was negative for any acute infarct. * Neurology eval today for ? stroke which might not have had been visualized on MRI. * Discontinue IV Unasyn * He has left renal mass which was not well visualized on the U/S. Per Urology this can be watched for now as the size is <3cm. * Limited Echo did not show any acute abnormalities. * SPEP - showed two minor M spikes. Does not appear to be clinically significant. * Prealbumin is significantly low. Nutrition consult once he resumes PO intake. * Transaminitis has resolved * His CRP and ESR is elevated suggesting inflammatory/reactive process which points more towards atheroemboli. * hepatitis panel was negative. * PT recommends STR * Diet: mechanical soft and thin * DVT Prophylaxis: ALPS with SC Heparin * Code: Full Code Problem List: 1. Acute renal failure Pain Ratin Pain Location: none Pain Goal: Remain pain free Pain Plan: none Tomorrow's Labs & Rationales: Renetta Thomas MD 02/12/18 1128: Attending MD Review Statement Attending Statement Attending MD Statement: examined this patient, discuss w/resident/PA/REGIONAL PLANNER, agreed w/resident/PA/REGIONAL PLANNER, discussed with family, reviewed EMR data (avail), discussed with nursing, discussed with case mgmt, reviewed images, amended to note Attending Assessment/Plan: Patient seen and examined, he could not tolerate NG tube yesterday as it was all coiled and could not go in into his esophagus or stomach. Patient is very upset and absolutely refuses any further NG tube or PEG tube. He is willing to try food by mouth which will be mainly comfort foods. Patient was explained about the risk off aspiration leading to aspiration pneumonia, pneumonitis, sepsis and even . He is willing to take all the risk but still wants to eat by mouth. He refuses to take thickened liquids. He is willing to tries mechanical soft diet. (see event note). Vital Signs Date Time Temp Pulse Resp B/P B/P Pulse O2 O2 Flow FiO2 Mean Ox Delivery Rate 02/12 0946 60 150/76 02/12 0649 97.9 58 20 147/76 92 Room Air 02/11 2217 97.5 57 18 95 02/11 2022 70 150/88 02/11 1442 96.7 58 20 140/70 92 on exam; aox3, nad. cv; s1,s2, rrr resp; clear abd; soft, nt, bs+ ext; no edema Laboratory Tests 02/12 0635 Chemistry Sodium (137 - 145 mmol/L) 146 H Potassium (3.5 - 5.1 mmol/L) 3.4 L Chloride (98 - 107 mmol/L) 113 H Carbon Dioxide (22 - 30 mmol/L) 24 Anion Gap (5 - 16) 8 BUN (9 - 20 mg/dL) 59 H Creatinine (0.7 - 1.2 mg/dL) 2.3 H Estimated GFR (>60 ml/min) 27 L BUN/Creatinine Ratio (7 - 25 %) 25.7 H Phosphorus (2.5 - 4.5 mg/dL) 3.9 Magnesium (1.6 - 2.3 mg/dL) 1.9 Hematology CBC w Diff NO MAN DIFF REQ WBC (4.8 - 10.8 /CUMM) 6.7 RBC (4.70 - 6.10 /CUMM) 3.90 L Hgb (14.0 - 18.0 G/DL) 11.9 L Hct (42 - 52 %) 35.6 L MCV (80.0 - 94.0 FL) 91.3 MCH (27.0 - 31.0 PG) 30.6 MCHC (33.0 - 37.0 G/DL) 33.6 RDW (11.5 - 14.5 %) 14.4 Plt Count (130 - 400 /CUMM) 181 MPV (7.4 - 10.4 FL) 8.0 Gran % (42.2 - 75.2 %) 58.2 Lymphocytes % (20.5 - 51.1 %) 35.7 Monocytes % (1.7 - 9.3 %) 3.0 Eosinophils % (0 - 5 %) 2.8 Basophils % (0.0 - 2.0 %) 0.3 Absolute Granulocytes (1.4 - 6.5 /CUMM) 3.9 Absolute Lymphocytes (1.2 - 3.4 /CUMM) 2.4 Absolute Monocytes (0.10 - 0.60 /CUMM) 0.2 Absolute Eosinophils (0.0 - 0.7 /CUMM) 0.2 Absolute Basophils (0.0 - 0.2 /CUMM) 0 A/P; 87-year-old male with past medical history significant for hypertension, hyperlipidemia, diabetes, recent admission to [facility] with chest pain/ NSTEMI. Patient was transferred [facility] for cardiac cath and angioplasty. Echocardiogram at that time showed ejection fraction 55-60% but akinetic posterior wall. Patient this time is admitted with generalized weakness and abdominal pain. Patient was found to have acute renal failure on top of chronic kidney disease satge 3. This was likely secondary to cholesterol emboli versus use soft Brilinta. Patient could not tolerate NG tube as it could not be inserted right. It was all coiled up. This morning as mentioned above patient is very upset and absolutely refuses NG tube on the PEG tube. We had a lengthy discussion with patient and family about benefits off the tube feeds versus oral feeds. We also explained the risks of oral feeds including developing aspiration, aspiration pneumonia or pneumonitis. This can also lead to sepsis and . He and family understands completely and willing to take the risk for comfort feeds. Patient will be started on comfort feeds which would include mechanical soft diet and thin liquids because he refused to take thickened liquids. He also tried to address the CODE STATUS and patient's son will address it with him today. Currently he remains a full code. At this point we'll continue the rest of his management. He will continue to work with physical therapy and if he is tolerating diet with overall improvement then he can likely discharge tomorrow. The plan for disposition is pending his performance with PT.
[2018-02-12 08:05] LABS: ABSOLUTE BASOPHIL COUNT 0 /CUMM (0.0-0.2); ABSOLUTE EOSINOPHIL COUNT 0.2 /CUMM (0.0-0.7); ABSOLUTE GRANULOCYTE CT 3.9 /CUMM (1.4-6.5); ABSOLUTE LYMPH COUNT 2.4 /CUMM (1.2-3.4); ABSOLUTE MONOCYTE COUNT 0.2 /CUMM (0.10-0.60); BASOPHIL % 0.3 % (0.0-2.0); EOSINOPHIL % 2.8 % (0-5); GRANULOCYTE % 58.2 % (42.2-75.2); HEMATOCRIT 35.6 % (42-52); MEAN CORPUSCULAR HGB 30.6 PG (27.0-31.0); MEAN CORPUSCULAR HGB CONC 33.6 G/DL (33.0-37.0); MEAN CORPUSCULAR VOLUME 91.3 FL (80.0-94.0); PLATELET COUNT 181 /CUMM (130-400); RBC DISTRIBUTION WIDTH 14.4 % (11.5-14.5); WHITE BLOOD CELL COUNT 6.7 /CUMM (4.8-10.8)
--- NOTE | 2018-02-12 10:02 | Event Note ---
Event Note Event Note: We had an extensive discussion with pt and his family. He refused NGT or PEG tube and said he would like to be started on comfort feeds. The risk and benefits were explained; questions were solicited and answered. At this time will proceed with comfort feeds with mechanical soft and thin liquid (pt refused thickened liquid). Code status was broached and pt said he would think about it and let us know in near future.
[2018-02-12] MEDS ORDERED: PLAVIX75 M1 PO (13:10)
--- NOTE | 2018-02-12 14:22 | PN- Nephrology ---
Assessment/Plan Nephrology Assessment: JEAN - Improving - possibly 2/2 atheroembolic disease given livedo rash (now gone ) although no peripheral eosinophilia and normal complements (not entirely specific). Is improving without any additional intervention. CKD - baseline SCr in low 1's 2/2 reduced nephron mass (s/p R nephrectomy for RCC). Should note he had 2 very faint M-spikes on his SPEP with concentration < 0.2g/dl and a spot Prot/Cr ratio of approx 0.25g/g. I don't think there is any clinical significance in this 87 y/o man. L renal mass - Will need MR imaging and Urology follow-up - concerning especially given that he already had his R kidney removed for RCC. Hypernatremia - 2/2 decreased free water intake - on hypotonic IVF. Refusing tube feeds. Suggestion: -MR imaging of L kidney once stable with Urology follow-up -Cont D5 1/3 NS for now - 100cc/hr seems reasonable -No clear reason to send immunofixation of 2 faint M-spikes at this time Will see PRN Please call [phone] with ?'s Subjective Subjective: SCr down to 2.3 Na down to 146 - on D5 1/3 NS at 100cc/hr Not thirsty Deciding against NGT/PEG - still full code 2 faint M-spikes with concentrations less than 0.2g/dl Objective Vital Signs and I&Os Vital Signs Date Time Temp Pulse Resp B/P B/P Pulse O2 O2 Flow FiO2 Mean Ox Delivery Rate 02/12 0946 60 150/76 02/12 0649 97.9 58 20 147/76 92 Room Air 02/11 2217 97.5 57 18 95 02/11 2022 70 150/88 02/11 1442 96.7 58 20 140/70 92 Intake & Output 02/12 1600 02/12 0400 02/11 1600 02/11 0400 02/10 1600 02/10 0400 Intake Total 920 800 872 034 4562 200 Output Total 700 650 750 350 950 700 Balance 220 150 170 170 70 -500 Intake, IV 800 800 800 400 900 200 Intake, Oral 120 0 120 120 120 Number 0 Bowel Movements Output, Urine 700 650 750 350 950 700 Patient 162 lb 162 lb 161 lb Weight Weight Bed scale Bed scale Measurement Method Physical Exam: Gen - ok appearing HEENT - supple CV - RRR, no m/r/g Chest - clear, no w/r/r Abd - soft, NTND Ext - warm, no edema Skin - no rash Neuro - alert, conversive but confused Current Medications: Current Medications Sig/Angeles Start time Last Medication Dose Route Stop Time Status Admin Acetaminophen 650 MG Q4P PRN 06 1730 AC 02/05 PO 1857 Ampicillin Sodium/ 1,500 MG Q12 02/07 2100 DC 02/11 Sulbactam Sodium IV 0820 Sodium Chloride 100 ML Aspirin Buffered 81 MG DAILY 02/05 0900 AC 02/12 PO 0946 Atorvastatin Calcium 80 MG 1700 02/07 1700 AC 02/11 PO 202 Clopidogrel Bisulfate 75 MG 2100 02/06 2100 AC 02/11 PO 202 Dextrose/Sodium 1,000 ML Q20H 02/12 0600 CAN Chloride IV Dextrose/Sodium 500 ML Q5H 02/11 1445 AC 02/12 Chloride IV 1331 Metoprolol Tartrate 25 MG BID 02/04 2100 02/12 PO 0946 Pantoprazole Sodium 40 MG DAILY 02/07 1538 02/12 IV 0946 Patient Medication 1 ED ONE ONE 02/12 1115 MN 02/12 Teaching ED 02/12 1116 1120 Phenol 2 SPRAY Q2P PRN 02/11 1645 AC EXT Polyethylene Glycol 17 GM DAILY 02/04 1846 AC 02/07 PO 0844 Potassium Chloride 40 MEQ Q20H 02/11 1000 DC 02/11 Dextrose/Sodium 1,000 ML IV 02/11 1959 1109 Chloride Results Pertinent Lab Results: Laboratory Tests 02/12 02/11 0635 0647 Chemistry Sodium (137 - 145 mmol/L) 146 H 148 H Potassium (3.5 - 5.1 mmol/L) 3.4 L 3.4 L Chloride (98 - 107 mmol/L) 113 H 112 H Carbon Dioxide (22 - 30 mmol/L) 24 24 Anion Gap (5 - 16) 8 11 BUN (9 - 20 mg/dL) 59 H 77 H Creatinine (0.7 - 1.2 mg/dL) 2.3 H 3.0 H Estimated GFR (>60 ml/min) 27 L 20 L BUN/Creatinine Ratio (7 - 25 %) 25.7 H 25.7 H Phosphorus (2.5 - 4.5 mg/dL) 3.9 Magnesium (1.6 - 2.3 mg/dL) 1.9 Total Bilirubin (0.2 - 1.3 mg/dL) 0.9 Direct Bilirubin (< 0.4 mg/dL) 0.4 AST (17 - 59 U/L) 37 ALT (21 - 72 U/L) 46 Alkaline Phosphatase (< 127 U/L) 113 Total Protein (6.3 - 8.2 g/dL) 5.1 L Albumin (3.5 - 5.0 g/dL) 1.9 L Hematology CBC w Diff NO MAN DIFF REQ NO MAN DIFF REQ WBC (4.8 - 10.8 /CUMM) 6.7 8.5 RBC (4.70 - 6.10 /CUMM) 3.90 L 4.12 L Hgb (14.0 - 18.0 G/DL) 11.9 L 12.6 L Hct (42 - 52 %) 35.6 L 37.4 L MCV (80.0 - 94.0 FL) 91.3 90.8 MCH (27.0 - 31.0 PG) 30.6 30.6 MCHC (33.0 - 37.0 G/DL) 33.6 33.8 RDW (11.5 - 14.5 %) 14.4 13.7 Plt Count (130 - 400 /CUMM) 181 199 MPV (7.4 - 10.4 FL) 8.0 8.3 Gran % (42.2 - 75.2 %) 58.2 63.5 Lymphocytes % (20.5 - 51.1 %) 35.7 28.4 Monocytes % (1.7 - 9.3 %) 3.0 5.6 Eosinophils % (0 - 5 %) 2.8 2.4 Basophils % (0.0 - 2.0 %) 0.3 0.1 Absolute Granulocytes (1.4 - 6.5 /CUMM) 3.9 5.4 Absolute Lymphocytes (1.2 - 3.4 /CUMM) 2.4 2.4 Absolute Monocytes (0.10 - 0.60 /CUMM) 0.2 0.5 Absolute Eosinophils (0.0 - 0.7 /CUMM) 0.2 0.2 Absolute Basophils (0.0 - 0.2 /CUMM) 0 0 06/11 0718 Chemistry Sodium (137 - 145 mmol/L) 146 H Potassium (3.5 - 5.1 mmol/L) 3.6 Chloride (98 - 107 mmol/L) 113 H Carbon Dioxide (22 - 30 mmol/L) 20 L Anion Gap (5 - 16) 13 BUN (9 - 20 mg/dL) 80 H Creatinine (0.7 - 1.2 mg/dL) 3.6 H Estimated GFR (>60 ml/min) 16 L BUN/Creatinine Ratio (7 - 25 %) 22.2 GGT (15 - 73 U/L) 47 Hematology CBC w Diff NO MAN DIFF REQ WBC (4.8 - 10.8 /CUMM) 9.7 RBC (4.70 - 6.10 /CUMM) 4.44 L Hgb (14.0 - 18.0 G/DL) 13.6 L Hct (42 - 52 %) 40.4 L MCV (80.0 - 94.0 FL) 91.0 MCH (27.0 - 31.0 PG) 30.6 MCHC (33.0 - 37.0 G/DL) 33.6 RDW (11.5 - 14.5 %) 14.1 Plt Count (130 - 400 /CUMM) 185 MPV (7.4 - 10.4 FL) 8.5 Gran % (42.2 - 75.2 %) 68.0 Lymphocytes % (20.5 - 51.1 %) 26.7 Monocytes % (1.7 - 9.3 %) 3.9 Eosinophils % (0 - 5 %) 1.2 Basophils % (0.0 - 2.0 %) 0.2 Absolute Granulocytes (1.4 - 6.5 /CUMM) 6.6 H Absolute Lymphocytes (1.2 - 3.4 /CUMM) 2.6 Absolute Monocytes (0.10 - 0.60 /CUMM) 0.4 Absolute Eosinophils (0.0 - 0.7 /CUMM) 0.1 Absolute Basophils (0.0 - 0.2 /CUMM) 0 Imaging/Other Studies: Barium Swallow IMPRESSION: 1. Transient penetration seen with all consistencies and hector aspiration seen with liquid consistency. There is only intermittent and weak cough reflex observed. 2. Prominent pooling of contrast in the valleculae with all consistencies. 3. Speech pathologist assessment issued separately.
[2018-02-12 14:25] VITALS: BP 133/64
--- NOTE | 2018-02-12 15:42 | Cons- Neurology ---
General Information and HPI Consulting Request Date of Consult: 02/12/18 Requested By: Renetta Elise MD History of Present Illness: 87 year old male admitted to Hospital with abdominal pain Patient difficult historian and does not seem to recall specific events Patient became somewhat irritated and attempt to reconstruct the history of his current illness and increased questioning needed to be aborted He had recent hospitalization at [facility] for cardiac stent placement Subsequently he developed abdominal pains and required admission to [facility] More recently he had some difficulty with swallowing and questions regarding aspiration Attempted placing an NG tube was not successful and patient refused further attempts or PEG feed Speech therapy indicated possible aspiration Allergies/Medications Allergies: Coded Allergies: NO KNOWN ALLERGIES (09/26/11) Home Med List: Aspirin (Adult Aspirin Regimen) 81 MG TABLET.DR 1 TAB PO DAILY HEART Atorvastatin Calcium 80 MG TABLET 80 MG PO DAILY HEART Clopidogrel Bisulfate (Plavix) 75 MG TABLET 1 TAB PO DAILY Blood Thiner Finasteride 5 MG TABLET 1 TAB PO DAILY BPH (Reported) Metoprolol Tartrate 25 MG TABLET 25 MG PO BID heart health Tamsulosin HCl 0.4 MG CAP.ER.24H 1 CAP PO DAILY BPH (Reported) Ticagrelor (Brilinta) 90 MG TABLET 1 TAB PO BID BLOOD THINNER (Reported) Current Medications: Current Medications Sig/Angeles Start time Last Medication Dose Route Stop Time Status Admin Acetaminophen 650 MG Q4P PRN 02/04 1730 AC 02/05 PO 1857 Aspirin Buffered 81 MG DAILY 02/05 0900 AC 02/12 PO 0946 Atorvastatin Calcium 80 MG 1700 06/08 1700 AC 02/11 PO 2022 Clopidogrel Bisulfate 75 MG 2100 02/06 2100 AC 02/11 PO 2022 Dextrose/Sodium 500 ML Q5H 02/11 1445 AC 02/12 Chloride IV 1331 Metoprolol Tartrate 25 MG BID 02/04 2100 AC 02/12 PO 0946 Pantoprazole Sodium 40 MG DAILY 02/07 1538 AC 02/12 IV 0946 Patient Medication 1 ED ONE ONE 02/12 1115 DC 02/12 Teaching ED 02/12 1116 1120 Phenol 2 SPRAY Q2P PRN 02/11 1645 AC EXT Polyethylene Glycol 17 GM DAILY 02/04 1846 AC 02/07 PO 0844 Potassium Chloride 10 MEQ Q1H 02/12 1430 DC 02/12 IV 02/12 1531 1440 Potassium Chloride 40 MEQ Q20H 02/11 1000 DC 02/11 Dextrose/Sodium 1,000 ML IV 02/11 1959 1109 Chloride Review of Systems Review of Systems: Denies headache, diplopia, vertigo States hearing is poor At present denies chest pains or breathing difficulties or abdominal pain Denies incontinence States that he ate lunch and had no difficulty with swallowing Also states that he walks an independently Past History Travel History Traveled to [place] past 21 day No Medical History Blood Transfusion Hx: No Neurological: NONE EENT: NONE Cardiovascular: NSTEMI, SOURAV to OM 12/2017 Respiratory: NONE Gastrointestinal: NONE Hepatic: NONE Renal: benign prost hyperplasia, chronic kidney disease Musculoskeletal: NONE Psychiatric: NONE Endocrine: NONE Cancer(s): renal cancer Surgical History Surgical History: NEPHRECTOMY Family History Relations & Conditions If Any: Relation not specified for: *No pertinent family history Psychosocial History Services at Home: None Smoking Status: Never Smoked ETOH Use: denies use Illicit Drug Use: denies illicit drug use Functional Ability ADLs Independent: dressing, eating, toileting, bathing. Exam & Diagnostic Data Vital Signs and I&O Vital Signs Date Time Temp Pulse Resp B/P B/P Pulse O2 O2 Flow FiO2 Mean Ox Delivery Rate 02/12 1425 97.5 63 20 133/64 94 02/12 0946 60 150/76 02/12 0649 97.9 58 20 147/76 92 Room Air 02/117 97.5 57 18 95 02/11 2022 70 150/88 Intake & Output 02/12 1600 02/12 0800 02/12 0000 Intake Total 1170 920 800 Output Total 400 700 650 Balance 770 220 150 Intake, IV 1050 800 800 Intake, Oral 120 120 0 Number 0 Bowel Movements Output, Urine 400 700 650 Patient 162 lb Weight Alert Comfortable Following all commands Difficult to extract information from the patient regarding his health issues Extra ocular movements full Heart sounds normal No carotid bruits Distal pulses intact Could not evaluate fundi due to small pupils Pupils equal in size Visual rojas intact Hearing mildly impaired bilaterally Tongue midline but appears very dry Palate appears to move midline Shoulder shrug intact Normal tone and strength upper and lower extremities with the exception of inability to ab duct left arm No sensory loss to light touch upper and lower extremities Deep tendon reflexes hypoactive throughout Gait not assessed since unclear if patient walks independent Last 48 Hours of Lab Results: Laboratory Tests 02/12 02/11 0635 0647 Chemistry Sodium (137 - 145 mmol/L) 146 H 148 H Potassium (3.5 - 5.1 mmol/L) 3.4 L 3.4 L Chloride (98 - 107 mmol/L) 113 H 112 H Carbon Dioxide (22 - 30 mmol/L) 24 24 Anion Gap (5 - 16) 8 11 BUN (9 - 20 mg/dL) 59 H 77 H Creatinine (0.7 - 1.2 mg/dL) 2.3 H 3.0 H Estimated GFR (>60 ml/min) 27 L 20 L BUN/Creatinine Ratio (7 - 25 %) 25.7 H 25.7 H Phosphorus (2.5 - 4.5 mg/dL) 3.9 Magnesium (1.6 - 2.3 mg/dL) 1.9 Total Bilirubin (0.2 - 1.3 mg/dL) 0.9 Direct Bilirubin (< 0.4 mg/dL) 0.4 AST (17 - 59 U/L) 37 ALT (21 - 72 U/L) 46 Alkaline Phosphatase (< 127 U/L) 113 Total Protein (6.3 - 8.2 g/dL) 5.1 L Albumin (3.5 - 5.0 g/dL) 1.9 L Hematology CBC w Diff NO MAN DIFF REQ NO MAN DIFF REQ WBC (4.8 - 10.8 /CUMM) 6.7 8.5 RBC (4.70 - 6.10 /CUMM) 3.90 L 4.12 L Hgb (14.0 - 18.0 G/DL) 11.9 L 12.6 L Hct (42 - 52 %) 35.6 L 37.4 L MCV (80.0 - 94.0 FL) 91.3 90.8 MCH (27.0 - 31.0 PG) 30.6 30.6 MCHC (33.0 - 37.0 G/DL) 33.6 33.8 RDW (11.5 - 14.5 %) 14.4 13.7 Plt Count (130 - 400 /CUMM) 181 199 MPV (7.4 - 10.4 FL) 8.0 8.3 Gran % (42.2 - 75.2 %) 58.2 63.5 Lymphocytes % (20.5 - 51.1 %) 35.7 28.4 Monocytes % (1.7 - 9.3 %) 3.0 5.6 Eosinophils % (0 - 5 %) 2.8 2.4 Basophils % (0.0 - 2.0 %) 0.3 0.1 Absolute Granulocytes (1.4 - 6.5 /CUMM) 3.9 5.4 Absolute Lymphocytes (1.2 - 3.4 /CUMM) 2.4 2.4 Absolute Monocytes (0.10 - 0.60 /CUMM) 0.2 0.5 Absolute Eosinophils (0.0 - 0.7 /CUMM) 0.2 0.2 Absolute Basophils (0.0 - 0.2 /CUMM) 0 0 Imaging/Other Studies: MRI Brain IMPRESSION: - No acute infarct, mass lesion, intracranial hemorrhage, or evidence of hydrocephalus. 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 - Mild small vessel ischemic changes and mild diffuse brain parenchymal volume loss. Assessment/Plan Assessment: Dysphagia, no clear neurologic findings to explain this problem No evidence on exam for ALS Recommendations: Continue swallow assessment and food consistencies with speech therapy Consult Acknowledgment - Thank you for your consult request.
[2018-02-12 21:55] VITALS: BP 149/87
[2018-02-13 05:58] VITALS: BP 166/77
--- NOTE | 2018-02-13 07:02 | PN- Housestaff ---
Bambi PARDO,[facility] 02/13/18 0701: Subjective Follow-up For: JEAN Left Renal Mass Dysphagia Subjective: Patient seen and examined. Reports feeling well. States he has been tolerating oral diet well without coughing or any difficulty. No complaints. Review of Systems Constitutional: Reports: no symptoms. Objective Last 24 Hrs of Vital Signs/I&O Vital Signs Date Time Temp Pulse Resp B/P B/P Pulse O2 O2 Flow FiO2 Mean Ox Delivery Rate 02/13 0558 97.4 60 20 166/77 93 Room Air 02/12 2155 98.4 88 20 149/87 93 02/12 2007 156/76 02/12 1600 Room Air 02/12 1425 97.5 63 20 133/64 94 02/12 0946 60 150/76 Intake & Output 02/13 0800 02/13 0000 02/12 1600 Intake Total 850 1400 1170 Output Total 900 700 400 Balance -50 700 770 Intake, IV 703 819 2613 Intake, Oral 150 480 120 Number 0 Bowel Movements Output, Urine 900 700 400 Patient 166 lb Weight Physical Exam General Appearance: Alert, Oriented X3, Cooperative, Mild Distress Skin: No Rashes, No Breakdown Skin Temp/Moisture Exam: Warm/Dry Sepsis Skin Exam (color): Normal for Ethnicity HEENT: Atraumatic Cardiovascular: Normal S1, Normal S2, No Murmurs Lungs: Clear to Auscultation, Normal Air Movement Abdomen: Soft, No Tenderness Neurological: Normal Speech Extremities: No Edema Last 24 Hrs of Lab/Jay Results Last 24 Hrs of Labs/Mics: Laboratory Tests 02/13/18 0610: Anion Gap 10, Estimated GFR 34 L, BUN/Creatinine Ratio 22.6 Assessment/Plan Assessment: Mr. Myers is an 87 year old gentleman with a PMH of hypertension, hyperlipidemia , diabetes, BPH, right nephrectomy for RCC and CAD with recent NSTEMI status post stent placement on 01/23 presents with abdominal pain that has been going on since he had the cardiac stent placed. Assessment: 1. 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 Pneumonia 3. Left Renal Mass 4. Cholelithiasis with ? gallbladder wall thickening 5. severe diverticulosis, without acute diverticulitis. 6. CAD s/p recent stent placed 7. History of BPH 8. Transaminitis - resolved 9. Malnutrition Plan: * His Cr function continues to improve. 1.9 today. He can follow up with his PCP in a week for a repeat BEP. * Can be discharged home today. * Continue D5W-1/3 NS @100ml/hr until discharge. * Replete K * Patient wishes to be on comfort feeds. Extensive discussion was done yesterday with pros and cons of starting feed including but not limited to aspiration pneumonia. Family understands. * His MRI was negative for any acute infarct. * Neurology evaluated yesterday with no neurological findings to explain dysphagia. * He has left renal mass which was not well visualized on the U/S. Per Urology this can be watched for now as the size is <3cm. * Limited Echo did not show any acute abnormalities. * SPEP - showed two minor M spikes. Does not appear to be clinically significant. * Prealbumin is significantly low. Nutrition consult for dietary counseling. * Transaminitis has resolved * His CRP and ESR is elevated suggesting inflammatory/reactive process which points more towards atheroemboli. * hepatitis panel was negative. * Diet: mechanical soft and thin * DVT Prophylaxis: ALPS with SC Heparin * Code: Full Code Problem List: 1. Acute renal failure Pain Ratin Pain Location: none Pain Goal: Remain pain free Pain Plan: none Tomorrow's Labs & Rationales: none Eddie Sultana 02/13/18 1353: Attending MD Review Statement Attending Statement Attending MD Statement: examined this patient, discuss w/resident/PA/PLATER PRODUCTION, agreed w/resident/PA/PLATER PRODUCTION, discussed with family, reviewed EMR data (avail), discussed with nursing, discussed with case mgmt Attending Assessment/Plan: Acute renal failure-creatinine is down to 1.9 today from the high peak of 5.6. Dysphagia-patient does not want any PEG tube feeding. Except the risk of aspiration. Nutrition consult has been placed. Malnutrition-likely protein energy malnutrition. Patient was encouraged to eat high-protein diet. Nutrition consult has been placed. Left kidney mass-patient is to follow-up with urology as an outpatient. Enlarged prostate likely secondary to BPH-had a difficult Johnston placement this admission will be discharged on Johnston catheter. Patient will follow-up with urology as an outpatient to address the issue. Patient will be discharged home with home physical therapy. Please see the discharge summary for more details. Discussed the care plan with patient as well as patient's family member at bedside
[2018-02-13 13:57] VITALS: BP 118/64
[2018-02-13] MEDS ORDERED: PLAVIX75 M1 PO (14:10)
== END 2018-02-13 15:40 | disposition home health service (06) | DRG 682 ==
LOC: ERH 10:18 → ERHI 14:24 → 2NA 14:24 → EDBEDREQ 14:47 → ERHI 14:53 → ENRESERV 17:33 → ENTRNSPT 18:22 → EDTRNSPTSTS 18:35 → EDTRNSPT 18:35 → 2NA 18:36 → CMPTRNSPT 18:53 → 2NA 02-05 07:55 → ENTRNSPT 02-06 09:45 → EDTRNSPTSTS 02-06 10:02 → CMPTRNSPT 02-06 10:28 → 2NA 02-07 20:09 → ENPENDDIS 02-13 14:14 → 2NA 02-13 15:40
PROVIDERS: Internal Medicine; Internal Medicine Adolescent Medicine; Physician Assistant
PROC: 0T7D7ZZ Dilation of Urethra, Via Natural or Artificial Opening (ICD-10-PCS; principal; 2018-02-06)
DX: N17.9 Acute kidney failure, unspecified (principal); I21.4 Non-ST elevation (NSTEMI) myocardial infarction; J18.9 Pneumonia, unspecified organism; E46 Unspecified protein-calorie malnutrition; E87.0 Hyperosmolality and hypernatremia; K57.92 Diverticulitis of intestine, part unspecified, without perforation or abscess without bleeding; I12.9 Hypertensive chronic kidney disease with stage 1 through stage 4 chronic kidney disease, or unspecified chronic kidney disease; N18.3 Chronic kidney disease, stage 3 (moderate); Z90.5 Acquired absence of kidney; I25.119 Atherosclerotic heart disease of native coronary artery with unspecified angina pectoris; D69.6 Thrombocytopenia, unspecified; K80.20 Calculus of gallbladder without cholecystitis without obstruction; N35.9 Urethral stricture, unspecified; R33.9 Retention of urine, unspecified; N40.0 Benign prostatic hyperplasia without lower urinary tract symptoms; Z85.528 Personal history of other malignant neoplasm of kidney; Z95.5 Presence of coronary angioplasty implant and graft; N28.89 Other specified disorders of kidney and ureter; K57.90 Diverticulosis of intestine, part unspecified, without perforation or abscess without bleeding; R74.0 Nonspecific elevation of levels of transaminase and lactic acid dehydrogenase [LDH]
CPT/HCPCS: 2NASP; 70551; 84133; 84300; 86160; 36415; 36592; 71045; 71046; 74018; 74176; 74230; 81001; 82436; 82570; 84165; 87040; 87070; 87086; 87147; 93005; 93010; 93308; 93321; 96360; 97110-GO; 97116-GO; 97161-GP; 97530-GO; J0131; J0456; J0696; J1644; J3490; J7040; J7042; J7060

== ENCOUNTER 2018-03-27 14:54 | Inpatient (IN) | payer OTHER ==
[~2018-03-27] VITALS: Ht 182.9 cm; Wt 71.4 kg
[~2018-03-27 14:54] MED LIST changes: +BRILINTA90 M1 PO; +PLAVIX75 M1 PO
[2018-03-27] MEDS ORDERED: BRILINTA90 M1 PO (16:58)
--- NOTE | 2018-03-27 17:48 | ED GENERAL ADULT ---
See Addendum History of Present Illness General Chief Complaint: Male Genitourinary Problems Stated Complaint: SENT BY FOR BLOOD IN URINE Source: patient Exam Limitations: no limitations Vital Signs & Intake/Output Vital Signs & Intake/Output Vital Signs Date Time Temp Pulse Resp B/P B/P Pulse O2 O2 Flow FiO2 Mean Ox Delivery Rate 03/27 1841 98.2 88 18 147/67 98 Room Air 03/27 1550 Room Air 03/27 1538 98.0 92 18 117/58 97 Room Air 03/27 1501 97.0 120 20 88/62 94 Room Air Allergies Coded Allergies: NO KNOWN ALLERGIES (09/26/11) Reconcile Medications Aspirin (Adult Aspirin Regimen) 81 MG TABLET.DR 1 TAB PO DAILY HEART Atorvastatin Calcium 80 MG TABLET 80 MG PO DAILY HEART Clopidogrel Bisulfate (Plavix) 75 MG TABLET 1 TAB PO DAILY Blood Thiner Finasteride 5 MG TABLET 1 TAB PO DAILY BPH (Reported) Furosemide 20 MG TABLET 1 TAB PO EOD DIURETIC (Reported) Megestrol Acetate (Megace Es) 625 MG/5 ML ORAL.SUSP 625 MG PO DAILY APPETITE (Reported) Metoprolol Tartrate 25 MG TABLET 25 MG PO BID heart health Paroxetine HCl (Paxil) 10 MG TABLET 1 TAB PO DAILY MENTAL HEALTH (Reported) Tamsulosin HCl 0.4 MG CAP.ER.24H 1 CAP PO DAILY BPH (Reported) Ticagrelor (Brilinta) 90 MG TABLET 1 TAB PO BID BLOOD THINNER (Reported) Triage Note: PT TO ED C/O BLOOD IN URINE SINCE THIS AM. PT TAKES ASA AND PLAVIX. C/O URINARY URGENCY. DENIES ANY PAIN. PT'S BP 88/62, HEARTRATE 120. PT TAKEN TO [facility] FOR EVAL, DECLINED W/C. Triage Nurses Notes Reviewed? yes Onset: Abrupt Duration: hour(s): Timing: multiple episodes today HPI: 87 year old male presents to the Emergency Department for hematuria which started this morning. He does take asprin and plavix. Pt denies fever and dizziness. The patient denies any other bleeding, dark stool, vomiting blood. He reports no history of the same in the past though he does report he has had renal cancer and has needed a nephrectomy. Past History Travel History Traveled to [place] past 21 day No Medical History Any Pertinent Medical History? see below for history Neurological: NONE EENT: NONE Cardiovascular: NSTEMI, SOURAV to OM 12/2017 Respiratory: NONE Gastrointestinal: NONE Hepatic: NONE Renal: benign prost hyperplasia, chronic kidney disease Musculoskeletal: NONE Psychiatric: NONE Endocrine: NONE Cancer(s): renal cancer History of MRSA: No History of VRE: No History of CDIFF: No Tetanus Vaccine: 08/13/12 Surgical History Surgical History: NEPHRECTOMY Psychosocial History Who do you live with Spouse Services at Home None What is your primary language Vietnamese Tobacco Use: Never used ETOH Use: denies use Illicit Drug Use: denies illicit drug use Family History Family History, If Any: Relation not specified for: *No pertinent family history Hx Contributory? No Review of Systems Review of Systems Constitutional: Reports: see HPI. Denies: fever. EENTM: Reports: no symptoms. Respiratory: Reports: no symptoms. Denies: short of breath. Cardiovascular: Reports: no symptoms. Denies: chest pain. GI: Reports: no symptoms. Genitourinary: Reports: see HPI, hematuria, urgency. Musculoskeletal: Reports: no symptoms. Skin: Reports: no symptoms. Neurological/Psychological: Reports: no symptoms. Hematologic/Endocrine: Reports: no symptoms. Immunologic/Allergic: Reports: no symptoms. All Other Systems: Reviewed and Negative Physical Exam Physical Exam General Appearance: alert, awake, moderate distress Head: atraumatic, normal appearance Eyes: Bilateral: normal appearance, PERRL, EOMI. Ears, Nose, Throat: normal ENT inspection Neck: normal inspection Respiratory: lungs clear Cardiovascular: regular rate/rhythm Peripheral Pulses: 4+ radial (R), 4+ radial (L) Gastrointestinal: soft, non-tender Back: normal inspection Extremities: normal inspection Neurologic/Psych: no motor/sensory deficits, awake, alert Skin: intact, normal color, warm/dry Core Measures ACS in differential dx? No CVA/TIA Diagnosis: No Sepsis Present: No Sepsis Focused Exam Completed? No Progress Differential Diagnoses . Plan of Care: Orders Procedure Date/time Status Add-on Test (ER Only) 03/[address] ABD & PELVIS W/O IV CONTRAS 03/27 1805 Active TROPONIN LEVEL 03/27 1756 Active PROTHROMBIN TIME 03/27 1742 Complete COMPREHENSIVE METABOLIC PANEL 03/27 1742 Active CBC WITHOUT DIFFERENTIAL 03/27 174 Complete URINALYSIS 03/27 1507 Complete EKG 03/27 1507 Active Laboratory Tests 03/27/18 1756: Anion Gap 10, Estimated GFR 44 L, BUN/Creatinine Ratio 26.0 H, Glucose 104 H, Calcium 8.8, Total Bilirubin 0.7, AST 32, ALT 48, Alkaline Phosphatase 172 H, Troponin I Pending, Total Protein 6.5, Albumin 3.0 L, Globulin 3.5, Albumin/ Globulin Ratio 0.9 L, PT 12.3, INR 1.13, CBC w Diff NO MAN DIFF REQ, RBC 4.01 L, MCV 92.2, MCH 31.3 H, MCHC 34.0, RDW 16.9 H, MPV 7.3 L, Gran % 64.7, Lymphocytes % 23.0, Monocytes % 10.4 H, Eosinophils % 1.8, Basophils % 0.1, Absolute Granulocytes 4.9, Absolute Lymphocytes 1.7, Absolute Monocytes 0.8 H, Absolute Eosinophils 0.1, Absolute Basophils 0 03/27/18 1543: Urine Color BROWN H, Urine Clarity TURBD H, Urine pH 7.0, Ur Specific [place] 1.020, Urine Protein >=300 H, Urine Ketones NEG, Urine Nitrite NEG, Urine Bilirubin NEG, Urine Urobilinogen 0.2, Ur Leukocyte Esterase TRACE H, Ur Microscopic SEDIMENT EXAMINED, Urine RBC PACKD H, Urine WBC 1-3 H, Urine Hemoglobin LARGE H, Urine Glucose 100 H Initial ED EKG: sinus, rate of 93, nl axis and intervals, no acute St-T changes. PVC's. Comapred to 02/04/18- no sig change Hand-Off Endorsed To: Leeroy Sosa MD Endorsed Time: 1908 Pending: CT Comments: 87-year-old male presents to the emergency room for hematuria. Vital signs stable. Is not anticoagulated but he has stable vital signs. He has solitary kidney. We will get a CT scan for evaluation. No IV contrast was given because the patient has solitary kidney. 1907 s/o . Pending CT scan and disposition. Departure Departure Disposition: STILL A PATIENT Condition: Stable Clinical Impression Primary Impression: Hematuria Referrals: Tal PARDO,Servando Granda (PCP/Family) Departure Forms: Customer Survey General Discharge Information Critical Care Note Critical Care Note Critical Care Time: non-applicable
[2018-03-27 18:09] LABS: ABSOLUTE BASOPHIL COUNT 0 /CUMM (0.0-0.2); ABSOLUTE EOSINOPHIL COUNT 0.1 /CUMM (0.0-0.7); ABSOLUTE GRANULOCYTE CT 4.9 /CUMM (1.4-6.5); ABSOLUTE LYMPH COUNT 1.7 /CUMM (1.2-3.4); ABSOLUTE MONOCYTE COUNT 0.8 /CUMM (0.10-0.60); BASOPHIL % 0.1 % (0.0-2.0); EOSINOPHIL % 1.8 % (0-5); GRANULOCYTE % 64.7 % (42.2-75.2); MEAN CORPUSCULAR HGB 31.3 PG (27.0-31.0); MEAN CORPUSCULAR VOLUME 92.2 FL (80.0-94.0); MEAN PLATELET VOLUME 7.3 FL (7.4-10.4); PLATELET COUNT 239 /CUMM (130-400); RBC DISTRIBUTION WIDTH 16.9 % (11.5-14.5); RED BLOOD CELL CT 4.01 /CUMM (4.70-6.10); WHITE BLOOD CELL COUNT 7.6 /CUMM (4.8-10.8)
[2018-03-27 18:21] LABS: PT 12.3 SEC (9.4-12.5)
--- NOTE | 2018-03-27 19:56 | CT SCAN REPORT ---
EXAMINATION: CT ABDOMEN AND PELVIS WITHOUT CONTRAST CLINICAL INFORMATION: Hematuria. History of carcinoma status post nephrectomy. COMPARISON: CT abdomen and pelvis 02/04/2018. TECHNIQUE: Multidetector volumetric imaging was performed from the superior aspect of the liver through the pubic symphysis. Sagittal and coronal reformatted images were obtained on the technologist's workstation. DLP: 264.32 mGy-cm FINDINGS: LUNG BASES: There is bibasilar subsegmental atelectasis. No pleural or pericardial effusion. LIVER, GALLBLADDER, AND BILIARY TREE: The unenhanced liver attenuation is homogeneous with no evidence of a discrete hepatic parenchymal mass. There appears to be a slightly hyperdense gallstone within a contracted gallbladder. Grossly no extrahepatic biliary ductal dilatation. PANCREAS: Unremarkable. SPLEEN: Unremarkable. ADRENAL GLANDS: Unremarkable. KIDNEYS AND URETERS: There is a well marginated cystic lesion arising from the upper pole the left kidney that measures 7.7 cm in diameter. A few other smaller exophytic cystic lesions are visualized within the left kidney. The right kidney is surgically absent. No nephrolithiasis. No abnormal perinephric inflammation or collection. No abnormal mass or calcifications visualized along the expected course of the left ureter. BLADDER: There is a lobulated hyperdensity located along the posterior surface of the urinary bladder best illustrated on axial image 70 of 90 series 2. This finding measures 4.6 x 9.1 x 4.2 (AP x TV x SI). GASTROINTESTINAL TRACT: The stomach and small bowel are unremarkable. There is slightly increased attenuation within the mesenteric fat best illustrated on axial image 36 of 90 series 2 consistent with a "simeon mesentery" appearance. Normal appendix. Intraluminal gas and stool is visualized within the colon. Numerous diverticula are visualized primarily within the descending and sigmoid colon. No abnormal perirectal or presacral inflammation. ABDOMINAL WALL: No significant hernia is appreciated. LYMPH NODES: No pathologically enlarged mesenteric or retroperitoneal lymph nodes. VASCULAR: Partially calcified atheromatous plaque involves the abdominal aorta and iliac vessels. The unenhanced inferior vena cava is unremarkable. PELVIC VISCERA: Unremarkable. OSSEOUS STRUCTURES: There is no acute osseous finding. No worrisome lytic or blastic osseous lesion. IMPRESSION: There is a lobulated hyperdensity along the posterior surface of the physiologically distended urinary bladder that is suboptimally assessed due to the absence of intravenous contrast. It may represent a soft tissue mass such as a urothelial neoplasm. Alternatively this finding may represent blood clot layering dependently within the urinary bladder. Otherwise no substantial change when compared to most recent prior CT scan from 02/04/2018. There are chronic changes of a right nephrectomy. Multiple well marginated cystic lesions arising from the left kidney are redemonstrated.
--- NOTE | 2018-03-28 02:02 | History & Physical ---
MylaAlyx 03/28/18 0201: General Information and HPI MD Statement: I have seen and personally examined ANTONIETA WHITTAKER and documented this H&P. The patient is a 87 year old M who presented with a patient stated chief complaint of []. Source of Information: patient History of Present Illness: 87-year-old gentleman with a past medical history of CKD, RCC s/p right nephrectomy, and CAD, NSTEMI s/p drug-eluting stent palcement on January 23, 2018 coming in for evaluation of blood in his urine since yesterday which started after he came back after getting an ECHO done. Just as he went to the bathroom, he noticed his urine to be frankly bloody, accompanied with burning and urgency. He has absolutely no other complaints. Denies lightheadness, dizziness, palpitations, chest pain, worsening of weakness or SOB. He does report a fall about 2 weeks ago after he felt dizzy and fell backwards. He did not hit his head and did not see a doctor. Allergies/Medications Allergies: Coded Allergies: NO KNOWN ALLERGIES (09/26/11) Past History Travel History Traveled to [place] past 21 day No Medical History Neurological: NONE EENT: NONE Cardiovascular: NSTEMI, [facility] to [facility] 12/2017 Respiratory: NONE Gastrointestinal: NONE Hepatic: NONE Renal: benign prost hyperplasia, chronic kidney disease Musculoskeletal: NONE Psychiatric: NONE Endocrine: NONE Cancer(s): renal cancer History of MRSA: No History of VRE: No History of CDIFF: No Tetanus Vaccine: 08/13/12 Surgical History Surgical History: NEPHRECTOMY Past Family/Social History Family History Relations & Conditions if any Relation not specified for: *No pertinent family history Psychosocial History Services at Home: None ETOH Use: denies use Illicit Drug Use: denies illicit drug use Functional Ability ADLs Independent: dressing, eating, toileting, bathing. Review of Systems Review of Systems Constitutional: Reports: malaise. Denies: chills, diaphoresis, fever, unexplained weight loss. EENTM: Reports: no symptoms. Cardiovascular: Denies: chest pain, edema, palpitations. Respiratory: Denies: cough, hemoptysis, orthopnea, short of breath. GI: Reports: no symptoms. Genitourinary: Reports: dysuria, frequency, hematuria. Musculoskeletal: Reports: joint pain. Skin: Reports: no symptoms. Neurological/Psychological: Reports: no symptoms. Hematologic/Endocrine: Reports: no symptoms. Exam & Diagnostic Data Last 24 Hrs of Vital Signs/I&O Vital Signs Date Time Temp Pulse Resp B/P B/P Pulse O2 O2 Flow FiO2 Mean Ox Delivery Rate 03/28 0202 98.4 90 18 138/78 97 Room Air 03/27 2257 98.3 88 16 135/67 95 Room Air 03/27 1841 98.2 88 18 147/67 98 Room Air 03/27 1550 Room Air 03/27 1538 98.0 92 18 117/58 97 Room Air 03/27 1501 97.0 120 20 88/62 94 Room Air Intake & Output 03/28 0800 03/28 0000 03/27 1600 Intake Total 500 Output Total Balance 500 Intake, Other 500 Patient 146 lb Weight Weight Reported by Patient Measurement Method Physical Exam General Appearance Alert, Oriented X3, Cooperative, No Acute Distress Skin No Rashes, No Breakdown Skin Temp/Moisture Exam: Warm/Dry Sepsis Skin Exam (color): Normal for Ethnicity HEENT Atraumatic, PERRLA Neck Supple Cardiovascular Normal S1, Normal S2, Regularly irregular rhythm Lungs Clear to Auscultation Abdomen Normal Bowel Sounds, Soft, No Tenderness Neurological Normal Speech, Strength at 5/5 X4 Ext Extremities No Clubbing, Normal Pulses Vascular Normal Pulses Assessment/Plan Assessment: 87 yo Male with PMH of CKD, RCC s/p right nephrectomy, and CAD, NSTEMI s/p drug-eluting stent palcement on January 23, 2018 coming in for evaluation of blood in his urine since yesterday. The bleeding was accompanied by burning and urgency.He hs no other symptoms. On examination, the patinet appeared to be in no acute distress. He had active bleeding from his Johnston's. He did have an irregularly irregular pulse. Labs significant for Hb of 12.6. EKG shows normal sinus rhythm with multiple PVCs. CT abdomen and pelvis significant for lobulated hyperdensity along the posterior surface of the physiologically distended urinary bladder that is suboptimally assessed due to the absence of intravenous contrast. It may represent a soft tissue mass such as a urothelial neoplasm. Alternatively this finding may represent blood lot layering dependently within the urinary bladder. PLAN 1. Admit to floor 2. We will keep him NPO for possible intervention 2. Continue CBI until urine clears 3. Urology consult 4. ? Continue Aspirin and Clopidogrel for in view of recent stent placement Confirm home meds with in the am DVT prophylaxis Alps; No pharmacological prophylaxis Code status: Full code As Ranked By This Provider Problem List: 1. Hematuria 2. CKD (chronic kidney disease) 3. Acute renal failure 4. NSTEMI (non-ST elevated myocardial infarction) 5. BPH (benign prostatic hyperplasia) Core Measures/Misc (05/19) Acute Coronary Syndrome ACS Diagnosis: No Congestive Heart Failure Congestive Heart Failure Diagnosis No Cerebrovascular Accident CVA/TIA Diagnosis: No VTE (View Protocol) VTE Risk Factors Age>40 No Mechanical VTE Prophylaxis d/t N/A MechProphylax Ordered No VTE Pharm Prophylaxis d/t Bleeding (Active) Sepsis (View protocol) Sepsis Present: No If YES complete Sepsis Event Note If YES complete Sepsis Event Note Scar Manriquez 03/28/18 0309: General Information and HPI Allergies/Medications Home Med list Aspirin (Adult Aspirin Regimen) 81 MG TABLET.DR 1 TAB PO DAILY HEART Atorvastatin Calcium 80 MG TABLET 80 MG PO DAILY HEART Clopidogrel Bisulfate (Plavix) 75 MG TABLET 1 TAB PO DAILY Blood Thiner Finasteride 5 MG TABLET 1 TAB PO DAILY BPH (Reported) Furosemide 20 MG TABLET 1 TAB PO EOD DIURETIC (Reported) Megestrol Acetate (Megace Es) 625 MG/5 ML ORAL.SUSP 625 MG PO DAILY APPETITE (Reported) Metoprolol Tartrate 25 MG TABLET 25 MG PO BID heart health Paroxetine HCl (Paxil) 10 MG TABLET 1 TAB PO DAILY MENTAL HEALTH (Reported) Tamsulosin HCl 0.4 MG CAP.ER.24H 1 CAP PO DAILY BPH (Reported) Core Measures/Misc (05/19) Sepsis (View protocol) If YES complete Sepsis Event Note If YES complete Sepsis Event Note Resident Review Statement Resident Statement: examined this patient, discussed with internal control analyst, agreed with internal control analyst, reviewed EMR data (avail) Other Findings: 87-year-old gentleman with a past medical history of chronic kidney disease, renal cell carcinoma status post right nephrectomy, and coronary artery disease, with a recent non-ST segment patient myocardial infarction, resulting in a drug- eluting stent placement into the obtuse marginal on January 23, 2018 coming in for evaluation of gross hematuria with clots of one day duration. Apparently yesterday he went for his follow-up echo to his client experience specialist. After which he experienced abdominal pain and when he tried to urinate with some difficulty he noticed clots in his urine. Review of systems only positive for a fall which he had about 2 weeks ago denied head strike loss of consciousness and said that he fell against the windowsill. Otherwise he has been in his usual health. Vitals in ED were stable examination significant for CVS irregularly irregular S1-S2. Labs significant for H&H of 12.6/37, BP unremarkable with BUN 39 and creatinine 1.5 [baseline 1.41.5] slightly elevated ALP troponin at 0.02. EKG shows normal sinus rhythm with multiple PVCs. CT abdomen and pelvis significant for lobulated hyperdensity along the posterior surface of the physiologically distended urinary bladder that is suboptimally assessed due to the absence of intravenous contrast. It may represent a soft tissue mass such as a urothelial neoplasm. Alternatively this finding may represent blood lot layering dependently within the urinary bladder Problem list: Gross hematuria History of an STEMI status post drug-eluting stent CKD RCC status post nephrectomy BPH Plan Admit to general medicine floor, vitals per protocol Continue CBI until urine clears Urology consult We will keep n.p.o. for possible intervention We will continue his aspirin and Plavix in view of his recent stent placement on January 23, 2018 Courtesy call to the cardiology Please confirm his meds with his DVT prophylaxis Alps Full code Edgardo PARDO,Loyda 03/28/18 0514: Core Measures/Misc (05/19) Sepsis (View protocol) If YES complete Sepsis Event Note If YES complete Sepsis Event Note Attending MD Review Statement Attending Statement Attending MD Statement: examined this patient, discuss w/resident/PA/PAPER INSPECTOR, agreed w/resident/PA/PAPER INSPECTOR, reviewed EMR data (avail), discussed with nursing, amended to note Attending Assessment/Plan: Patient is a pleasant 87-year-old male with medical history significant for stage III chronic kidney disease, renal cell carcinoma status post right nephrectomy, coronary artery disease status post recent non-ST elevation PA requiring drug-eluting stent placement December 2017. Presented to the emergency room with complaints of hematuria that began the day prior to presentation. He admits to chronic shortness of breath with exertion secondary to his cardiac disease he denies any worsening of the symptoms. Denies chest pain or palpitations. Denies lightheadedness. He arrived emergency room afebrile hemodynamically stable. Laboratory data showed creatinine levels to be around baseline. Johnston catheter was placed with gross hematuria. Neurology service was contacted and he was started on continuous bladder irrigation. On examination he is not in any acute distress. Abdomen is soft and nontender. Laboratory data shows his hemoglobin levels to be stable. Problems: 1. Gross hematuria 2. Coronary artery disease status post recent drug-eluting stent placement 3. History of renal cell carcinoma status post right nephrectomy 4. Benign prostatic hypertrophy. Plan: Admit to the inpatient-medical service. Continue continuous bladder irrigation. Once hematuria has resolved he will benefit from cystoscopy and possibly repeat CT scan for further evaluation of lobulated hypodensity noted along the posterior surface of the urinary bladder. Neoplasm is within the differential. Given his recent stent placement continue with aspirin and Plavix therapy. Please notify the patient's cardiology service. DVT prophylaxis with bilateral compression device.
--- NOTE | 2018-03-28 05:09 | Admission Certification ---
Admission Certification Certification Statement - As attending physician, I certify that at the time of - admission, based on clinical presentation, severity of - symptoms, need for further diagnostic testing and - therapeutic interventions, and risk of adverse outcomes - without in-hospital treatment, in my clinical assessment, - this patient requires an acute hospital stay for a minimum - of two nights or longer. I have also considered psychsocial - factors such as support system, advanced age, financial - issues, cognitive issues, and failed out-patient treatments, - past re-admission history, safety of patient, and lack of - compliance as applicable. Specific rationale supporting this admission is: Patient requested sterilization for management of his hematuria
--- NOTE | 2018-03-28 08:04 | Cons- Urology ---
General Information and HPI Consulting Request Date of Consult: 03/28/18 Requested By: Loyda Reynoso MD Reason for Consult: hematuria Source of Information: patient, old records Exam Limitations: poor historian History of Present Illness: 87 year old slowly failing to thrive with recent admission weeks ago. At that time, pt with gross hematuria and cystoscopy/work-up revealed large hypervascular prostate and started on proscar to minimize bleeding. Now returns with gross hematuria. Allergies/Medications Allergies: Coded Allergies: NO KNOWN ALLERGIES (09/26/11) Home Med List: Aspirin (Adult Aspirin Regimen) 81 MG TABLET.DR 1 TAB PO DAILY HEART Atorvastatin Calcium 80 MG TABLET 80 MG PO DAILY HEART Clopidogrel Bisulfate (Plavix) 75 MG TABLET 1 TAB PO DAILY Blood Thiner Finasteride 5 MG TABLET 1 TAB PO DAILY BPH (Reported) Furosemide 20 MG TABLET 1 TAB PO EOD DIURETIC (Reported) Megestrol Acetate (Megace Es) 625 MG/5 ML ORAL.SUSP 625 MG PO DAILY APPETITE (Reported) Metoprolol Tartrate 25 MG TABLET 25 MG PO BID heart health Paroxetine HCl (Paxil) 10 MG TABLET 1 TAB PO DAILY MENTAL HEALTH (Reported) Tamsulosin HCl 0.4 MG CAP.ER.24H 1 CAP PO DAILY BPH (Reported) Current Medications: Current Medications Sig/Angeles Start time Last Medication Dose Route Stop Time Status Admin Aspirin Buffered 81 MG DAILY 03/28 0900 AC PO Atorvastatin Calcium 80 MG DAILY 03/28 0900 AC PO Clopidogrel Bisulfate 75 MG DAILY 03/28 0900 AC PO Finasteride 5 MG DAILY 03/28 0900 AC PO Metoprolol Tartrate 25 MG BID 03/28 0900 AC PO Paroxetine HCl 10 MG DAILY 03/28 0900 AC PO Sodium Chloride 1,000 ML Q13H 03/28 0400 AC 03/28 IV 03/29 0559 0611 Tamsulosin HCl 0.4 MG DAILY 03/28 0900 AC PO Past History Medical History Neurological: NONE EENT: NONE Cardiovascular: NSTEMI, SOURAV to OM 12/2017 Respiratory: NONE Gastrointestinal: NONE Hepatic: NONE Renal: benign prost hyperplasia, chronic kidney disease Musculoskeletal: NONE Psychiatric: NONE Endocrine: NONE Cancer(s): renal cancer Surgical History Pertinent Surgical History: NEPHRECTOMY Family History Relations & Conditions If Any: Relation not specified for: *No pertinent family history Psychosocial History Services at Home: None ETOH Use: denies use Illicit Drug Use: denies illicit drug use Functional Ability ADLs Independent: dressing, eating, toileting, bathing. Employment History Retired? yes Review of Systems Review of Systems Constitutional: Reports: malaise, weakness. EENTM: Denies: no symptoms. Cardiovascular: Reports: chest pain. Respiratory: Denies: no symptoms. GI: Denies: no symptoms. Genitourinary: Reports: hematuria, hesitation. Musculoskeletal: Denies: no symptoms. Skin: Denies: no symptoms. Exam & Diagnostic Data Vital Signs and I&O Vital Signs Date Time Temp Pulse Resp B/P B/P Pulse O2 O2 Flow FiO2 Mean Ox Delivery Rate 03/28 0710 98.2 100 20 119/65 95 Nasal 2.0L Cannula 03/28 0612 97.8 83 18 133/69 96 Room Air 03/28 0202 98.4 90 18 138/78 97 Room Air 03/27 2257 98.3 88 16 135/67 95 Room Air 03/27 1841 98.2 88 18 147/67 98 Room Air 03/27 1550 Room Air 03/27 1538 98.0 92 18 117/58 97 Room Air 03/27 1501 97.0 120 20 88/62 94 Room Air Intake & Output 03/28 0800 03/28 0000 03/27 1600 03/27 0800 03/27 0000 03/26 1600 Intake Total 500 Output Total 750 Balance -250 Intake, Other 500 Output, Urine 750 Patient 146 lb Weight Weight Reported by Patient Measurement Method Physical Exam General Appearance: well developed/nourished, cachetic Head: atraumatic Eyes: Bilateral: normal appearance. Ears, Nose, Throat: normal pharynx Neck: normal inspection Respiratory: normal breath sounds Cardiovascular: regular rate/rhythm Gastrointestinal: normal bowel sounds, soft, non-tender Back: no vertebral tenderness Extremities: normal inspection Skin: intact Reproductive: Normal male genitalia Last 24 Hours of Labs: Laboratory Tests 03/28 03/27 0641 1756 Chemistry Sodium (137 - 145 mmol/L) 141 138 Potassium (3.5 - 5.1 mmol/L) 4.1 4.6 Chloride (98 - 107 mmol/L) 112 H 105 Carbon Dioxide (22 - 30 mmol/L) 21 L 23 Anion Gap (5 - 16) 8 10 BUN (9 - 20 mg/dL) 33 H 39 H Creatinine (0.7 - 1.2 mg/dL) 1.3 H 1.5 H Estimated GFR (>60 ml/min) 52 L 44 L BUN/Creatinine Ratio (7 - 25 %) 25.4 H 26.0 H Glucose (65 - 99 mg/dL) 104 H Calcium (8.4 - 10.2 mg/dL) 8.8 Total Bilirubin (0.2 - 1.3 mg/dL) 0.7 AST (17 - 59 U/L) 32 ALT (21 - 72 U/L) 48 Alkaline Phosphatase (< 127 U/L) 172 H Troponin I (<0.11 ng/ml) 0.02 Total Protein (6.3 - 8.2 g/dL) 6.5 Albumin (3.5 - 5.0 g/dL) 3.0 L Globulin (1.9 - 4.2 gm/dL) 3.5 Albumin/Globulin Ratio (1.1 - 2.2 %) 0.9 L Coagulation PT (9.4 - 12.5 SEC) 12.3 INR (0.90 - 1.17) 1.13 Hematology CBC w Diff Pending NO MAN DIFF REQ WBC (4.8 - 10.8 /CUMM) Pending 7.6 RBC (4.70 - 6.10 /CUMM) Pending 4.01 L Hgb (14.0 - 18.0 G/DL) Pending 12.6 L Hct (42 - 52 %) Pending 37.0 L MCV (80.0 - 94.0 FL) Pending 92.2 MCH (27.0 - 31.0 PG) Pending 31.3 H MCHC (33.0 - 37.0 G/DL) Pending 34.0 RDW (11.5 - 14.5 %) Pending 16.9 H Plt Count (130 - 400 /CUMM) Pending 239 MPV (7.4 - 10.4 FL) Pending 7.3 L Gran % (42.2 - 75.2 %) 64.7 Lymphocytes % (20.5 - 51.1 %) 23.0 Monocytes % (1.7 - 9.3 %) 10.4 H Eosinophils % (0 - 5 %) 1.8 Basophils % (0.0 - 2.0 %) 0.1 Absolute Granulocytes (1.4 - 6.5 /CUMM) 4.9 Absolute Lymphocytes (1.2 - 3.4 /CUMM) 1.7 Absolute Monocytes (0.10 - 0.60 /CUMM) 0.8 H Absolute Eosinophils (0.0 - 0.7 /CUMM) 0.1 Absolute Basophils (0.0 - 0.2 /CUMM) 0 03/27 1543 Urines Urine Color (YEL,AMB,STR) BROWN H Urine Clarity (CLEAR) TURBD H Urine pH (5.0 - 8.0) 7.0 Ur Specific [place] (1.001 - 1.035) 1.020 Urine Protein (NEG,<30 MG/DL) >=300 H Urine Ketones (NEG) NEG Urine Nitrite (NEG) NEG Urine Bilirubin (NEG) NEG Urine Urobilinogen (0.1 - 1.0 EU/dl) 0.2 Ur Leukocyte Esterase (NEG) TRACE H Ur Microscopic SEDIMENT EXAMINED Urine RBC (0 - 5 /HPF) PACKD H Urine WBC (0 - 2 /HPF) 1-3 H Urine Hemoglobin (NEG) LARGE H Urine Glucose (N MG/DL) 100 H Imaging Results: PATIENT: ANTONIETA WHITTAKER PRESENT AGE: 87 PATIENT ACCOUNT NO: [id number] : [birth year] LOCATION: [facility] ORDERING PHYSICIAN: Blaise Pedro MD SERVICE DATE: 03/27/18 EXAM TYPE: CAT - CT ABD & PELVIS W/O IV CONTRAS EXAMINATION: CT ABDOMEN AND PELVIS WITHOUT CONTRAST CLINICAL INFORMATION: Hematuria. History of carcinoma status post nephrectomy. COMPARISON: CT abdomen and pelvis 02/04/2018. TECHNIQUE: Multidetector volumetric imaging was performed from the superior aspect of the liver through the pubic symphysis. Sagittal and coronal reformatted images were obtained on the technologist's workstation. DLP: 264.32 mGy-cm FINDINGS: LUNG BASES: There is bibasilar subsegmental atelectasis. No pleural or pericardial effusion. LIVER, GALLBLADDER, AND BILIARY TREE: The unenhanced liver attenuation is homogeneous with no evidence of a discrete hepatic parenchymal mass. There appears to be a slightly hyperdense gallstone within a contracted gallbladder. Grossly no extrahepatic biliary ductal dilatation. PANCREAS: Unremarkable. SPLEEN: Unremarkable. ADRENAL GLANDS: Unremarkable. KIDNEYS AND URETERS: There is a well marginated cystic lesion arising from the upper pole the left kidney that measures 7.7 cm in diameter. A few other smaller exophytic cystic lesions are visualized within the left kidney. The right kidney is surgically absent. No nephrolithiasis. No abnormal perinephric inflammation or collection. No abnormal mass or calcifications visualized along the expected course of the left ureter. BLADDER: There is a lobulated hyperdensity located along the posterior surface of the urinary bladder best illustrated on axial image 70 of 90 series 2. This finding measures 4.6 x 9.1 x 4.2 (AP x TV x SI). GASTROINTESTINAL TRACT: The stomach and small bowel are unremarkable. There is slightly increased attenuation within the mesenteric fat best illustrated on axial image 36 of 90 series 2 consistent with a "simeon mesentery" appearance. Normal appendix. Intraluminal gas and stool is visualized within the colon. Numerous diverticula are visualized primarily within the descending and sigmoid colon. No abnormal perirectal or presacral inflammation. ABDOMINAL WALL: No significant hernia is appreciated. LYMPH NODES: No pathologically enlarged mesenteric or retroperitoneal lymph nodes. VASCULAR: Partially calcified atheromatous plaque involves the abdominal aorta and iliac vessels. The unenhanced inferior vena cava is unremarkable. PELVIC VISCERA: Unremarkable. OSSEOUS STRUCTURES: There is no acute osseous finding. No worrisome lytic or blastic osseous lesion. IMPRESSION: There is a lobulated hyperdensity along the posterior surface of the physiologically distended urinary bladder that is suboptimally assessed due to the absence of intravenous contrast. It may represent a soft tissue mass such as a urothelial neoplasm. Alternatively this finding may represent blood clot layering dependently within the urinary bladder. Otherwise no substantial change when compared to most recent prior CT scan from 02/04/2018. There are chronic changes of a right nephrectomy. Multiple well marginated cystic lesions arising from the left kidney are redemonstrated. DICTATED BY: Abdulkadir Lux MD DATE/TIME DICTATED:03/27/181941 ETCHER PHOTOENGRAVING:CLAUDIA DATE/TIME TRANSCRIBED:03/27/181941 CONFIDENTIAL, DO NOT COPY WITHOUT APPROPRIATE AUTHORIZATION. <Electronically signed in Other Vendor System> SIGNED BY: Abdulkadir Lux MD 03/27 Assessment/Plan Assessment/Plan gross hematuria due to hypervascular enlarged prostate, and anti-coagulation: Chest pain tx takes presidence; keep [place] for now and change to CBI if pt placed on heparin and catheter plugs. Would hesitate to take to OR for cysto given recent negative findings-except it pt actively bleeding with signficant drop in H/H. Copies To: Joshua aHirston MD Consult Acknowledgment - Thank you for your consult request. Attending MD Review Statement Attending Statement Attending MD Statement: examined this patient, discuss w/resident/PA/ACCOUNT SERVICE REPRESENTATIVE Attending Assessment/Plan: pt to see cardiac: will need to keep [place] for now-will cystoscope if pt has significant drop in h/h or clinically needed.
--- NOTE | 2018-03-28 08:09 | Event Note ---
Event Note Event Note: S: Patient having chest pain with associated shortness of breath. He describes the chest pain as across the middle of his chest without radiation to the jaw or arms. The patient says that he was having this last night but he also is forgetful. The nurses confirm that the chest pain was around 7:00 this morning. B: Mr. 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 A/P: Patient's recent history of NSTEMI with stent placement and current chest pain raises concern for ACS. We will get troponin, chest x-ray, and transfer the patient to telemetry. Dr. Juan's group has also been called for consult. We will trend the troponin and EKG as well as continuing the clopidogrel and aspirin despite the hematuria. Dr. Hairston has also consulted and recommends no intervention at this time until cardiac status is stable. Patient's hemoglobin this morning dropped slightly. I recommend trending and transfusing for hemoglobin less than 8. If cardiac enzymes are positive with active concern for ischemia, patient may require transfer to hospital that can perform catheterization.
[2018-03-28 08:27] LABS: ABSOLUTE BASOPHIL COUNT 0 /CUMM (0.0-0.2); ABSOLUTE EOSINOPHIL COUNT 0.1 /CUMM (0.0-0.7); ABSOLUTE GRANULOCYTE CT 7.3 /CUMM (1.4-6.5); ABSOLUTE LYMPH COUNT 1.9 /CUMM (1.2-3.4); ABSOLUTE MONOCYTE COUNT 0.8 /CUMM (0.10-0.60); BASOPHIL % 0.3 % (0.0-2.0); EOSINOPHIL % 0.9 % (0-5); GRANULOCYTE % 72.1 % (42.2-75.2); HEMATOCRIT 34.3 % (42-52); MEAN CORPUSCULAR HGB 31.1 PG (27.0-31.0); MEAN CORPUSCULAR HGB CONC 33.5 G/DL (33.0-37.0); MEAN CORPUSCULAR VOLUME 92.6 FL (80.0-94.0); MEAN PLATELET VOLUME 7.6 FL (7.4-10.4); PLATELET COUNT 201 /CUMM (130-400); RBC DISTRIBUTION WIDTH 16.8 % (11.5-14.5); WHITE BLOOD CELL COUNT 10.1 /CUMM (4.8-10.8)
--- NOTE | 2018-03-28 09:41 | RADIOLOGY REPORT ---
EXAMINATION: XR PORTABLE CHEST CLINICAL INFORMATION: Atelectasis. COMPARISON: Chest radiograph done on 02/06/2018. TECHNIQUE: Portable frontal view of the chest was obtained. FINDINGS: Nonspecific airspace disease is noted at left lung base with a trace amount of left-sided pleural effusion or thickening or combination thereof. When compared to prior study dated 02/06/2018, there is improved aeration noted at the left lung base without resolution. The remainder of the lung rojas are clear. The cardiomediastinal silhouette is within normal limits. The visualized upper abdomen is unremarkable. IMPRESSION: 1. Improved aeration without resolution at left lung base since the prior study dated 02/06/2018. 2. Stable trace left-sided pleural effusion versus thickening or combination thereof. 3. No new abnormalities.
--- NOTE | 2018-03-28 11:03 | Cons- Cardiology ---
General Information and HPI Consulting Request Date of Consult: 03/28/18 Requested By: Dilip Ayers MD Reason for Consult: Coronary artery disease Source of Information: patient, family, old records History of Present Illness: This is a very pleasant 87-year-old male with a past medical history of coronary artery disease with NSTEMI with drug-eluting stent to the obtuse marginal in December 2017, CKD, and renal cell carcinoma with a prior nephrectomy who presents to [facility] with a chief complaint of gross hematuria. He has had some intermittent shortness of breath and underwent an echocardiogram in our office yesterday which showed normal left ventricular function; he was also planned for nuclear stress test in our office in the near future. He denies any syncope, orthopnea, paroxysmal nocturnal dyspnea, acute visual changes, or slurring of speech. Allergies/Medications Allergies: Coded Allergies: NO KNOWN ALLERGIES (09/26/11) Home Med List: Aspirin (Adult Aspirin Regimen) 81 MG TABLET.DR 1 TAB PO DAILY HEART Atorvastatin Calcium 80 MG TABLET 80 MG PO DAILY HEART Clopidogrel Bisulfate (Plavix) 75 MG TABLET 1 TAB PO DAILY Blood Thiner Finasteride 5 MG TABLET 1 TAB PO DAILY BPH (Reported) Furosemide 20 MG TABLET 1 TAB PO EOD DIURETIC (Reported) Megestrol Acetate (Megace Es) 625 MG/5 ML ORAL.SUSP 625 MG PO DAILY APPETITE (Reported) Metoprolol Tartrate 25 MG TABLET 25 MG PO BID heart health Paroxetine HCl (Paxil) 10 MG TABLET 1 TAB PO DAILY MENTAL HEALTH (Reported) Tamsulosin HCl 0.4 MG CAP.ER.24H 1 CAP PO DAILY BPH (Reported) Current Medications: Current Medications Sig/Angeles Start time Last Medication Dose Route Stop Time Status Admin Aspirin Buffered 81 MG DAILY 03/28 900 AC 03/28 PO 904 Atorvastatin Calcium 80 MG DAILY 03/28 900 AC PO Clopidogrel Bisulfate 75 MG DAILY 03/28 900 AC 03/28 PO 09 Finasteride 5 MG DAILY 03/28 900 AC 03/28 PO 09 Metoprolol Tartrate 25 MG BID 03/28 900 AC PO Paroxetine HCl 10 MG DAILY 03/28 900 AC PO Sodium Chloride 1,000 ML Q13H 03/28 0400 AC 03/28 IV 03/29 0559 0611 Tamsulosin HCl 0.4 MG DAILY 03/28 900 AC 03/28 PO 0905 Review of Systems Review of Systems: Review of systems as per HPI. The remainder of a 10 point review of systems was reviewed and was otherwise negative. Past History Travel History Traveled to [place] past 21 day No Medical History Neurological: NONE EENT: NONE Cardiovascular: NSTEMI, SOURAV to OM 12/2017 Respiratory: NONE Gastrointestinal: NONE Hepatic: NONE Renal: benign prost hyperplasia, chronic kidney disease Musculoskeletal: NONE Psychiatric: NONE Endocrine: NONE Cancer(s): renal cancer Surgical History Surgical History: NEPHRECTOMY Family History Relations & Conditions If Any: Relation not specified for: *No pertinent family history Psychosocial History Services at Home: None ETOH Use: denies use Illicit Drug Use: denies illicit drug use Functional Ability ADLs Independent: dressing, eating, toileting, bathing. Exam & Diagnostic Data Vital Signs and I&O Vital Signs Date Time Temp Pulse Resp B/P B/P Pulse O2 O2 Flow FiO2 Mean Ox Delivery Rate 03/28 09 98.2 100 20 119/65 03/28 0905 98.2 100 20 119/65 03/28 0710 98.2 100 20 119/65 95 Nasal 2.0L Cannula 03/28 0612 97.8 83 18 133/69 96 Room Air 03/28 0202 98.4 90 18 138/78 97 Room Air 03/27 2257 98.3 88 16 135/67 95 Room Air 03/27 1841 98.2 88 18 147/67 98 Room Air 03/27 1550 Room Air 03/27 1538 98.0 92 18 117/58 97 Room Air 03/27 1501 97.0 120 20 88/62 94 Room Air Intake & Output 03/28 1600 03/28 0800 03/28 0000 03/27 1600 03/27 0800 03/27 0000 Intake Total 500 Output Total 750 Balance -250 Intake, Other 500 Output, Urine 750 Patient 146 lb Weight Weight Reported by Patient Measurement Method Physical Exam: General: no apparent distress. Alert. Eyes: No obvious scleral icterus. HEENT: No jugular venous distention or abnormal jugular venous pulsations. Cardiovascular: Normal intensity S1/S2. Regular Respiratory: No rales or rhonchi Abdomen: Soft, nontender with no guarding or rebound tenderness. Musculoskeletal: No clubbing or cyanosis noted Skin: warm Neurologic: No gross focal deficits noted. Lymph: No gross lymphadenopathy. Labs/Jay Results: Laboratory Tests 03/28 03/27 0641 1756 Chemistry Sodium (137 - 145 mmol/L) 141 138 Potassium (3.5 - 5.1 mmol/L) 4.1 4.6 Chloride (98 - 107 mmol/L) 112 H 105 Carbon Dioxide (22 - 30 mmol/L) 21 L 23 Anion Gap (5 - 16) 8 10 BUN (9 - 20 mg/dL) 33 H 39 H Creatinine (0.7 - 1.2 mg/dL) 1.3 H 1.5 H Estimated GFR (>60 ml/min) 52 L 44 L BUN/Creatinine Ratio (7 - 25 %) 25.4 H 26.0 H Glucose (65 - 99 mg/dL) 104 H Calcium (8.4 - 10.2 mg/dL) 8.8 Total Bilirubin (0.2 - 1.3 mg/dL) 0.7 AST (17 - 59 U/L) 32 ALT (21 - 72 U/L) 48 Alkaline Phosphatase (< 127 U/L) 172 H Troponin I (<0.11 ng/ml) 0.03 0.02 Total Protein (6.3 - 8.2 g/dL) 6.5 Albumin (3.5 - 5.0 g/dL) 3.0 L Globulin (1.9 - 4.2 gm/dL) 3.5 Albumin/Globulin Ratio (1.1 - 2.2 %) 0.9 L Coagulation PT (9.4 - 12.5 SEC) 12.3 INR (0.90 - 1.17) 1.13 Hematology CBC w Diff NO MAN DIFF REQ NO MAN DIFF REQ WBC (4.8 - 10.8 /CUMM) 10.1 7.6 RBC (4.70 - 6.10 /CUMM) 3.70 L 4.01 L Hgb (14.0 - 18.0 G/DL) 11.5 L 12.6 L Hct (42 - 52 %) 34.3 L 37.0 L MCV (80.0 - 94.0 FL) 92.6 92.2 MCH (27.0 - 31.0 PG) 31.1 H 31.3 H MCHC (33.0 - 37.0 G/DL) 33.5 34.0 RDW (11.5 - 14.5 %) 16.8 H 16.9 H Plt Count (130 - 400 /CUMM) 201 239 MPV (7.4 - 10.4 FL) 7.6 7.3 L Gran % (42.2 - 75.2 %) 72.1 64.7 Lymphocytes % (20.5 - 51.1 %) 19.2 L 23.0 Monocytes % (1.7 - 9.3 %) 7.5 10.4 H Eosinophils % (0 - 5 %) 0.9 1.8 Basophils % (0.0 - 2.0 %) 0.3 0.1 Absolute Granulocytes (1.4 - 6.5 /CUMM) 7.3 H 4.9 Absolute Lymphocytes (1.2 - 3.4 /CUMM) 1.9 1.7 Absolute Monocytes (0.10 - 0.60 /CUMM) 0.8 H 0.8 H Absolute Eosinophils (0.0 - 0.7 /CUMM) 0.1 0.1 Absolute Basophils (0.0 - 0.2 /CUMM) 0 0 03/27 1543 Urines Urine Color (YEL,AMB,STR) BROWN H Urine Clarity (CLEAR) TURBD H Urine pH (5.0 - 8.0) 7.0 Ur Specific [place] (1.001 - 1.035) 1.020 Urine Protein (NEG,<30 MG/DL) >=300 H Urine Ketones (NEG) NEG Urine Nitrite (NEG) NEG Urine Bilirubin (NEG) NEG Urine Urobilinogen (0.1 - 1.0 EU/dl) 0.2 Ur Leukocyte Esterase (NEG) TRACE H Ur Microscopic SEDIMENT EXAMINED Urine RBC (0 - 5 /HPF) PACKD H Urine WBC (0 - 2 /HPF) 1-3 H Urine Hemoglobin (NEG) LARGE H Urine Glucose (N MG/DL) 100 H Diagnostic Data EKG Results Tracing was personally reviewed and shows sinus rhythm with intermittent PVCs CXR Results 1. Improved aeration without resolution at left lung base since the prior study dated 02/06/2018. 2. Stable trace left-sided pleural effusion versus thickening or combination thereof. 3. No new abnormalities. Other Results CT scan There is a lobulated hyperdensity along the posterior surface of the physiologically distended urinary bladder that is suboptimally assessed due to the absence of intravenous contrast. It may represent a soft tissue mass such as a urothelial neoplasm. Alternatively this finding may represent blood clot layering dependently within the urinary bladder. Otherwise no substantial change when compared to most recent prior CT scan from 02/04/2018. There are chronic changes of a right nephrectomy. Multiple well marginated cystic lesions arising from the left kidney are redemonstrated. Assessment/Plan Assessment/Plan 1. Gross hematuria 2. Coronary artery disease/recent NSTEMI with drug-eluting stent to the obtuse marginal December 2017 3. Chronic renal insufficiency 4. History of renal cell carcinoma with prior nephrectomy 5. Shortness of breath Patient is currently hemodynamically stable with negative troponins; echocardiogram from our office yesterday showed no new wall motion abnormalities. He is scheduled for outpatient nuclear stress test in our office in the near future. Management of the hematuria per urology but in the absence of unstable bleeding recommend continuing dual antiplatelet therapy given the recent drug-eluting stent. Recommend adding Imdur 30 mg p.o. daily for antianginal effect as blood pressure tolerates. Alexander Ash MD [facility] Consult Acknowledgment - Thank you for your consult request.
--- NOTE | 2018-03-28 12:54 | PN- Att Addend ---
Attending Addendum Attending Brief Note 87-year-old gentleman with a past medical history of CKD, RCC s/p right nephrectomy, and CAD, NSTEMI s/p drug-eluting stent palcement on January 23, 2018 coming in for evaluation of blood in his urine since yesterday which started after he came back after getting an ECHO done. Gross hematuria- seen by urology. most likely cause hypervascular enlarged prostate and being on dual antiplatelet therapy. plan is to keep the [place] and irrigation . cont to f/u on urology recommendations. [place] still showing hematuria. CAD s/p recent SOURAV stent- cont on dual antiplatelet therapy with asa and plavix. seen by cardio and will f/u on their recommendations as pt was having palpitation this am. Pt had echo done at cardiology office yesterday prior to admission.
[2018-03-28 17:07] VITALS: BP 112/64
[2018-03-28 21:47] VITALS: BP 118/60
[2018-03-29 06:54] VITALS: BP 126/80
[2018-03-29 08:27] LABS: ABSOLUTE BASOPHIL COUNT 0 /CUMM (0.0-0.2); ABSOLUTE EOSINOPHIL COUNT 0.2 /CUMM (0.0-0.7); ABSOLUTE LYMPH COUNT 1.9 /CUMM (1.2-3.4); ABSOLUTE MONOCYTE COUNT 0.5 /CUMM (0.10-0.60); BASOPHIL % 0.4 % (0.0-2.0); EOSINOPHIL % 2.5 % (0-5); GRANULOCYTE % 60.2 % (42.2-75.2); HEMATOCRIT 32.1 % (42-52); MEAN CORPUSCULAR HGB 31.5 PG (27.0-31.0); MEAN CORPUSCULAR VOLUME 92.6 FL (80.0-94.0); MEAN PLATELET VOLUME 7.5 FL (7.4-10.4); PLATELET COUNT 187 /CUMM (130-400); RBC DISTRIBUTION WIDTH 16.6 % (11.5-14.5); RED BLOOD CELL CT 3.47 /CUMM (4.70-6.10); WHITE BLOOD CELL COUNT 6.7 /CUMM (4.8-10.8)
--- NOTE | 2018-03-29 11:22 | PN- Housestaff ---
Randy Oscar 03/29/18 1058: Subjective Follow-up For: Gross hematuria Chest pain Complaints: no complaints Subjective: Patient was seen and examined this morning. He is alert awake and oriented to time place and person no acute events noticed overnight. He continues to have brown colored urine however not bright red no gross hematuria found no blood clots. He does not require any CBI overnight. Denied any chest pain, palpitations, fever, chills. Vitals afebrile heart rate 88, respiratory rate 18, blood pressure 126/80, saturating at 99 on room air Review of Systems Constitutional: Reports: see HPI. Objective Last 24 Hrs of Vital Signs/I&O Vital Signs Date Time Temp Pulse Resp B/P B/P Pulse O2 O2 Flow FiO2 Mean Ox Delivery Rate 03/29 1046 102 126/80 03/29 1046 102 126/80 03/29 0654 97.9 88 18 126/80 99 Room Air 03/28 2147 98.0 18 18 118/60 97 Room Air 03/28 1707 97.8 91 20 112/64 100 Room Air 03/28 1419 114 90 Room Air 03/28 1354 97 Room Air 03/28 1241 109 18 107/58 99 Nasal 2.0L Cannula Intake & Output 03/29 1600 03/29 0800 03/29 0000 Intake Total 700 225 Output Total 100 500 Balance 600 -275 Intake, IV 600 225 Intake, Oral 100 Output, Urine 100 500 Patient 68.946 kg 68.577 kg Weight Weight Bed scale Bed scale Measurement Method Physical Exam General Appearance: Alert, Oriented X3, Cooperative, No Acute Distress Other Physical Findings: Cardiovascular Normal S1, Normal S2, Regularly irregular rhythm Lungs Clear to Auscultation Abdomen Normal Bowel Sounds, Soft, No Tenderness Neurological Normal Speech, Strength at 5/5 X4 Ext Extremities No Clubbing, Normal Pulses Vascular Normal Pulses Current Medications: Current Medications Sig/Angeles Start time Last Medication Dose Route Stop Time Status Admin Aspirin Buffered 81 MG DAILY 03/28 0900 AC 03/29 PO 1046 Atorvastatin Calcium 80 MG DAILY 03/28 0900 DC PO Clopidogrel Bisulfate 75 MG DAILY 03/28 0900 AC 03/29 PO 1045 Finasteride 5 MG DAILY 03/28 0900 AC 03/29 PO 1045 Isosorbide 30 MG DAILY 03/28 1330 AC Mononitrate PO Metoprolol Tartrate 25 MG BID 03/28 900 DC PO Paroxetine HCl 10 MG DAILY 03/28 900 DC PO Sodium Chloride 1,000 ML Q13H 03/28 0400 DC 03/28 IV 03/29 9759 5920 Tamsulosin HCl 0.4 MG DAILY 03/28 0900 AC 03/29 PO 1046 Last 24 Hrs of Lab/Jay Results Last 24 Hrs of Labs/Mics: Laboratory Tests 03/29/18 0630: Anion Gap 10, Estimated GFR 44 L, BUN/Creatinine Ratio 22.0, CBC w Diff NO MAN DIFF REQ, RBC 3.47 L, MCV 92.6, MCH 31.5 H, MCHC 34.0, RDW 16.6 H, MPV 7.5, Gran % 60.2, Lymphocytes % 29.3, Monocytes % 7.6, Eosinophils % 2.5, Basophils % 0.4, Absolute Granulocytes 4.0, Absolute Lymphocytes 1.9, Absolute Monocytes 0.5 , Absolute Eosinophils 0.2, Absolute Basophils 0 03/28/18 1346: Troponin I 0.02 Assessment/Plan Assessment: Patient is a pleasant 87-year-old male with medical history significant for stage III chronic kidney disease, renal cell carcinoma status post right nephrectomy, coronary artery disease status post recent non-ST elevation [place] requiring drug-eluting stent placement December 2017. Presented to the emergency room with complaints of hematuria that began the day prior to presentation. He admits to chronic shortness of breath with exertion secondary to his cardiac disease he denies any worsening of the symptoms. Vitals in ED were stable Labs significant for H&H of 12.6/37, BP unremarkable with BUN 39 and creatinine 1.5 [baseline 1.41.5] slightly elevated ALP troponin at 0.02. EKG shows normal sinus rhythm with multiple PVCs. CT abdomen and pelvis significant for lobulated hyperdensity along the posterior surface of the physiologically distended urinary bladder that is suboptimally assessed due to the absence of intravenous contrast. It may represent a soft tissue mass such as a urothelial neoplasm. Alternatively this finding may represent blood lot layering dependently within the urinary bladder Problems: 1. Gross hematuria 2. Coronary artery disease status post recent drug-eluting stent placement 3. History of renal cell carcinoma status post right nephrectomy 4. Benign prostatic hypertrophy. Gross Hematuria Patient was recently admitted to [facility] for gross hematuria status post cystoscopy which revealed a large hypervascular prostate, started on Proscar to minimize bleeding. Now he returns with gross hematuria. CAT scan abdomen was done which showed lobulated hyperdensity along posterior surface of distended urinary bladder, reviewed by Dr. Hariston urologist, which is actually a blood clot. * Gross hematuria possibly from hypervascular enlarged prostate and dual antiplatelet anticoagulation. * Continue to monitor for further hematuria * He is not on continuous bladder irrigation. * Start if his catheter Plugs or if patient starts having again gross hematuria * Closely monitor H&H Coronary artery disease with the recent end STEMI status post stent placement December 2017 Continue aspirin 81 Continue Lipitor 80 Continue Plavix 75 Started imdur 30 daily BPH Continue tamsulosin and finasteride DVT prophylaxis Alps given his gross hematuria Full code Regular diet Problem List: 1. Hematuria Pain Ratin Pain Location: N/A Pain Goal: Remain pain free Pain Plan: TYLENOL Tomorrow's Labs & Rationales: CBC BEP Nicolasa PARDO,Amir 03/29/18 1530: Attending MD Review Statement Attending Statement Attending MD Statement: examined this patient, discuss w/resident/PA/LATHE MECHANIC, agreed w/resident/PA/LATHE MECHANIC, reviewed EMR data (avail), discussed with nursing Attending Assessment/Plan: Pt was seen and evaluated, reports doing better. [place] draining blood tinged urine --appreciate Urology recs --cont cardiac meds --rest of the plan as per resident's note
[2018-03-29 14:37] VITALS: BP 132/66
[2018-03-29 22:29] VITALS: BP 120/76
[2018-03-30 06:55] VITALS: BP 106/70
[2018-03-30 08:39] LABS: ABSOLUTE BASOPHIL COUNT 0 /CUMM (0.0-0.2); ABSOLUTE EOSINOPHIL COUNT 0.1 /CUMM (0.0-0.7); ABSOLUTE LYMPH COUNT 1.8 /CUMM (1.2-3.4); ABSOLUTE MONOCYTE COUNT 0.6 /CUMM (0.10-0.60); BASOPHIL % 0.2 % (0.0-2.0); EOSINOPHIL % 1.2 % (0-5); GRANULOCYTE % 70.6 % (42.2-75.2); MEAN CORPUSCULAR HGB 31.5 PG (27.0-31.0); MEAN CORPUSCULAR HGB CONC 34.5 G/DL (33.0-37.0); MEAN CORPUSCULAR VOLUME 91.4 FL (80.0-94.0); MEAN PLATELET VOLUME 7.7 FL (7.4-10.4); PLATELET COUNT 188 /CUMM (130-400); WHITE BLOOD CELL COUNT 8.5 /CUMM (4.8-10.8)
--- NOTE | 2018-03-30 09:23 | PN- Housestaff ---
Randy Oscar 03/30/18 0923: Subjective Follow-up For: Gross hematuria Chest pain Complaints: no complaints Tele-Events Since Last Visit: NSR WITH PVC AND BIGEMINY Subjective: Patient was seen and examined this morning. He is alert awake and oriented to time place and person no acute events noticed overnight. He continues to have brown colored urine however not bright red no gross hematuria found no blood clots. He does not require any CBI overnight. Denied any chest pain, palpitations, fever, chills. Vitals afebrile heart rate 88, respiratory rate 18, blood pressure 126/80, saturating at 99 on room air Review of Systems Constitutional: Reports: see HPI. Objective Last 24 Hrs of Vital Signs/I&O Vital Signs Date Time Temp Pulse Resp B/P B/P Pulse O2 O2 Flow FiO2 Mean Ox Delivery Rate 03/30 0936 103 106/50 03/30 0935 103 106/50 03/30 0655 98.5 112 18 106/70 96 Room Air 03/29 2229 98.2 83 18 120/76 97 Room Air 03/29 1437 98.1 89 18 132/66 96 Room Air 03/29 1046 102 126/80 03/29 1046 102 126/80 Intake & Output 03/30 1600 03/30 0800 03/30 0000 Intake Total 120 Output Total 400 350 Balance -280 -350 Intake, Oral 120 Output, Urine 400 350 Patient 69.4 kg Weight Weight Bed scale Measurement Method Physical Exam General Appearance: Alert, Oriented X3, Cooperative, No Acute Distress Other Physical Findings: Cardiovascular Normal S1, Normal S2, Regularly irregular rhythm Lungs Clear to Auscultation Abdomen Normal Bowel Sounds, Soft, No Tenderness Neurological Normal Speech, Strength at 5/5 X4 Ext Extremities No Clubbing, Normal Pulses Vascular Normal Pulses Current Medications: Current Medications Sig/Angeles Start time Last Medication Dose Route Stop Time Status Admin Aspirin Buffered 81 MG DAILY 03/28 09 AC 03/30 PO 928 Clopidogrel Bisulfate 75 MG DAILY 03/28 09 AC 03/30 PO 09 Docusate Sodium 100 MG DAILY NEEDED PRN 03/29 1545 AC 03/30 PO 0534 Finasteride 5 MG DAILY 03/28 0900 AC 03/30 PO 0935 Isosorbide 30 MG DAILY 03/28 1330 AC Mononitrate PO Senna/Docusate Sodium 1 TAB BID PRN 03/29 1600 AC 03/30 PO 0534 Tamsulosin HCl 0.4 MG DAILY 03/28 0900 AC 03/30 PO 0935 Last 24 Hrs of Lab/Jay Results Last 24 Hrs of Labs/Mics: Laboratory Tests 03/30/18 0625: Anion Gap 11, Estimated GFR 48 L, BUN/Creatinine Ratio 15.7, Magnesium 2.0, CBC w Diff NO MAN DIFF REQ, RBC 3.50 L, MCV 91.4, MCH 31.5 H, MCHC 34.5, RDW 16.0 H, MPV 7.7, Gran % 70.6, Lymphocytes % 20.9, Monocytes % 7.1, Eosinophils % 1.2, Basophils % 0.2, Absolute Granulocytes 6.0, Absolute Lymphocytes 1.8, Absolute Monocytes 0.6, Absolute Eosinophils 0.1, Absolute Basophils 0 Assessment/Plan Assessment: Patient is a pleasant 87-year-old male with medical history significant for stage III chronic kidney disease, renal cell carcinoma status post right nephrectomy, coronary artery disease status post recent non-ST elevation [place] requiring drug-eluting stent placement December 2017. Presented to the emergency room with complaints of hematuria that began the day prior to presentation. He admits to chronic shortness of breath with exertion secondary to his cardiac disease he denies any worsening of the symptoms. Vitals in ED were stable Labs significant for H&H of 12.6/37, BP unremarkable with BUN 39 and creatinine 1.5 [baseline 1.41.5] slightly elevated ALP troponin at 0.02. EKG shows normal sinus rhythm with multiple PVCs. CT abdomen and pelvis significant for lobulated hyperdensity along the posterior surface of the physiologically distended urinary bladder that is suboptimally assessed due to the absence of intravenous contrast. It may represent a soft tissue mass such as a urothelial neoplasm. Alternatively this finding may represent blood lot layering dependently within the urinary bladder Problems: 1. Gross hematuria 2. Coronary artery disease status post recent drug-eluting stent placement 3. History of renal cell carcinoma status post right nephrectomy 4. Benign prostatic hypertrophy. Gross Hematuria Patient was recently admitted to [facility] for gross hematuria status post cystoscopy which revealed a large hypervascular prostate, started on Proscar to minimize bleeding. Now he returns with gross hematuria. CAT scan abdomen was done which showed lobulated hyperdensity along posterior surface of distended urinary bladder, reviewed by Dr. Hairston urologist, which is actually a blood clot. * Gross hematuria possibly from hypervascular enlarged prostate and dual antiplatelet anticoagulation. * Continue to monitor for further hematuria * He is not on continuous bladder irrigation. * Start if his catheter Plugs or if patient starts having again gross hematuria * Closely monitor H&H Chest pain Patient reported intermittent shortness of breath associated with chest discomfort at the time of admission. He underwent echocardiogram on , which showed normal left ventricular function. He was also planned for nuclear stress testing near future. Serial troponin and EKGs were negative. * Continue aspirin, Plavix * Started Imdur 30 mg p.o. daily for antianginal effect Bigeminy and PVCs He was found to have bigeminy and PVCs on the monitor. Potassium and mag checked which were normal. Most likely from coronary artery disease. Patient is asymptomatic. * He is hemodynamically stable, continue to monitor in telemetry * Follow-up cardio recommendations Coronary artery disease with the recent end STEMI status post stent placement December 2017 Continue aspirin 81 Continue Plavix 75 Started imdur 30 daily BPH Continue tamsulosin and finasteride DVT prophylaxis Alps given his gross hematuria Full code Regular diet Problem List: 1. NSTEMI (non-ST elevated myocardial infarction) 2. CKD (chronic kidney disease) 3. Acute renal failure Pain Ratin Pain Location: flank pain Pain Goal: Remain pain free Pain Plan: tylenol Tomorrow's Labs & Rationales: cbc bep Nicolasa PARDO,Amir 03/30/18 0942: Attending MD Review Statement Attending Statement Attending MD Statement: examined this patient, discuss w/resident/PA/SENIOR SOFTWARE QUALITY ENGINEER, agreed w/resident/PA/SENIOR SOFTWARE QUALITY ENGINEER, reviewed EMR data (avail), discussed with nursing Attending Assessment/Plan: Pt reports doing OK. Had few PVC run, aysmptomatic. [place] draining coffee colored urine with some clots f/u with Urology re: duration of [place] catheter Appreciate cards recs: agree with adding Imdur rest of the plan as per resident's note
[2018-03-30 14:10] VITALS: BP 110/50
[2018-03-30 22:00] VITALS: BP 128/72
[2018-03-31 05:44] VITALS: BP 124/60
--- NOTE | 2018-03-31 06:58 | PN- Housestaff ---
Gustavo Pelaez 03/31/18 0658: Subjective Follow-up For: Gross Hematuria Chest Pain-resolved Tele-Events Since Last Visit: Patient is an 87-year-old male with medical history significant for stage III chronic kidney disease, renal cell carcinoma status post right nephrectomy, coronary artery disease status post recent non-ST elevation [place] requiring drug- eluting stent placement December 2017. Presented to the emergency room with complaints of hematuria that began the day prior to presentation. He admits to chronic shortness of breath with exertion secondary to his cardiac disease he denies any worsening of the symptoms. Patient to continue [place] today. Has not had a bowelmovement but will be given miralax and senna today. PT evaluation pending to have patient out of bed as he has had little ambulation since admission. Problem List: 1. Gross hematuria 2. Coronary artery disease status post recent drug-eluting stent placement 3. History of renal cell carcinoma status post right nephrectomy 4. Benign prostatic hypertrophy. Gross Hematuria Patient was recently admitted to [place] for gross hematuria status post cystoscopy which revealed a large hypervascular prostate, started on Proscar to minimize bleeding. Now he returns with gross hematuria. CAT scan abdomen was done which showed lobulated hyperdensity along posterior surface of distended urinary bladder, reviewed by Dr. Hairston urologist, which is actually a blood clot. * spoke with Dr. Hairston today to continue [place] catheter for discharge * Continue to monitor for further hematuria * No current continuous bladder irrigation. * Start if his catheter Plugs or if patient starts having again gross hematuria * Closely monitor H&H Chest pain Patient reported intermittent shortness of breath associated with chest discomfort at the time of admission. He underwent echocardiogram on , which showed normal left ventricular function. He was also planned for nuclear stress testing near future. Serial troponin and EKGs were negative. * Continue aspirin, Plavix * Patient orignally denied Imdur 30 mg p.o. daily for antianginal effect as per cardiology; patient hesitent to try new medication, currently held with low blood pressures Bigeminy and PVCs He was found to have bigeminy and PVCs on the monitor. Potassium and mag checked which were normal. Most likely from coronary artery disease. Patient is asymptomatic. * He is hemodynamically stable, continue to monitor in telemetry * Follow-up cardio recommendations Coronary artery disease with the recent end STEMI status post stent placement December 2017 * Continue aspirin 81 * Continue Plavix 75 * Started imdur 30 daily given blood pressures BPH * Continue tamsulosin and finasteride DVT prophylaxis Alps given his gross hematuria Full code Regular diet Subjective: Patient seen and examined at bedside this morning. Patient claims he has not a bowel movement since admission. He has been tolerating p.o. but will be given MiraLAX today and senna. Patient claims he has not gotten out of bed since admission. Will attempt to mobilize patient in follow-up with PT evaluation prior to discharge. Patient has jaziel colored urine with no gross hematuria or blood clots today. No CBI required at this time., Fevers, chills. Review of Systems Constitutional: Denies: see HPI. Objective Last 24 Hrs of Vital Signs/I&O Vital Signs Date Time Temp Pulse Resp B/P B/P Pulse O2 O2 Flow FiO2 Mean Ox Delivery Rate 03/31 1031 111 114/60 03/31 1030 111 114/60 03/31 0544 98.2 89 18 124/60 95 03/30 2200 97.8 89 18 128/72 98 03/30 1410 98.1 97 20 110/50 99 Room Air Intake & Output 03/31 1600 03/31 0800 03/31 0000 Intake Total 220 0 Output Total 150 Balance 220 -150 Intake, Oral 220 0 Output, Urine 150 Physical Exam General Appearance: Alert, Oriented X3, Cooperative Skin: No Rashes, No Breakdown HEENT: PERRLA, EOMI, Mucous Membr. moist/pink Cardiovascular: Regular Rate, Normal S1, Normal S2 Lungs: Clear to Auscultation, Normal Air Movement Abdomen: Normal Bowel Sounds, Soft, No Tenderness Neurological: Normal Speech, Strength at 5/5 X4 Ext, Cranial Nerves 3-12 NL, Reflexes 2+ Extremities: No Clubbing, No Cyanosis Vascular: Normal Pulses, Pulses Symmetrical Current Medications: Current Medications Sig/Angeles Start time Last Medication Dose Route Stop Time Status Admin Aspirin Buffered 81 MG DAILY 03/28 09 AC 03/31 PO 1028 Clopidogrel Bisulfate 75 MG DAILY 03/28 900 AC 03/31 PO 1029 Docusate Sodium 100 MG DAILY NEEDED PRN 03/29 1545 AC 03/30 PO 0534 Finasteride 5 MG DAILY 03/28 09 AC 03/31 PO 1029 Isosorbide 30 MG DAILY 03/28 1330 AC Mononitrate PO Polyethylene Glycol 17 GM DAILY 03/31 0900 AC 03/31 PO 1028 Senna/Docusate Sodium 1 TAB BID PRN 03/29 1600 AC 03/30 PO 0534 Tamsulosin HCl 0.4 MG DAILY 03/28 0900 AC 03/31 PO 1030 Last 24 Hrs of Lab/Jay Results Last 24 Hrs of Labs/Mics: Laboratory Tests 03/31/18 0933: Urine Color Cancelled, Urine Clarity Cancelled, Urine pH Cancelled, Ur Specific [place] Cancelled, Urine Protein Cancelled, Urine Ketones Cancelled, Urine Nitrite Cancelled, Urine Bilirubin Cancelled, Urine Urobilinogen Cancelled, Ur Leukocyte Esterase Cancelled, Ur Microscopic Cancelled, Urine Hemoglobin Cancelled, Urine Glucose Cancelled 03/31/18 0647: Anion Gap 9, Estimated GFR 52 L, BUN/Creatinine Ratio 15.4, CBC w Diff NO MAN DIFF REQ, RBC 3.46 L, MCV 93.7, MCH 30.8, MCHC 32.9 L, RDW 16.2 H, MPV 7.8, Gran % 64.8, Lymphocytes % 23.7, Monocytes % 9.2, Eosinophils % 2.1, Basophils % 0.2, Absolute Granulocytes 4.8, Absolute Lymphocytes 1.7, Absolute Monocytes 0.7 H, Absolute Eosinophils 0.2, Absolute Basophils 0 Microbiology 03/31 933 URINE ROUT: Urine Culture - CAN Cancelled: Cancelled via OE: Error Lines/Diet/Fluids [place] Still Needed? Yes Assessment/Plan Assessment: Patient is an 87-year-old male with medical history significant for stage III chronic kidney disease, renal cell carcinoma status post right nephrectomy, coronary artery disease status post recent non-ST elevation [place] requiring drug- eluting stent placement December 2017. Presented to the emergency room with complaints of hematuria that began the day prior to presentation. He admitted to chronic shortness of breath with exertion secondary to his cardiac disease he denies any worsening of the symptoms. Patient to continue [place] today. Has not had a bowelmovement but will be given miralax and senna today. PT evaluation pending to have patient out of bed as he has had little ambulation since admission. Problem List: 1. Gross hematuria 2. Coronary artery disease status post recent drug-eluting stent placement 3. History of renal cell carcinoma status post right nephrectomy 4. Benign prostatic hypertrophy. Gross Hematuria Patient was recently admitted to [place] for gross hematuria status post cystoscopy which revealed a large hypervascular prostate, started on Proscar to minimize bleeding. Now he returns with gross hematuria. CAT scan abdomen was done which showed lobulated hyperdensity along posterior surface of distended urinary bladder, reviewed by Dr. Hairston urologist, which is actually a blood clot. * spoke with Dr. Hairston today to continue [place] catheter for discharge * Continue to monitor for further hematuria * No current continuous bladder irrigation. * Start if his catheter Plugs or if patient starts having again gross hematuria * Closely monitor H&H Chest pain Patient reported intermittent shortness of breath associated with chest discomfort at the time of admission. He underwent echocardiogram on , which showed normal left ventricular function. He was also planned for nuclear stress testing near future. Serial troponin and EKGs were negative. * Continue aspirin, Plavix * Patient orignally denied Imdur 30 mg p.o. daily for antianginal effect as per cardiology; patient hesitent to try new medication, currently held with low blood pressures Bigeminy and PVCs He was found to have bigeminy and PVCs on the monitor. Potassium and mag checked which were normal. Most likely from coronary artery disease. Patient is asymptomatic. * He is hemodynamically stable, continue to monitor in telemetry * Follow-up cardio recommendations Coronary artery disease with the recent end STEMI status post stent placement December 2017 * Continue aspirin 81 * Continue Plavix 75 * Started imdur 30 daily given blood pressures BPH * Continue tamsulosin and finasteride DVT prophylaxis Alps given his gross hematuria Full code Regular diet Problem List: 1. BPH (benign prostatic hyperplasia) 2. CKD (chronic kidney disease) Pain Ratin Pain Location: Denies pain today Pain Goal: Remain pain free Pain Plan: as per pain pathway Tomorrow's Labs & Rationales: cbc Arlyn Renee MD 03/31/18 1154: Attending MD Review Statement Attending Statement Attending MD Statement: examined this patient, discuss w/resident/PA/THERAPIST RADIATION, agreed w/resident/PA/THERAPIST RADIATION, reviewed EMR data (avail), discussed with nursing, discussed with case mgmt, reviewed images Attending Assessment/Plan: 87-year-old male past medical history of coronary artery disease, recent drug- eluting stent on dual antiplatelet therapy, CK D with GFR in the 40-50 range and history of renal cell carcinoma status post right nephrectomy. He is here with significant hematuria. He required intermittent CBI and now the urine is clearing up. I spoke to Dr. Hairston who wants is to discharge him with the [place]. He says he has a very hypervascular prostate and he needs to have a [place] in for at least a week and that he plans to see him in the office next Saturday and will then take out the [place] and the sedation. We'll get a PT eval. His BMI is noted to be low and he appears a little cachectic will also get a nutrition eval and follow closely.
[2018-03-31 08:02] LABS: ABSOLUTE BASOPHIL COUNT 0 /CUMM (0.0-0.2); ABSOLUTE EOSINOPHIL COUNT 0.2 /CUMM (0.0-0.7); ABSOLUTE GRANULOCYTE CT 4.8 /CUMM (1.4-6.5); ABSOLUTE LYMPH COUNT 1.7 /CUMM (1.2-3.4); ABSOLUTE MONOCYTE COUNT 0.7 /CUMM (0.10-0.60); BASOPHIL % 0.2 % (0.0-2.0); EOSINOPHIL % 2.1 % (0-5); GRANULOCYTE % 64.8 % (42.2-75.2); HEMATOCRIT 32.4 % (42-52); MEAN CORPUSCULAR HGB 30.8 PG (27.0-31.0); MEAN CORPUSCULAR HGB CONC 32.9 G/DL (33.0-37.0); MEAN CORPUSCULAR VOLUME 93.7 FL (80.0-94.0); MEAN PLATELET VOLUME 7.8 FL (7.4-10.4); PLATELET COUNT 185 /CUMM (130-400); RBC DISTRIBUTION WIDTH 16.2 % (11.5-14.5); RED BLOOD CELL CT 3.46 /CUMM (4.70-6.10); WHITE BLOOD CELL COUNT 7.4 /CUMM (4.8-10.8)
--- NOTE | 2018-03-31 08:17 | PN- Student ---
Subjective Subjective: Pt was seen and examined this morning. He had no acute events overnight. He denies chest pain, SOB, abdominal pain, leg pain this morning. He complains of constipation with last BM several days ago. However, pt is still passing flatus regularly and has no discomfort. Tolerating regular diet. Objective Objective: Vital Signs Result Date Time Pulse Ox 95 03/31 0544 B/P 124/60 03/31 0544 Temp 98.2 03/31 0544 Pulse 89 03/31 0544 Resp 18 03/31 0544 O2 Delivery Room Air 03/30 1410 O2 Flow Rate Room Air 03/30 0800 Intake & Output 03/31 0000 03/30 1600 03/30 0800 Intake Total 0 600 120 Output Total 150 350 400 Balance -150 250 -280 Intake, Oral 0 600 120 Output, Urine 150 350 400 Urine - urinating via Johnston, urine is jaziel in color with no large clots, some sediment Tele: NSR, rate 90s, occasional PVCs Physical Exam: Gen - NAD, resting comfortably Psych - normal affect Neuro - AO x4 CV - RRR no MRG, Normal S1 and S2 Pulm - CTA BL with good air entry, no crackles Abd - soft, nontender, nondistended, no masses Ext - warm and well perfused Results Results: Laboratory Tests 03/31/18 0647: Anion Gap 9, Estimated GFR 52 L, BUN/Creatinine Ratio 15.4, CBC w Diff NO MAN DIFF REQ, RBC 3.46 L, MCV 93.7, MCH 30.8, MCHC 32.9 L, RDW 16.2 H, MPV 7.8, Gran % 64.8, Lymphocytes % 23.7, Monocytes % 9.2, Eosinophils % 2.1, Basophils % 0.2, Absolute Granulocytes 4.8, Absolute Lymphocytes 1.7, Absolute Monocytes 0.7 H, Absolute Eosinophils 0.2, Absolute Basophils 0 Assessment/Plan Assessment: Assessment: Pt is an 87YOM with PMH significant for CKD, renal cell carcinoma s/ p R nephrectomy, CAD s/p recent NSTEMI requiring drug eluting stent in . He presented to the ED 3 days ago with hematuria which began 4 days ago. He also complained of chronic SOB/chest pressure with exertion secondary to his cardiac disease which had not worsened. In the ED, patient's vitals were stable with H/H 12.6/37 and estimated GFR of 52. Troponin was WNL at 0.02. EKG showed NSR with multiple PVCs. CT A/P was significant for lobulated hyperdensity along the posterior surface of the urinar bladder which was physiologically distended. Nephrology consult indicated the most likely etiology for the hyperdensity was a blood clot. Problem List/Plan: 1. Hematuria Pt's hematuria has seemed to resolve at this point with jaziel colored urine without clots for >24hrs. The bleeding is likely due to the pt's hypervascular, enlarged prostate and the fact that the patient is on DAPT currently for comorbid CAD w/ drug eluting stent. * Because the patient's urine has been jaziel colored for >24hrs, it is likely there is no active bleeding from the bladder or prostate. We will call Dr. Hairston to discuss removal of the Johnston and void trial. * Continue proscar * Continue monitoring H/H which has remained stable x4 days * Pt has remained in bed since admission. Today, patient revealed that he had a fall recently, so we have placed PT consult for ambulating the patient and assessing baseline status. * Consider discharge tomorrow if Johnston has been out, trial to void successful, and no evidence of hematuria. 2. CAD s/p drug eluting stent While patient reported chest pressure and SOB consistent with angina on admission, his ECHO shows normal LV function with normal serial trops and EKGs. * F/u with cardiology in the next few weeks for nuclear stress testing. * Continue DAPT with ASA and plavix. * Continue imdur 30mg PO q24hr for antianginal effects. Note that at this time, patient has declined to take imdur and has not complained of any angina. 3. Bigeminy and PVCs While pt has been found to have bigeminy and PVCs on tele, he continues to have PVCs only. His potassium and magnesium are WNL so the most likely etiology is CAD. He remains asymptomatic. * Continue tele monitor until discharge. * Continue recommendations for CAD tx. * F/u cardiology outpatient. 4. BPH * Continue tamsulosin and finasteride * F/u nephrology outpatient 5. Constipation * Last BM 5 days ago. * Begin miralax and continue senna/colace. Diet: regular DVT Prophylaxis: ALPS Code: Full
--- NOTE | 2018-03-31 10:57 | Patient Discharge Instructions ---
Discharge Instructions General Discharge Information You were seen/treated for: Gross hematuria and chest pain s/p drug eluting stent. Watch for these problems: hematuria or discoloration of urine Special Instructions: follow up with PCP within 1 week of discharge follow up with Urologist Dr Hairston on 04/09/2018 . follow up with director index within 1 week of discharge patient is being discharged on foleys catheter and will be seen by Dr. Hairston on 04/09/18 and will give further recommendations Diet Continue normal diet: Yes Activity Full Activity/No Limits: Yes Acute Coronary Syndrome Inclusion Criteria At DC or during hospital stay patient has or had the following: ACS DIAGNOSIS No Discharge Core Measures Meds if any: Prescribed or Continued at Discharge Meds if any: NOT Prescribed or Continued at Discharge Congestive Heart Failure Inclusion Criteria At DC or during hospital stay patient has or had the following: CHF DIAGNOSIS No Discharge Core Measures Meds if any: Prescribed or Continued at Discharge Meds if any: NOT Prescribed or Continued at Discharge Cerebrovascular accident Inclusion Criteria At DC or during hospital stay patient has or had the following: CVA/TIA Diagnosis No Discharge Core Measures Meds if any: Prescribed or Continued at Discharge Meds if any: NOT Prescribed or Continued at Discharge Venous thromboembolism Inclusion Criteria VTE Diagnosis No VTE Type NONE VTE Confirmed by (Test) NONE Discharge Core Measures - Per Current guidelines, there needs to be overlap - treatment for the first 5 days of Warfarin therapy. - If discharged on Warfarin prior to 5 days of - overlap therapy, the patient will need to be - assessed for post discharge needs including - *Post discharge parental anticoagulation - *Warfarin and/or parental anticoagulation education - *Follow up date to check INR post discharge At least 5 days overlap therapy as Inpatient No Meds if any: Prescribed or Continued at Discharge Note: Overlap Therapy is Warfarin and Anticoagulant Meds if any: NOT Prescribed or Continued at Discharge
[2018-03-31 13:59] VITALS: BP 100/60
--- NOTE | 2018-03-31 16:11 | PN- Cardiology ---
Subjective Subjective: Patient denies chest pain, palpitations, dyspnea. Patient reports that he does not think he has been bleeding. Objective Vital Signs and I&Os Vital Signs Date Time Temp Pulse Resp B/P B/P Pulse O2 O2 Flow FiO2 Mean Ox Delivery Rate 03/31 1359 97.9 102 20 100/60 95 Room Air 03/31 1031 111 114/60 03/31 1030 111 114/60 03/31 0800 Room Air Room Air 03/31 0544 98.2 89 18 124/60 95 03/30 2200 97.8 89 18 128/72 98 Intake & Output 03/31 1600 03/31 0800 03/31 0000 03/30 1600 03/30 0803/30 0000 Intake Total 220 0 600 120 Output Total 850 150 350 400 350 Balance -850 220 -150 250 -280 -350 Intake, Oral 220 0 600 120 Output, Urine 850 150 350 400 350 Patient 69.4 kg 69.4 kg Weight Weight Bed scale Measurement Method Physical Exam: General: no apparent distress HEENT: NCAT, NO JVD Heart: s1s2, RRR, no MRG Lungs: CTA b/l Abd: soft, nt Ext: no peripheral edema Current Medications: Current Medications Sig/Angeles Start time Last Medication Dose Route Stop Time Status Admin Aspirin Buffered 81 MG DAILY 03/28 900 AC 03/31 PO 1028 Clopidogrel Bisulfate 75 MG DAILY 03/28 09 AC 03/31 PO 1029 Docusate Sodium 100 MG DAILY NEEDED PRN 03/29 1545 AC 03/30 PO 0534 Finasteride 5 MG DAILY 03/28 09 AC 03/31 PO 1029 Isosorbide 30 MG DAILY 03/28 1330 AC Mononitrate PO Polyethylene Glycol 17 GM DAILY 03/31 09 AC 03/31 PO 1028 Senna/Docusate Sodium 1 TAB BID PRN 03/29 1600 AC 03/30 PO 0534 Tamsulosin HCl 0.4 MG DAILY 03/28 09 AC 03/31 PO 1030 Results Last 48 Hrs of Labs/Mics: Laboratory Tests 03/31/18 0933: Urine Color Cancelled, Urine Clarity Cancelled, Urine pH Cancelled, Ur Specific [place] Cancelled, Urine Protein Cancelled, Urine Ketones Cancelled, Urine Nitrite Cancelled, Urine Bilirubin Cancelled, Urine Urobilinogen Cancelled, Ur Leukocyte Esterase Cancelled, Ur Microscopic Cancelled, Urine Hemoglobin Cancelled, Urine Glucose Cancelled 03/31/18 0647: Anion Gap 9, Estimated GFR 52 L, BUN/Creatinine Ratio 15.4, CBC w Diff NO MAN DIFF REQ, RBC 3.46 L, MCV 93.7, MCH 30.8, MCHC 32.9 L, RDW 16.2 H, MPV 7.8, Gran % 64.8, Lymphocytes % 23.7, Monocytes % 9.2, Eosinophils % 2.1, Basophils % 0.2, Absolute Granulocytes 4.8, Absolute Lymphocytes 1.7, Absolute Monocytes 0.7 H, Absolute Eosinophils 0.2, Absolute Basophils 0 03/30/18 0625: Anion Gap 11, Estimated GFR 48 L, BUN/Creatinine Ratio 15.7, Magnesium 2.0, CBC w Diff NO MAN DIFF REQ, RBC 3.50 L, MCV 91.4, MCH 31.5 H, MCHC 34.5, RDW 16.0 H, MPV 7.7, Gran % 70.6, Lymphocytes % 20.9, Monocytes % 7.1, Eosinophils % 1.2, Basophils % 0.2, Absolute Granulocytes 6.0, Absolute Lymphocytes 1.8, Absolute Monocytes 0.6, Absolute Eosinophils 0.1, Absolute Basophils 0 Recent Imaging Studies: Telemetry: Personally reviewed, normal sinus rhythm with intermittent PVCs Assessment/Plan Assessment/Plan 1. Gross hematuria 2. Coronary artery disease/recent NSTEMI with drug-eluting stent to the obtuse marginal December 2017 3. Chronic renal insufficiency 4. History of renal cell carcinoma with prior nephrectomy 5. Shortness of breath Patient is currently hemodynamically stable with negative troponins; echocardiogram from our office yesterday showed no new wall motion abnormalities. He is scheduled for outpatient nuclear stress test in our office in the near future. Management of the hematuria per urology but in the absence of unstable bleeding recommend continuing dual antiplatelet therapy given the recent drug-eluting stent. Continue with imdur. The patient should also be started on home dose of metoprolol tartrate 25 mg p.o. twice daily, and atorvastatin 80 mg p.o. daily. Continue telemetry? Yes
[2018-03-31 22:32] VITALS: BP 130/80
[2018-04-01 06:19] VITALS: BP 122/62
--- NOTE | 2018-04-01 07:21 | PN- Housestaff ---
Jonatan Ponce 04/01/18 0720: Subjective Follow-up For: Hypervascular prostate, hematuria, chest pain post stenting Subjective: Patient is doing well. Patient feels ready to go home. he has not had bowel movements for the past week. Review of Systems Constitutional: Denies: no symptoms, see HPI. Cardiovascular: Reports: no symptoms. Respiratory: Reports: no symptoms. Gastrointestinal: Reports: constipation. Genitourinary: Reports: no symptoms. Musculoskeletal: Reports: no symptoms. Objective Last 24 Hrs of Vital Signs/I&O Vital Signs Date Time Temp Pulse Resp B/P B/P Pulse O2 O2 Flow FiO2 Mean Ox Delivery Rate 04/01 1015 92 108/50 04/01 0819 92 108/50 04/01 0619 98.2 92 18 122/62 94 Room Air 03/31 2232 98.0 95 18 130/80 96 Room Air 03/31 2130 88 130/80 03/31 1359 97.9 102 20 100/60 95 Room Air Intake & Output 04/01 1600 04/01 0800 04/01 0000 Intake Total 120 120 Output Total 400 300 Balance -280 -180 Intake, Oral 120 120 Output, Urine 400 300 Patient 158 lb Weight Physical Exam General Appearance: Alert, Oriented X3, Cooperative, No Acute Distress Cardiovascular: Regular Rate, No Murmurs Lungs: Clear to Auscultation, Normal Air Movement Abdomen: Normal Bowel Sounds, Soft, No Tenderness, No Hepatospenomegaly, No Masses Neurological: Normal Speech, Strength at 5/5 X4 Ext, Normal Tone, Sensation Intact Extremities: No Clubbing, No Cyanosis, No Edema, Normal Pulses, No Tenderness/ Swelling Assessment/Plan Problem List: 1. Coronary artery disease Patient had chest pain status post drug-eluting stent placement in December 2017 Echocardiogram showed no abnormalities EKG ?WNL Patient was advised by the cardiology to follow-up outpatient for nuclear stress testing Patient was started on dual antiplatelet therapy Continue Imdur Continue metoprolol 25 mg per oral twice daily Continue atorvastatin 80 mg per orally daily 2. Hematuria Patient has a Johnston catheter. No hematuria Patient will be discharged with foleys and is advised to follow-up with urology outpatient on 04/09/2018 3. Constipation Patient did not have bowel movements for the past 1 week. Patient is prescribed with Dulcolax per per oral. -Patient can be discharged if he has a bowel movement Pain Ratin Pain Location: n/a Pain Goal: Remain pain free Pain Plan: n/a Tomorrow's Labs & Rationales: none Carla PARDO,Arlyn 04/01/18 1127: Attending MD Review Statement Attending Statement Attending MD Statement: examined this patient, discuss w/resident/PA/CURVE CLEANER, agreed w/resident/PA/CURVE CLEANER, reviewed EMR data (avail), discussed with nursing, reviewed images Attending Assessment/Plan: Patient still has not had a bowel movement. He is refusing a suppository. We have him on MiraLAX and senna S twice daily. I spoke to Dr. Hairston and the plan is that he will leave with a Johnston with outpatient follow-up. He is scheduled to see Dr. Hairston next Saturday and he will remove the Johnston catheter under sedation in his office. I explained to the patient at length that there are risks of infection with the Johnston catheter. Patient does not want to take the Imdur as recommended by cardiology, he wants to minimize the number of medications he takes. We are setting him up with home with services.
[2018-04-01 07:48] LABS: ABSOLUTE BASOPHIL COUNT 0 /CUMM (0.0-0.2); ABSOLUTE EOSINOPHIL COUNT 0.2 /CUMM (0.0-0.7); ABSOLUTE GRANULOCYTE CT 5.2 /CUMM (1.4-6.5); ABSOLUTE LYMPH COUNT 2.1 /CUMM (1.2-3.4); ABSOLUTE MONOCYTE COUNT 0.7 /CUMM (0.10-0.60); BASOPHIL % 0.2 % (0.0-2.0); EOSINOPHIL % 1.9 % (0-5); GRANULOCYTE % 64.1 % (42.2-75.2); HEMATOCRIT 31.8 % (42-52); MEAN CORPUSCULAR HGB 30.9 PG (27.0-31.0); MEAN CORPUSCULAR HGB CONC 33.4 G/DL (33.0-37.0); MEAN CORPUSCULAR VOLUME 92.7 FL (80.0-94.0); MEAN PLATELET VOLUME 7.9 FL (7.4-10.4); PLATELET COUNT 206 /CUMM (130-400); RED BLOOD CELL CT 3.43 /CUMM (4.70-6.10); WHITE BLOOD CELL COUNT 8.1 /CUMM (4.8-10.8)
--- NOTE | 2018-04-01 10:10 | PN- Cardiology ---
Subjective Subjective: Patient feels well. He is anxious to be discharged. He states that they are waiting for him to have a bowel movement first. Review of Systems: Eyes no blurred or double vision Ears no deafness or ringing Nose and throat no recurrent sinusitis Lungs per history of present illness Heart per history of present illness Abdomen no nausea vomiting Musculoskeletal occasional muscle and joint pains Psych no anxiety or depression Neuro without recurrent headache or seizures Endocrine no heat or cold intolerance Objective Vital Signs and I&Os Vital Signs Date Time Temp Pulse Resp B/P B/P Pulse O2 O2 Flow FiO2 Mean Ox Delivery Rate 04/01 0819 92 108/50 04/01 0619 98.2 92 18 122/62 94 Room Air 03/31 2232 98.0 95 18 130/80 96 Room Air 03/31 2130 88 130/80 03/31 1359 97.9 102 20 100/60 95 Room Air 03/31 1031 111 114/60 03/31 1030 111 114/60 Intake & Output 04/01 1600 04/01 0800 04/01 0000 03/31 1600 03/31 0800 03/31 0000 Intake Total 120 120 720 220 0 Output Total 400 300 850 150 Balance -280 -180 -130 220 -150 Intake, Oral 120 120 720 220 0 Output, Urine 400 300 850 150 Patient 158 lb 153 lb Weight Physical Exam: Patient is a well-developed well-nourished male appearing in no acute distress HEENT is unremarkable Neck is supple there is no JVD Lungs are clear Heart regular rhythm S1 and S2 are normal no murmurs gallops or rubs Abdomen bowel sounds positive Extremities without edema Current Medications: Current Medications Sig/Angeles Start time Last Medication Dose Route Stop Time Status Admin Aspirin Buffered 81 MG DAILY 03/28 09 AC 04/01 PO 0818 Atorvastatin Calcium 80 MG 1700 04/01 1700 AC PO Bisacodyl 5 MG ONE ONE 04/01 1000 DC PO 04/01 1001 Clopidogrel Bisulfate 75 MG DAILY 03/28 09 AC 04/01 PO 0818 Docusate Sodium 100 MG DAILY NEEDED PRN 03/29 1545 AC 04/01 PO 0541 Finasteride 5 MG DAILY 03/28 0900 AC 04/01 PO 0818 Isosorbide 30 MG DAILY 03/28 1330 AC Mononitrate PO Metoprolol Tartrate 25 MG BID 03/31 2100 AC 03/31 PO 2130 Polyethylene Glycol 17 GM DAILY 03/31 0900 AC 03/31 PO 1028 Senna/Docusate Sodium 1 TAB BID PRN 03/29 1600 AC 04/01 PO 0541 Tamsulosin HCl 0.4 MG DAILY 03/28 09 AC 03/31 PO 1030 Results Last 48 Hrs of Labs/Mics: Laboratory Tests 04/01/18 0605: Anion Gap 10, Estimated GFR 52 L, BUN/Creatinine Ratio 16.9, CBC w Diff NO MAN DIFF REQ, RBC 3.43 L, MCV 92.7, MCH 30.9, MCHC 33.4, RDW 16.0 H, MPV 7.9, Gran % 64.1, Lymphocytes % 25.2, Monocytes % 8.6, Eosinophils % 1.9, Basophils % 0.2, Absolute Granulocytes 5.2, Absolute Lymphocytes 2.1, Absolute Monocytes 0.7 H, Absolute Eosinophils 0.2, Absolute Basophils 0 03/31/18 0933: Urine Color Cancelled, Urine Clarity Cancelled, Urine pH Cancelled, Ur Specific [place] Cancelled, Urine Protein Cancelled, Urine Ketones Cancelled, Urine Nitrite Cancelled, Urine Bilirubin Cancelled, Urine Urobilinogen Cancelled, Ur Leukocyte Esterase Cancelled, Ur Microscopic Cancelled, Urine Hemoglobin Cancelled, Urine Glucose Cancelled 03/31/18 0647: Anion Gap 9, Estimated GFR 52 L, BUN/Creatinine Ratio 15.4, CBC w Diff NO MAN DIFF REQ, RBC 3.46 L, MCV 93.7, MCH 30.8, MCHC 32.9 L, RDW 16.2 H, MPV 7.8, Gran % 64.8, Lymphocytes % 23.7, Monocytes % 9.2, Eosinophils % 2.1, Basophils % 0.2, Absolute Granulocytes 4.8, Absolute Lymphocytes 1.7, Absolute Monocytes 0.7 H, Absolute Eosinophils 0.2, Absolute Basophils 0 Telemetry personally reviewed sinus rhythm PVCs with 1 triplet Assessment/Plan Assessment/Plan 1. Gross hematuria resolved 2. Coronary artery disease/recent NSTEMI with drug-eluting stent to the obtuse marginal December 2017 on dual antiplatelet therapy 3. Chronic renal insufficiency 4. History of renal cell carcinoma with prior nephrectomy 5. Shortness of breath improved Recommendations 1. Patient is stable from the cardiac standpoint for discharge 2. He is scheduled for an outpatient nuclear stress test in our office. 3. Given recent drug-eluting stent to continue dual antiplatelet therapy. 4. Continue metoprolol and atorvastatin Continue telemetry? No
[2018-04-01 14:38] VITALS: BP 116/56
[2018-04-01 16:12] VITALS: BP 114/56
[2018-04-01] MEDS ORDERED: MEGACE ES625 MG/51 PO (17:58)
[2018-04-01] MEDS ORDERED: FUROSEMIDE20 M1 PO (17:58)
[2018-04-01] MEDS ORDERED: PAXIL10 M1 PO (18:00)
--- NOTE | 2018-04-02 13:28 | Discharge Summary ---
See Addendum Visit Information Visit Dates Admission Date: 03/28/18 Discharge Date: 04/01/18 Hospital Course Course Attending Physician: Carla PARDO,Arlyn Granda Primary Care Physician: Servando Parada MD Hospital Course: Servando Ha is an 87-year-old male patient with past medical history of hypertension, hyperlipidemia, BPH ,diabetes ,right nephrectomy for RCC and CAD with recent NSTEMI S/P stent placement on presented to the hospital with gross hematuria and during the course of hospital stay had a chest pain. 1)HEMATURIA COURSE-possibility of urinary tract infection was ruled out and the hematuria was found to be due to a hypervascular prostate on cystoscopy and started on Proscar which relieved the hematuria. CAT scan revealed a clot on the posterior surface of the urinary bladder. The patient was put on a Johnston's catheter and observed until hematuria resolved. Bladder irrigation was not necessary. Tamsulosin and finasteride were continued. Post discharge patient was asked to follow-up at urology outpatient on 09 April for removal of Johnston's catheter under sedation. 2) CHEST PAIN COURSE IN THE HOSPITAL-Patient had chest pain status post drug- eluting stent placement in December 2017 Echocardiogram showed no abnormalities and showed normal left ventricular function. Troponins were negative. EKG WNL.Patient was advised by the cardiology to follow-up outpatient for nuclear stress testing Patient was started on dual antiplatelet therapy, Imdur, metoprolol 25 mg per oral twice dailY, atorvastatin 80 mg per orally daily. 3) telemetry monitoring showed PVCs and bigeminy but he was hemodynamically stable. Hence no treatment was required. 4) constipation relieved with rectal suppository Allergies: Coded Allergies: NO KNOWN ALLERGIES (09/26/11) Disposition Summary Disposition Principal Diagnosis: Hypervascular prostate causing hematuria Additional Diagnosis: Chest pain post stent placement Discharge Disposition: home or self care Discharge Instructions General Discharge Information Code Status: Full Code Patient's Diet: Regular diet Patient's Activity: As tolerated Follow-Up Instructions/Appts: Follow-up WITH urology on 09 April for removal of Johnston catheter under sedation Follow-up WITH cardiology within 1 week for nuclear stress testing Follow-up with PCP in 1 week of discharge Medications at Discharge Discharge Medications: Stop taking the following medications: Atorvastatin Calcium (Atorvastatin Calcium) 80 MG TABLET ORAL DAILY Qty = 30 Metoprolol Tartrate (Metoprolol Tartrate) 25 MG TABLET ORAL TWICE DAILY Qty = 60 Megestrol Acetate (Megace Es) 625 MG/5 ML ORAL.SUSP ORAL DAILY Paroxetine HCl (Paxil) 10 MG TABLET ORAL DAILY Qty = 30 Furosemide (Furosemide) 20 MG TABLET ORAL Every other day Qty = 30 Continue taking these medications: Tamsulosin HCl (Tamsulosin HCl) 0.4 MG CAP.ER.24H 1 Capsule ORAL DAILY Qty = 90 Comments: Last Taken: 04/01/18 Time: 4:00 PM Finasteride (Finasteride) 5 MG TABLET 1 Tablet ORAL DAILY Qty = 90 Comments: Last Taken: 04/01/18 Time: 8:00 AM Aspirin (Adult Aspirin Regimen) 81 MG TABLET.DR 1 Tablet ORAL DAILY Qty = 30 Comments: Last Taken: 04/01/18 Time: 8:00 AM Clopidogrel Bisulfate (Plavix) 75 MG TABLET 1 Tablet ORAL DAILY Qty = 30 Comments: Last Taken: 04/01/18 Time: 8:00 AM Copies To: aTl PARDO,Servando Granda; Kevin PARDO,Donte Martinez; Joshua Hairston MD
== END 2018-04-01 19:00 | disposition home health service (06) | DRG 696 ==
LOC: ERH 14:54 → ERHI 03-28 01:42 → 1NO 03-28 01:42 → ERHI 03-28 08:08 → EDBEDREQ 03-28 09:26 → ERHI 03-28 12:12 → ENRESERV 03-28 13:57 → ENTRNSPT 03-28 16:01 → 1NO 03-28 16:43 → EDTRNSPT 03-28 16:44 → EDTRNSPTSTS 03-28 16:44 → CMPTRNSPT 03-28 16:52 → 1NO 03-30 11:30 → ENPENDDIS 04-01 10:00 → ENTRNSPT 04-01 18:37 → 1NO 04-01 19:00 → CMPTRNSPT 04-01 19:14
PROVIDERS: Emergency Medicine; Hospitalist; Internal Medicine; Physical Medicine & Rehabilitation Pain Medicine
DX: R31.0 Gross hematuria (principal); E44.1 Mild protein-calorie malnutrition; Z68.1 Body mass index [BMI] 19.9 or less, adult; T45.525A Adverse effect of antithrombotic drugs, initial encounter; N17.9 Acute kidney failure, unspecified; T39.015A Adverse effect of aspirin, initial encounter; Z85.528 Personal history of other malignant neoplasm of kidney; Z90.5 Acquired absence of kidney; W19.XXXA Unspecified fall, initial encounter; I25.10 Atherosclerotic heart disease of native coronary artery without angina pectoris; I25.2 Old myocardial infarction; N18.3 Chronic kidney disease, stage 3 (moderate); N40.1 Benign prostatic hyperplasia with lower urinary tract symptoms; R39.11 Hesitancy of micturition; R07.9 Chest pain, unspecified; R00.8 Other abnormalities of heart beat; N32.89 Other specified disorders of bladder; Z98.61 Coronary angioplasty status; Z79.82 Long term (current) use of aspirin; I49.3 Ventricular premature depolarization; K59.00 Constipation, unspecified
CPT/HCPCS: 1NP; 36592; 71045; 74176; 81001; 82436; 87086; 93005; 93010; 97110-GO; 97116-GO; 97161-GP